=== PATIENT | male | born 1955 | race Caucasian/White ===

== ENCOUNTER → 2016-07-23 | Outpatient (CLI) | payer BC ==
[~2016-07-23] MED LIST: AMLO10TA2 PO; ASPEC81 PO; CPR500 PO; CTPTP2 TD; GLIM4TAB2 PO; HYDR12.56 PO; LISI-725 PO; LISI40TA PO; LPR100 PO; METF-384 PO; NUTR-930 NJ; OXYC-609 PO
--- NOTE | 2016-07-23 08:58 | DIAGNOSTIC IMAGING REPORT ---
ABDOMEN COMPLETE (US) CLINICAL HISTORY: Acute pancreatitis. COMPARISON STUDY: Right upper quadrant ultrasound October 04, [address] of the abdomen and pelvis June 16, 2016 FINDINGS: The liver is echogenic. No hepatic lesions are identified. There is no biliary ductal dilatation status post cholecystectomy. The pancreas is largely obscured by overlying bowel gas. This study is compromised by suboptimal penetration. The sizes spleen is normal. There are several right renal calculi and suspected left renal calculi. No hydronephrosis is present. The right kidney measures 12.9 cm in maximal dimension and the left measures 12.3 cm. The caliber of the abdominal aorta is normal. IMPRESSION: 1. No biliary ductal dilatation status post cholecystectomy. 2. Partially obscured pancreas. 3. Fatty liver. 4. Bilateral nephrolithiasis. No hydronephrosis. Electronically signed by: Jalen Deras M.D. 07/23/2016 8:56 AM
== END | disposition home or self-care (01) ==
LOC: C.ULTR 07:57
PROVIDERS: ATTEND Family Medicine
DX: K85.00 Idiopathic acute pancreatitis without necrosis or infection (principal); I10 Essential (primary) hypertension; K76.0 Fatty (change of) liver, not elsewhere classified

== ENCOUNTER 2016-10-23 12:13 | Inpatient (IN) | payer BC ==
[~2016-10-23] VITALS: Ht 180.3 cm; Wt 144.2 kg
[~2016-10-23 12:13] MED LIST changes: -CTPTP2 TD; -GLIM4TAB2 PO; -LISI40TA PO; -LPR100 PO; -NUTR-930 NJ
[2016-10-23] MEDS ORDERED: ONDANSETRON INJ 2 MG/ML 2 ML VIAL IV STA (12:37)
[2016-10-23] MEDS ORDERED: SODIUM CHLORIDE 0.9% 1000ML 500 ML IV STA (12:37)
[2016-10-23] MEDS ORDERED: GLIM4TAB2 PO (12:47)
[2016-10-23 13:14] LABS: BASO % 0.2 %; BASO ABS # 0.03 K/uL (0-0.2); COMPLETE YES; EOS % 1.7 %; HEMATOCRIT 41.3 % (42-52); IG% 0.3 %; LYMPH % 14.9 %; LYMPH ABS # 2.05 K/uL (1.2-3.4); MEAN CORPUSCULAR HEMOGLOBIN 26.6 pg (25-34); MEAN CORPUSCULAR HGB CONC 33.2 g/dl (32-36); MEAN PLATELET VOLUME 9.7 fL (7.4-10.4); MONO % 8.8 %; NEUT % 74.1 %; PLATELET COUNT 264 K/uL (130-400); RED BLOOD COUNT 5.16 M/uL (4.7-6.1); WHITE BLOOD COUNT 13.75 K/uL (4.8-10.8)
[2016-10-23] MEDS: FENTANYL CITRATE INJ 50 MCG/1 ML 2 ML VIAL IV PRN ×2 (13:22→15:05)
[2016-10-23 13:25] LABS: PROTHROMBIN TIME (PATIENT) 10.4 SECONDS (9.0-12.0)
--- NOTE | 2016-10-23 13:26 | EMERGENCY ROOM VISIT NOTE ---
History Report prepared by Irma: Jenny Jamison Under the Supervision of: Dr. Thiago Barnes M.D. First contact with patient: 12:31 Chief Complaint: ABDOMINAL PAIN Stated Complaint: BELLY PAIN History of Present Illness The patient is a 60 year old male who presents to the Emergency Room with complaints of waxing and waning left sided abdominal pain starting 2 days ago. He denies any pain radiation to the back. He can feel some "gurgling" in his abdomen. He currently rates a pain intensity of 8/10. He has worsening pain with eating and lying down flat. He also complains of high blood pressure. His blood pressure was 210/116 this morning. He has a history of hypertension and denies missing any prescribed medications. He has a history of similar symptoms occurring in May 2016 and he was diagnosed with pancreatitis and colitis. He was placed on antibiotics then. The patient denies fevers, chest pain, urinary symptoms, diarrhea, or any other complaints. He takes a baby aspirin every day. Source of History: patient Onset: 2 days ago Position: abdomen (left sided) Symptom Intensity: 8/10 Timing: waxes/wanes Modifying Factors (Worsening): eating, other (lying down flat) Associated Symptoms: No chest pain, No diarrhea, No fevers, No urinary symptoms Review of Systems See HPI for pertinent positives & negatives. A total of 10 systems reviewed and were otherwise negative. Past Medical & Surgical Medical Problems: (1) Colitis (2) Diabetes (3) Hypertension Surgical Problems: (1) S/P cholecystectomy Family History Cancer Diabetes mellitus Heart disease Kidney disease Kidney stones Social History Smoking Status: Never Smoker Alcohol Use: none Marital Status: Housing Status: lives with significant other Occupation Status: employed Current/Historical Medications Scheduled Aspirin Enteric Coated (Ecotrin Or Generic *), 81 MG PO DAILY Glimepiride (Glimepiride), 1 TAB PO DAILY Lisinopril (Zestril), 20 MG PO QAM Metformin Hcl (Glucophage), 1,000 MG PO BID Allergies Coded Allergies: Penicillins (Verified Allergy, Mild, RASH, 06/16/16) NEVER HAS HAD DIFFICULTY BREATHING WITH PCN BEFORE- PER PT 10/30/09, [facility] IN [place] CHECKED WITH PT. HE IS WILLING TO TAKE ANCEF PRE-OP TODAY Amoxicillin (Verified Adverse Reaction, Severe, rash, 06/16/16) Morphine (Unverified Adverse Reaction, Severe, Rowdy, fired up, 10/23/16) Clindamycin (Verified Adverse Reaction, Unknown, ? nicol's syndrome, ) redness,diaphoresis, transient elevated temp. occurs aprox. 1 hour after taking med and resolves spontaneously in 20-30 minutes. Physical Exam Vital Signs Date Time Temp Pulse Resp B/P Pulse Ox O2 Delivery O2 Flow Rate FiO2 10/23/16 15:01 95 18 130/99 97 Room Air 10/23/16 14:01 94 16 136/89 95 Nasal Cannula 2.0 10/23/16 13:41 95 Nasal Cannula 2.0 10/23/16 13:31 99 10/23/16 13:27 100 18 154/95 94 Room Air 10/23/16 13:20 95 Room Air 10/23/16 12:19 36.7 117 18 195/109 95 Room Air Physical Exam GENERAL: Patient is in no acute distress. HEENT: No acute trauma, normocephalic atraumatic, mucous membranes moist, no nasal congestion, no scleral icterus. NECK: No stridor, no adenopathy, no meningismus, trachea is midline. LUNGS: Clear to auscultation bilaterally, no wheeze, no rhonchi, breath sounds equal. HEART: Tachycardic with a regular rhythm, no murmurs. ABDOMEN: Soft, tenderness in the epigastrium and along the entire left side, bowel sounds positive, no hernias, no peritonitis. EXTREMITIES: Mild bilateral pedal edema, full range of motion of all the joints without pain or difficulty, no signs for acute trauma. NEUROLOGIC: Oriented x 3, no acute motor or sensory deficits, no focal weakness. SKIN: No rash, no jaundice, no diaphoresis. Medical Decision & Procedures ER Provider Diagnostic Interpretation: CT results as stated below per my review and radiologist interpretation: CT ABD/PELVIS IV AND ORAL CONT CLINICAL HISTORY: Abdominal pain COMPARISON STUDY: 06/16/2016 TECHNIQUE: Following the IV administration of 94 mL of Optiray-320, CT scan of the abdomen and pelvis was performed from the lung bases to the proximal femurs. Images are reviewed in the axial, sagittal, and coronal planes. IV contrast was administered without complication. CT DOSE: 2159.21 mGy.cm FINDINGS: Lower chest: There are mild dependent atelectatic changes. Liver: There is hepatic steatosis. Gallbladder: Surgically absent Spleen: Normal in size and attenuation. Pancreas: There is infiltration of the peripancreatic fat suspicious for acute pancreatitis. Please correlate with appropriate biochemical markers. Adrenal glands: Unremarkable. Kidneys: There are bilateral nonobstructing renal calculi. Bowel: There are no transition zones indicate bowel obstruction. The appendix appears normal. There is colonic diverticulosis. There are no acute peridiverticular inflammatory changes. Peritoneum: There is no free air. There is trace free pelvic fluid.. There are fat-containing inguinal hernias versus lipomatous inguinal canals. Vasculature: The abdominal aorta is normal in course and caliber. Adenopathy: None. Pelvic viscera: The bladder, and pelvic viscera are unremarkable. Skeletal structures: No destructive osseous lesions are seen. IMPRESSION: 1. Infiltration of the peripancreatic fat. The findings are viewed as suspicious for acute pancreatitis. Please correlate with appropriate biochemical markers 2. Hepatic steatosis 3. Bilateral nephrolithiasis 4. No evidence of bowel obstruction. No evidence of free air 5. Diverticulosis. No evidence of acute diverticulitis 6. Normal appendix Electronically signed by: Juan Arriaza M.D. 10/23/2016 3:53 PM Dictated Date/Time: 10/23/2016 3:48 PM Laboratory Results 10/23/16 13:03 Red Blood Count 5.16, Mean Corpuscular Volume 80.0, Mean Corpuscular Hemoglobin 26.6, Mean Corpuscular Hemoglobin Concent 33.2, Mean Platelet Volume 9.7, Neutrophils (%) (Auto) 74.1, Lymphocytes (%) (Auto) 14.9, Monocytes (%) (Auto) 8.8, Eosinophils (%) (Auto) 1.7, Basophils (%) (Auto) 0.2, Neutrophils # (Auto) 10.19, Lymphocytes # (Auto) 2.05, Monocytes # (Auto) 1.21, Eosinophils # (Auto) 0.23, Basophils # (Auto) 0.03 10/23/16 13:03 Test 10/23/16 13:03 White Blood Count 13.75 K/uL (4.8-10.8) Red Blood Count 5.16 M/uL (4.7-6.1) Hemoglobin 13.7 g/dL (14.0-18.0) Hematocrit 41.3 % (42-52) Mean Corpuscular Volume 80.0 fL (80-100) Mean Corpuscular Hemoglobin 26.6 pg (25-34) Mean Corpuscular Hemoglobin Concent 33.2 g/dl (32-36) Platelet Count 264 K/uL (130-400) Mean Platelet Volume 9.7 fL (7.4-10.4) Neutrophils (%) (Auto) 74.1 % Lymphocytes (%) (Auto) 14.9 % Monocytes (%) (Auto) 8.8 % Eosinophils (%) (Auto) 1.7 % Basophils (%) (Auto) 0.2 % Neutrophils # (Auto) 10.19 K/uL (1.4-6.5) Lymphocytes # (Auto) 2.05 K/uL (1.2-3.4) Monocytes # (Auto) 1.21 K/uL (0.11-0.59) Eosinophils # (Auto) 0.23 K/uL (0-0.5) Basophils # (Auto) 0.03 K/uL (0-0.2) RDW Standard Deviation 42.3 fL (36.4-46.3) RDW Coefficient of Variation 14.5 % (11.5-14.5) Immature Granulocyte % (Auto) 0.3 % Immature Granulocyte # (Auto) 0.04 K/uL (0.00-0.02) Prothrombin Time 10.4 SECONDS (9.0-12.0) Prothromb Time International Ratio 1.0 (0.9-1.1) Activated Partial Thromboplast Time 27.2 SECONDS (21.0-31.0) Partial Thromboplastin Ratio 1.0 Anion Gap 7.0 mmol/L (3-11) Est Creatinine Clear Calc Drug Dose 120.6 ml/min Estimated GFR () 102.3 Estimated GFR (Non- 88.3 BUN/Creatinine Ratio 9.0 (10-20) Lactic Acid Level 1.4 mmol/L (0.4-2.0) Calcium Level 8.8 mg/dl (8.5-10.1) Total Bilirubin 0.6 mg/dl (0.2-1) Aspartate Amino Transf (AST/SGOT) 6 U/L (15-37) Alanine Aminotransferase (ALT/SGPT) 17 U/L (12-78) Alkaline Phosphatase 83 U/L (45-117) Total Protein 7.9 gm/dl (6.4-8.2) Albumin 3.4 gm/dl (3.4-5.0) Globulin 4.5 gm/dl (2.5-4.0) Albumin/Globulin Ratio 0.8 (0.9-2) Amylase Level 354 U/L (25-115) Lipase 4563 U/L (73-393) Laboratory results reviewed by me. Medications Administered Medications (Trade) Dose Ordered Sig/Akash Route Start Time Stop Time Status Last Admin Dose Admin Sodium Chloride (Nss 1000ml) 500 ml @ 999 mls/hr Q31M STAT IV 10/23/16 12:37 10/23/16 13:07 DC 10/23/16 13:23 999 MLS/HR Ondansetron HCl (Zofran Inj) 4 mg NOW STAT IV 10/23/16 12:37 10/23/16 12:41 DC 10/23/16 13:21 4 MG Fentanyl Citrate (Fentanyl Inj) 100 mcg Q15M PRN IV 10/23/16 12:45 11/06/16 12:44 10/23/16 15:05 100 MCG ED Course 1231: The patient was evaluated in room B06. A complete history and physical exam was performed. 1237: Zofran Inj 4 mg IV, Sodium Chloride 500 ml @ 999 mls/hr IV 1245: Fentanyl Inj 100 mcg IV 1432: Upon reexamination the patient is resting comfortably. I discussed results and treatment plan with the patient. He verbalizes agreement and understanding. The patient will be evaluated for further management. 1434: I discussed the patient's case with Dr. Fagan, from [facility] Hospitalist Service. Medical Decision Differential diagnosis includes but is not limited to pancreatitis, diverticulitis or colitis, bowel obstruction, bowel perforation, UTI, musculoskeletal pain, hernia, appendicitis. There is a mild leukocytosis which would be consistent with infection, no worrisome anemia. No significant electrolyte abnormality, kidney failure or hepatitis. There is no coagulopathy. Urinalysis does not show infection or significant hematuria. Pancreatitis was noted by our testing, lipase was over 4000. Abdominal and pelvis CT demonstrates acute pancreatitis, no bowel obstruction, no free air, no diverticulitis. The patient received IV Zofran, IV saline and IV fentanyl, he feels improved. Given the findings on laboratory testing and CT, admission/observation is warranted. I did speak with the patient and case management. The on-call hospitalist was consulted. Consults Time Called: 1432 Consulting Physician: Dr. Fagan, from [facility] Service Returned Call: 1434 I discussed the patient's case with Dr. Fagan, from [facility] Service. Impression Primary Impression: Acute pancreatitis Additional Impression: Left sided abdominal pain Scribe Attestation The scribe's documentation has been prepared under my direction and personally reviewed by me in its entirety. I confirm that the note above accurately reflects all work, treatment, procedures, and medical decision making performed by me. Departure Information Dispostion Being Evaluated By Hospitalist Referrals No Doctor, Assigned (PCP) Patient Instructions My [facility] Problem Qualifiers
[2016-10-23 13:33] LABS: CALCIUM 8.8 mg/dl (8.5-10.1); CREATININE 0.93 mg/dl (0.60-1.40); POTASSIUM 3.6 mmol/L (3.5-5.1)
[2016-10-23 13:35] LABS: ALB/GLOB RATIO 0.8 (0.9-2)
[2016-10-23] MEDS ORDERED: OPTIRAY 320 IV PRN (14:15)
[2016-10-23] MEDS ORDERED: HYDROmorphone INJ 0.5 MG/0.5 ML SYR IV PRN (15:15)
[2016-10-23] MEDS ORDERED: ONDANSETRON INJ 2 MG/ML 2 ML VIAL IV PRN (15:15)
[2016-10-23] MEDS: LACTATED RINGER'S 1000ML 1,000 ML IV SCH (15:15)
[2016-10-23] MEDS ORDERED: LORAZEPAM 2 MG/ML 1 ML VIAL IV PRN ×2 (15:15)
[2016-10-23] MEDS ORDERED: GLUCOSE 10 TABS/TUBE PO PRN (15:30)
[2016-10-23] MEDS ORDERED: GLUCAGON FOR INJ 1 MG VIAL SQ PRN (15:30)
[2016-10-23] MEDS ORDERED: DEXTROSE 50% 50 ML SYR IV PRN (15:30)
[2016-10-23] MEDS ORDERED: GLUCOSE 40% GEL 15 GM TUBE PO PRN (15:30)
--- NOTE | 2016-10-23 15:54 | DIAGNOSTIC IMAGING REPORT ---
CT ABD/PELVIS IV AND ORAL CONT CLINICAL HISTORY: Abdominal pain COMPARISON STUDY: 06/16/2016 TECHNIQUE: Following the IV administration of 94 mL of Optiray-320, CT scan of the abdomen and pelvis was performed from the lung bases to the proximal femurs. Images are reviewed in the axial, sagittal, and coronal planes. IV contrast was administered without complication. CT DOSE: 2159.21 mGy.cm FINDINGS: Lower chest: There are mild dependent atelectatic changes. Liver: There is hepatic steatosis. Gallbladder: Surgically absent Spleen: Normal in size and attenuation. Pancreas: There is infiltration of the peripancreatic fat suspicious for acute pancreatitis. Please correlate with appropriate biochemical markers. Adrenal glands: Unremarkable. Kidneys: There are bilateral nonobstructing renal calculi. Bowel: There are no transition zones indicate bowel obstruction. The appendix appears normal. There is colonic diverticulosis. There are no acute peridiverticular inflammatory changes. Peritoneum: There is no free air. There is trace free pelvic fluid.. There are fat-containing inguinal hernias versus lipomatous inguinal canals. Vasculature: The abdominal aorta is normal in course and caliber. Adenopathy: None. Pelvic viscera: The bladder, and pelvic viscera are unremarkable. Skeletal structures: No destructive osseous lesions are seen. IMPRESSION: 1. Infiltration of the peripancreatic fat. The findings are viewed as suspicious for acute pancreatitis. Please correlate with appropriate biochemical markers 2. Hepatic steatosis 3. Bilateral nephrolithiasis 4. No evidence of bowel obstruction. No evidence of free air 5. Diverticulosis. No evidence of acute diverticulitis 6. Normal appendix Electronically signed by: Juan Arriaza M.D. 10/23/2016 3:53 PM Dictated Date/Time: 10/23/2016 3:48 PM
[2016-10-23] MEDS: INSULIN ASPART 100 UNITS/ML 3 ML PEN SC SCH ×2 (16:30→20:22)
--- NOTE | 2016-10-23 16:37 | HISTORY & PHYSICAL EXAMINATION ---
DATE OF ADMISSION: 10/23/2016 CHIEF COMPLAINT: Abdominal pain. ADMITTING DIAGNOSIS: Acute pancreatitis. HISTORY OF PRESENT ILLNESS: Mr. Adair is a 60-year-old male who had a bout of pancreatitis in the fall of 2016. He is post-cholecystectomy patient. At that time, it was unclear etiology of his pancreatitis, although he had a concomitant descending colitis. The patient was treated and did well. He had some outpatient testing by his primary care physician, Dr. Barrios, which was unrevealing. The patient presents today with about 1 week's history of nagging abdominal pain which he worsened. He saw Dr. Barrios earlier in the week in which time his glucose was in poor control and he was prescribed glipizide in addition to his metformin. He says that his abdominal discomfort precedes that. He did begin the medication, but presented to the Emergency Department with intense mid to left upper quadrant abdominal pain, very reminiscent to his pre-cholecystectomy pain. The patient in the Emergency Department was found to have lipase of 4563. He is currently pending CAT scan. His pain control has been achieved with fentanyl. ALLERGIES: HE HAS AN ALLERGY TO MORPHINE. PAST MEDICAL HISTORY: Diabetes, hypertension, cholecystectomy, and fatty liver. MEDICATIONS: On presentation are aspirin 81 a day, lisinopril 20 a day, metformin 1000 b.i.d. and the glipizide which was just started this week. SOCIAL HISTORY: The patient did have a smoking history. He quit. He is and accompanied by his . FAMILY HISTORY: Positive for cancer, diabetes, heart disease and renal disease. REVIEW OF SYSTEMS: Ten systems were reviewed and are negative unless listed above. This includes no changes in his bowel habits. PHYSICAL EXAMINATION: GENERAL: He is pleasant, robust gentleman. VITAL SIGNS: Temperature 36.7, pulse 94, respiration 16, BP 136/89. He is slightly sedate from his fentanyl dosing. His O2 sats 95 on 2 liters. HEENT: PERRL, EOMI. Oropharynx is clear. He is anicteric. NECK: Without lymphadenopathy. Trachea is midline. HEART: Regular without murmurs. LUNGS: Clear without wheezes or crackles. Good air movement. SPINE: Nontender. He has no CV angle tenderness. ABDOMEN: He is with hypoactive bowel sounds. He is slightly obese. He is soft. He is uncomfortable in the epigastrium and bilateral upper quadrants. There is no rebound or guarding. EXTREMITIES: Without cyanosis, clubbing or edema. NEUROLOGIC: He is awake, alert and oriented, although sedate from his fentanyl. His cranial nerves II-XII are intact. He has equal symmetrical strength and sensation. LABORATORY DATA: Includes white count of 13, H\T\H 13 and 41, platelet count 264. BUN and creatinine of 8 and 0.9. LFTs are actually unremarkable, but amylase and lipase are both elevated. His glucose is 148. As mentioned, he has got a pending CT of the abdomen. ASSESSMENT: Acute recurrent pancreatitis. PLAN: His pancreatitis may be from microlithiasis as he does have a previous cholecystectomy. To this end, we will treat him with n.p.o. status with Lactated Ringer's, antiemetics, and parenteral pain medications. We will consult Dr. Abdi and Dr. Barrios for outpatient primary care to determine if we need to proceed with an MRCP or ERCP or any other diagnostic workup regarding the etiology of this gentleman's pancreatitis once this calms down a bit. For his diabetes, his medications will be held. He will be placed on insulin sliding scale. For his hypertension, his lisinopril will be held. He will be on enalaprilat intravenously with p.r.n. hydralazine for backup. He will have his aspirin held. DVT prevention is heparin. The patient is a full code.
[2016-10-23 17:12] VITALS: BP 165/99; PULSE 88; TEMP 37.1; O2SAT 93; Ht 180.3 cm; Wt 144.2 kg
[2016-10-23] MEDS: HYDROmorphone INJ 1 MG/ML SYR IV PRN ×2 (17:32→21:38)
[2016-10-23 17:43] LABS: URINE APPEARANCE CLEAR (CLEAR); URINE BILIRUBIN NEG (NEG); URINE COLOR DK YELLOW; URINE NITRITE NEG (NEG); URINE PH 5.5 (4.5-7.5); URINE SPECIFIC GRAVITY > 1.045 (1.000-1.030); UROBILINOGEN NEG (NEG); ZZUR CULT IF INDIC CLEAN CATCH NO
[2016-10-23 17:48] LABS: MANUAL MICROSCOPIC REQUIRED? NO; REVIEW REQ? NO
[2016-10-23] MEDS ORDERED: INFLUENZA VIRUS QUAD VACCINE 0.5 ML SYR IM. ONE (18:45)
[2016-10-23] MEDS ORDERED: INFLUENZA ADMINISTRATION CHARGE ONE (18:45)
[2016-10-23] MEDS ORDERED: PNEUMOCOCCAL POLYSACCHARIDES 25 MCG/0.5 ML VIAL/SYR IM. ONE (18:45)
[2016-10-23] MEDS ORDERED: PNEUMOCOCCAL ADMINISTRATION CHARGE ONE (18:45)
[2016-10-23] MEDS: ENALAPRILAT IV 1.25 MG in DEXTROSE 5% 25ML 25 ML IV SCH (20:51)
[2016-10-23] MEDS: HEPARIN SOD 5000 UNIT/0.5 ML CARP SQ SCH (20:58)
[2016-10-23 23:29] VITALS: BP 152/87; PULSE 96; TEMP 37.1; O2SAT 91
[2016-10-24] MEDS: LACTATED RINGER'S 1000ML 1,000 ML IV SCH ×4 (00:32→23:26)
[2016-10-24] MEDS: ENALAPRILAT IV 1.25 MG in DEXTROSE 5% 25ML 25 ML IV SCH ×3 (05:40→21:48)
[2016-10-24 07:28] VITALS: BP 155/79; PULSE 103; TEMP 37.3; O2SAT 93
[2016-10-24 07:34] LABS: HEMATOCRIT 39.6 % (42-52); MEAN CELL VOLUME 81.1 fL (80-100); MEAN CORPUSCULAR HGB CONC 33.3 g/dl (32-36); MEAN PLATELET VOLUME 10.2 fL (7.4-10.4); PLATELET COUNT 249 K/uL (130-400); RED BLOOD COUNT 4.88 M/uL (4.7-6.1)
[2016-10-24 07:49] LABS: BUN/CREATININE RATIO 9.9 (10-20); CALCIUM 8.5 mg/dl (8.5-10.1); CREATININE 0.84 mg/dl (0.60-1.40); POTASSIUM 3.8 mmol/L (3.5-5.1)
[2016-10-24 07:52] LABS: ALB/GLOB RATIO 0.7 (0.9-2)
[2016-10-24] MEDS: HEPARIN SOD 5000 UNIT/0.5 ML CARP SQ SCH ×2 (07:59→21:51)
[2016-10-24] MEDS: INSULIN ASPART 100 UNITS/ML 3 ML PEN SC SCH ×3 (07:59→18:29)
[2016-10-24] MEDS ORDERED: LORAZEPAM INJ 0.5 MG in SYRINGE 0.75 ML IV PRN (08:00)
[2016-10-24] MEDS: LORAZEPAM INJ 1 MG in SYRINGE 0.5 ML IV PRN ×3 (08:14→21:53)
--- NOTE | 2016-10-24 12:51 | Hospitalist Progress Note ---
Hospitalist Progress Note Date of Service Oct 24, 2016. (Anabella Jimenez PA-C) Subjective Pt evaluation today including: conversation w/ patient, conversation w/ family , physical exam, chart review, lab review, review of studies, review of inpatient medication list Abdominal pain is improved today. Nausea has also improved. The patient is passing gas, however he admits to also burping. No bowel movements. No fever or chills. Had a bad reaction to the Dilaudid. Requesting fentanyl. Additional Comments: 6 system review negative. Please see pertinent positives in the history of present illness section. (Anabella Jimenez PA-C) Objective Vital Signs Date Time Temp Pulse Resp B/P Pulse Ox O2 Delivery O2 Flow Rate FiO2 10/24/16 08:00 Room Air 10/24/16 07:28 37.3 103 20 155/79 93 Room Air 10/23/16 23:50 Room Air 10/23/16 23:29 37.1 96 20 152/87 91 Room Air 10/23/16 17:12 37.1 88 18 165/99 93 Room Air 10/23/16 16:26 87 18 151/90 94 Room Air 10/23/16 15:01 95 18 130/99 97 Room Air 10/23/16 14:01 94 16 136/89 95 Nasal Cannula 2.0 10/23/16 13:41 95 Nasal Cannula 2.0 10/23/16 13:31 99 10/23/16 13:27 100 18 154/95 94 Room Air 10/23/16 13:20 95 Room Air (Anabella Jimenez PA-C) Physical Exam General Appearance: no apparent distress Eyes: EOMI ENT: + pertinent finding (oral mucosa fairly dry) Neck: no JVD Respiratory/Chest: lungs clear Cardiovascular: + tachycardia (mildly tachycardic. Regular rhythm.) Abdomen: normal bowel sounds, non tender, soft Extremities: non-tender, no pedal edema Neurologic/Psychiatric: no motor/sensory deficits, oriented x 3 Skin: warm/dry (Anabella Jimenez PA-C) Laboratory Results 10/24/16 07:09 10/24/16 07:09 Test 10/23/16 13:03 10/23/16 17:00 10/24/16 07:09 10/24/16 11:12 Immature Granulocyte % (Auto) 0.3 % White Blood Count 13.75 K/uL (4.8-10.8) Red Blood Count 5.16 M/uL (4.7-6.1) 4.88 M/uL (4.7-6.1) Hemoglobin 13.7 g/dL (14.0-18.0) Hematocrit 41.3 % (42-52) Mean Corpuscular Volume 80.0 fL (80-100) 81.1 fL (80-100) Mean Corpuscular Hemoglobin 26.6 pg (25-34) 27.0 pg (25-34) Mean Corpuscular Hemoglobin Concent 33.2 g/dl (32-36) 33.3 g/dl (32-36) Platelet Count 264 K/uL (130-400) Mean Platelet Volume 9.7 fL (7.4-10.4) 10.2 fL (7.4-10.4) Neutrophils (%) (Auto) 74.1 % Lymphocytes (%) (Auto) 14.9 % Monocytes (%) (Auto) 8.8 % Eosinophils (%) (Auto) 1.7 % Basophils (%) (Auto) 0.2 % Neutrophils # (Auto) 10.19 K/uL (1.4-6.5) Lymphocytes # (Auto) 2.05 K/uL (1.2-3.4) Monocytes # (Auto) 1.21 K/uL (0.11-0.59) Eosinophils # (Auto) 0.23 K/uL (0-0.5) Basophils # (Auto) 0.03 K/uL (0-0.2) Immature Granulocyte # (Auto) 0.04 K/uL (0.00-0.02) Prothrombin Time 10.4 SECONDS (9.0-12.0) Prothromb Time International Ratio 1.0 (0.9-1.1) Activated Partial Thromboplast Time 27.2 SECONDS (21.0-31.0) Partial Thromboplastin Ratio 1.0 Lactic Acid Level 1.4 mmol/L (0.4-2.0) Amylase Level 354 U/L (25-115) Urine Color DK YELLOW Urine Appearance CLEAR (CLEAR) Urine pH 5.5 (4.5-7.5) Urine Specific Pierz > 1.045 (1.000-1.030) Urine Protein TRACE (NEG) Urine Glucose (UA) TRACE (NEG) Urine Ketones TRACE (NEG) Urine Occult Blood NEG (NEG) Urine Nitrite NEG (NEG) Urine Bilirubin NEG (NEG) Urine Urobilinogen NEG (NEG) Urine Leukocyte Esterase NEG (NEG) Urine WBC (Auto) 1-5 /hpf (0-5) Urine RBC (Auto) 0-4 /hpf (0-4) Urine Hyaline Casts (Auto) 1-5 /lpf (0-5) Urine Epithelial Cells (Auto) 10-20 /lpf (0-5) Urine Bacteria (Auto) NEG (NEG) RDW Standard Deviation 43.9 fL (36.4-46.3) RDW Coefficient of Variation 14.8 % (11.5-14.5) Anion Gap 10.0 mmol/L (3-11) Est Creatinine Clear Calc Drug Dose 134.3 ml/min Estimated GFR () 109.5 Estimated GFR (Non- 94.5 BUN/Creatinine Ratio 9.9 (10-20) Calcium Level 8.5 mg/dl (8.5-10.1) Total Bilirubin 0.9 mg/dl (0.2-1) Aspartate Amino Transf (AST/SGOT) 9 U/L (15-37) Alanine Aminotransferase (ALT/SGPT) 16 U/L (12-78) Alkaline Phosphatase 80 U/L (45-117) Total Protein 7.4 gm/dl (6.4-8.2) Albumin 3.0 gm/dl (3.4-5.0) Globulin 4.4 gm/dl (2.5-4.0) Albumin/Globulin Ratio 0.7 (0.9-2) Lipase 468 U/L (73-393) Bedside Glucose 167 mg/dl (70-99) Last 24 Hours Test 10/23/16 13:03 10/23/16 16:46 10/23/16 17:00 10/23/16 19:44 White Blood Count 13.75 K/uL Red Blood Count 5.16 M/uL Hemoglobin 13.7 g/dL Hematocrit 41.3 % Mean Corpuscular Volume 80.0 fL Mean Corpuscular Hemoglobin 26.6 pg Mean Corpuscular Hemoglobin Concent 33.2 g/dl Platelet Count 264 K/uL Mean Platelet Volume 9.7 fL Neutrophils (%) (Auto) 74.1 % Lymphocytes (%) (Auto) 14.9 % Monocytes (%) (Auto) 8.8 % Eosinophils (%) (Auto) 1.7 % Basophils (%) (Auto) 0.2 % Neutrophils # (Auto) 10.19 K/uL Lymphocytes # (Auto) 2.05 K/uL Monocytes # (Auto) 1.21 K/uL Eosinophils # (Auto) 0.23 K/uL Basophils # (Auto) 0.03 K/uL RDW Standard Deviation 42.3 fL RDW Coefficient of Variation 14.5 % Immature Granulocyte % (Auto) 0.3 % Immature Granulocyte # (Auto) 0.04 K/uL Prothrombin Time 10.4 SECONDS Prothromb Time International Ratio 1.0 Activated Partial Thromboplast Time 27.2 SECONDS Partial Thromboplastin Ratio 1.0 Sodium Level 137 mmol/L Potassium Level 3.6 mmol/L Chloride Level 101 mmol/L Carbon Dioxide Level 29 mmol/L Anion Gap 7.0 mmol/L Blood Urea Nitrogen 8 mg/dl Creatinine 0.93 mg/dl Est Creatinine Clear Calc Drug Dose 120.6 ml/min Estimated GFR () 102.3 Estimated GFR (Non- 88.3 BUN/Creatinine Ratio 9.0 Random Glucose 148 mg/dl Lactic Acid Level 1.4 mmol/L Calcium Level 8.8 mg/dl Total Bilirubin 0.6 mg/dl Aspartate Amino Transf (AST/SGOT) 6 U/L Alanine Aminotransferase (ALT/SGPT) 17 U/L Alkaline Phosphatase 83 U/L Total Protein 7.9 gm/dl Albumin 3.4 gm/dl Globulin 4.5 gm/dl Albumin/Globulin Ratio 0.8 Amylase Level 354 U/L Lipase 4563 U/L Bedside Glucose 131 mg/dl 151 mg/dl Urine Color DK YELLOW Urine Appearance CLEAR Urine pH 5.5 Urine Specific Pierz > 1.045 Urine Protein TRACE Urine Glucose (UA) TRACE Urine Ketones TRACE Urine Occult Blood NEG Urine Nitrite NEG Urine Bilirubin NEG Urine Urobilinogen NEG Urine Leukocyte Esterase NEG Urine WBC (Auto) 1-5 /hpf Urine RBC (Auto) 0-4 /hpf Urine Hyaline Casts (Auto) 1-5 /lpf Urine Epithelial Cells (Auto) 10-20 /lpf Urine Bacteria (Auto) NEG Test 10/24/16 07:09 10/24/16 07:14 10/24/16 11:12 White Blood Count 13.90 K/uL Red Blood Count 4.88 M/uL Hemoglobin 13.2 g/dL Hematocrit 39.6 % Mean Corpuscular Volume 81.1 fL Mean Corpuscular Hemoglobin 27.0 pg Mean Corpuscular Hemoglobin Concent 33.3 g/dl RDW Standard Deviation 43.9 fL RDW Coefficient of Variation 14.8 % Platelet Count 249 K/uL Mean Platelet Volume 10.2 fL Sodium Level 137 mmol/L Potassium Level 3.8 mmol/L Chloride Level 101 mmol/L Carbon Dioxide Level 26 mmol/L Anion Gap 10.0 mmol/L Blood Urea Nitrogen 8 mg/dl Creatinine 0.84 mg/dl Est Creatinine Clear Calc Drug Dose 134.3 ml/min Estimated GFR () 109.5 Estimated GFR (Non- 94.5 BUN/Creatinine Ratio 9.9 Random Glucose 183 mg/dl Calcium Level 8.5 mg/dl Total Bilirubin 0.9 mg/dl Aspartate Amino Transf (AST/SGOT) 9 U/L Alanine Aminotransferase (ALT/SGPT) 16 U/L Alkaline Phosphatase 80 U/L Total Protein 7.4 gm/dl Albumin 3.0 gm/dl Globulin 4.4 gm/dl Albumin/Globulin Ratio 0.7 Lipase 468 U/L Bedside Glucose 173 mg/dl 167 mg/dl (Anabella Jimenez PA-C) Diagnostic Results CT abd/pelvis 1. Infiltration of the peripancreatic fat. The findings are viewed as suspicious for acute pancreatitis. Please correlate with appropriate biochemical markers 2. Hepatic steatosis 3. Bilateral nephrolithiasis 4. No evidence of bowel obstruction. No evidence of free air 5. Diverticulosis. No evidence of acute diverticulitis 6. Normal appendix (Anabella Jimenez PA-C) Assessment and Plan 60-year-old male presents emergency department with upper abdominal pain. Found to have an elevated lipase at over [address] Acute pancreatitis-? Retained stone. Clinically improving -Continue NPO -Awaiting GI recommendations for possible ERCP versus MRCP -Patient had adverse reaction to Dilaudid. He also cannot take morphine. Unable to give fentanyl. -Try lidocaine patch -May consider NSAIDs if no procedures done -Continue Zofran 4 mg IV every 6 hours as needed -Continue LR at 125 mL/h Diabetes type 2-blood sugars reasonable -Dose of metformin 1000 mg twice daily and glipizide are on hold -Continue insulin sliding scale and NovoLog coverage DVT prophylaxis -Heparin 5000 u subQ BID -TEDS, SCDs CODE STATUS -LEVEL I FULL CODE (Anabella Jimenez, PA-C) I agree with PA assessment and plan and have seen and examined pt myself Resting comfortably in bed Reports continued flank pain VSS Asking for diet S/P adria with acute pancreatitis Lipase improving, cont IV fluids (Seth Velazco D.O.)
[2016-10-24 14:12] VITALS: BP 173/102; PULSE 102
[2016-10-24 14:53] VITALS: BP 179/98; PULSE 100; TEMP 37.4; O2SAT 92
[2016-10-24] MEDS ORDERED: NURSING VERBAL MED ORDER ONE ×2 (16:00→18:30)
[2016-10-24] MEDS ORDERED: NURSING DECISION MEDICATION ORDER SCH (16:00)
[2016-10-24 16:04] VITALS: BP 168/110; PULSE 109
[2016-10-24] MEDS: HydrALAZINE HCL 20 MG/ML VIAL IV PRN (16:08)
[2016-10-24] MEDS: LIDODERM (LIDOCAINE) PATCH 5% TD SCH (16:09)
[2016-10-24 18:18] VITALS: BP_SYST 179; BP_SYST 188; BP_SYST 192; BP_DIAS 102; BP_DIAS 115; BP_DIAS 98; PULSE 102
[2016-10-24] MEDS ORDERED: CLONIDINE HCL 0.2 MG/24 HR TRANSDERM SYS TD SCH (19:00)
[2016-10-24 21:40] VITALS: BP 150/78; PULSE 110
[2016-10-24] MEDS: CHECK CLONIDINE PATCH PLACEMENT SCH (23:27)
[2016-10-25] VITALS (8 sets, daily range): BP systolic 161–187; BP diastolic 90–104; PULSE 90–110; TEMP 37–37.3; O2SAT 90–95
[2016-10-25] MEDS: ENALAPRILAT IV 1.25 MG in DEXTROSE 5% 25ML 25 ML IV SCH ×3 (06:31→21:37)
[2016-10-25] MEDS: INSULIN ASPART 100 UNITS/ML 3 ML PEN SC SCH ×5 (07:18→21:43)
[2016-10-25 07:41] LABS: ALB/GLOB RATIO 0.6 (0.9-2); BUN/CREATININE RATIO 8.9 (10-20); CALCIUM 8.4 mg/dl (8.5-10.1); CREATININE 0.75 mg/dl (0.60-1.40); POTASSIUM 3.4 mmol/L (3.5-5.1)
[2016-10-25] MEDS: HydrALAZINE HCL 20 MG/ML VIAL IV PRN ×2 (07:49→15:29)
[2016-10-25] MEDS: LACTATED RINGER'S 1000ML 1,000 ML IV SCH ×2 (07:49→15:32)
[2016-10-25] MEDS: CHECK CLONIDINE PATCH PLACEMENT SCH ×2 (07:50→16:00)
[2016-10-25] MEDS: HEPARIN SOD 5000 UNIT/0.5 ML CARP SQ SCH ×2 (07:58→21:00)
[2016-10-25] MEDS: LIDODERM (LIDOCAINE) PATCH 5% TD SCH (07:58)
[2016-10-25] MEDS ORDERED: POTASSIUM CHLORIDE 10 MEQ TABCR PO ONE (09:45)
--- NOTE | 2016-10-25 12:52 | GASTROINTESTINAL CONSULTATION ---
DATE OF CONSULTATION: 10/24/2016 CHIEF COMPLAINT: Recurrent acute pancreatitis. HISTORY OF PRESENT ILLNESS: Mr. Adair is a 60-year-old white male who presents with a second attack of pancreatitis, initially one in May which required a 2-3 day hospitalization. A source at that time was not identified. The patient was feeling well and had an acute onset of abdominal pain that was again consistent with the patient's attack of pancreatitis. Interestingly, his location of pain seems to be mostly in the mid to lower abdomen at or below the level of the umbilicus and actually towards the left lower quadrant region. The patient is a post-cholecystectomy patient. The patient had an approximate 1 week history of abdominal pain that was again similar to his prior attack of pancreatitis. Unfortunately, his blood sugar was poorly controlled and an adjustment to his diabetic medications, added glipizide to his metformin regimen, although this occurred after the development of this pain. In the Emergency Room, he had an elevated lipase level and CT imaging did show evidence of pancreatitis and will be described below. The patient denies any alcohol intake recently and unusually only has 1 alcoholic beverage perhaps monthly. There are no reports of significantly elevated cholesterol triglyceride levels at least according to the patient's history. PAST MEDICAL HISTORY: Includes diabetes, hypertension, cholecystectomy, fatty liver. ALLERGIES: INCLUDE MORPHINE. MEDICATIONS: Presently are aspirin, lisinopril, metformin 1000 mg twice daily and glipizide just recently started. SOCIAL HISTORY: The patient has not had tobacco use recently. There is no recent alcohol use. FAMILY HISTORY: Significant for diabetes, heart disease, renal disease, and cancer. REVIEW OF SYSTEMS: Otherwise noncontributory. The patient denies any nausea, vomiting, odynophagia, dysphagia, hematemesis, coffee-ground emesis, melena or bright red blood per rectum. There is no dysuria or hematuria. PHYSICAL EXAMINATION: GENERAL: Today shows a well developed white male in no acute distress. The patient is resting comfortably in bed. The patient is afebrile and has been so since admission. The patient is awake, alert and oriented x3. VITAL SIGNS: His current blood pressure is 179/98, heart rate 100, respirations 18 and pulse ox 92% on room air, temperature 37.4. HEENT: Sclerae are anicteric, conjunctiva moist. Oral mucosa moist. NECK: There is no cervical or supraclavicular adenopathy. I do not appreciate thyromegaly. HEART: Normal S1, S2. LUNGS: Clear to auscultation without rales, rhonchi or wheezes. ABDOMEN: The patient is resting comfortably in bed at the present time, the patient's pain in the abdomen is generally at the level of the umbilicus on the left side and perhaps towards the left lower quadrant. There is no rebound or guarding, although the patient does describe that sometimes the pain will go across the mid abdomen. I do not appreciate hepatosplenomegaly, although body habitus limits this exam. EXTREMITIES: Without clubbing, cyanosis. There is trace edema bilaterally. RECTAL: Deferred. LABORATORY STUDIES: Today reveal a white count of 13.9, hemoglobin 13.2, MCV 81, platelets 249,000. Serum chemistries on admission show normal LFTs with total bilirubin 0.6, AST 6, ALT 17, alkaline phosphatase 83, albumin is 3.4, amylase 354, lipase 4563. ____ and electrolytes were normal. BUN and creatinine 0.8 and 0.9. Potassium is normal at 3.6. INR 1.0. His urinalysis showed trace glucose with 10-20 epithelial cells, nitrite and leukocyte esterase, negative without urinary white blood cells or bacteria. CT imaging on admission on October 23 afternoon revealed evidence of an infiltration on the peripancreatic fat suspicious for acute pancreatitis. This was compared to May 2016 study, features were consistent with acute pancreatitis. There is also hepatic steatosis, nephrolithiasis bilaterally without evidence of bowel obstruction, free air or diverticulitis. Diverticulosis, however, is noted. The appendix appears normal. The bladder and pelvis are unremarkable. There is no suspicious adenopathy. IMPRESSION: The patient with recurrent pancreatitis in May and again this week of unclear etiology. There is no alcohol use or specific medicine that was started prior to the development of these symptoms. He denies the use of chronic NSAID use, does not smoke and does not use routine alcoholic beverages nor does he use excess alcohol when he does have an occasional drink. Differential diagnosis is idiopathic pancreatitis (there is no family history of recurrent pancreatitis), possibly stone disease in the biliary system; however, LFTs are negative on admission. This was also true in his prior hospitalization when in May at which point his bilirubin was 0.7, direct 0.1, AST 11, ALT 16, alkaline phosphatase 77. I made the following recommendations. I believe it is reasonable for the patient to undergo imaging of the biliary tree to exclude any subtle stone or sludge that may be causing these recurrent attacks. I would recommend this as a noninvasive approach with an MRCP. The patient, however, does have issues with claustrophobia and it may be helpful to provide an anxiolytic for this. If the pancreatic enzyme clinical situation improves, then it is reasonable to advance the diet ultimately to a low-fat diet. Cholesterol and triglycerides along with ionized calcium if not recently performed, would be helpful. Once the pancreatitis resolves, it may be reasonable to repeat imaging either by a CT scan once the inflammation is resolved or endoscopic ultrasound in the same timeframe (4-8 weeks). There has been no concerning weight loss; however, development of these attacks of pancreatitis without a specific reason warrants exclusion of any pancreatic lesions. Would strive for good glycemic control. All questions answered. Thank you for allowing me to participate in this patient's care.
[2016-10-25] MEDS: LORAZEPAM INJ 1 MG in SYRINGE 0.5 ML IV PRN (12:56)
--- NOTE | 2016-10-25 13:43 | Hospitalist Progress Note ---
Hospitalist Progress Note Date of Service Oct 25, 2016. (Anabella Jimenez PA-C) Subjective Pt evaluation today including: conversation w/ patient, conversation w/ family , physical exam, chart review, lab review, review of inpatient medication list Patient reports that the abdominal pain is improved. He notes a mild cramping sensation in the lower abdomen that he attributes to muscle tension. He denies any nausea. He has not had anything to eat or drink in 2 days. He was able to have 2 normal bowel movements this morning. Additional Comments: 6 system review negative. Please see pertinent positives in the history of present illness section. (Anabella Jimenez PA-C) Objective Vital Signs Date Time Temp Pulse Resp B/P Pulse Ox O2 Delivery O2 Flow Rate FiO2 10/25/16 09:14 169/101 10/25/16 08:14 Room Air 10/25/16 08:03 Room Air 10/25/16 07:21 37.1 99 20 92 Room Air 10/25/16 07:15 182/104 10/25/16 00:29 37.0 90 18 161/91 90 Room Air 10/25/16 00:00 Room Air 10/24/16 21:40 110 150/78 10/24/16 20:00 Room Air 10/24/16 18:18 102 179/115 192/102 188/98 10/24/16 16:04 109 168/110 10/24/16 16:00 Room Air 10/24/16 14:53 37.4 100 18 179/98 92 Room Air 10/24/16 14:12 102 173/102 (Anabella Jimenez PA-C) Physical Exam General Appearance: no apparent distress Eyes: EOMI Neck: no JVD Respiratory/Chest: lungs clear Cardiovascular: regular rate, rhythm Abdomen: normal bowel sounds, non tender, soft Extremities: non-tender, no pedal edema Neurologic/Psychiatric: no motor/sensory deficits, oriented x 3 (Anabella Jimenez PA-C) Laboratory Results 10/25/16 06:40 Test 10/25/16 06:40 10/25/16 12:01 Anion Gap 10.0 mmol/L (3-11) Est Creatinine Clear Calc Drug Dose 150.4 ml/min Estimated GFR () 114.8 Estimated GFR (Non- 99.0 BUN/Creatinine Ratio 8.9 (10-20) Calcium Level 8.4 mg/dl (8.5-10.1) Total Bilirubin 0.7 mg/dl (0.2-1) Aspartate Amino Transf (AST/SGOT) 11 U/L (15-37) Alanine Aminotransferase (ALT/SGPT) 16 U/L (12-78) Alkaline Phosphatase 77 U/L (45-117) Total Protein 6.8 gm/dl (6.4-8.2) Albumin 2.6 gm/dl (3.4-5.0) Globulin 4.2 gm/dl (2.5-4.0) Albumin/Globulin Ratio 0.6 (0.9-2) Lipase 189 U/L (73-393) Bedside Glucose 159 mg/dl (70-99) Last 24 Hours Test 10/24/16 18:07 10/25/16 00:14 10/25/16 06:35 10/25/16 06:40 Bedside Glucose 154 mg/dl 172 mg/dl 172 mg/dl Sodium Level 138 mmol/L Potassium Level 3.4 mmol/L Chloride Level 102 mmol/L Carbon Dioxide Level 26 mmol/L Anion Gap 10.0 mmol/L Blood Urea Nitrogen 7 mg/dl Creatinine 0.75 mg/dl Est Creatinine Clear Calc Drug Dose 150.4 ml/min Estimated GFR () 114.8 Estimated GFR (Non- 99.0 BUN/Creatinine Ratio 8.9 Random Glucose 158 mg/dl Calcium Level 8.4 mg/dl Total Bilirubin 0.7 mg/dl Aspartate Amino Transf (AST/SGOT) 11 U/L Alanine Aminotransferase (ALT/SGPT) 16 U/L Alkaline Phosphatase 77 U/L Total Protein 6.8 gm/dl Albumin 2.6 gm/dl Globulin 4.2 gm/dl Albumin/Globulin Ratio 0.6 Lipase 189 U/L Test 10/25/16 12:01 Bedside Glucose 159 mg/dl (Anabella Jimenez, PA-C) Assessment and Plan 60-year-old male presents emergency department with upper abdominal pain. Found to have an elevated lipase at over [address] Acute pancreatitis-etiology unclear. Does not seem to be alcohol related.? Retained stone -Continue NPO -GI to follow up this afternoon for possible ERCP versus MRCP -Continue LR at 125 mL/h -Advancing his diet to see how he tolerates, and then discharge with close GI follow-up would also be reasonable. Diabetes type 2- -Metformin 1000 mg twice daily and glipizide are on hold -Continue insulin sliding scale and NovoLog coverage HTN-BP up -Hydralazine 10 mg IV q 6 hr PRN -clonidine patch .0.2 transdermal -Vasotec IV -Consider addition of B juventino if it remains high DVT prophylaxis -Heparin 5000 u subQ BID -TEDS, SCDs CODE STATUS -LEVEL I FULL CODE (Anabella Jimenez, PA-C) I agree with PA assessment and plan and have seen and examined the pt myself Pt reports mod abd discomfort Acute pancreatitis on unknown etiology Kept NPO per GI team Tentative MRCP to be completed Reviewed labs (Seth Velazco D.O.)
[2016-10-25] MEDS ORDERED: LORAZEPAM INJ 2 MG in SYRINGE 1 ML IV PRN (14:45)
--- NOTE | 2016-10-25 15:27 | PROGRESS NOTE ---
DATE: 10/25/2016 HISTORY OF PRESENT ILLNESS: The patient is having less abdominal pain compared to admission. His lipase has gone down from 4563-189 in 48 hours. His liver tests were and continue to remain normal. CT scan shows some peripancreatic stranding consistent with acute pancreatitis. The patient had a previous cholecystectomy and there is no obvious biliary ductal dilation. His calcium is normal as well. PHYSICAL EXAMINATION: GENERAL: The patient appears in no acute distress. VITAL SIGNS: Blood pressure 165/92, pulse 96. ABDOMEN: Soft and nontender. IMPRESSION AND PLAN: The patient has acute idiopathic pancreatitis. I have ordered an MRCP to be done with IV Ativan sedation due to the patient's claustrophobia to see if there are any signs of pancreas divisum or other potential cause for his pancreatitis. Hopefully, once things have settled down and if his MRCP is negative, he may need to have an outpatient endoscopic ultrasound with Dr. Qiu to check for other potential causes of pancreatitis.
[2016-10-25] MEDS ORDERED: LORAZEPAM 2 MG/ML 1 ML VIAL **EMERGENCY USE ONE (16:29)
[2016-10-25] MEDS ORDERED: NURSING VERBAL MED ORDER ONE (17:45)
[2016-10-25] MEDS ORDERED: ACETAMINOPHEN 325 MG TAB PO PRN (18:00)
[2016-10-26] VITALS (7 sets, daily range): BP systolic 155–169; BP diastolic 84–105; PULSE 90–93; TEMP 36.5–37.2; O2SAT 91–96
[2016-10-26] MEDS: LACTATED RINGER'S 1000ML 1,000 ML IV SCH ×2 (01:11→08:01)
[2016-10-26] MEDS: ENALAPRILAT IV 1.25 MG in DEXTROSE 5% 25ML 25 ML IV SCH ×2 (05:14→14:04)
[2016-10-26] MEDS: HydrALAZINE HCL 20 MG/ML VIAL IV PRN (05:22)
[2016-10-26 06:36] LABS: HEMATOCRIT 38.6 % (42-52); MEAN CELL VOLUME 80.6 fL (80-100); MEAN CORPUSCULAR HEMOGLOBIN 26.9 pg (25-34); MEAN CORPUSCULAR HGB CONC 33.4 g/dl (32-36); MEAN PLATELET VOLUME 10.1 fL (7.4-10.4); PLATELET COUNT 267 K/uL (130-400); RED BLOOD COUNT 4.79 M/uL (4.7-6.1); WHITE BLOOD COUNT 7.92 K/uL (4.8-10.8)
[2016-10-26 07:15] LABS: BUN/CREATININE RATIO 9.5 (10-20); CALCIUM 8.7 mg/dl (8.5-10.1); CREATININE 0.84 mg/dl (0.60-1.40); POTASSIUM 3.7 mmol/L (3.5-5.1)
[2016-10-26 07:17] LABS: ALB/GLOB RATIO 0.6 (0.9-2)
[2016-10-26] MEDS: CHECK CLONIDINE PATCH PLACEMENT SCH ×2 (07:57)
[2016-10-26] MEDS: HEPARIN SOD 5000 UNIT/0.5 ML CARP SQ SCH (08:06)
[2016-10-26] MEDS: LIDODERM (LIDOCAINE) PATCH 5% TD SCH (08:07)
[2016-10-26] MEDS: INSULIN ASPART 100 UNITS/ML 3 ML PEN SC SCH ×2 (08:13→12:30)
[2016-10-26] MEDS ORDERED: CTPTP2 TD (14:05)
--- NOTE | 2016-10-26 14:07 | Discharge Instructions ---
Discharge Instructions Date of Service Oct 26, 2016. Admission Reason for Admission: Acute Pancreatitis Discharge Discharge Diagnosis / Problem: Acute pancreatitis Discharge Goals Goal(s): Decrease discomfort, Improve function, Increase independence, Improve disease control, Diagnostic testing, Therapeutic intervention Activity Recommendations Activity Limitations: resume your previous activity Exercise/Sports Limitations: none . Instructions / Follow-Up Instructions / Follow-Up Patient to be discharged home Clonidine patch script sent to pharmacy for high blood pressure Will need to follow up with Dr Qiu for further evaluation If worsening pain, fevers or chills please come back to ER Current Hospital Diet Patient's current hospital diet: Diabetes Type 2 Diet, Low Sodium Diet (2gm Na) Discharge Diet Recommended Diet: Low Sodium Diet (2gm Na), Diabetes Type 2 Diet Pending Studies Studies pending at discharge: no Medical Emergencies . Who to Call and When: Medical Emergencies: If at any time you feel your situation is an emergency, please call 911 immediately. . Non-Emergent Contact Non-Emergency issues call your: Primary Care Provider Call Non-Emergent contact if: you have a fever, your pain is worsening . . "Provider Documentation" section prepared by Seth Velazco. VTE Core Measure Inpt VTE Proph given/why not?: Unfractionated heparin SQ
--- NOTE | 2016-10-26 15:29 | Discharge Summary ---
Discharge Summary Date of Service Oct 26, 2016. Discharge Summary Admission Date: Oct 23, 2016 at 15:13 Discharge Date: Oct 26, 2016 Discharge Disposition: Home Principal Diagnosis: Acute pancreatitis Immunizations: Have You Had Influenza Vaccine: No History of Tetanus Vaccine?: Yes History of Pneumococcal: No History of Hepatitis B Vaccine: Yes Consultations: GI Medication Reconciliation New Medications: Clonidine HCl (Clonidine HCl) 1 Patch Tdsy 1 PATCH TD Th@2100, #30 PATCH Continued Medications: Aspirin Enteric Coated (Ecotrin Or Generic *) 81 Mg Ectab 81 MG PO DAILY, 0 Refills Glimepiride (Glimepiride) 4 Mg Tab 1 TAB PO DAILY Lisinopril (Zestril) 20 Mg Tab 20 MG PO QAM, TAB Metformin Hcl (Glucophage) 1,000 Mg Tab 1000 MG PO BID, TAB Discharge Exam Review of Systems: Constitutional: No chills, No fever Respiratory: No cough, No shortness of breath, No sputum, No wheezing Cardiovascular: No chest pain, No orthopnea Abdomen: No nausea, No pain, No vomiting Musculoskeletal: No joint pain, No muscle pain Genitourinary - Male: No dysuria, No hematuria, No urinary frequency, No urinary urgency Physical Exam: General Appearance: WD/WN, no apparent distress, + obese Neck: supple, no adenopathy Respiratory/Chest: chest non-tender, normal breath sounds Cardiovascular: no edema, no gallop Abdomen / GI: non tender, soft Neurologic/Psychiatric: alert, oriented x 3 Hospital Course 60-year-old male presents emergency department with upper abdominal pain. Found to have an elevated lipase at over [address] Acute pancreatitis-etiology unclear. Does not seem to be alcohol related.? Retained stone GI consulted, pt kept NPO but could not tolerate MRCP due to claustrophobia Lipase trended to normal within 2 days. No fevers or transaminitis Pt discharged home after tolerating regular diet, f/u with GI for EUS Diabetes type 2- -Metformin 1000 mg twice daily and glipizide are on hold -Continue insulin sliding scale and NovoLog coverage HTN-BP up -Hydralazine 10 mg IV q 6 hr PRN -clonidine patch .0.2 transdermal -Vasotec IV -Consider addition of B juventino if it remains high DVT prophylaxis -Heparin 5000 u subQ BID -TEDS, SCDs CODE STATUS -LEVEL I FULL CODE Total Time Spent: Greater than 30 minutes This includes examination of the patient, discharge planning, medication reconciliation, and communication with other providers. Discharge Instructions Please refer to the electronic Patient Visit Report (Discharge Instructions) for additional information. Additional Copies To Clemente Barrios M.D.
[2016-12-23] MEDS ORDERED: LISI40TA PO (09:45)
== END 2016-10-26 15:11 | disposition home or self-care (01) | DRG 439 ==
LOC: ENRESERVTM → ENRESERVDT → C.EDB 12:15 → C.MS2W 15:13
PROVIDERS: ADMIT Internal Medicine; ATTEND Hospitalist
DX: K85.90 Acute pancreatitis without necrosis or infection, unspecified (principal); K91.86 Retained cholelithiasis following cholecystectomy; Z68.41 Body mass index [BMI] 40.0-44.9, adult; E11.9 Type 2 diabetes mellitus without complications; I10 Essential (primary) hypertension; E66.9 Obesity, unspecified; Y83.8 Other surgical procedures as the cause of abnormal reaction of the patient, or of later complication, without mention of misadventure at the time of the procedure; Y92.239 Unspecified place in hospital as the place of occurrence of the external cause; F40.240 Claustrophobia; Z79.84 Long term (current) use of oral hypoglycemic drugs; Z23 Encounter for immunization; Z79.82 Long term (current) use of aspirin; Z79.899 Other long term (current) drug therapy; Z87.891 Personal history of nicotine dependence

== ENCOUNTER → 2017-01-01 | Day surgery (SDC) | payer BC ==
[2016-12-23 09:45] VITALS: BMI 44.0
[~2017-01-01] VITALS: Ht 180.3 cm; Wt 144.1 kg
[~2017-01-01] MED LIST changes: -AMLO10TA2 PO; -CPR500 PO; +FENTANYL CITRATE INJ 50 MCG/1 ML 2 ML VIAL ONE; +GLIM4TAB2 PO; -HYDR12.56 PO; +LIDOCAINE HCL 2% 2 ML VIAL (20MG/ML) ONE; -LISI-725 PO; +LISI40TA PO; +LPR100 PO; +NUTR-930 NJ; -OXYC-609 PO; +PROPOFOL IV EMULSION 10 MG/ML 20 ML VIAL IV ONE; +SODIUM CHLORIDE 0.9% 500ML 500 ML IV ONE
[2017-01-01 13:22] VITALS: Ht 180.3 cm; Wt 144.1 kg
--- NOTE | 2017-01-01 14:09 | Endo History and Physical ---
History & Physical Date of Service: Jan 01, 2017. Chief Complaint: screening for colon cancer Referring Physician: Dr. Evan Barrios History of Present Illness initial screen; + FH CRC- mother Past Surgical History Hx Cardiac Surgery: No Hx Internal Defibrillator: No Hx Pacemaker: No Hx Abdominal Surgery: Yes ([facility]) Hx of Implantable Prosthesis: No Hx Post-Op Nausea and Vomiting: No Hx Cancer Surgery: No Hx Thoracic Surgery: No Hx Orthopedic: Yes (LEFT LEG (MULTIPLE SURGERIES>RECONTRUCTION)) Hx Urinary Tract Surgery: No Family History Colon CA, IBD Social History Smoking Status: Former Smoker Hx Substance Use: No Hx Alcohol Use: Yes (RARELY "ONCE IN A [place]") Allergies Coded Allergies: Penicillins (Verified Allergy, Mild, RASH, 12/23/16) NEVER HAS HAD DIFFICULTY BREATHING WITH PCN BEFORE- PER PT 10/30/09, [place] CHECKED WITH PT. HE IS WILLING TO TAKE ANCEF PRE-OP TODAY Amoxicillin (Verified Adverse Reaction, Severe, rash, 12/23/16) Morphine (Verified Adverse Reaction, Severe, Rowdy, fired up, 01/01/17) Clindamycin (Verified Adverse Reaction, Unknown, ? nicol's syndrome, ) redness,diaphoresis, transient elevated temp. occurs aprox. 1 hour after taking med and resolves spontaneously in 20-30 minutes. Current Medications Reported Home Medications Medications Dose Route/Sig Max Daily Dose Days Date Category Zestril (Lisinopril) 40 Mg Tab 40 Mg PO QAM 12/23/16 Reported Glimepiride 4 Mg Tab 1 Tab PO QAM 10/23/16 Reported Glucophage (Metformin Hcl) 1,000 Mg Tab 1,000 Mg PO BID 06/16/16 Reported Ecotrin Or Generic * (Aspirin) 81 Mg Ectab 81 Mg PO QAM 05/04/09 Reported Vital Signs Weight (Kilograms): 144.09 Height (Feet): 5 Height (Inches): 11 Date Time Temp Pulse Resp B/P (MAP) Pulse Ox O2 Delivery O2 Flow Rate FiO2 01/01/17 13:37 36.8 85 20 180/92 (121) 97 Room Air Physical Exam AAOx3 Nls1s2 Lungs CTA Abd soft obese NT/ND = BS - CCE Assessment and Plan colonoscopy - initial screen + FH CRC
--- NOTE | 2017-01-01 14:56 | Discharge Instructions ---
Endoscopy Patient Instructions Date / Procedure(s) Performed Jan 01, 2017. Colonoscopy Allergy Information Coded Allergies: Penicillins (Verified Allergy, Mild, RASH, 01/01/17) NEVER HAS HAD DIFFICULTY BREATHING WITH PCN BEFORE- PER PT 10/30/09, [place] CHECKED WITH PT. HE IS WILLING TO TAKE ANCEF PRE-OP TODAY Amoxicillin (Verified Adverse Reaction, Severe, rash, 01/01/17) Morphine (Verified Adverse Reaction, Severe, Rowdy, fired up, 01/01/17) Clindamycin (Verified Adverse Reaction, Unknown, ? nicol's syndrome, 01/01) redness,diaphoresis, transient elevated temp. occurs aprox. 1 hour after taking med and resolves spontaneously in 20-30 minutes. Discharge Date / Findings Jan 01, 2017. polyps-removed diverticulosis Medication Instructions Stopped Medication(s): Metformin & Gliberide stopped on 12-29-16 Restart Stopped Medication(s): Reported Home Medications Medications Dose Route/Sig Max Daily Dose Days Date Category Zestril (Lisinopril) 40 Mg Tab 40 Mg PO QAM 12/23/16 Reported Glimepiride 4 Mg Tab 1 Tab PO QAM 10/23/16 Reported Glucophage (Metformin Hcl) 1,000 Mg Tab 1,000 Mg PO BID 06/16/16 Reported Ecotrin Or Generic * (Aspirin) 81 Mg Ectab 81 Mg PO QAM 05/04/09 Reported Reported Home Medications Medications Dose Route/Sig Max Daily Dose Days Date Category Zestril (Lisinopril) 40 Mg Tab 40 Mg PO QAM 12/23/16 Reported Glimepiride 4 Mg Tab 1 Tab PO QAM 10/23/16 Reported Glucophage (Metformin Hcl) 1,000 Mg Tab 1,000 Mg PO BID 06/16/16 Reported Ecotrin Or Generic * (Aspirin) 81 Mg Ectab 81 Mg PO QAM 05/04/09 Reported Provider Instructions Activity Restrictions - No exercising or heavy lifting for 24 hours. - Do not drink alcohol the day of the procedure. - Do not drive a car or operate machinery until the day after the procedure. - Do not make any important decisions or sign important papers in 24 hours after the procedure. Following Day: - Return to full activity which may include returning to work/school. Diet Start your diet with liquids and light foods (jello, soup, juice, toast). Then eat your usual diet if not nauseated. Treatment For Common After Affects For mild abdominal pain, bloating, or excessive gas: - Rest - Eat lightly - Lie on right side Follow-Up Information Follow-up with Dr. Evan Barrios as scheduled Anesthesia Information What You Should Know You have had a procedure that required some medicine to reduce anxiety and discomfort. This treatment is called moderate sedation. After receiving the treatment, you may be sleepy, but you will be able to breathe on your own. The effects of the treatment may last for several hours. Follow these instructions along with Activity/Diet recommendations noted above: * Do NOT do anything where dizziness or clumsiness would be dangerous. * Rest quietly at home today, then you can be up and about tomorrow. * Have a responsible person stay with you the rest of today. * You may have had an I.V. today. If so, you may take the dressing off later today. Recommendations Call your doctor if: * Trouble breathing * Continuous vomiting for more than 24 hours * Temperature above 101 degrees * Severe abdominal pain or bloating * Pain not relieved by pain medicine ordered * There is increased drainage or redness from any incision * A large amount of rectal bleeding greater than 2-3 tablespoons. (If you had a polyp/s removed or have hemorrhoids, a small amount of blood - from the rectum is to be expected.) * You have any unanswered questions or concerns. IN THE EVENT OF A SERIOUS EMERGENCY, GO TO THE NEAREST EMERGENCY ROOM Your discharge instructions were prepared by provider Jt Qiu. Patient Instructions Signature Page Dez Adair Patient (or Guardian) Signature/Date: I have read and understand the instructions given to me by my caregivers. Caregiver/RN/Doctor Signature/Date: The above-named patient and/or guardian has received patient instructions on this date. + Original Patient Signature Page (only) stays with chart. Please make copy for patient.
--- NOTE | 2017-01-01 14:58 | Anesthesiology Progress Note ---
Anesthesia Post Op Note Date & Time Jan 01, 2017 at 14:58 Vital Signs Pain Intensity: 0 Vital Signs Past 12 Hours Date Time Temp Pulse Resp B/P (MAP) Pulse Ox O2 Delivery O2 Flow Rate FiO2 01/01/17 14:44 81 20 131/75 (93) 93 Room Air 01/01/17 13:37 36.8 85 20 180/92 (121) 97 Room Air Notes Mental Status: alert / awake / arousable, participated in evaluation Pt Amnestic to Procedure: Yes Nausea / Vomiting: adequately controlled Pain: adequately controlled Airway Patency, RR, SpO2: stable & adequate BP & HR: stable & adequate Hydration State: stable & adequate Anesthetic Complications: no major complications apparent
--- NOTE | 2017-01-01 15:00 | GI REPORT ---
Procedure Date: 01/01/2017 2:06 PM Procedure: Colonoscopy Indications: This is the patient's first colonoscopy, Family history of colon cancer in a first-degree relative Medicines: Propofol per Anesthesia Complications: No immediate complications. Estimated blood loss: Minimal. Estimated Blood Loss: Estimated blood loss was minimal. Procedure: Pre-Anesthesia Assessment: - Prior to the procedure, a History and Physical was performed, and patient medications and allergies were reviewed. The patient's tolerance of previous anesthesia was also reviewed. The risks and benefits of the procedure and the sedation options and risks were discussed with the patient. All questions were answered, and informed consent was obtained. Prior Anticoagulants: The patient has taken no previous anticoagulant or antiplatelet agents. ASA Grade Assessment: III - A patient with severe systemic disease. After reviewing the risks and benefits, the patient was deemed in satisfactory condition to undergo the procedure. After I obtained informed consent, the scope was passed under direct vision. Throughout the procedure, the patient's blood pressure, pulse, and oxygen saturations were monitored continuously. The Scope was introduced through the anus and advanced to the terminal ileum, with identification of the appendiceal orifice and IC valve. The colonoscopy was performed without difficulty. The patient tolerated the procedure well. The quality of the bowel preparation was good. Findings: The perianal and digital rectal examinations were normal. Pertinent negatives include normal sphincter tone, no palpable rectal lesions and no anal lesion or abnormality was detected. The terminal ileum appeared normal. Two sessile polyps were found at 80 cm proximal to the anus. The polyps were 4 mm in size. These polyps were removed with a cold biopsy forceps. Resection and retrieval were complete. Estimated blood loss was minimal. Verification of patient identification for the specimen was done by the physician and color technician using the patient's name and medical record number. A few small-mouthed diverticula were found in the sigmoid colon. The exam was otherwise without abnormality. The retroflexed view of the distal rectum and anal verge was normal and showed no anal or rectal abnormalities. Impression: - The examined portion of the ileum was normal. - Two 4 mm polyps at 80 cm proximal to the anus, removed with a cold biopsy forceps. Resected and retrieved. - Diverticulosis in the sigmoid colon. - The examination was otherwise normal. - The distal rectum and anal verge are normal on retroflexion view. Recommendation: - Discharge patient to home (ambulatory). - Patient has a contact number available for emergencies. The signs and symptoms of potential delayed complications were discussed with the patient. Return to normal activities tomorrow. Written discharge instructions were provided to the patient. - Advance diet as tolerated. - Continue present medications. - Await pathology results. - Repeat colonoscopy for surveillance based on pathology results. - Return to referring physician as previously scheduled. MD Jt Emery MD 01/01/2017 2:59:53 PM This report has been signed electronically. Note Initiated On: 01/01/2017 2:06 PM I attest to the content of the Intraoperative Record and orders documented therein, exceptions below
[2017-01-01 15:04] VITALS: BP 168/95; PULSE 72; O2SAT 94
== END | disposition home or self-care (01) ==
LOC: C.GI 13:08
PROVIDERS: ATTEND Internal Medicine Gastroenterology
DX: Z12.11 Encounter for screening for malignant neoplasm of colon (principal); Z80.0 Family history of malignant neoplasm of digestive organs; K63.5 Polyp of colon; K57.30 Diverticulosis of large intestine without perforation or abscess without bleeding; M19.90 Unspecified osteoarthritis, unspecified site; Z88.1 Allergy status to other antibiotic agents; I10 Essential (primary) hypertension; E11.9 Type 2 diabetes mellitus without complications; Z68.41 Body mass index [BMI] 40.0-44.9, adult; Z90.49 Acquired absence of other specified parts of digestive tract; Z87.891 Personal history of nicotine dependence

== ENCOUNTER 2017-04-10 15:15 | Inpatient (IN) | payer BC ==
[~2017-04-10] VITALS: Ht 185.4 cm; Wt 145.0 kg
[~2017-04-10 15:15] MED LIST changes: -FENTANYL CITRATE INJ 50 MCG/1 ML 2 ML VIAL ONE; -LIDOCAINE HCL 2% 2 ML VIAL (20MG/ML) ONE; -LPR100 PO; -NUTR-930 NJ; -PROPOFOL IV EMULSION 10 MG/ML 20 ML VIAL IV ONE; -SODIUM CHLORIDE 0.9% 500ML 500 ML IV ONE
[2017-04-10] MEDS ORDERED: SODIUM CHLORIDE 0.9% 1000ML 1,000 ML IV STA ×2 (15:48)
[2017-04-10] MEDS ORDERED: HYDROmorphone INJ 1 MG/ML SYR IV STA ×2 (15:50→17:20)
[2017-04-10] MEDS ORDERED: ONDANSETRON INJ 2 MG/ML 2 ML VIAL IV STA (15:50)
[2017-04-10] MEDS ORDERED: OPTIRAY 320 IV PRN (16:00)
--- NOTE | 2017-04-10 16:03 | EMERGENCY ROOM VISIT NOTE ---
History Report prepared by Irma: Christofer Holly Under the Supervision of: Dr. Kaila Uriostegui M.D. First contact with patient: 15:36 Chief Complaint: ABDOMINAL PAIN Stated Complaint: ABD PAIN Nursing Triage Summary: history of pancreatitis. started with abodminal pain last night got worse today. denies nausea or vomiting History of Present Illness The patient is a 61 year old male who presents to the Emergency Room with complaints of LUQ abdominal pain that began last night. He rates his pain an 8/ 10 in severity. The patient has a past medical history of pancreatitis. He states that he believes that he is having a flair up currently. His pain is exacerbated with deep inhalation. He is experiencing some nausea. He denies any vomiting. Source of History: patient Onset: last night Position: abdomen (LUQ) Symptom Intensity: 8/10 Quality: sharp Timing: constant Modifying Factors (Worsening): breathing Associated Symptoms: + nausea, No vomiting Review of Systems See HPI for pertinent positives & negatives. A total of 10 systems reviewed and were otherwise negative. Past Medical & Surgical Medical Problems: (1) Colitis (2) Diabetes (3) Hypertension Surgical Problems: (1) S/P cholecystectomy Family History Cancer Diabetes mellitus Heart disease Kidney disease Kidney stones Social History Smoking Status: Former Smoker Alcohol Use: none Marital Status: Housing Status: lives with significant other Occupation Status: employed Current/Historical Medications Scheduled Aspirin Enteric Coated (Ecotrin Or Generic *), 81 MG PO QAM Glimepiride (Glimepiride), 1 TAB PO QAM Lisinopril (Zestril), 40 MG PO QAM Metformin Hcl (Glucophage), 1,000 MG PO BID Allergies Coded Allergies: Penicillins (Verified Allergy, Mild, RASH, 04/10/17) NEVER HAS HAD DIFFICULTY BREATHING WITH PCN BEFORE- PER PT 10/30/09, [place] CHECKED WITH PT. HE IS WILLING TO TAKE ANCEF PRE-OP TODAY Amoxicillin (Verified Adverse Reaction, Severe, rash, 04/10/17) Morphine (Verified Adverse Reaction, Severe, Rowdy, fired up, 04/10/17) Clindamycin (Verified Adverse Reaction, Unknown, ? nicol's syndrome, 04/10) redness,diaphoresis, transient elevated temp. occurs aprox. 1 hour after taking med and resolves spontaneously in 20-30 minutes. Physical Exam Vital Signs Date Time Temp Pulse Resp B/P (MAP) Pulse Ox O2 Delivery O2 Flow Rate FiO2 04/10/17 20:05 199/109 04/10/17 19:28 165/100 04/10/17 19:26 92 22 206/119 93 Room Air 04/10/17 17:27 79 22 154/89 92 Room Air 04/10/17 16:09 79 20 149/89 94 Room Air 04/10/17 16:08 94 Room Air 04/10/17 15:20 83 20 127/85 94 Room Air Physical Exam Vital signs reviewed. General: Well-appearing male, in moderate distress. HEENT: No scleral icterus, PERRLA, neck supple. Atraumatic. Cardiovascular: Regular rate and rhythm, no extra sounds. Pulmonary: Clear to auscultation bilaterally, normal work of breathing. Abdomen: Soft, diffuse tenderness that is most prominent in the epigastrium, nondistended, positive bowel sounds. Musculoskeletal: Atraumatic, no peripheral edema. Neurologic: Patient awake alert and oriented x 3 Skin: Warm, dry, no rash Medical Decision & Procedures ER Provider Diagnostic Interpretation: Radiology results as stated below per my review and radiologist interpretation: ABD/PELVIS IV CONTRAST ONLY CLINICAL HISTORY: 61 years-old Male presenting with pancreatitis. TECHNIQUE: Multidetector CT of the abdomen and pelvis was performed after the administration of intravenous contrast. IV contrast: 118 mL of Optiray 320. A dose lowering technique was used consistent with the principles of ALARA (as low as reasonably achievable). COMPARISON: 10/23/2016. CT DOSE (mGy.cm): The estimated cumulative dose is 2012.77 mGy.cm. 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 Lung bases: Minimal dependent changes likely atelectasis. Heart top normal in size aortic valve calcification. No pericardial or pleural effusion. Liver: Congenital hypoplasia of the medial segments of the left hepatic lobe. Hepatic steatosis. No focal lesion. Patent hepatic vasculature. Biliary: No intrahepatic or extrahepatic biliary ductal dilatation. Gallbladder surgically absent. Pancreas: Mild parenchymal atrophy. Significant peripancreatic fat infiltration both ventral and dorsal to the pancreas with trace fluid in the left anterior perirenal space and lesser sac. No well-defined peripancreatic fluid collection. Pancreatic parenchyma enhances normally without evidence of necrosis. Spleen: Normal. Splenic artery and vein patent and normal in caliber. Adrenal glands: Normal. Kidneys and ureters: Nonobstructing renal calculi at the upper pole the right kidney measuring up to 3 to 4 mm. Scattered nonobstructing renal calculi at the lower pole the left kidney measuring up to 5 mm. No hydronephrosis. Ureters normal. Bladder: Normal. Pelvic organs: Prostate and seminal vesicles normal. Bowel: Mild pancolonic diverticulosis. The colon contains fluid suggesting a diarrheal state. Normal appendix. No bowel obstruction. Mild wall thickening of the descending duodenum likely reactive. Peritoneal cavity: Trace fluid in the lesser sac versus retroperitoneal fluid. No free intraperitoneal gas. Vasculature: Atherosclerosis of the normal caliber abdominal aorta. IVC patent. Lymph nodes: Few prominent peripancreatic lymph nodes, measuring up to 8 mm in the short axis, likely reactive. Abdominal wall: Bilateral fat-containing inguinal hernias. Diastases of the abdominis rectus with small fat-containing umbilical hernia. Musculoskeletal: Degenerative changes of the spine. IMPRESSION: 1. Findings consistent with interstitial edematous pancreatitis. No acute peripancreatic fluid collection. 2. Bilateral nonobstructing renal calculi. 3. Hepatic steatosis. Electronically signed by: Jj Benavides M.D. 04/10/2017 6:39 PM Dictated Date/Time: 04/10/2017 6:30 PM Laboratory Results Test 04/10/17 16:15 Total Bilirubin 0.6 mg/dl (0.2-1) Aspartate Amino Transf (AST/SGOT) 16 U/L (15-37) Alanine Aminotransferase (ALT/SGPT) 27 U/L (12-78) Alkaline Phosphatase 78 U/L (45-117) Total Protein 7.5 gm/dl (6.4-8.2) Albumin 3.5 gm/dl (3.4-5.0) Globulin 4.0 gm/dl (2.5-4.0) Albumin/Globulin Ratio 0.9 (0.9-2) Laboratory results per my review. Medications Administered Medications (Trade) Dose Ordered Sig/Akash Route Start Time Stop Time Status Last Admin Dose Admin Sodium Chloride 1,000 ml @ 999 mls/hr Q1H1M STAT IV 04/10/17 15:48 04/10/17 16:48 DC 04/10/17 16:06 999 MLS/HR Sodium Chloride 1,000 ml @ 200 mls/hr Q5H STAT IV 04/10/17 15:48 04/11/17 10:25 DC 04/10/17 17:26 200 MLS/HR Hydromorphone HCl (Dilaudid Inj) 1 mg NOW STAT IV 04/10/17 15:50 04/10/17 15:51 DC 04/10/17 16:07 1 MG Ondansetron HCl (Zofran Inj) 4 mg NOW STAT IV 04/10/17 15:50 04/10/17 15:51 DC 04/10/17 16:06 4 MG Hydromorphone HCl (Dilaudid Inj) 1 mg NOW STAT IV 04/10/17 17:20 04/10/17 17:21 DC 04/10/17 17:26 1 MG Lorazepam (Ativan Inj) 2 mg NOW STAT IV 04/10/17 17:51 04/10/17 17:53 DC 04/10/17 18:07 2 MG Acetaminophen (Tylenol Tab) 650 mg Q4H PRN PO 04/10/17 20:15 05/10/17 20:14 04/11/17 15:29 650 MG ED Course 1536: Past medical records reviewed. The patient was evaluated in room C9. A complete history and physical examination was performed. 1548: Ordered Sodium Chloride 1000 ml @ 200 mls/hr IV, Sodium Chloride 1000 ml @ 999 mls/hr IV 1550: Ordered Zofran Inj 4 mg IV, Dilaudid Inj 1 mg IV 1720: Dilaudid Inj 1 mg IV 1751: Ordered Ativan Inj 2 mg IV 1859: Upon reevaluation, the patient is resting comfortably. I discussed laboratory and radiographic results with him. He verbalized agreement of the treatment plan. I spoke with Dr. Wan of the [facility] [facility]. The patient will be evaluated for further management and care. Medical Decision Differential diagnosis: Etiologies such as appendicitis, diverticulitis, PUD, biliary pathology, UTI, pancreatitis, obstruction, mesenteric ischemia, aortic pathology, infections, inflammatory bowel disease, renal colic, as well as others were entertained. This pt was evaluated and appeared to be in no distress. IV access was obtained and lab work was drawn. Pt was hydrated with NSS, given IV dilaudid and zofran. Lab work reveals an elevated lipase. Pt was sent to CT for for imaging. He became anxious and pushed himself out of the scanner. Pt was given ativan 2 mg IV for anxiety. Scan was completed. There is no fluid collection or abscess. Pt was d/w the hospitalist service for further management. He is aware of the plan and agrees. Medication Reconcilliation Current Medication List: was personally reviewed by me Blood Pressure Screening Patient's blood pressure: Elevated blood pressure Blood pressure disposition: Elevated BP felt to be situational Consults Time Called: 1854 Consulting Physician: Dr. Wan - [facility] Returned Call: [phone] I reviewed the patient's case with him. He will evaluate the patient for further management. Impression Primary Impression: Acute pancreatitis Scribe Attestation The scribe's documentation has been prepared under my direction and personally reviewed by me in its entirety. I confirm that the note above accurately reflects all work, treatment, procedures, and medical decision making performed by me. Departure Information Dispostion Being Evaluated By Hospitalist Referrals Clemente Barrios M.D. (PCP) Patient Instructions My [facility] Problem Qualifiers Primary Impression: Acute pancreatitis
[2017-04-10 16:27] LABS: BASO % 0.2 %; BASO ABS # 0.04 K/uL (0-0.2); COMPLETE YES; EOS % 0.6 %; HEMATOCRIT 41.5 % (42-52); IG% 0.5 %; LYMPH % 8.7 %; LYMPH ABS # 1.56 K/uL (1.2-3.4); MEAN CELL VOLUME 85.2 fL (80-100); MEAN CORPUSCULAR HEMOGLOBIN 28.1 pg (25-34); MEAN PLATELET VOLUME 9.7 fL (7.4-10.4); PLATELET COUNT 251 K/uL (130-400); RED BLOOD COUNT 4.87 M/uL (4.7-6.1); WHITE BLOOD COUNT 17.84 K/uL (4.8-10.8)
[2017-04-10 17:00] LABS: BUN/CREATININE RATIO 12.3 (10-20); CALCIUM 8.5 mg/dl (8.5-10.1); CREATININE 1.1 mg/dl (0.60-1.40); POTASSIUM 4.1 mmol/L (3.5-5.1)
[2017-04-10 17:07] LABS: ALB/GLOB RATIO 0.9 (0.9-2)
[2017-04-10] MEDS ORDERED: LORAZEPAM 2 MG/ML 1 ML VIAL IV STA (17:51)
[2017-04-10 18:11] LABS: URINE APPEARANCE CLEAR (CLEAR); URINE BILIRUBIN NEG (NEG); URINE COLOR YELLOW; URINE NITRITE NEG (NEG); URINE SPECIFIC GRAVITY 1.018 (1.000-1.030); UROBILINOGEN NEG (NEG); ZZUR CULT IF INDIC CLEAN CATCH NO
[2017-04-10 18:12] LABS: REVIEW REQ? NO
[2017-04-10 18:13] LABS: MANUAL MICROSCOPIC REQUIRED? NO
--- NOTE | 2017-04-10 18:40 | DIAGNOSTIC IMAGING REPORT ---
ABD/PELVIS IV CONTRAST ONLY CLINICAL HISTORY: 61 years-old Male presenting with pancreatitis. TECHNIQUE: Multidetector CT of the abdomen and pelvis was performed after the administration of intravenous contrast. IV contrast: 118 mL of Optiray 320. A dose lowering technique was used consistent with the principles of ALARA (as low as reasonably achievable). COMPARISON: 10/23/2016. CT DOSE (mGy.cm): The estimated cumulative dose is 2012.77 mGy.cm. 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 Lung bases: Minimal dependent changes likely atelectasis. Heart top normal in size aortic valve calcification. No pericardial or pleural effusion. Liver: Congenital hypoplasia of the medial segments of the left hepatic lobe. Hepatic steatosis. No focal lesion. Patent hepatic vasculature. Biliary: No intrahepatic or extrahepatic biliary ductal dilatation. Gallbladder surgically absent. Pancreas: Mild parenchymal atrophy. Significant peripancreatic fat infiltration both ventral and dorsal to the pancreas with trace fluid in the left anterior perirenal space and lesser sac. No well-defined peripancreatic fluid collection. Pancreatic parenchyma enhances normally without evidence of necrosis. Spleen: Normal. Splenic artery and vein patent and normal in caliber. Adrenal glands: Normal. Kidneys and ureters: Nonobstructing renal calculi at the upper pole the right kidney measuring up to 3 to 4 mm. Scattered nonobstructing renal calculi at the lower pole the left kidney measuring up to 5 mm. No hydronephrosis. Ureters normal. Bladder: Normal. Pelvic organs: Prostate and seminal vesicles normal. Bowel: Mild pancolonic diverticulosis. The colon contains fluid suggesting a diarrheal state. Normal appendix. No bowel obstruction. Mild wall thickening of the descending duodenum likely reactive. Peritoneal cavity: Trace fluid in the lesser sac versus retroperitoneal fluid. No free intraperitoneal gas. Vasculature: Atherosclerosis of the normal caliber abdominal aorta. IVC patent. Lymph nodes: Few prominent peripancreatic lymph nodes, measuring up to 8 mm in the short axis, likely reactive. Abdominal wall: Bilateral fat-containing inguinal hernias. Diastases of the abdominis rectus with small fat-containing umbilical hernia. Musculoskeletal: Degenerative changes of the spine. IMPRESSION: 1. Findings consistent with interstitial edematous pancreatitis. No acute peripancreatic fluid collection. 2. Bilateral nonobstructing renal calculi. 3. Hepatic steatosis. Electronically signed by: Jj Benavides M.D. 04/10/2017 6:39 PM Dictated Date/Time: 04/10/2017 6:30 PM
[2017-04-10] MEDS ORDERED: POLYETHYLENE (MIRALAX) 17 GM PACK PO PRN (20:15)
[2017-04-10] MEDS ORDERED: ALUMINUM/MAGNESIUM/SIMETH (MAALOX MAX) 30 ML UDC PO PRN (20:15)
[2017-04-10] MEDS ORDERED: MAGNESIUM HYDROXIDE SUSP 30 ML UDC PO PRN (20:15)
[2017-04-10] MEDS ORDERED: ZOLPIDEM TARTRATE 5 MG TAB PO PRN ×2 (20:15)
[2017-04-10] MEDS ORDERED: ACETAMINOPHEN 325 MG TAB PO PRN (20:15)
--- NOTE | 2017-04-10 20:15 | History and Physical ---
History & Physical Date & Time of Service: Apr 10, 2017 at 20:15 Chief Complaint: Abd Pain Primary Care Physician: Clemente Barrios M.D. History of Present Illness Source: patient Mr Adair is a 61 yo M with hx of pancreatitis, etiology unclear, who presents with persistent abdominal pain since last night. He has severe pain currently and would not provide much history. Per records, he was recently admitted in October with a recurrent episode of pancreatitis, though his lipase at that time was 4000's (today it is in the 8000's). He was unable to get an MRCP due to claustrophobia. He was in the CT scanner today after 2mg of dilaudid IV and he became claustrophobic and tried to push the CT scanner away from him. CT did demonstrate recurrent pancreatitis. His pain has somewhat improved now but he is very groggy. Past Medical/Surgical History Medical Problems: (1) Diabetes Status: Chronic (2) Hypertension Status: Chronic Surgical Problems: (1) S/P cholecystectomy Status: Resolved Family History Cancer Diabetes mellitus Heart disease Kidney disease Kidney stones Social History Smoking Status: Former Smoker Smokeless Tobacco Use: No Alcohol Use: none Drug Use: none Marital Status: Housing status: lives with family Occupational Status: employed Immunizations History of Influenza Vaccine: No History of Tetanus Vaccine?: Yes History of Pneumococcal: No History of Hepatitis B Vaccine: Yes Multi-Drug Resistant Organisms History of MDRO: Yes Type of MDRO: MRSA Allergies Coded Allergies: Penicillins (Verified Allergy, Mild, RASH, 04/10/17) NEVER HAS HAD DIFFICULTY BREATHING WITH PCN BEFORE- PER PT 10/30/09, [facility] IN [place] CHECKED WITH PT. HE IS WILLING TO TAKE ANCEF PRE-OP TODAY Amoxicillin (Verified Adverse Reaction, Severe, rash, 04/10/17) Morphine (Verified Adverse Reaction, Severe, Rowdy, fired up, 04/10/17) Clindamycin (Verified Adverse Reaction, Unknown, ? nicol's syndrome, 04/10) redness,diaphoresis, transient elevated temp. occurs aprox. 1 hour after taking med and resolves spontaneously in 20-30 minutes. Home Medications Scheduled Aspirin Enteric Coated (Ecotrin Or Generic *), 81 MG PO QAM Glimepiride (Glimepiride), 1 TAB PO QAM Lisinopril (Zestril), 40 MG PO QAM Metformin Hcl (Glucophage), 1,000 MG PO BID Review of Systems Unable to obtain ROS due to patients mental status, as he became incredibly groggy from his pain medications. Physical Exam Vital Signs Date Time Temp Pulse Resp B/P (MAP) Pulse Ox O2 Delivery O2 Flow Rate FiO2 04/10/17 19:28 165/100 04/10/17 19:26 92 22 206/119 93 Room Air 04/10/17 17:27 79 22 154/89 92 Room Air 04/10/17 16:09 79 20 149/89 94 Room Air 04/10/17 16:08 94 Room Air 04/10/17 15:20 83 20 127/85 94 Room Air General Appearance: + mild distress, + obese Head: normocephalic, atraumatic Eyes: normal inspection ENT: hearing grossly normal Neck: supple, no JVD Respiratory/Chest: lungs clear, normal breath sounds, no respiratory distress Cardiovascular: regular rate, rhythm, no murmur, normal peripheral pulses Abdomen/GI: soft, + tenderness (epigastric / LUQ) Back: no CVA tenderness, no muscle spasm Extremities/Musculoskelatal: no calf tenderness, no pedal edema Neurologic/Psych: alert, normal mood/affect, normal reflexes Skin: no rash Diagnostics Laboratory Results Results Past 24 Hours Test 04/10/17 16:15 04/10/17 18:05 Range/Units White Blood Count 17.84 4.8-10.8 K/uL Red Blood Count 4.87 4.7-6.1 M/uL Hemoglobin 13.7 14.0-18.0 g/dL Hematocrit 41.5 42-52 % Mean Corpuscular Volume 85.2 80-100 fL Mean Corpuscular Hemoglobin 28.1 25-34 pg Mean Corpuscular Hemoglobin Concent 33.0 32-36 g/dl Platelet Count 251 130-400 K/uL Mean Platelet Volume 9.7 7.4-10.4 fL Neutrophils (%) (Auto) 83.0 % Lymphocytes (%) (Auto) 8.7 % Monocytes (%) (Auto) 7.0 % Eosinophils (%) (Auto) 0.6 % Basophils (%) (Auto) 0.2 % Neutrophils # (Auto) 14.80 1.4-6.5 K/uL Lymphocytes # (Auto) 1.56 1.2-3.4 K/uL Monocytes # (Auto) 1.25 0.11-0.59 K/uL Eosinophils # (Auto) 0.10 0-0.5 K/uL Basophils # (Auto) 0.04 0-0.2 K/uL RDW Standard Deviation 45.7 36.4-46.3 fL RDW Coefficient of Variation 14.8 11.5-14.5 % Immature Granulocyte % (Auto) 0.5 % Immature Granulocyte # (Auto) 0.09 0.00-0.02 K/uL Sodium Level 139 136-145 mmol/L Potassium Level 4.1 3.5-5.1 mmol/L Chloride Level 105 98-107 mmol/L Carbon Dioxide Level 27 21-32 mmol/L Anion Gap 7.0 3-11 mmol/L Blood Urea Nitrogen 14 7-18 mg/dl Creatinine 1.10 0.60-1.40 mg/dl Est Creatinine Clear Calc Drug Dose 103.4 ml/min Estimated GFR () 82.9 Estimated GFR (Non- 71.6 BUN/Creatinine Ratio 12.3 10-20 Random Glucose 121 70-99 mg/dl Calcium Level 8.5 8.5-10.1 mg/dl Total Bilirubin 0.6 0.2-1 mg/dl Aspartate Amino Transf (AST/SGOT) 16 15-37 U/L Alanine Aminotransferase (ALT/SGPT) 27 12-78 U/L Alkaline Phosphatase 78 45-117 U/L Total Protein 7.5 6.4-8.2 gm/dl Albumin 3.5 3.4-5.0 gm/dl Globulin 4.0 2.5-4.0 gm/dl Albumin/Globulin Ratio 0.9 0.9-2 Lipase 8231 73-393 U/L Urine Color YELLOW Urine Appearance CLEAR CLEAR Urine pH 5.0 4.5-7.5 Urine Specific [place] 1.018 1.000-1.030 Urine Protein NEG NEG Urine Glucose (UA) NEG NEG Urine Ketones 1+ NEG Urine Occult Blood NEG NEG Urine Nitrite NEG NEG Urine Bilirubin NEG NEG Urine Urobilinogen NEG NEG Urine Leukocyte Esterase NEG NEG Diagnostic Radiology ABD/PELVIS IV CONTRAST ONLY CLINICAL HISTORY: 61 years-old Male presenting with pancreatitis. TECHNIQUE: Multidetector CT of the abdomen and pelvis was performed after the administration of intravenous contrast. IV contrast: 118 mL of Optiray 320. A dose lowering technique was used consistent with the principles of ALARA (as low as reasonably achievable). COMPARISON: 10/23/2016. CT DOSE (mGy.cm): The estimated cumulative dose is 2012.77 mGy.cm. FINDINGS: Traffic Analyst topogram: Cholecystectomy clips. Lung bases: Minimal dependent changes likely atelectasis. Heart top normal in size aortic valve calcification. No pericardial or pleural effusion. Liver: Congenital hypoplasia of the medial segments of the left hepatic lobe. Hepatic steatosis. No focal lesion. Patent hepatic vasculature. Biliary: No intrahepatic or extrahepatic biliary ductal dilatation. Gallbladder surgically absent. Pancreas: Mild parenchymal atrophy. Significant peripancreatic fat infiltration both ventral and dorsal to the pancreas with trace fluid in the left anterior perirenal space and lesser sac. No well-defined peripancreatic fluid collection. Pancreatic parenchyma enhances normally without evidence of necrosis. Spleen: Normal. Splenic artery and vein patent and normal in caliber. Adrenal glands: Normal. Kidneys and ureters: Nonobstructing renal calculi at the upper pole the right kidney measuring up to 3 to 4 mm. Scattered nonobstructing renal calculi at the lower pole the left kidney measuring up to 5 mm. No hydronephrosis. Ureters normal. Bladder: Normal. Pelvic organs: Prostate and seminal vesicles normal. Bowel: Mild pancolonic diverticulosis. The colon contains fluid suggesting a diarrheal state. Normal appendix. No bowel obstruction. Mild wall thickening of the descending duodenum likely reactive. Peritoneal cavity: Trace fluid in the lesser sac versus retroperitoneal fluid. No free intraperitoneal gas. Vasculature: Atherosclerosis of the normal caliber abdominal aorta. IVC patent. Lymph nodes: Few prominent peripancreatic lymph nodes, measuring up to 8 mm in the short axis, likely reactive. Abdominal wall: Bilateral fat-containing inguinal hernias. Diastases of the abdominis rectus with small fat-containing umbilical hernia. Musculoskeletal: Degenerative changes of the spine. IMPRESSION: 1. Findings consistent with interstitial edematous pancreatitis. No acute peripancreatic fluid collection. 2. Bilateral nonobstructing renal calculi. 3. Hepatic steatosis. Impression Assessment and Plan 61 yo M with recurrent episode of pancreatitis - severe claustrophobia preventing him from MRCP Acute on Chronic Pancreatitis - GI consult - NPO with IV fluids - Trend lipase - Dilaudid for pain Hypertension - Hydralazine PRN - Lisinopril 40mg daily Type 2 DM - Hold glipizide - Continue Metformin VTE: Lovenox Dispo: Tele Code status: Full Attending Addendum: I have physically seen and examined this patient, have directed the resident's medical activities, and agree with the H&P as noted above with the following exceptions as noted. The patient is somnolent post Dilaudid and Ativan IV, well-developed and well- nourished, normocephalic and atraumatic, lying in bed and in no acute distress. HEENT--PERRL, EOMI, mucous membranes and oropharynx normal. Neck--supple, no JVD or bruits, thyroid normal, trachea midline, no adenopathy. Heart--normal S1 and S2, no extra beats, no murmurs, rubs or gallops. Lungs--clear bilaterally but diminished throughout, no respiratory distress, no accessory muscle use. Abdomen--normal bowel sounds and soft, nontender and nondistended, no hernias or masses, obese. Extremities--no cyanosis, clubbing or edema. There are good distal pulses b/l. Dermatologic--normal skin turgor, normal color, warm and dry, no abnormal lymph nodes, no rash. Neurologic--cranial nerves II through XII grossly intact, motor and sensory examination normal. Rheumatologic--normal range of motion, nontender, muscles and joints. Psychiatric--normal affect. Assessment and Plan: Acute on chronic pancreatitis-- Nothing by mouth except medications. Normal saline and KCl 20 mEq 100 ML's per hour. Dilaudid IV for pain. Serial laboratories. Consult gastroenterology. Family reports he had an open MRI at [facility] since last visit here that reportedly was normal. Stool studies. Neutrophilic leukocytosis. Hold antibiotics until stool studies completed. Diabetes mellitus-- Hold glipizide and metformin. Place on Accu-Cheks before meals and at bedtime with NovoLog coverage per scale. Hypertension--continue lisinopril 40 mg by mouth daily. Hydralazine IV when necessary. Level of Care Med/Surg Advanced Directives Existing Advance Directive: No Existing Living Will: No Existing Power of Principal Developer: No Resuscitation Status FULL RESUSCITATION VTE Prophylaxis VTE Risk Assessment Done? Y/N: Yes Risk Level: Moderate Given or contraindicated: SCD's Social Service Consult None Apply Resident Tracking Resident Involvement: Resident Care Provided Care Provided: Adult Hospital Medicine
[2017-04-10] MEDS ORDERED: METFORMIN HCL 500 MG TAB PO SCH (21:00)
[2017-04-10 22:15] VITALS: BP_SYST 203; BP_SYST 207; BP_DIAS 118; BP_DIAS 137; PULSE 102; TEMP 36.8; O2SAT 93; BMI 43.5
[2017-04-10] MEDS ORDERED: GLUCAGON FOR INJ 1 MG VIAL SQ PRN (22:30)
[2017-04-10] MEDS ORDERED: GLUCOSE 40% GEL 15 GM TUBE PO PRN (22:30)
[2017-04-10] MEDS: HYDROmorphone INJ 1 MG/ML SYR IV PRN (22:30)
[2017-04-10] MEDS ORDERED: GLUCOSE 10 TABS/TUBE PO PRN (22:30)
[2017-04-10] MEDS ORDERED: DEXTROSE 50% 50 ML SYR IV PRN (22:30)
[2017-04-10] MEDS: NSS + 20MEQ KCL 1000ML 1,000 ML IV SCH (23:10)
[2017-04-10 23:13] VITALS: BP 203/118
[2017-04-10] MEDS ORDERED: HydrALAZINE HCL 20 MG/ML VIAL IV. PRN (23:45)
[2017-04-11] VITALS (13 sets, daily range): BP systolic 115–204; BP diastolic 65–124; PULSE 100–132; TEMP 37–37.9; O2SAT 91–93
[2017-04-11] MEDS: HYDROmorphone INJ 1 MG/ML SYR IV PRN ×8 (00:45→21:35)
[2017-04-11] MEDS ORDERED: NURSING VERBAL MED ORDER ONE ×3 (04:00→07:00)
[2017-04-11] MEDS ORDERED: METOPROLOL TARTRATE 1 MG/ML VIAL IV STA (04:01)
[2017-04-11] MEDS: NSS + 20MEQ KCL 1000ML 1,000 ML IV SCH (05:08)
[2017-04-11] MEDS ORDERED: INSULIN ASPART 100 UNITS/ML 3 ML PEN SC SCH (06:30)
[2017-04-11 06:50] LABS: HEMATOCRIT 43.4 % (42-52); MEAN CELL VOLUME 85.9 fL (80-100); MEAN CORPUSCULAR HEMOGLOBIN 28.7 pg (25-34); MEAN CORPUSCULAR HGB CONC 33.4 g/dl (32-36); MEAN PLATELET VOLUME 10.1 fL (7.4-10.4); PLATELET COUNT 271 K/uL (130-400); RED BLOOD COUNT 5.05 M/uL (4.7-6.1); WHITE BLOOD COUNT 25.85 K/uL (4.8-10.8)
[2017-04-11 07:25] LABS: BUN/CREATININE RATIO 7.1 (10-20); CALCIUM 8.4 mg/dl (8.5-10.1); CREATININE 1.4 mg/dl (0.60-1.40); POTASSIUM 5.2 mmol/L (3.5-5.1)
[2017-04-11 07:48] LABS: BASO % 0.1 %; BASO ABS # 0.02 K/uL (0-0.2); COMPLETE YES; IG% 0.4 %; LYMPH % 3.4 %; LYMPH ABS # 0.88 K/uL (1.2-3.4); MONO % 6.5 %; NEUT % 89.6 %
--- NOTE | 2017-04-11 08:38 | Family Medicine Progress Note ---
Progress Note Date of Service Apr 11, 2017. Subjective Pt evaluation today including: conversation w/ patient, physical exam, chart review, lab review, review of studies Found pt lying in the gurney, moaning a bit. Says that his abdomen remains painful in a band-like pattern despite the dilaudid. Denies any acute N/V, CP, SOB, back pain, or other acute concerns. Constitutional: No fever, No chills Respiratory: No cough, No shortness of breath Cardiovascular: No chest pain, No edema Abdomen: + pain, No nausea, No vomiting, No diarrhea Medications Current Inpatient Medications Medications (Trade) Dose Ordered Sig/Akash Route Start Time Stop Time Status Last Admin Dose Admin Ioversol (Optiray 320) 111 ml UD PRN IV 04/10/17 16:00 04/14/17 15:59 Potassium Chloride/Sodium Chloride 1,000 ml @ 150 mls/hr Q6H40M IV 04/10/17 22:30 05/10/17 22:29 04/11/17 05:08 150 MLS/HR Acetaminophen (Tylenol Tab) 650 mg Q4H PRN PO 04/10/17 20:15 05/10/17 20:14 Al Hydrox/Mg Hydrox/Simethicone (Maalox Max Susp) 15 ml Q4H PRN PO 04/10/17 20:15 05/10/17 20:14 Magnesium Hydroxide (Milk Of Magnesia Susp) 30 ml Q12H PRN PO 04/10/17 20:15 05/10/17 20:14 Zolpidem Tartrate (Ambien Tab) 5 mg HSZ PRN PO 04/10/17 20:15 05/10/17 20:14 Ondansetron HCl (Zofran Inj) 4 mg Q6H PRN IV 04/10/17 20:15 05/10/17 20:14 Polyethylene (Miralax Powder Packet) 17 gm DAILY PRN PO 04/10/17 20:15 05/10/17 20:14 Aspirin (Ecotrin Tab) 81 mg QAM PO 04/11/17 09:00 05/11/17 08:59 Lisinopril (Zestril Tab) 40 mg QAM PO 04/11/17 09:00 05/11/17 08:59 Hydromorphone HCl (Dilaudid Inj) 1 mg Q2H PRN IV 04/10/17 21:15 04/24/17 21:14 04/11/17 05:32 1 MG Glucose (Glucose 40% Gel) UD PRN PO 04/10/17 22:30 05/10/17 22:29 Glucose (Glucose Chew Tab) 1 tabs UD PRN PO 04/10/17 22:30 05/10/17 22:29 Dextrose (Dextrose 50% 50ML Syringe) 50 ml UD PRN IV 04/10/17 22:30 05/10/17 22:29 Glucagon (Glucagon Inj) 1 mg UD PRN SQ 04/10/17 22:30 05/10/17 22:29 Hydralazine HCl (HydrALAZINE INJ) 10 mg Q6H PRN IV. 04/10/17 23:45 05/10/17 23:44 04/11/17 00:15 10 MG Insulin Aspart (novoLOG ASPART) SLIDING SCALE If C... Q6 SC 04/11/17 12:00 05/11/17 11:59 Objective Vital Signs Last Resulted 04/11/17 06:39 Red Blood Count 5.05, Mean Corpuscular Volume 85.9, Mean Corpuscular Hemoglobin 28.7, Mean Corpuscular Hemoglobin Concent 33.4, Mean Platelet Volume 10.1, Neutrophils (%) (Auto) 89.6, Lymphocytes (%) (Auto) 3.4, Monocytes (%) (Auto) 6.5, Eosinophils (%) (Auto) 0.0, Basophils (%) (Auto) 0.1, Neutrophils # (Auto) 23.15, Lymphocytes # (Auto) 0.88, Monocytes # (Auto) 1.69, Eosinophils # (Auto) 0.00, Basophils # (Auto) 0.02 Last Resulted 04/11/17 06:39 Physical Exam General Appearance: + mild distress Respiratory/Chest: lungs clear, normal breath sounds Cardiovascular: no murmur, + tachycardia (regular) Abdomen: normal bowel sounds, soft, + tenderness (primarily epigastric, less- so throughout. non-distended. ) Extremities: no pedal edema Laboratory Results 04/11/17 06:39 Red Blood Count 5.05, Mean Corpuscular Volume 85.9, Mean Corpuscular Hemoglobin 28.7, Mean Corpuscular Hemoglobin Concent 33.4, Mean Platelet Volume 10.1, Neutrophils (%) (Auto) 89.6, Lymphocytes (%) (Auto) 3.4, Monocytes (%) (Auto) 6.5, Eosinophils (%) (Auto) 0.0, Basophils (%) (Auto) 0.1, Neutrophils # (Auto) 23.15, Lymphocytes # (Auto) 0.88, Monocytes # (Auto) 1.69, Eosinophils # (Auto) 0.00, Basophils # (Auto) 0.02 04/11/17 06:39 Test 04/10/17 16:15 04/10/17 18:05 04/11/17 06:39 04/11/17 07:30 Total Bilirubin 0.6 mg/dl (0.2-1) Aspartate Amino Transf (AST/SGOT) 16 U/L (15-37) Alanine Aminotransferase (ALT/SGPT) 27 U/L (12-78) Alkaline Phosphatase 78 U/L (45-117) Total Protein 7.5 gm/dl (6.4-8.2) Albumin 3.5 gm/dl (3.4-5.0) Globulin 4.0 gm/dl (2.5-4.0) Albumin/Globulin Ratio 0.9 (0.9-2) Urine Color YELLOW Urine Appearance CLEAR (CLEAR) Urine pH 5.0 (4.5-7.5) Urine Specific [place] 1.018 (1.000-1.030) Urine Protein NEG (NEG) Urine Glucose (UA) NEG (NEG) Urine Ketones 1+ (NEG) Urine Occult Blood NEG (NEG) Urine Nitrite NEG (NEG) Urine Bilirubin NEG (NEG) Urine Urobilinogen NEG (NEG) Urine Leukocyte Esterase NEG (NEG) White Blood Count 25.85 K/uL (4.8-10.8) Red Blood Count 5.05 M/uL (4.7-6.1) Hemoglobin 14.5 g/dL (14.0-18.0) Hematocrit 43.4 % (42-52) Mean Corpuscular Volume 85.9 fL (80-100) Mean Corpuscular Hemoglobin 28.7 pg (25-34) Mean Corpuscular Hemoglobin Concent 33.4 g/dl (32-36) Platelet Count 271 K/uL (130-400) Mean Platelet Volume 10.1 fL (7.4-10.4) Neutrophils (%) (Auto) 89.6 % Lymphocytes (%) (Auto) 3.4 % Monocytes (%) (Auto) 6.5 % Eosinophils (%) (Auto) 0.0 % Basophils (%) (Auto) 0.1 % Neutrophils # (Auto) 23.15 K/uL (1.4-6.5) Lymphocytes # (Auto) 0.88 K/uL (1.2-3.4) Monocytes # (Auto) 1.69 K/uL (0.11-0.59) Eosinophils # (Auto) 0.00 K/uL (0-0.5) Basophils # (Auto) 0.02 K/uL (0-0.2) RDW Standard Deviation 48.0 fL (36.4-46.3) RDW Coefficient of Variation 15.2 % (11.5-14.5) Immature Granulocyte % (Auto) 0.4 % Immature Granulocyte # (Auto) 0.11 K/uL (0.00-0.02) Red Blood Cell Morphology Unremarkable Anion Gap 7.0 mmol/L (3-11) Est Creatinine Clear Calc Drug Dose 83.4 ml/min Estimated GFR () 62.0 Estimated GFR (Non- 53.5 BUN/Creatinine Ratio 7.1 (10-20) Calcium Level 8.4 mg/dl (8.5-10.1) Lipase 4143 U/L (73-393) Bedside Glucose 185 mg/dl (70-99) Assessment and Plan 61 yo male c/o acute abdominal pain and hx of pancreatitis. Acute on Chronic Pancreatitis. Admitted to [facility] for same in Oct 2016. Pt has a reported hx of severe claustrophobia making imaging difficult. Reported prior open MRI at [facility] since last visit here that apparently was normal. CT on admit (21Sep) was c/w interstitial edematous pancreatitis (with no acute peripancreatic fluid collection) as well as hepatic steatosis. - GI consulted - NPO except meds. - Dilaudid 1 mg q2h prn for pain. - On NS + 20 mEq KCl at 150 ml/hr. - Lipase trending down 8K -> 4K. - Noted WBC 17 -> 25, neutrophil predominance. Hypertension: Hx of same. Elevated overnight. - On home lisinopril 40 mg daily. - Hydralazine IV prn, dose given overnight 21-22Sep. Metoprolol 5 mg IV x 1 overnight 21-22Sep. - Continue to monitor. - Consider outpatient sleep study considering h/o snoring and body habitus Tachycardia: 130's on morning of 22Sep. May be due to combo pain + stress response. - EKG overnight 21-22Sep was sinus tachy with LAFB. - Will monitor. Consider metoprolol IV prn. VLAD: On admit Cr 1.4. Baseline 0.8. - For now, will tx as pre-renal with IVF. Type 2 DM - Home metformin and glipizide on hold. - Novolog sliding scale coverage as inpt. 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 Resident Involvement: Resident Care Provided Care Provided: Adult Hospital Medicine (inpt rounds) Reviewed: Pt Seen/Exam by Me History pain still present but medication helping Constitutional: denies: fever Respiratory: negative: short of breath Cardiovascular: denies chest pain General Appearance: no apparent distress Respiratory: lungs clear, no respiratory distress Cardiovascular: regular rate, rhythm Gastrointestinal: soft, tenderness (upper abdomen), other (diminished bowel sounds) Neurologic/Psychiatric: alert, oriented x 3 Skin Characteristics: warm/dry Assessment/Plan Resident Physician Supervision Note: I was present with Dr. Dye in bedside. I verified the bermudez history and physical, reviewed labs and image studies, discussed the case with the resident and agree with the findings and care plan.
[2017-04-11] MEDS: LISINOPRIL 40 MG TAB PO SCH (09:04)
[2017-04-11] MEDS: ASPIRIN 81 MG ECTAB PO SCH (09:04)
[2017-04-11] MEDS: INSULIN ASPART 100 UNITS/ML 3 ML PEN SC SCH ×3 (09:04→18:49)
[2017-04-11] MEDS ORDERED: SODIUM CHLORIDE 0.9% 1000ML 1,000 ML IV SCH (09:30)
[2017-04-11] MEDS: LACTATED RINGER'S 1000ML 1,000 ML IV SCH ×4 (12:01→21:46)
[2017-04-11 12:10] LABS: INR 1.1 (0.9-1.1); PROTHROMBIN TIME (PATIENT) 11.3 SECONDS (9.0-12.0)
[2017-04-11] MEDS: HEPARIN SOD 5000 UNIT/0.5 ML CARP SQ SCH ×2 (13:59→21:46)
[2017-04-11 17:10] LABS: BUN/CREATININE RATIO 9.1 (10-20); CALCIUM 8.2 mg/dl (8.5-10.1); CREATININE 1.5 mg/dl (0.60-1.40); MAGNESIUM 1.6 mg/dl (1.8-2.4); POTASSIUM 4.5 mmol/L (3.5-5.1)
[2017-04-11 17:13] LABS: CHOLESTEROL/HDL RATIO 2.7
[2017-04-11 17:54] LABS: URINE APPEARANCE CLEAR (CLEAR); URINE BILIRUBIN NEG (NEG); URINE COLOR YELLOW; URINE NITRITE NEG (NEG); URINE SPECIFIC GRAVITY 1.025 (1.000-1.030); UROBILINOGEN NEG (NEG)
[2017-04-11 17:59] LABS: MANUAL MICROSCOPIC REQUIRED? NO; REVIEW REQ? NO
[2017-04-11] MEDS ORDERED: MAGNESIUM SULFATE 1GM / D5W 1 GM in PREMIXED IN D5W 100 ML IV ONE (18:00)
[2017-04-12] VITALS (8 sets, daily range): BP systolic 113–138; BP diastolic 59–76; PULSE 68–136; TEMP 36.8–37.9; O2SAT 88–96
[2017-04-12] MEDS: HYDROmorphone INJ 1 MG/ML SYR IV PRN ×7 (00:25→22:08)
[2017-04-12] MEDS: INSULIN ASPART 100 UNITS/ML 3 ML PEN SC SCH ×4 (00:30→18:08)
--- NOTE | 2017-04-12 02:13 | Progress Note ---
Progress Note Date of Service Apr 12, 2017. Progress Note Spoke with Dr. Qiu (Gastroenterology) over the phone and discussed the patient. Dr. Qiu expressed concern for the patients calcium levels, I have added on an ionized calcium lab to the AM labs . Additionally the patient may be a good candidate for Antibiotic coverage if his condition doesn't improve or worsens. There have also been documented instances of Lisinopril induced pancreatitis - also it's a low probability however the care team may wish to hold the Lisinopril. Additionally if the pt's status does not improve he may be a good candidate for TPN. I mentioned to Dr. Qiu that I will also discuss the case with the day resident Dr. Dye.
[2017-04-12] MEDS: LACTATED RINGER'S 1000ML 1,000 ML IV SCH ×3 (02:30→10:05)
--- NOTE | 2017-04-12 05:41 | Family Medicine Progress Note ---
Progress Note Date of Service Apr 12, 2017. Subjective Pt evaluation today including: conversation w/ patient, physical exam, chart review, lab review, review of studies Found pt lying upright in the bed. Says his abd pain is ongoing, constant, presently 7/10, roughly unchanged from yesterday. Denies any CP, SOB, cough or difficulty breathing, feeling of leg swelling, or other acute concerns. When asked, says his abdomen feels more tight than yesterday. Constitutional: + fever (borderline overnight) Respiratory: No cough, No shortness of breath Cardiovascular: No chest pain, No edema Abdomen: + pain, No vomiting, No diarrhea Skin: No rash Medications Current Inpatient Medications Medications (Trade) Dose Ordered Sig/Akash Route Start Time Stop Time Status Last Admin Dose Admin Ioversol (Optiray 320) 111 ml UD PRN IV 04/10/17 16:00 04/14/17 15:59 Acetaminophen (Tylenol Tab) 650 mg Q4H PRN PO 04/10/17 20:15 05/10/17 20:14 04/11/17 15:29 650 MG Al Hydrox/Mg Hydrox/Simethicone (Maalox Max Susp) 15 ml Q4H PRN PO 04/10/17 20:15 05/10/17 20:14 Magnesium Hydroxide (Milk Of Magnesia Susp) 30 ml Q12H PRN PO 04/10/17 20:15 05/10/17 20:14 Zolpidem Tartrate (Ambien Tab) 5 mg HSZ PRN PO 04/10/17 20:15 05/10/17 20:14 Ondansetron HCl (Zofran Inj) 4 mg Q6H PRN IV 04/10/17 20:15 05/10/17 20:14 Polyethylene (Miralax Powder Packet) 17 gm DAILY PRN PO 04/10/17 20:15 05/10/17 20:14 Aspirin (Ecotrin Tab) 81 mg QAM PO 04/11/17 09:00 05/11/17 08:59 04/12/17 07:44 81 MG Lisinopril (Zestril Tab) 40 mg QAM PO 04/11/17 09:00 05/11/17 08:59 04/12/17 07:45 40 MG Hydromorphone HCl (Dilaudid Inj) 1 mg Q2H PRN IV 04/10/17 21:15 04/24/17 21:14 04/12/17 07:46 1 MG Glucose (Glucose 40% Gel) UD PRN PO 04/10/17 22:30 05/10/17 22:29 Glucose (Glucose Chew Tab) 1 tabs UD PRN PO 04/10/17 22:30 05/10/17 22:29 Dextrose (Dextrose 50% 50ML Syringe) 50 ml UD PRN IV 04/10/17 22:30 05/10/17 22:29 Glucagon (Glucagon Inj) 1 mg UD PRN SQ 04/10/17 22:30 05/10/17 22:29 Insulin Aspart (novoLOG ASPART) SLIDING SCALE If C... Q6 SC 04/11/17 12:00 05/11/17 11:59 04/12/17 05:57 2 UNITS Lactated Ringer's 1,000 ml @ 250 mls/hr Q4H IV 04/11/17 10:30 05/11/17 10:29 04/12/17 05:48 250 MLS/HR Heparin Sodium (Porcine) (Heparin Sq 5000 Unit/0.5ml) 5,000 unit Q8 SQ 04/11/17 14:00 05/11/17 13:59 04/12/17 05:58 5,000 UNIT Objective Vital Signs Date Time Temp Pulse Resp B/P (MAP) Pulse Ox O2 Delivery O2 Flow Rate FiO2 04/12/17 07:44 127 126/63 (84) 04/12/17 07:07 36.9 127 20 138/74 (95) 92 Room Air 04/12/17 05:01 36.8 132 20 113/73 (86) 92 Room Air 04/12/17 04:00 Room Air 04/12/17 00:15 37.9 131 19 128/65 (86) 92 04/12/17 00:00 Room Air 04/11/17 21:49 37.0 115/69 (84) 04/11/17 20:00 Room Air 04/11/17 19:59 37.2 04/11/17 19:35 37.8 130 20 116/66 (83) 91 Room Air 04/11/17 16:00 Room Air 04/11/17 14:56 37.9 127 18 127/78 (94) 92 Room Air 04/11/17 12:00 Room Air 04/11/17 11:53 37.2 131 20 124/85 (98) 93 Room Air 04/11/17 10:23 131 124/71 (88) 04/11/17 08:57 132 147/86 (106) Physical Exam General Appearance: + mild distress Respiratory/Chest: lungs clear, normal breath sounds, no respiratory distress Cardiovascular: no edema, no murmur Abdomen: normal bowel sounds, + distended, + guarding, + tenderness ( throughout abdomen) Extremities: no pedal edema, no calf tenderness Laboratory Results 04/12/17 06:41 Red Blood Count 4.92, Mean Corpuscular Volume 87.2, Mean Corpuscular Hemoglobin 28.5, Mean Corpuscular Hemoglobin Concent 32.6, Mean Platelet Volume 10.2, Neutrophils (%) (Auto) 84.3, Lymphocytes (%) (Auto) 4.3, Monocytes (%) (Auto) 8.4, Eosinophils (%) (Auto) 0.0, Basophils (%) (Auto) 0.1, Neutrophils # (Auto) 25.93, Lymphocytes # (Auto) 1.32, Monocytes # (Auto) 2.58, Eosinophils # (Auto) 0.01, Basophils # (Auto) 0.02 04/12/17 06:41 Test 04/11/17 11:42 04/11/17 16:16 04/11/17 16:36 04/12/17 05:47 Prothrombin Time 11.3 SECONDS (9.0-12.0) Prothromb Time International Ratio 1.1 (0.9-1.1) Urine Color YELLOW Urine Appearance CLEAR (CLEAR) Urine pH 5.0 (4.5-7.5) Urine Specific [place] 1.025 (1.000-1.030) Urine Protein NEG (NEG) Urine Glucose (UA) NEG (NEG) Urine Ketones TRACE (NEG) Urine Occult Blood 2+ (NEG) Urine Nitrite NEG (NEG) Urine Bilirubin NEG (NEG) Urine Urobilinogen NEG (NEG) Urine Leukocyte Esterase NEG (NEG) Urine WBC (Auto) 1-5 /hpf (0-5) Urine RBC (Auto) >30 /hpf (0-4) Urine Hyaline Casts (Auto) 1-5 /lpf (0-5) Urine Epithelial Cells (Auto) 5-10 /lpf (0-5) Urine Bacteria (Auto) NEG (NEG) Lactate Dehydrogenase 191 U/L (87-241) Triglycerides Level 100 mg/dl (0-150) Cholesterol Level 100 mg/dl (0-200) HDL Cholesterol 37 mg/dl LDL Cholesterol, Calculated 43 mg/dl VLDL Cholesterol, Calculated 20 mg/dl Cholesterol/HDL Ratio 2.7 Bedside Glucose 199 mg/dl (70-99) Test 04/12/17 06:41 White Blood Count 30.75 K/uL (4.8-10.8) Red Blood Count 4.92 M/uL (4.7-6.1) Hemoglobin 14.0 g/dL (14.0-18.0) Hematocrit 42.9 % (42-52) Mean Corpuscular Volume 87.2 fL (80-100) Mean Corpuscular Hemoglobin 28.5 pg (25-34) Mean Corpuscular Hemoglobin Concent 32.6 g/dl (32-36) Platelet Count 252 K/uL (130-400) Mean Platelet Volume 10.2 fL (7.4-10.4) Neutrophils (%) (Auto) 84.3 % Lymphocytes (%) (Auto) 4.3 % Monocytes (%) (Auto) 8.4 % Eosinophils (%) (Auto) 0.0 % Basophils (%) (Auto) 0.1 % Neutrophils # (Auto) 25.93 K/uL (1.4-6.5) Lymphocytes # (Auto) 1.32 K/uL (1.2-3.4) Monocytes # (Auto) 2.58 K/uL (0.11-0.59) Eosinophils # (Auto) 0.01 K/uL (0-0.5) Basophils # (Auto) 0.02 K/uL (0-0.2) RDW Standard Deviation 50.8 fL (36.4-46.3) RDW Coefficient of Variation 15.9 % (11.5-14.5) Immature Granulocyte % (Auto) 2.9 % Immature Granulocyte # (Auto) 0.89 K/uL (0.00-0.02) Anion Gap 12.0 mmol/L (3-11) Est Creatinine Clear Calc Drug Dose 50.9 ml/min Estimated GFR () 34.0 Estimated GFR (Non- 29.3 BUN/Creatinine Ratio 10.3 (10-20) Calcium Level 8.2 mg/dl (8.5-10.1) Ionized Calcium 1.03 mmol/l (1.12-1.32) Magnesium Level 1.8 mg/dl (1.8-2.4) Lipase 1305 U/L (73-393) Assessment and Plan 61 yo male c/o acute abdominal pain and hx of pancreatitis. Acute Pancreatitis (hx of same). Admitted to [facility] for same in Oct 2016. Open MRI (due to claustrophobia) at [facility] around Oct [address] on admit (Sep) was c/w interstitial edematous pancreatitis (with no acute peripancreatic fluid collection) as well as hepatic steatosis. - NPO except meds. Dilaudid 1 mg q2h prn for pain. - Started on NS + 20 mEq KCl at 150 ml/hr, switched to LR at 250 mL/hr. - Lipase trending down 8K -> 4K -> 1.3K. - Lungs clear. Concern ongoing IVF for pancreatitis is going into abdomen. Monitoring. - 22Sep GI consulted (note pending). Per reported phone conversation overnight 22-23Sep, rec'd following: --- Replace calcium: 23Sep ordered calcium gluconate 1 gram IV. --- Start antibiotics: 23Sep started imipenem/cilastatin 300 mg IV q6h (pt has multiple abx allergies). ----- ID consulted, appreciate recs. --- Stop lisinopril: Received 23Sep AM dose, held going forward. --- Consider TPN: Ordered dietary consult for same. SIRS, likely secondary to pancreatitis, r/o infection - Borderline febrile 37.9 on 23Sep. Persistently tachycardic 120's-130's. Worsening WBC to 30. - EKG 22Sep sinus tachy, LAFB, possible old inferior infarct - unchanged from May 2016. Monitor 23Sep AM was sinus tachy. - Started imipenem/cilastatin 23Sep. - 23Sep CXR one view: Question left latera costophrenic sulcus atelectasis vs small pleural effusion; No evid of pulm edema. [ ] 23Sep BCx x 2 pending. [ ] 23Sep UCx pending. VLAD: On admit Cr 1.4. Baseline 0.8. Worsened to 2.3 with dropping UOP. - 22Sep noted dark-appearing urine and relative decreased output. Placed flores. That evening 6 hr UOP was 0.06 mL/kg/hr. [ ] Consulted nephrology, appreciate recs. Hypertension: Hx of same. Some elevation 21-22Sep, given hydralazine and metoprolol overnight 21-22Sep. Improved control overnight 22-23Sep. - 23Sep held home lisinopril due to worsening pancreatitis. - Continue to monitor. Consider metoprolol 5 mg IV prn if worsens. - Consider outpatient sleep study considering due to hx of snoring and body habitus Hypomagnesemia: Noted at 1.6. Replacement on 22Sep, 1.8 on recheck. Type 2 DM - Held home metformin and glipizide. - Novolog sliding scale coverage as inpt. DVT prophy: Heparin Code status: Full JDH, PGY1 Map Editor Tracking Resident Involvement: Resident Care Provided Care Provided: Adult Hospital Medicine (inpt rounds) Reviewed: Pt Seen/Exam by Me History abdominal pain is better and overall feeling better decreased urine output overnight. Constitutional: denies: fever Respiratory: negative: short of breath Cardiovascular: denies chest pain General Appearance: no apparent distress Respiratory: lungs clear, no respiratory distress Cardiovascular: regular rate, rhythm Gastrointestinal: normal bowel sounds, soft, tenderness (upper abdomen) Neurologic/Psychiatric: alert, oriented x 3 Skin Characteristics: warm/dry Assessment/Plan Resident Physician Supervision Note: I was present with Dr. Dye in bedside. I verified the bermudez history and physical, reviewed labs and image studies, discussed the case with the resident and agree with the findings and care plan.
[2017-04-12] MEDS: HEPARIN SOD 5000 UNIT/0.5 ML CARP SQ SCH ×3 (05:58→22:07)
[2017-04-12 07:08] LABS: HEMATOCRIT 42.9 % (42-52); MEAN CELL VOLUME 87.2 fL (80-100); MEAN CORPUSCULAR HEMOGLOBIN 28.5 pg (25-34); MEAN CORPUSCULAR HGB CONC 32.6 g/dl (32-36); MEAN PLATELET VOLUME 10.2 fL (7.4-10.4); PLATELET COUNT 252 K/uL (130-400); RED BLOOD COUNT 4.92 M/uL (4.7-6.1); WHITE BLOOD COUNT 30.75 K/uL (4.8-10.8)
[2017-04-12 07:17] LABS: BASO % 0.1 %; BASO ABS # 0.02 K/uL (0-0.2); COMPLETE YES; IG% 2.9 %; LYMPH % 4.3 %; LYMPH ABS # 1.32 K/uL (1.2-3.4); MONO % 8.4 %; NEUT % 84.3 %
[2017-04-12 07:28] LABS: BUN/CREATININE RATIO 10.3 (10-20); CALCIUM 8.2 mg/dl (8.5-10.1); CREATININE 2.3 mg/dl (0.60-1.40); MAGNESIUM 1.8 mg/dl (1.8-2.4); POTASSIUM 4.9 mmol/L (3.5-5.1)
--- NOTE | 2017-04-12 07:36 | DIAGNOSTIC IMAGING REPORT ---
CHEST ONE VIEW PORTABLE HISTORY: Possible retention of fluid COMPARISON: Chest 10/25/2009. FINDINGS: Low lung volumes. No evidence for pulmonary edema. The heart is normal in size. The right lung is clear. There is blunting the left lateral costophrenic sulcus. No pneumothorax. IMPRESSION: 1. Low lung volumes. 2. Blunting of the left lateral costophrenic sulcus. This could be due to atelectasis or a small left pleural effusion. 3. No evidence for pulmonary edema. Electronically signed by: Richard Ovalles M.D. 04/12/2017 7:34 AM Dictated Date/Time: 04/12/2017 7:33 AM
[2017-04-12] MEDS: ASPIRIN 81 MG ECTAB PO SCH (07:44)
[2017-04-12] MEDS: LISINOPRIL 40 MG TAB PO SCH (07:45)
[2017-04-12] MEDS ORDERED: CALCIUM GLUCONATE 10% 1,000 MG in SODIUM CHLORIDE 0.9% 50ML 50 ML IV ONE (09:30)
--- NOTE | 2017-04-12 09:34 | DIAGNOSTIC IMAGING REPORT ---
CHEST 2 VIEWS ROUTINE HISTORY: Short of breath. COMPARISON: Chest 04/12/2017. FINDINGS: Low lung volumes. The heart is normal in size. The right lung is clear. Stable blunting of the left lateral costophrenic sulcus. This may be due to trace pleural fluid or focal consolidation. IMPRESSION: No change in left basilar trace pleural effusion/consolidation. Electronically signed by: Richard Ovalles M.D. 04/12/2017 9:33 AM Dictated Date/Time: 04/12/2017 9:31 AM
[2017-04-12] MEDS ORDERED: IMIPENEM/CILASTATIN CONSULT ACTIVE PRN (09:45)
[2017-04-12 10:23] LABS: PHOSPHORUS 2.8 mg/dl (2.5-4.9)
--- NOTE | 2017-04-12 10:41 | Nephrology Consultation ---
Nephrology Consultation Date & Providers Date of Consultation: Apr 12, 2017. Primary Care Provider: Clemente Barrios M.D. Referring Provider: Reason for Consultation Acute renal insufficiency History of Present Illness Mr. Dez Adair is a 61-year-old male who was admitted to [facility] on April 10 with acute pancreatitis. Mr. Adair presented to the ED with sudden onset abdominal pain consistent with prior episodes of pancreatitis. His first episode was in June 2016. He was subsequently admitted to [facility] in October with pancreatitis. Etiology remains unclear. Medical history is also notable for hypertension, DM II, obesity and history of cholecystectomy. Patient denies alcohol use. He does not have hypertriglyceridemia. CT scan from admission was reviewed today. This is notable for edematous pancreas with hepatitic steatosis and multiple bilateral nonobstructing renal calculi. Baseline creatinine is less than 1 mg/dL. Creatinine was 1.4 mg/dL on presentation to [facility]. It has increased to 2.3 mg/dL. Metabolic profile is otherwise notable for mild hypocalcemia. Fluid balance is +2.7 L. Bryan draining concentrated urine. Patient remains NPO. He was febrile on hospital day #2. Cultures are pending. Mr. Adair had accelerated hypertension on admission. He is treated with lisinopril. Blood pressure has improved. DM II treated with glipizide and metformin. Urine analysis is notable for microscopic hematuria and ketonuria. Microscopy shows numerous RBC without WBC. Abdominal pain persists. The patient was seen and evaluated with his at the bedside. She provided the majority of the medical history. The patient is slightly confused. He is overwhelmed. Symptoms are notably worse than prior. Past Medical/Surgical History Medical: Obesity, hypertension, diabetes mellitus II, pancreatitis Surgical: Cholecystectomy Allergies Coded Allergies: Penicillins (Verified Allergy, Mild, RASH, 04/10/17) NEVER HAS HAD DIFFICULTY BREATHING WITH PCN BEFORE- PER PT 10/30/09, [facility] [place] CHECKED WITH PT. HE IS WILLING TO TAKE ANCEF PRE-OP TODAY Amoxicillin (Verified Adverse Reaction, Severe, rash, 04/10/17) Morphine (Verified Adverse Reaction, Severe, Rowdy, fired up, 04/10/17) Clindamycin (Verified Adverse Reaction, Unknown, ? nicol's syndrome, 04/10) redness,diaphoresis, transient elevated temp. occurs aprox. 1 hour after taking med and resolves spontaneously in 20-30 minutes. Inpatient Medications Current Inpatient Medications Medications (Trade) Dose Ordered Sig/Akash Route Start Time Stop Time Status Last Admin Dose Admin Ioversol (Optiray 320) 111 ml UD PRN IV 04/10/17 16:00 04/14/17 15:59 Acetaminophen (Tylenol Tab) 650 mg Q4H PRN PO 04/10/17 20:15 05/10/17 20:14 04/11/17 15:29 650 MG Al Hydrox/Mg Hydrox/Simethicone (Maalox Max Susp) 15 ml Q4H PRN PO 04/10/17 20:15 05/10/17 20:14 Magnesium Hydroxide (Milk Of Magnesia Susp) 30 ml Q12H PRN PO 04/10/17 20:15 05/10/17 20:14 Zolpidem Tartrate (Ambien Tab) 5 mg HSZ PRN PO 04/10/17 20:15 05/10/17 20:14 Ondansetron HCl (Zofran Inj) 4 mg Q6H PRN IV 04/10/17 20:15 05/10/17 20:14 Polyethylene (Miralax Powder Packet) 17 gm DAILY PRN PO 04/10/17 20:15 05/10/17 20:14 Aspirin (Ecotrin Tab) 81 mg QAM PO 04/11/17 09:00 05/11/17 08:59 04/12/17 07:44 81 MG Hydromorphone HCl (Dilaudid Inj) 1 mg Q2H PRN IV 04/10/17 21:15 04/24/17 21:14 04/12/17 07:46 1 MG Glucose (Glucose 40% Gel) UD PRN PO 04/10/17 22:30 05/10/17 22:29 Glucose (Glucose Chew Tab) 1 tabs UD PRN PO 04/10/17 22:30 05/10/17 22:29 Dextrose (Dextrose 50% 50ML Syringe) 50 ml UD PRN IV 04/10/17 22:30 05/10/17 22:29 Glucagon (Glucagon Inj) 1 mg UD PRN SQ 04/10/17 22:30 05/10/17 22:29 Insulin Aspart (novoLOG ASPART) SLIDING SCALE If C... Q6 SC 04/11/17 12:00 05/11/17 11:59 04/12/17 05:57 2 UNITS Lactated Ringer's 1,000 ml @ 250 mls/hr Q4H IV 04/11/17 10:30 05/11/17 10:29 04/12/17 10:05 250 MLS/HR Heparin Sodium (Porcine) (Heparin Sq 5000 Unit/0.5ml) 5,000 unit Q8 SQ 04/11/17 14:00 05/11/17 13:59 04/12/17 05:58 5,000 UNIT Imipenem/ Cilastatin Sodium 300 mg/Dextrose 106 ml @ 100 mls/hr Q6H IV 04/12/17 10:00 04/22/17 09:59 Imipenem/ Cilastatin Sodium (Consult) 1 ea UD PRN N/A 04/12/17 09:45 05/12/17 09:44 Family History Cancer Diabetes mellitus Heart disease Kidney disease Kidney stones Social History Smoking Status: Former Smoker Smokeless Tobacco Use: No Alcohol Use: none Drug Use: none Marital Status: Housing Status: lives with family Occupation: employed Review of Systems A complete review of systems was performed. Pertinent positives are noted above. All other systems are negative. Physical Exam Date Time Temp Pulse Resp B/P (MAP) Pulse Ox O2 Delivery O2 Flow Rate FiO2 04/12/17 08:00 Room Air 04/12/17 07:44 127 126/63 (84) 04/12/17 07:07 36.9 127 20 138/74 (95) 92 Room Air 04/12/17 05:01 36.8 132 20 113/73 (86) 92 Room Air 04/12/17 04:00 Room Air 04/12/17 00:15 37.9 131 19 128/65 (86) 92 04/12/17 00:00 Room Air 04/11/17 21:49 37.0 115/69 (84) 04/11/17 20:00 Room Air 04/11/17 19:59 37.2 04/11/17 19:35 37.8 130 20 116/66 (83) 91 Room Air 04/11/17 16:00 Room Air 04/11/17 14:56 37.9 127 18 127/78 (94) 92 Room Air 04/11/17 12:00 Room Air 04/11/17 11:53 37.2 131 20 124/85 (98) 93 Room Air 04/11/17 10:23 131 124/71 (88) General Appearance: + mild distress, + obese Head: normocephalic, atraumatic Eyes: normal inspection, sclerae normal ENT: normal ENT inspection, pharynx normal, + pertinent finding (oral mucosa moist) Neck: supple, no JVD Respiratory/Chest: lungs clear, no respiratory distress, no accessory muscle use, + decreased breath sounds Cardiovascular: no gallop, no murmur, + tachycardia Abdomen/GI: soft, + tenderness, + distended Genitourinary - Male: + pertinent finding (Bryan draining concentrated urine) Extremities/Musculoskelatal: + pedal edema, + swelling Neurologic/Psych: alert, normal mood/affect Laboratory Results Last 24 Hours Test 04/11/17 11:42 04/11/17 12:03 04/11/17 16:16 04/11/17 16:36 Prothrombin Time 11.3 SECONDS Prothromb Time International Ratio 1.1 Bedside Glucose 184 mg/dl Urine Color YELLOW Urine Appearance CLEAR Urine pH 5.0 Urine Specific [place] 1.025 Urine Protein NEG Urine Glucose (UA) NEG Urine Ketones TRACE Urine Occult Blood 2+ Urine Nitrite NEG Urine Bilirubin NEG Urine Urobilinogen NEG Urine Leukocyte Esterase NEG Urine WBC (Auto) 1-5 /hpf Urine RBC (Auto) >30 /hpf Urine Hyaline Casts (Auto) 1-5 /lpf Urine Epithelial Cells (Auto) 5-10 /lpf Urine Bacteria (Auto) NEG Sodium Level 136 mmol/L Potassium Level 4.5 mmol/L Chloride Level 103 mmol/L Carbon Dioxide Level 24 mmol/L Anion Gap 9.0 mmol/L Blood Urea Nitrogen 14 mg/dl Creatinine 1.50 mg/dl Est Creatinine Clear Calc Drug Dose 77.9 ml/min Estimated GFR () 57.0 Estimated GFR (Non- 49.2 BUN/Creatinine Ratio 9.1 Random Glucose 190 mg/dl Calcium Level 8.2 mg/dl Ionized Calcium 0.98 mmol/l Magnesium Level 1.6 mg/dl Lactate Dehydrogenase 191 U/L Triglycerides Level 100 mg/dl Cholesterol Level 100 mg/dl HDL Cholesterol 37 mg/dl LDL Cholesterol, Calculated 43 mg/dl VLDL Cholesterol, Calculated 20 mg/dl Cholesterol/HDL Ratio 2.7 Test 04/11/17 18:34 04/11/17 20:11 04/12/17 00:10 04/12/17 05:47 Bedside Glucose 215 mg/dl 167 mg/dl 183 mg/dl 199 mg/dl Test 04/12/17 06:41 04/12/17 09:43 White Blood Count 30.75 K/uL Red Blood Count 4.92 M/uL Hemoglobin 14.0 g/dL Hematocrit 42.9 % Mean Corpuscular Volume 87.2 fL Mean Corpuscular Hemoglobin 28.5 pg Mean Corpuscular Hemoglobin Concent 32.6 g/dl Platelet Count 252 K/uL Mean Platelet Volume 10.2 fL Neutrophils (%) (Auto) 84.3 % Lymphocytes (%) (Auto) 4.3 % Monocytes (%) (Auto) 8.4 % Eosinophils (%) (Auto) 0.0 % Basophils (%) (Auto) 0.1 % Neutrophils # (Auto) 25.93 K/uL Lymphocytes # (Auto) 1.32 K/uL Monocytes # (Auto) 2.58 K/uL Eosinophils # (Auto) 0.01 K/uL Basophils # (Auto) 0.02 K/uL RDW Standard Deviation 50.8 fL RDW Coefficient of Variation 15.9 % Immature Granulocyte % (Auto) 2.9 % Immature Granulocyte # (Auto) 0.89 K/uL Sodium Level 137 mmol/L Potassium Level 4.9 mmol/L Chloride Level 101 mmol/L Carbon Dioxide Level 24 mmol/L Anion Gap 12.0 mmol/L Blood Urea Nitrogen 24 mg/dl Creatinine 2.30 mg/dl Est Creatinine Clear Calc Drug Dose 50.9 ml/min Estimated GFR () 34.0 Estimated GFR (Non- 29.3 BUN/Creatinine Ratio 10.3 Random Glucose 198 mg/dl Calcium Level 8.2 mg/dl Ionized Calcium 1.03 mmol/l Magnesium Level 1.8 mg/dl Lipase 1305 U/L Impression (1) Acute renal insufficiency (2) Acute pancreatitis (3) Hypertension (4) Diabetes Mr. Adair is an obese 61-year-old male with diabetes mellitus II, hypertension, and a history of recurrent pancreatitis. He was admitted on April [address] scan of the abdomen reviewed on admission. Etiology unclear. Patient denies alcohol use and triglycerides are normal. Clinical course unfortunately complicated by acute renal insufficiency. Mr. Adair had been maintained on lisinopril for hypertension which will be held. His urine output is reduced. TBW increased. Baseline creatinine is less than 1. Creatinine has risen ~ 1 mg/dL/24 hours. Overall volume status appears appropriate but patient remains NPO. Abdomen is soft and not consistent with an abdominal compartment syndrome. I think it would be unlikely for bladder pressure monitoring would be beneficial at this time. Urine studies are notable for microscopic hematuria without pyuria. This would not be consistent with GN. Etiology such as IgG4 would be unlikely in this scenario. Checking serum IgG4 would be a reasonable consideration. I cannot exclude an interstitial nephritis however which would be a rare clinical presentation. Clinically, VLAD is consistent with multifactorial ATN and prerenal azotemia. Also cannot completely exclude pigment nephropathy. Recommendations -- Calcium gluconate x 1 gram -- IV fluid switched to NS @ 150 ml/hr; intermittent bolus 500 ml may be used as needed for any hypotension or to attempt to stimulate urine output -- I would suggest repeat imaging within the next 24 hours -- Considerations for parental nutrition discussed with primary service this morning -- Medications are appropriate for renal function: hold INOCENTE/ARB, glipizide and metformin -- Repeat renal profile this afternoon and monitor daily -- Monitor ionized calcium daily -- Check CPK with next blood work and serum IgG4 -- Document I/O's
[2017-04-12] MEDS: SODIUM CHLORIDE 0.9% 1000ML 1,000 ML IV SCH ×3 (10:52→22:09)
[2017-04-12] MEDS: IMIPENEM/CILASTATIN IV 300 MG in DEXTROSE 5% 100ML 100 ML IV SCH ×3 (10:52→22:04)
--- NOTE | 2017-04-12 14:18 | GASTROENTEROLOGY PROGRESS NOTE ---
DATE: 04/12/2017 DATE: 04/12/2017 HISTORY OF PRESENT ILLNESS: The patient actually looks more comfortable today while sitting in bed compared with last evening when I first saw him as an initial consult at approximately 5:30 p.m. He feels that his pain is less bothersome when sitting as compared to lying down. He has not had any vomiting, although had a slight dry heaving. There has been no bowel movement according to the patient. He reports no fever or shaking chills. I did speak with house staff overnight or approximately 2:00 a.m. regarding some evening laboratory studies that included a magnesium and calcium levels that were low. The patient was re-receiving magnesium supplements and the ionized calcium needed to be readdressed. This morning the patient, although clinically appears to be better, has had some decrease in his urine output relevant to his IV fluid intake. As a result I did request that nephrology see the patient has BUN and creatinine, particularly the latter, are increased over baseline. Regarding the pancreatitis, the patient's lipase is continuing to resolve. Again, this represents multiple recurrent attacks of acute pancreatitis that seems to have followed his gallbladder surgery earlier this year. There has been no evidence for liver function tests changes that would suggest biliary origin and the patient does not drink alcohol, perhaps an occasional beer once in a while but often less perhaps monthly. The lisinopril that he is taking he has been on for several years. REVIEW OF SYSTEMS: Otherwise noncontributory. VITAL SIGNS: Today blood pressure 126/63, 127 heart rate which has been persistent since yesterday, although he is afebrile at 36.9. He did have an overnight temperature 37.9 at midnight. He is 92% on room air. Respirations 20. LABORATORY STUDIES: This morning as the patient's white count is increasing and is up to 30.7 this morning, hemoglobin 14, platelets 252,000. Serum chemistry shows increase in BUN and creatinine with a BUN 24, creatinine 2.3 today with values on admission of 14 and 1.1. This is occurring in spite of aggressive IV fluid management lactated ringers. Ionized calcium yesterday afternoon was 0.98 with magnesium 1.6. This was repeated this morning with an ionized calcium now 1.03, which although low trending in the correct direction. Total and direct bilirubin this morning show 1.2 and 0.4 (predominantly indirect) with normal ALT 14, AST 17 and alkaline phosphatase 69. His lipase is down to 1305. Imaging studies from this morning and last night show evidence of a left basilar trace pleural effusion versus consolidation and was compared to an earlier portal study. MEDICATIONS: He was started on Primaxin and continues on insulin, aspirin, hydromorphone, Ambien with lisinopril discontinued this morning. PHYSICAL EXAMINATION: GENERAL: The patient is awake, alert and oriented x3 and accompanied by his spouse. He is resting comfortably in the chair and is not overtly short of breath or reporting any significant abdominal pain. HEART: Normal S1, S2. LUNGS: Clear to auscultation without wheezes. ABDOMEN: Soft, obese. Mildly tender across the mid and upper abdomen. EXTREMITIES: Show +1 pitting edema. HEAD, EYES, EARS, NOSE, AND THROAT: Sclerae are anicteric, conjunctivae moist. Oral mucosa moist. IMPRESSION AND PLAN: The patient with evidence of acute interstitial pancreatitis that is recurrent in nature of unclear etiology. Traditional causes such as hyperlipidemia, triglyceridemia, gallstones or alcohol do not appear to be culprits. The patient has been on enalapril for several years without dose changes and I would not expected this to be a source of the patient's pancreatitis; this however has also been discontinued. Unloader Operator has seen the patient and has recommended calcium replacement with fluid change to saline with rate of 150 an hour withholding the Reggie and glipizide and metformin currently in order to control sugars with insulin alone. Ionized calcium being monitored. PLAN: Regarding the pancreatitis, clinically the patient is doing better from abdominal pain standpoint with pain management and continued n.p.o. status. I believe it would be reasonable to consider parenteral nutrition while this acute pancreatitis is ongoing and would continue an n.p.o. status except for ice chips. Renal recommendations noted. At the present time, antibiotics have been started. It is unclear if there is a focal source, although it is possible that the left lobe effusion versus consolidation is a source of the leukocytosis. Alternatively the inflammatory response of the acute pancreatitis may be driving some of the low grade fever overnight and the increased leukocytosis. Macdonald culturing is in process. We will continue to follow with you. I will attempt to obtain the report of the MRI that was performed at [facility] over the past few months. All questions answered. The patient should ambulate as tolerated.
[2017-04-12 17:03] LABS: BUN/CREATININE RATIO 13.4 (10-20); CALCIUM 8.4 mg/dl (8.5-10.1); CREATININE 2.3 mg/dl (0.60-1.40); POTASSIUM 4.7 mmol/L (3.5-5.1)
[2017-04-12 17:06] LABS: PHOSPHORUS 2.7 mg/dl (2.5-4.9)
--- NOTE | 2017-04-12 17:52 | GASTROINTESTINAL CONSULTATION ---
DATE OF CONSULTATION: 04/11/2017 CHIEF COMPLAINT: Recurrent acute pancreatitis. HISTORY OF PRESENT ILLNESS: Mr. Adair is a 61-year-old white male known to me from prior hospitalizations and office visits. In the past, the patient has experienced recurrent acute pancreatitis on at least 2-3 occasions following gallbladder surgery that was earlier this year. This did not appear to be related to gallstone pancreatitis as his LFTs have consistently been normal during these events. Moreover, the patient does not use alcoholic beverages. All medications that the patient is taking have been present for several years without dose modifications. He did have an outpatient MR and followup over the last inpatient hospitalization and I will attempt to retrieve the report from [facility] for this study. The patient had been doing well overall. He does not drink alcoholic beverages. PAST MEDICAL HISTORY: Includes diabetes type 2, for which he is on glimepiride and metformin. MEDICATIONS: His other medications at home include lisinopril 40 mg daily and coated aspirin. ALLERGIES: HE HAS ALLERGIES TO PENICILLIN, AMOXICILLIN, MORPHINE AND CLINDAMYCIN. Other medical problems include hypertension and status post cholecystectomy. FAMILY HISTORY: Noncontributory, although there is a history of diabetes, heart disease and kidney stones with kidney disease. SOCIAL HISTORY: The patient is a former smoker, does not use alcoholic beverages. He is and lives with his family. REVIEW OF SYSTEMS: Otherwise noncontributory based on 13-point exam except for mentioned above. PHYSICAL EXAMINATION: VITAL SIGNS: On admission showed vital signs of 94% on room air, blood pressure 127/85, respirations 20, and pulse 83. GENERAL: The patient is awake, alert and oriented x3, although uncomfortable lying in bed. He is on pain medications for pain control. HEENT: His oral mucosa is slightly parched. Sclerae are anicteric. Conjunctiva moist. HEART: Normal S1 and S2. LUNGS: Overall, clear to auscultation without rales, rhonchi or wheezes. ABDOMEN: Soft, tender diffusely, mostly above the level of the umbilicus bilaterally. There is no rebound or guarding. Bowel sounds are quiet, but present. There is no evidence of ascites or shifting dullness, although this is a limited exam due to body habitus. The patient, however, does not believe that his abdomen is any more protuberant than usual. EXTREMITIES: Show +1 pitting edema. Extremities show overall normal range of motion. RECTAL: Deferred. NEUROLOGIC: There is no neurologic focal defect. NECK: There is no cervical or supraclavicular adenopathy. I do not appreciate thyromegaly. LABORATORY STUDIES: On admission revealed a white count that was 17.8, but had risen earlier today to 25.8. Hemoglobin is 14.5, MCV 85, and platelets 271. Serum chemistry on admission showed a BUN and creatinine of 14 and 1.0, potassium 4.1. Total bilirubin 0.6. ALT 27, AST 16, and alkaline phosphatase 78. Total protein 7.5 and albumin 3.5. Lipase was 8231 on admission. Random glucose 121. Subsequent labs from today, April 11 reveal a lipase of 4143, which is decreased, although blood sugar is slightly higher. Calcium is low and ionized calcium is also low at 0.98. Magnesium level is 1.6. BUN and creatinine, however, slightly increased at 14 and 1.5 compared with baseline despite IV fluids. Lipids include triglycerides 100, cholesterol 100, LDL 43 and HDL cholesterol 37. Urinalysis does not reveal evidence of obvious urinary tract infection; however, there are trace ketones and blood in the urine, which presumably may be due to catheter placement. INR is normal at 1.1. IMAGING STUDIES: CT scan on admission, April 10 revealed comparison to October 2016 with cholecystectomy clips. There may be minimal dependent changes likely atelectasis, but no pleural effusion. There is hepatic steatosis. No focal lesions noted. There is no evidence of intra or extrahepatic bile duct dilation with gallbladder surgically absent. Pancreas shows parenchymal atrophy. There is peripancreatic fat infiltration around pancreas with trace fluid in the left anterior perirenal space and lesser sac. No well-defined peripancreatic fluid collection is appreciated. The pancreatic parenchyma enhances normally without evidence of necrosis. Spleen is normal. Adrenals normal. There is mild pancolonic diverticulosis without bowel obstruction. There are few prominent peripancreatic lymph nodes up to 8 mm. The patient does have bilateral fat containing inguinal hernias with overall findings consistent with interstitial edematous pancreatitis without an acute peripancreatic fluid collection. IMPRESSION AND PLAN: From a clinical standpoint, the patient has another attack of acute pancreatitis and is slightly uncomfortable in bed. The patient is receiving analgesics. There is an elevated white count, although since admission except for this afternoon at approximately 03:00 p.m., there was a temperature of 37.9. The remainders have been afebrile. It is difficult to know if this increase is related to an infectious etiology or if this is a sympathetic response from the patient's acute inflammation and pain. The white count may also reflect this as an origin, although an infection cannot be totally excluded. Presently, the use of antibiotics would be not necessary unless there is some change or if fever persists, culturing would be prudent. During this setting, we would be aggressive in correcting all electrolyte abnormalities with aggressive hydration with lactated Ringer's. We will attempt to obtain the MRI report, but in the meantime, the patient should maintain an n.p.o. status except for ice chips to moisten mouth and IV fluid support along with other supportive care. Would follow lipase, BUN and creatinine and white count. All questions answered for the patient. BEATRIZD
[2017-04-13] VITALS (7 sets, daily range): BP systolic 103–183; BP diastolic 69–87; PULSE 109–126; TEMP 36.8–37.3; O2SAT 94–97
[2017-04-13] MEDS: INSULIN ASPART 100 UNITS/ML 3 ML PEN SC SCH ×5 (00:05→23:59)
[2017-04-13] MEDS: IMIPENEM/CILASTATIN IV 300 MG in DEXTROSE 5% 100ML 100 ML IV SCH ×4 (03:57→22:12)
[2017-04-13] MEDS: HYDROmorphone INJ 1 MG/ML SYR IV PRN ×7 (03:58→23:19)
--- NOTE | 2017-04-13 05:50 | Family Medicine Progress Note ---
Progress Note Date of Service Apr 13, 2017. Subjective Pt evaluation today including: conversation w/ patient, physical exam, chart review, lab review Found pt sitting up in the gurney, speaking comfortably. Says abd pain continues to improve, now 5/10 pain scale. Abd feels a little less distended than yest AM. Denies any CP, SOB, N/V, or other acute concerns. Constitutional: No fever, No chills Respiratory: No cough, No shortness of breath Cardiovascular: No chest pain, No edema Abdomen: + pain, No nausea, No vomiting, No diarrhea Musculoskeletal: No calf pain Medications Current Inpatient Medications Medications (Trade) Dose Ordered Sig/Akash Route Start Time Stop Time Status Last Admin Dose Admin Ioversol (Optiray 320) 111 ml UD PRN IV 04/10/17 16:00 04/14/17 15:59 Acetaminophen (Tylenol Tab) 650 mg Q4H PRN PO 04/10/17 20:15 05/10/17 20:14 04/11/17 15:29 650 MG Al Hydrox/Mg Hydrox/Simethicone (Maalox Max Susp) 15 ml Q4H PRN PO 04/10/17 20:15 05/10/17 20:14 Magnesium Hydroxide (Milk Of Magnesia Susp) 30 ml Q12H PRN PO 04/10/17 20:15 05/10/17 20:14 Zolpidem Tartrate (Ambien Tab) 5 mg HSZ PRN PO 04/10/17 20:15 05/10/17 20:14 Ondansetron HCl (Zofran Inj) 4 mg Q6H PRN IV 04/10/17 20:15 05/10/17 20:14 Polyethylene (Miralax Powder Packet) 17 gm DAILY PRN PO 04/10/17 20:15 05/10/17 20:14 Aspirin (Ecotrin Tab) 81 mg QAM PO 04/11/17 09:00 05/11/17 08:59 04/13/17 07:47 81 MG Hydromorphone HCl (Dilaudid Inj) 1 mg Q2H PRN IV 04/10/17 21:15 04/24/17 21:14 04/13/17 07:47 1 MG Glucose (Glucose 40% Gel) UD PRN PO 04/10/17 22:30 05/10/17 22:29 Glucose (Glucose Chew Tab) 1 tabs UD PRN PO 04/10/17 22:30 05/10/17 22:29 Dextrose (Dextrose 50% 50ML Syringe) 50 ml UD PRN IV 04/10/17 22:30 05/10/17 22:29 Glucagon (Glucagon Inj) 1 mg UD PRN SQ 04/10/17 22:30 05/10/17 22:29 Insulin Aspart (novoLOG ASPART) SLIDING SCALE If C... Q6 SC 04/11/17 12:00 05/11/17 11:59 04/13/17 06:20 2 UNITS Heparin Sodium (Porcine) (Heparin Sq 5000 Unit/0.5ml) 5,000 unit Q8 SQ 04/11/17 14:00 05/11/17 13:59 04/13/17 06:19 5,000 UNIT Imipenem/ Cilastatin Sodium 300 mg/Dextrose 106 ml @ 100 mls/hr Q6H IV 04/12/17 10:00 04/22/17 09:59 04/13/17 07:47 100 MLS/HR Imipenem/ Cilastatin Sodium (Consult) 1 ea UD PRN N/A 04/12/17 09:45 05/12/17 09:44 Sodium Chloride 1,000 ml @ 150 mls/hr Q6H40M IV 04/12/17 10:30 05/12/17 10:29 04/13/17 06:33 150 MLS/HR Objective Vital Signs Date Time Temp Pulse Resp B/P (MAP) Pulse Ox O2 Delivery O2 Flow Rate FiO2 04/13/17 08:00 36.8 117 18 120/87 (98) 97 Nasal Cannula 4.0 04/13/17 04:14 37.3 120 20 103/69 (80) 94 Nasal Cannula 4.0 04/13/17 04:00 Nasal Cannula 4.0 04/13/17 00:06 126 20 121/77 (92) 96 Nasal Cannula 4.0 04/13/17 00:00 Nasal Cannula 4.0 04/12/17 20:00 Room Air 04/12/17 19:57 36.9 68 19 116/59 (78) 96 Nasal Cannula 2.0 04/12/17 16:00 Room Air 04/12/17 15:38 37.4 129 20 128/70 (89) 94 2.0 04/12/17 12:12 36.8 136 20 132/76 (94) 92 2.0 04/12/17 12:00 Room Air 04/12/17 10:30 88 Room Air Physical Exam General Appearance: + mild distress (but improving) Respiratory/Chest: lungs clear, normal breath sounds, no respiratory distress Cardiovascular: regular rate, rhythm, no edema, no murmur Abdomen: + tenderness (epigastric > generalized, improved. mild distension. ) Extremities: no pedal edema Skin: warm/dry Laboratory Results 04/13/17 05:50 Red Blood Count 4.34, Mean Corpuscular Volume 87.1, Mean Corpuscular Hemoglobin 28.6, Mean Corpuscular Hemoglobin Concent 32.8, Mean Platelet Volume 10.3, Neutrophils (%) (Auto) 85.7, Lymphocytes (%) (Auto) 5.6, Monocytes (%) (Auto) 7.7, Eosinophils (%) (Auto) 0.3, Basophils (%) (Auto) 0.1, Neutrophils # (Auto) 18.67, Lymphocytes # (Auto) 1.22, Monocytes # (Auto) 1.68, Eosinophils # (Auto) 0.06, Basophils # (Auto) 0.02 04/13/17 05:50 Test 04/12/17 10:57 04/12/17 16:12 04/13/17 05:50 04/13/17 06:05 25-Hydroxy Vitamin D Total 22.6 ng/ml (30-100) Phosphorus Level 2.7 mg/dl (2.5-4.9) Total Creatine Kinase 39 U/L (39-308) White Blood Count 21.78 K/uL (4.8-10.8) Red Blood Count 4.34 M/uL (4.7-6.1) Hemoglobin 12.4 g/dL (14.0-18.0) Hematocrit 37.8 % (42-52) Mean Corpuscular Volume 87.1 fL (80-100) Mean Corpuscular Hemoglobin 28.6 pg (25-34) Mean Corpuscular Hemoglobin Concent 32.8 g/dl (32-36) Platelet Count 208 K/uL (130-400) Mean Platelet Volume 10.3 fL (7.4-10.4) Neutrophils (%) (Auto) 85.7 % Lymphocytes (%) (Auto) 5.6 % Monocytes (%) (Auto) 7.7 % Eosinophils (%) (Auto) 0.3 % Basophils (%) (Auto) 0.1 % Neutrophils # (Auto) 18.67 K/uL (1.4-6.5) Lymphocytes # (Auto) 1.22 K/uL (1.2-3.4) Monocytes # (Auto) 1.68 K/uL (0.11-0.59) Eosinophils # (Auto) 0.06 K/uL (0-0.5) Basophils # (Auto) 0.02 K/uL (0-0.2) RDW Standard Deviation 51.4 fL (36.4-46.3) RDW Coefficient of Variation 15.8 % (11.5-14.5) Immature Granulocyte % (Auto) 0.6 % Immature Granulocyte # (Auto) 0.13 K/uL (0.00-0.02) Dohle Bodies 2+ Anion Gap 8.0 mmol/L (3-11) Est Creatinine Clear Calc Drug Dose 58.6 ml/min Estimated GFR () 40.3 Estimated GFR (Non- 34.7 BUN/Creatinine Ratio 19.4 (10-20) Calcium Level 8.0 mg/dl (8.5-10.1) Ionized Calcium 1.04 mmol/l (1.12-1.32) Total Bilirubin 0.7 mg/dl (0.2-1) Aspartate Amino Transf (AST/SGOT) 13 U/L (15-37) Alanine Aminotransferase (ALT/SGPT) 14 U/L (12-78) Alkaline Phosphatase 75 U/L (45-117) Total Protein 6.4 gm/dl (6.4-8.2) Albumin 2.2 gm/dl (3.4-5.0) Globulin 4.2 gm/dl (2.5-4.0) Albumin/Globulin Ratio 0.5 (0.9-2) Lipase 408 U/L (73-393) Bedside Glucose 184 mg/dl (70-99) Assessment and Plan 61 yo male c/o acute abdominal pain and hx of pancreatitis. Acute Pancreatitis (hx of same): Admitted to [facility] for same in Oct 2016. Open MRI (due to claustrophobia) at [facility] around Oct 2016 reported as normal per pt. CT on admit (Sep) was c/w interstitial edematous pancreatitis (with no acute peripancreatic fluid collection) as well as hepatic steatosis. - NPO except meds. Dilaudid 1 mg q2h prn for pain. - Started on NS + 20 mEq KCl at 150 ml/hr, switched to LR at 250 mL/hr, back to NS at 150 ml/hr on 23Sep. - Lipase trending down 8K -> 4K -> 1.3K. - Lungs clear. Concern ongoing IVF for pancreatitis is going into abdomen. Monitoring. - 22Sep GI consulted. Noted sx improvement. Since improving - Holding TPN for now though recommended initially. Recommended against CT a/p at 48 hr jeffry unless condition changes. - Replaced calcium and tracking daily ionized Ca levels. - 23Sep started imipenem/cilastatin 300 mg IV q6h (pt has multiple abx allergies ). --- ID consulted, appreciate recs. - Stop lisinopril: Received 23Sep AM dose, held going forward. SIRS, likely secondary to pancreatitis, r/o infection - Borderline febrile 37.9 on 23Sep. Persistently tachycardic 120's-130's. Worsening WBC to 30. - EKG 22Sep sinus tachy, LAFB, possible old inferior infarct - unchanged from May 2016. Monitor 23Sep AM was sinus tachy. - 23Sep CXR one view: Question left lateral costophrenic sulcus atelectasis vs small pleural effusion; No evidence of pulm edema. [Repeat two-view CXR later on 23Sep was unchanged.] - Started imipenem/cilastatin 23Sep. [ ] 23Sep BCx x 2 pending. [ ] 23Sep UCx pending. VLAD: On admit Cr 1.4. Baseline 0.8. Worsened to 2.3 with dropping UOP. - 22Sep noted dark-appearing urine and relative decreased output. Placed flores. That evening 6 hr UOP was 0.06 mL/kg/hr. - 23Sep Nephro consulted. Recd calcium repletion and tracking, switch to NS at 150 mL/hr, TPN, renal labs & I/Os monitoring, CPK. Hypertension: Hx of same. Some elevation 21-22Sep, given hydralazine and metoprolol overnight 21-22Sep. Improved control overnight 22-23Sep. - 23Sep held home lisinopril due to worsening pancreatitis. - Continue to monitor. Consider metoprolol 5 mg IV prn if worsens. - Consider outpatient sleep study considering due to hx of snoring and body habitus Hypomagnesemia: Noted at Mg 1.6. Replacement on 22Sep, 1.8 on recheck. Low Vitamin D: Noted on labs. Will address once taking PO again. Type 2 DM - Held home metformin and glipizide. - Novolog sliding scale coverage as inpt. 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 Resident Involvement: Resident Care Provided Care Provided: Adult Hospital Medicine (inpt rounds) Reviewed: Pt Seen/Exam by Me History abdominal pain still present 11/27 but improved in intensity Constitutional: denies: fever Respiratory: negative: short of breath Cardiovascular: denies chest pain Gastrointestinal/Abdominal: positive: abdominal pain General Appearance: mild distress Respiratory: lungs clear, no respiratory distress Cardiovascular: regular rate, rhythm Gastrointestinal: normal bowel sounds, soft, tenderness (epigastric) Neurologic/Psychiatric: alert, oriented x 3 Skin Characteristics: warm/dry Assessment/Plan Resident Physician Supervision Note: I independently interviewed and examined the patient and verified the bermudez history and physical, reviewed labs and image studies, discussed the case with the resident Dr. Dye and agree with the findings and care plan.
[2017-04-13 06:13] LABS: HEMATOCRIT 37.8 % (42-52); MEAN CELL VOLUME 87.1 fL (80-100); MEAN CORPUSCULAR HEMOGLOBIN 28.6 pg (25-34); MEAN CORPUSCULAR HGB CONC 32.8 g/dl (32-36); MEAN PLATELET VOLUME 10.3 fL (7.4-10.4); PLATELET COUNT 208 K/uL (130-400); RED BLOOD COUNT 4.34 M/uL (4.7-6.1); WHITE BLOOD COUNT 21.78 K/uL (4.8-10.8)
[2017-04-13] MEDS: HEPARIN SOD 5000 UNIT/0.5 ML CARP SQ SCH ×3 (06:19→21:35)
[2017-04-13] MEDS: SODIUM CHLORIDE 0.9% 1000ML 1,000 ML IV SCH ×3 (06:33→20:37)
[2017-04-13 06:34] LABS: BASO % 0.1 %; BASO ABS # 0.02 K/uL (0-0.2); COMPLETE YES; EOS % 0.3 %; IG% 0.6 %; LYMPH % 5.6 %; LYMPH ABS # 1.22 K/uL (1.2-3.4); MONO % 7.7 %; NEUT % 85.7 %
[2017-04-13 06:40] LABS: BUN/CREATININE RATIO 19.4 (10-20); DOHLE BODIES 2+; POTASSIUM 4.6 mmol/L (3.5-5.1)
[2017-04-13 06:43] LABS: ALB/GLOB RATIO 0.5 (0.9-2)
[2017-04-13] MEDS: ASPIRIN 81 MG ECTAB PO SCH (07:47)
[2017-04-13] MEDS ORDERED: CALCIUM GLUCONATE 10% 1,000 MG in SODIUM CHLORIDE 0.9% 50ML 50 ML IV ONE (09:45)
--- NOTE | 2017-04-13 09:59 | Nephrology Progress Note ---
Nephrology Progress Note Date of Service Apr 13, 2017. Chief Complaint Acute renal insufficiency Subjective No acute events overnight. Patient's remains at the bedside. Intermittent confusion noted. Abdominal pain persists. No bowel movement. Minimal flatus. No nausea or vomiting. No fevers or chills. Breathing comfortably. Lower extremity edema increasing. Review of Systems A complete review of systems was performed. Pertinent positives are noted above. All other systems are negative. Vital Signs Last 8 Hrs Date Time Temp Pulse Resp B/P (MAP) Pulse Ox O2 Delivery O2 Flow Rate FiO2 04/13/17 08:00 36.8 117 18 120/87 (98) 97 Nasal Cannula 4.0 04/13/17 04:14 37.3 120 20 103/69 (80) 94 Nasal Cannula 4.0 04/13/17 04:00 Nasal Cannula 4.0 Last Recorded Weight Weight (Kilograms): 152.500 Physical Exam General Appearance: no apparent distress, + obese Head: normocephalic, atraumatic Eyes: normal inspection, sclerae normal ENT: normal ENT inspection, pharynx normal Neck: supple, no JVD Respiratory/Chest: lungs clear, no respiratory distress, no accessory muscle use, + decreased breath sounds Cardiovascular: no gallop, no murmur, + tachycardia Abdomen/GI: + tenderness, + distended, + pertinent finding (notably hypoactive bowel sounds, distended but soft) Genitourinary - Male: + pertinent finding (Bryan with urine slightly less concentrated appearing than yesterday) Extremities/Musculoskelatal: normal inspection, + pedal edema Neurologic/Psych: alert, normal mood/affect Family History Cancer Diabetes mellitus Heart disease Kidney disease Kidney stones Social History Smoking Status: Never smoker Smokeless Tobacco Use: No Alcohol Use: none Drug Use: none Marital Status: Housing Status: lives with family Occupation: employed Laboratory Results Past 24 Hours 04/13/17 05:50 Red Blood Count 4.34, Mean Corpuscular Volume 87.1, Mean Corpuscular Hemoglobin 28.6, Mean Corpuscular Hemoglobin Concent 32.8, Mean Platelet Volume 10.3, Neutrophils (%) (Auto) 85.7, Lymphocytes (%) (Auto) 5.6, Monocytes (%) (Auto) 7.7, Eosinophils (%) (Auto) 0.3, Basophils (%) (Auto) 0.1, Neutrophils # (Auto) 18.67, Lymphocytes # (Auto) 1.22, Monocytes # (Auto) 1.68, Eosinophils # (Auto) 0.06, Basophils # (Auto) 0.02 04/12/17 16:12 04/13/17 05:50 Test 04/12/17 10:57 04/12/17 12:04 04/12/17 16:12 04/12/17 17:58 25-Hydroxy Vitamin D Total 22.6 ng/ml (30-100) Bedside Glucose 197 mg/dl (70-99) 188 mg/dl (70-99) Anion Gap 10.0 mmol/L (3-11) Est Creatinine Clear Calc Drug Dose 50.9 ml/min Estimated GFR () 34.0 Estimated GFR (Non- 29.3 BUN/Creatinine Ratio 13.4 (10-20) Calcium Level 8.4 mg/dl (8.5-10.1) Phosphorus Level 2.7 mg/dl (2.5-4.9) Total Creatine Kinase 39 U/L (39-308) Albumin 2.4 gm/dl (3.4-5.0) Test 04/13/17 00:02 04/13/17 05:50 04/13/17 06:05 Bedside Glucose 183 mg/dl (70-99) 184 mg/dl (70-99) White Blood Count 21.78 K/uL (4.8-10.8) Red Blood Count 4.34 M/uL (4.7-6.1) Hemoglobin 12.4 g/dL (14.0-18.0) Hematocrit 37.8 % (42-52) Mean Corpuscular Volume 87.1 fL (80-100) Mean Corpuscular Hemoglobin 28.6 pg (25-34) Mean Corpuscular Hemoglobin Concent 32.8 g/dl (32-36) Platelet Count 208 K/uL (130-400) Mean Platelet Volume 10.3 fL (7.4-10.4) Neutrophils (%) (Auto) 85.7 % Lymphocytes (%) (Auto) 5.6 % Monocytes (%) (Auto) 7.7 % Eosinophils (%) (Auto) 0.3 % Basophils (%) (Auto) 0.1 % Neutrophils # (Auto) 18.67 K/uL (1.4-6.5) Lymphocytes # (Auto) 1.22 K/uL (1.2-3.4) Monocytes # (Auto) 1.68 K/uL (0.11-0.59) Eosinophils # (Auto) 0.06 K/uL (0-0.5) Basophils # (Auto) 0.02 K/uL (0-0.2) RDW Standard Deviation 51.4 fL (36.4-46.3) RDW Coefficient of Variation 15.8 % (11.5-14.5) Immature Granulocyte % (Auto) 0.6 % Immature Granulocyte # (Auto) 0.13 K/uL (0.00-0.02) Dohle Bodies 2+ Anion Gap 8.0 mmol/L (3-11) Est Creatinine Clear Calc Drug Dose 58.6 ml/min Estimated GFR () 40.3 Estimated GFR (Non- 34.7 BUN/Creatinine Ratio 19.4 (10-20) Calcium Level 8.0 mg/dl (8.5-10.1) Ionized Calcium 1.04 mmol/l (1.12-1.32) Total Bilirubin 0.7 mg/dl (0.2-1) Aspartate Amino Transf (AST/SGOT) 13 U/L (15-37) Alanine Aminotransferase (ALT/SGPT) 14 U/L (12-78) Alkaline Phosphatase 75 U/L (45-117) Total Protein 6.4 gm/dl (6.4-8.2) Albumin 2.2 gm/dl (3.4-5.0) Globulin 4.2 gm/dl (2.5-4.0) Albumin/Globulin Ratio 0.5 (0.9-2) Lipase 408 U/L (73-393) Allergies Coded Allergies: Penicillins (Verified Allergy, Mild, RASH, 04/10/17) NEVER HAS HAD DIFFICULTY BREATHING WITH PCN BEFORE- PER PT 10/30/09, [facility] IN [place] CHECKED WITH PT. HE IS WILLING TO TAKE ANCEF PRE-OP TODAY Amoxicillin (Verified Adverse Reaction, Severe, rash, 04/10/17) Morphine (Verified Adverse Reaction, Severe, Rowdy, fired up, 04/10/17) Clindamycin (Verified Adverse Reaction, Unknown, ? nicol's syndrome, 04/10) redness,diaphoresis, transient elevated temp. occurs aprox. 1 hour after taking med and resolves spontaneously in 20-30 minutes. Medications Current Inpatient Medications Medications (Trade) Dose Ordered Sig/Akash Route Start Time Stop Time Status Last Admin Dose Admin Ioversol (Optiray 320) 111 ml UD PRN IV 04/10/17 16:00 04/14/17 15:59 Acetaminophen (Tylenol Tab) 650 mg Q4H PRN PO 04/10/17 20:15 05/10/17 20:14 04/11/17 15:29 650 MG Al Hydrox/Mg Hydrox/Simethicone (Maalox Max Susp) 15 ml Q4H PRN PO 04/10/17 20:15 05/10/17 20:14 Magnesium Hydroxide (Milk Of Magnesia Susp) 30 ml Q12H PRN PO 04/10/17 20:15 05/10/17 20:14 Zolpidem Tartrate (Ambien Tab) 5 mg HSZ PRN PO 04/10/17 20:15 05/10/17 20:14 Ondansetron HCl (Zofran Inj) 4 mg Q6H PRN IV 04/10/17 20:15 05/10/17 20:14 Polyethylene (Miralax Powder Packet) 17 gm DAILY PRN PO 04/10/17 20:15 05/10/17 20:14 Aspirin (Ecotrin Tab) 81 mg QAM PO 04/11/17 09:00 05/11/17 08:59 04/13/17 07:47 81 MG Hydromorphone HCl (Dilaudid Inj) 1 mg Q2H PRN IV 04/10/17 21:15 04/24/17 21:14 04/13/17 07:47 1 MG Glucose (Glucose 40% Gel) UD PRN PO 04/10/17 22:30 05/10/17 22:29 Glucose (Glucose Chew Tab) 1 tabs UD PRN PO 04/10/17 22:30 05/10/17 22:29 Dextrose (Dextrose 50% 50ML Syringe) 50 ml UD PRN IV 04/10/17 22:30 05/10/17 22:29 Glucagon (Glucagon Inj) 1 mg UD PRN SQ 04/10/17 22:30 05/10/17 22:29 Insulin Aspart (novoLOG ASPART) SLIDING SCALE If C... Q6 SC 04/11/17 12:00 05/11/17 11:59 04/13/17 06:20 2 UNITS Heparin Sodium (Porcine) (Heparin Sq 5000 Unit/0.5ml) 5,000 unit Q8 SQ 04/11/17 14:00 05/11/17 13:59 04/13/17 06:19 5,000 UNIT Imipenem/ Cilastatin Sodium 300 mg/Dextrose 106 ml @ 100 mls/hr Q6H IV 04/12/17 10:00 04/22/17 09:59 04/13/17 07:47 100 MLS/HR Imipenem/ Cilastatin Sodium (Consult) 1 ea UD PRN N/A 04/12/17 09:45 05/12/17 09:44 Sodium Chloride 1,000 ml @ 150 mls/hr Q6H40M IV 04/12/17 10:30 05/12/17 10:29 04/13/17 06:33 150 MLS/HR Calcium Gluconate 1000 mg/Sodium Chloride 60 ml @ 240 mls/hr 0945 ONCE IV 04/13/17 09:45 04/13/17 09:59 Impression (1) Acute renal insufficiency (2) Acute pancreatitis (3) Hypertension (4) Diabetes Mr. Adair is an obese 61-year-old male with diabetes mellitus II, hypertension, and a history of recurrent pancreatitis. He was admitted on April [address] scan of the abdomen reviewed on admission. Etiology unclear. Mr. Adair is suffering from VLAD consistent with prerenal azotemia and ATN. Baseline renal function is normal. Urine output is improving. Creatinine slightly improved this morning. Increasing edema noted with IV saline. Patient remains NPO and continues to have abdominal pain. I discussed the plan of care with Dr. Allen briefly this morning. Plan to start parental nutrition this morning. Abdomen is distended with hypoactive bowel sounds consistent with an ileus. It is not tense to suggest abdominal compartment syndrome. Clinical markers of pancreatitis are improving. Hypocalcemia persists. The patient will receive 1 gram of calcium gluconate this morning. Urine studies were notable for microscopic hematuria without pyuria. Presentation is not consistent with GN. Interstitial nephritis is also unlikely. Low suspicion for IgG4 related etiology. CPK was normal. Recommendations -- Calcium gluconate x 1 gram -- Continue IV 0.9% saline pending starting parental nutrition -- Goal is to maintain a slightly positive fluid balance (net intake 2 L appropriate) -- Defer repeat imaging to GI -- Medications are appropriate for renal function: continue to hold INOCENTE/ARB, glipizide and metformin -- Repeat renal profile this afternoon and monitor daily -- Monitor ionized calcium daily -- Document I/O's
--- NOTE | 2017-04-13 11:11 | Progress Note ---
Progress Note Date of Service Apr 13, 2017. Progress Note ID Consult Dictated #[id number] A/P: 1. Pancreatitis 2. Leukocytosis -coninue imipenem follow cultures -will follow, thank you
--- NOTE | 2017-04-13 11:46 | INFECT. DISEASE CONSULTATION ---
DATE OF CONSULTATION: 04/13/2017 REQUESTING PHYSICIAN: Dr. Wan. HISTORY OF PRESENT ILLNESS: This is a 61-year-old gentleman who was admitted to the hospital with abdominal pain. He did have a CAT scan of the abdomen and pelvis which showed no collection of the pancreatic fat stranding and edema. He also had a lipase of greater than 8,000 on admission. He was admitted to the hospital with pancreatitis, he has been put on bowel rest and also started on imipenem. Infectious disease was consulted for imipenem use. On my examination, he is awake and sitting out of bed in his chair. He states his pain is a 5/10. He does admit to some subjective fevers and chills. His T-max overnight was 37.9. He is tolerating antibiotics well. He had blood cultures and urine cultures in the ER as part of his initial workup and results of those are pending. He initially had a white blood cell count of 17,000. This peaked at 30,000 and now today is 21.7. He denies any nausea, vomiting or diarrhea. He states he is not hungry. He is taking sips of water with medications but otherwise is n.p.o. He is likely to start TPN later today. He currently denies any fevers or chills. He has no chest pain, cough or shortness of breath. His remaining review of systems is reviewed and are unremarkable. PAST MEDICAL HISTORY: Significant for hypertension, type 2 diabetes. PAST SURGICAL HISTORY: Significant for cholecystectomy. FAMILY HISTORY: Noncontributory. SOCIAL HISTORY: Significant for history of tobacco use. He denies any alcohol or drug use. He is and lives with his family. His is at the bedside on my examination. ALLERGIES: INCLUDE PENICILLIN, MORPHINE AND CLINDAMYCIN. CURRENT MEDICATIONS: Include imipenem, subQ heparin, insulin, aspirin, Dilaudid, Tylenol, Maalox, milk of magnesia, Ambien, Zofran and MiraLax. PHYSICAL EXAMINATION: VITAL SIGNS: He is currently afebrile, pulse 117, respiratory rate is 18, blood pressure is 120/87. Oxygen saturation is 97% on 4 liters nasal cannula. GENERAL: He is awake, alert and oriented x3. He is in no acute distress. HEENT: Mucous membranes are moist. Extraocular muscles are intact. HEART: Regular. LUNGS: Clear bilaterally. ABDOMEN: Nondistended but tender to palpation. There is no edema. Bryan catheter in place with blood-tinged urine. LABORATORY STUDIES: CBC today reveals a white blood cell count 21.7, hemoglobin 12.4 and platelets of 208. Chemistry panel reveals a sodium of 136, potassium 4.6, chloride 102, bicarbonate 26, BUN 39, creatinine 2.0. Glucose 184, lipase today is 408 down from 8200 on admission. Urinalysis was unremarkable. Urine culture is negative. Blood cultures are pending. IMAGING DATA: CT of the abdomen was also reviewed previously. ASSESSMENT AND PLAN: 1. Pancreatitis. 2. Leukocytosis. At this time, he will be continued empirically on imipenem. There is no evidence of abscess or pseudocyst. We will follow the results of blood cultures and follow along with you. Thank you for this consultation.
[2017-04-13 15:53] LABS: BUN/CREATININE RATIO 24.5 (10-20); CALCIUM 8.3 mg/dl (8.5-10.1); CREATININE 1.5 mg/dl (0.60-1.40); POTASSIUM 4.4 mmol/L (3.5-5.1)
--- NOTE | 2017-04-13 16:06 | GASTROENTEROLOGY PROGRESS NOTE ---
DATE: 04/13/2017 SUBJECTIVE: The patient clinically is doing a little better than yesterday with less abdominal pain and improvement in respiratory status. He is beginning to feel a little hungry. Vital signs overnight and at noon today show blood pressure 161/78, respirations 18, and heart rate is 112, although this is slowly reducing itself by anywhere between 10 and 20 beats per minute earlier in the admission. There is no fever. He is on 4 liters of nasal cannula at 95%. MEDICATIONS: Include saline 150 mL an hour. He is on Primaxin and heparin subQ q. 8 hours for DVT prophylaxis. Insulin, hydromorphone, Ambien, and ondansetron. LABORATORY STUDIES: Today shows white count although elevated is resolving and is down to 28.7, hemoglobin is 12.4, MCV 87, and platelets 208,000. Serum chemistries show a BUN and creatinine are 39 and 2.0, which is down from yesterday afternoon at 31 and 2.3. Potassium 4.6, ionized calcium 1.04, and random sugars are approximately 180-200. Liver tests remain normal. ALT today 14, AST 13, and alkaline phosphatase 75. Albumin is low at 2.2. Lipase is down to 408 and was 1305 yesterday. The patient has not had any recent imaging studies. His vital signs today were mentioned above. REVIEW OF SYSTEMS: Otherwise noncontributory based on 13-point exam. OBJECTIVE: GENERAL: The patient is awake, alert and oriented x3 and accompanied by his . HEENT: Sclerae are anicteric. Conjunctivae are moist. Oral mucosa moist. HEART: Normal S1 and S2. Slightly tachycardic. ABDOMEN: Soft and obese. Mildly tympanitic with positive bowel sounds. There is no rebound or guarding, although there is mild to moderate tenderness with moderate palpation. This is mostly in the area at or above the umbilicus essentially. EXTREMITIES: Trace to +1 edema bilaterally. Nephrology input was noted from today. There is some improvement in his urine output and creatinine is slightly reduced compared with yesterday. Agree with TPN. IMPRESSION: The patient has resolving recurrent acute pancreatitis biochemically and clinically. Renal function is improving. Some edema may be related to saline administration and hopefully TPN will help improve albumin to improve proper intravascular volume. At the present time, INOCENTE inhibitor is on hold. Would replace calcium as necessary and monitor magnesium. TPN at least for the next couple days, although the patient is beginning to feel hungry and I will reassess tomorrow afternoon to see if diet can be slowly increased. We will continue to follow with you. BEATRIZD
[2017-04-14] VITALS (13 sets, daily range): BP systolic 118–183; BP diastolic 79–98; PULSE 95–110; TEMP 36.8–37.6; O2SAT 90–98
[2017-04-14] MEDS: SODIUM CHLORIDE 0.9% 1000ML 1,000 ML IV SCH ×3 (02:25→17:14)
[2017-04-14] MEDS: HYDROmorphone INJ 1 MG/ML SYR IV PRN ×4 (02:41→09:32)
[2017-04-14] MEDS: IMIPENEM/CILASTATIN IV 300 MG in DEXTROSE 5% 100ML 100 ML IV SCH ×2 (04:07→09:30)
[2017-04-14] MEDS: INSULIN ASPART 100 UNITS/ML 3 ML PEN SC SCH ×4 (05:40→21:14)
[2017-04-14] MEDS: HEPARIN SOD 5000 UNIT/0.5 ML CARP SQ SCH ×3 (05:41→21:14)
[2017-04-14 06:39] LABS: BASO % 0.1 %; BASO ABS # 0.02 K/uL (0-0.2); COMPLETE YES; EOS % 0.7 %; HEMATOCRIT 38.7 % (42-52); IG% 0.4 %; LYMPH % 5.4 %; LYMPH ABS # 1.05 K/uL (1.2-3.4); MEAN CELL VOLUME 89.2 fL (80-100); MEAN CORPUSCULAR HEMOGLOBIN 27.4 pg (25-34); MEAN CORPUSCULAR HGB CONC 30.7 g/dl (32-36); MEAN PLATELET VOLUME 10.4 fL (7.4-10.4); NEUT % 84.4 %; PLATELET COUNT 251 K/uL (130-400); RED BLOOD COUNT 4.34 M/uL (4.7-6.1); WHITE BLOOD COUNT 19.38 K/uL (4.8-10.8)
[2017-04-14 07:07] LABS: BUN/CREATININE RATIO 29.4 (10-20); CALCIUM 8.4 mg/dl (8.5-10.1); CREATININE 1.3 mg/dl (0.60-1.40); MAGNESIUM 2.2 mg/dl (1.8-2.4); POTASSIUM 4.2 mmol/L (3.5-5.1)
[2017-04-14 07:10] LABS: ALB/GLOB RATIO 0.5 (0.9-2)
[2017-04-14] MEDS: ASPIRIN 81 MG ECTAB PO SCH (07:33)
--- NOTE | 2017-04-14 09:00 | Family Medicine Progress Note ---
Progress Note Date of Service Apr 14, 2017. Subjective Pt evaluation today including: conversation w/ patient, physical exam, chart review, lab review, review of inpatient medication list Pain: Rates abdominal pain at level 5-6/10 PO Intake: NPO Voiding: flores catheter in place Patient sitting in chair at bedside, falling in and out of sleep as he recently had dilaudid for pain. Reports pain level at 5-6 out of 10. He reports he is hungry and would like to go home. Constitutional: No fever, No chills ENT: No sore throat, No trouble swallowing Respiratory: + dyspnea on exertion, No cough, No sputum, No hemoptysis Cardiovascular: + edema, No chest pain, No orthopnea, No PND, No claudication, No palpitations Abdomen: + pain, No nausea, No vomiting, No diarrhea, No constipation, No GI bleeding Psychiatric: No depression symptoms, No anxiety, No insomnia Heme: No abnormal bleeding/bruising Medications Current Inpatient Medications Medications (Trade) Dose Ordered Sig/Akash Route Start Time Stop Time Status Last Admin Dose Admin Acetaminophen (Tylenol Tab) 650 mg Q4H PRN PO 04/10/17 20:15 05/10/17 20:14 04/11/17 15:29 650 MG Al Hydrox/Mg Hydrox/Simethicone (Maalox Max Susp) 15 ml Q4H PRN PO 04/10/17 20:15 05/10/17 20:14 Magnesium Hydroxide (Milk Of Magnesia Susp) 30 ml Q12H PRN PO 04/10/17 20:15 05/10/17 20:14 Zolpidem Tartrate (Ambien Tab) 5 mg HSZ PRN PO 04/10/17 20:15 05/10/17 20:14 Ondansetron HCl (Zofran Inj) 4 mg Q6H PRN IV 04/10/17 20:15 05/10/17 20:14 Polyethylene (Miralax Powder Packet) 17 gm DAILY PRN PO 04/10/17 20:15 05/10/17 20:14 Aspirin (Ecotrin Tab) 81 mg QAM PO 04/11/17 09:00 05/11/17 08:59 04/14/17 07:33 81 MG Glucose (Glucose 40% Gel) UD PRN PO 04/10/17 22:30 05/10/17 22:29 Glucose (Glucose Chew Tab) 1 tabs UD PRN PO 04/10/17 22:30 05/10/17 22:29 Dextrose (Dextrose 50% 50ML Syringe) 50 ml UD PRN IV 04/10/17 22:30 05/10/17 22:29 Glucagon (Glucagon Inj) 1 mg UD PRN SQ 04/10/17 22:30 05/10/17 22:29 Heparin Sodium (Porcine) (Heparin Sq 5000 Unit/0.5ml) 5,000 unit Q8 SQ 04/11/17 14:00 05/11/17 13:59 04/14/17 14:20 5,000 UNIT Imipenem/ Cilastatin Sodium (Consult) 1 ea UD PRN N/A 04/12/17 09:45 05/12/17 09:44 Sodium Chloride 1,000 ml @ 100 mls/hr Q10H IV 04/12/17 10:30 05/12/17 10:29 04/14/17 09:04 150 MLS/HR Imipenem/ Cilastatin Sodium 500 mg/Dextrose 110 ml @ 110 mls/hr Q6H IV 04/14/17 14:00 04/22/17 13:59 04/14/17 14:19 110 MLS/HR Albuterol/ Ipratropium (Duoneb) 3 ml QIDR INH 04/14/17 12:00 05/14/17 11:59 04/14/17 14:34 3 ML Hydromorphone HCl (Dilaudid Inj) 0.5 mg Q2H PRN IV 04/14/17 11:45 04/24/17 21:14 04/14/17 13:18 0.5 MG Insulin Aspart (novoLOG ASPART) SLIDING SCALE If C... ACHS SC 04/14/17 16:30 05/11/17 11:59 Objective Vital Signs Date Time Temp Pulse Resp B/P (MAP) Pulse Ox O2 Delivery O2 Flow Rate FiO2 04/14/17 15:46 98 Nasal Cannula 4.0 04/14/17 15:35 36.8 99 17 173/95 (121) 95 Room Air 04/14/17 14:34 99 18 95 Nasal Cannula 4.0 04/14/17 12:00 98 Nasal Cannula 4.0 04/14/17 11:36 37.6 99 20 183/98 (126) 96 Nasal Cannula 4.0 04/14/17 08:00 98 Nasal Cannula 4.0 04/14/17 07:50 36.8 95 20 146/86 (106) 98 Nasal Cannula 4.0 04/14/17 04:00 Nasal Cannula 4.0 04/14/17 03:38 36.9 105 18 139/80 (99) 95 Nasal Cannula 4.0 04/14/17 00:12 37.1 110 18 118/79 (92) 92 Nasal Cannula 4.0 04/14/17 00:00 Nasal Cannula 4.0 04/13/17 21:43 115 117/70 (86) 04/13/17 20:13 37.1 109 20 183/82 (115) 95 Nasal Cannula 4.0 04/13/17 20:00 Nasal Cannula 4.0 04/13/17 17:15 37.0 111 20 129/81 (97) 96 Nasal Cannula 4.0 Physical Exam General Appearance: WD/WN, no apparent distress Eyes: normal inspection, PERRL, EOMI ENT: hearing grossly normal, pharynx normal Neck: supple, no adenopathy, no JVD, trachea midline Respiratory/Chest: chest non-tender, no respiratory distress, no accessory muscle use, + wheezing Cardiovascular: regular rate, rhythm, no gallop, no JVD, no murmur Abdomen: normal bowel sounds, soft, + tenderness Extremities: non-tender, normal inspection, + pedal edema Neurologic/Psychiatric: dairy tester II-XII nml as tested, normal mood/affect, oriented x 3 Skin: normal color, warm/dry Laboratory Results Last Resulted 04/14/17 06:09 Red Blood Count 4.34, Mean Corpuscular Volume 89.2, Mean Corpuscular Hemoglobin 27.4, Mean Corpuscular Hemoglobin Concent 30.7, Mean Platelet Volume 10.4, Neutrophils (%) (Auto) 84.4, Lymphocytes (%) (Auto) 5.4, Monocytes (%) (Auto) 9.0, Eosinophils (%) (Auto) 0.7, Basophils (%) (Auto) 0.1, Neutrophils # (Auto) 16.36, Lymphocytes # (Auto) 1.05, Monocytes # (Auto) 1.74, Eosinophils # (Auto) 0.13, Basophils # (Auto) 0.02 Last Resulted 04/14/17 06:09 Assessment and Plan 61 yo male c/o acute abdominal pain and hx of pancreatitis. Acute Pancreatitis (hx of same): Admitted to [facility] for same in Oct 2016. Open MRI (due to claustrophobia) at [facility] around Oct 2016 reported as normal per pt. CT on admit (21Sep) was c/w interstitial edematous pancreatitis (with no acute peripancreatic fluid collection) as well as hepatic steatosis. - NPO increased to liquid diet today. - Dilaudid 0.5 mg q2h prn for pain. (decreased from 1 mg q2h prn) - Started on NS + 20 mEq KCl at 150 ml/hr, switched to LR at 250 mL/hr, back to NS at 150 ml/hr on 23Sep. - Lipase trending down and now normal 8K -> 4K -> 1.3K->403->195 - Lungs sound congested Concern ongoing IVF for pancreatitis is going into abdomen/lungs/extremities. Monitoring. - Cut IVF to 100ml/hr - 22Sep GI consulted. Noted sx improvement. Since improving - Holding TPN for now though recommended initially. Recommended against CT a/p at 48 hr jeffry unless condition changes. - Increased diet to liquids but may consider TPN again if nausea/vomiting occurs with liquid diet. - Replaced calcium and tracking daily ionized Ca levels. Today: 1.09 - 23Sep started imipenem/cilastatin 300 mg IV q6h (pt has multiple abx allergies ). - Will continue imipenam for one more day, then consider stopping as no grown to date on blood cultures or urine culture - Stop lisinopril: Received 23Sep AM dose, held going forward. SIRS, likely secondary to pancreatitis, r/o infection - Borderline febrile 37.9 on 23Sep. Persistently tachycardic 120's-130's but now afebrile and pulse <100. Worsening WBC to 30 improved to 19 today - EKG 22Sep sinus tachy, LAFB, possible old inferior infarct - unchanged from May 2016. Monitor 23Sep AM was sinus tachy. - 23Sep CXR one view: Question left lateral costophrenic sulcus atelectasis vs small pleural effusion; No evidence of pulm edema. [Repeat two-view CXR later on 23Sep was unchanged.] - Repeat CXR 14 April no change - Started imipenem/cilastatin 23Sep. - 23Sep BCx x 2 pending, no growth to date - 23Sep UCx final; no growth - Duoneb prn and incentive spirometry ordered VLAD: On admit Cr 1.4. Baseline 0.8. Worsened to 2.3 with dropping UOP over the weekend but today: 1.30 - 22Sep noted dark-appearing urine and relative decreased output. Placed flores. That evening 6 hr UOP was 0.06 mL/kg/hr. - 23Sep Nephro consulted. Recd calcium repletion and tracking, switch to NS at 150 mL/hr, TPN, renal labs & I/Os monitoring, CPK. We are continuing to monitor. Hypertension: Hx of same. Some elevation 21-22Sep, given hydralazine and metoprolol overnight 21-22Sep. Improved control overnight 22-23Sep. - 23Sep held home lisinopril due to worsening pancreatitis. - Continue to monitor. Consider metoprolol 5 mg IV prn if worsens. - Consider outpatient sleep study considering due to hx of snoring and body habitus Hypomagnesemia: Noted at Mg 1.6. Replacement on 22Sep, 1.8 on recheck. Will recheck tomorrow Low Vitamin D: Noted on labs. Will address once taking PO again. Will recheck tomorrow Type 2 DM - Held home metformin and glipizide. - Novolog sliding scale coverage as inpt. Code: full code TPN: Heparin Dispo: med surg/contact precaution Resident Tracking Resident Involvement: Resident Care Provided Care Provided: Adult Hospital Medicine
--- NOTE | 2017-04-14 09:41 | Nephrology Progress Note ---
Nephrology Progress Note Date of Service Apr 14, 2017. Chief Complaint Acute renal insufficiency Subjective No acute events overnight. Abdominal pain continues improving. No nausea. No fevers or chills. No bowel movement but passing flatus. Out of bed to chair. Cultures no growth to date. Review of Systems A complete review of systems was performed. Pertinent positives are noted above. All other systems are negative. Vital Signs Last 8 Hrs Date Time Temp Pulse Resp B/P (MAP) Pulse Ox O2 Delivery O2 Flow Rate FiO2 04/14/17 07:50 36.8 95 20 146/86 (106) 98 Nasal Cannula 4.0 04/14/17 04:00 Nasal Cannula 4.0 04/14/17 03:38 36.9 105 18 139/80 (99) 95 Nasal Cannula 4.0 Last Recorded Weight Weight (Kilograms): 153.800 Physical Exam General Appearance: no apparent distress, + obese Head: normocephalic, atraumatic Eyes: normal inspection, sclerae normal ENT: normal ENT inspection, pharynx normal Neck: supple, no JVD Respiratory/Chest: lungs clear, no respiratory distress, no accessory muscle use Cardiovascular: regular rate, rhythm, no gallop Abdomen/GI: soft, + tenderness, + distended Genitourinary - Male: + pertinent finding (Bryan draining yellow urine) Extremities/Musculoskelatal: normal inspection, + pedal edema Neurologic/Psych: alert, normal mood/affect Family History Cancer Diabetes mellitus Heart disease Kidney disease Kidney stones Social History Smoking Status: Never smoker Smokeless Tobacco Use: No Alcohol Use: none Drug Use: none Marital Status: Housing Status: lives with family Occupation: employed Laboratory Results Past 24 Hours 04/14/17 06:09 Red Blood Count 4.34, Mean Corpuscular Volume 89.2, Mean Corpuscular Hemoglobin 27.4, Mean Corpuscular Hemoglobin Concent 30.7, Mean Platelet Volume 10.4, Neutrophils (%) (Auto) 84.4, Lymphocytes (%) (Auto) 5.4, Monocytes (%) (Auto) 9.0, Eosinophils (%) (Auto) 0.7, Basophils (%) (Auto) 0.1, Neutrophils # (Auto) 16.36, Lymphocytes # (Auto) 1.05, Monocytes # (Auto) 1.74, Eosinophils # (Auto) 0.13, Basophils # (Auto) 0.02 04/13/17 15:07 04/14/17 06:09 Test 04/13/17 11:21 04/13/17 15:07 04/13/17 18:39 04/13/17 20:06 Bedside Glucose 187 mg/dl (70-99) 195 mg/dl (70-99) 187 mg/dl (70-99) Anion Gap 8.0 mmol/L (3-11) Est Creatinine Clear Calc Drug Dose 78.7 ml/min Estimated GFR () 57.0 Estimated GFR (Non- 49.2 BUN/Creatinine Ratio 24.5 (10-20) Calcium Level 8.3 mg/dl (8.5-10.1) Test 04/13/17 23:18 04/14/17 05:37 04/14/17 06:09 Bedside Glucose 185 mg/dl (70-99) 161 mg/dl (70-99) White Blood Count 19.38 K/uL (4.8-10.8) Red Blood Count 4.34 M/uL (4.7-6.1) Hemoglobin 11.9 g/dL (14.0-18.0) Hematocrit 38.7 % (42-52) Mean Corpuscular Volume 89.2 fL (80-100) Mean Corpuscular Hemoglobin 27.4 pg (25-34) Mean Corpuscular Hemoglobin Concent 30.7 g/dl (32-36) Platelet Count 251 K/uL (130-400) Mean Platelet Volume 10.4 fL (7.4-10.4) Neutrophils (%) (Auto) 84.4 % Lymphocytes (%) (Auto) 5.4 % Monocytes (%) (Auto) 9.0 % Eosinophils (%) (Auto) 0.7 % Basophils (%) (Auto) 0.1 % Neutrophils # (Auto) 16.36 K/uL (1.4-6.5) Lymphocytes # (Auto) 1.05 K/uL (1.2-3.4) Monocytes # (Auto) 1.74 K/uL (0.11-0.59) Eosinophils # (Auto) 0.13 K/uL (0-0.5) Basophils # (Auto) 0.02 K/uL (0-0.2) RDW Standard Deviation 52.4 fL (36.4-46.3) RDW Coefficient of Variation 16.0 % (11.5-14.5) Immature Granulocyte % (Auto) 0.4 % Immature Granulocyte # (Auto) 0.08 K/uL (0.00-0.02) Anion Gap 8.0 mmol/L (3-11) Est Creatinine Clear Calc Drug Dose 91.2 ml/min Estimated GFR () 67.8 Estimated GFR (Non- 58.5 BUN/Creatinine Ratio 29.4 (10-20) Calcium Level 8.4 mg/dl (8.5-10.1) Ionized Calcium 1.09 mmol/l (1.12-1.32) Magnesium Level 2.2 mg/dl (1.8-2.4) Total Bilirubin 0.5 mg/dl (0.2-1) Aspartate Amino Transf (AST/SGOT) 13 U/L (15-37) Alanine Aminotransferase (ALT/SGPT) 13 U/L (12-78) Alkaline Phosphatase 87 U/L (45-117) Total Protein 6.8 gm/dl (6.4-8.2) Albumin 2.2 gm/dl (3.4-5.0) Globulin 4.6 gm/dl (2.5-4.0) Albumin/Globulin Ratio 0.5 (0.9-2) Lipase 195 U/L (73-393) Allergies Coded Allergies: Penicillins (Verified Allergy, Mild, RASH, 04/10/17) NEVER HAS HAD DIFFICULTY BREATHING WITH PCN BEFORE- PER PT 10/30/09, [facility] IN [place] CHECKED WITH PT. HE IS WILLING TO TAKE ANCEF PRE-OP TODAY Amoxicillin (Verified Adverse Reaction, Severe, rash, 04/10/17) Morphine (Verified Adverse Reaction, Severe, Rowdy, fired up, 04/10/17) Clindamycin (Verified Adverse Reaction, Unknown, ? nicol's syndrome, 04/10) redness,diaphoresis, transient elevated temp. occurs aprox. 1 hour after taking med and resolves spontaneously in 20-30 minutes. Medications Current Inpatient Medications Medications (Trade) Dose Ordered Sig/Akash Route Start Time Stop Time Status Last Admin Dose Admin Ioversol (Optiray 320) 111 ml UD PRN IV 04/10/17 16:00 04/14/17 15:59 Acetaminophen (Tylenol Tab) 650 mg Q4H PRN PO 04/10/17 20:15 05/10/17 20:14 04/11/17 15:29 650 MG Al Hydrox/Mg Hydrox/Simethicone (Maalox Max Susp) 15 ml Q4H PRN PO 04/10/17 20:15 05/10/17 20:14 Magnesium Hydroxide (Milk Of Magnesia Susp) 30 ml Q12H PRN PO 04/10/17 20:15 05/10/17 20:14 Zolpidem Tartrate (Ambien Tab) 5 mg HSZ PRN PO 04/10/17 20:15 05/10/17 20:14 Ondansetron HCl (Zofran Inj) 4 mg Q6H PRN IV 04/10/17 20:15 05/10/17 20:14 Polyethylene (Miralax Powder Packet) 17 gm DAILY PRN PO 04/10/17 20:15 05/10/17 20:14 Aspirin (Ecotrin Tab) 81 mg QAM PO 04/11/17 09:00 05/11/17 08:59 04/14/17 07:33 81 MG Hydromorphone HCl (Dilaudid Inj) 1 mg Q2H PRN IV 04/10/17 21:15 04/24/17 21:14 04/14/17 07:32 1 MG Glucose (Glucose 40% Gel) UD PRN PO 04/10/17 22:30 05/10/17 22:29 Glucose (Glucose Chew Tab) 1 tabs UD PRN PO 04/10/17 22:30 05/10/17 22:29 Dextrose (Dextrose 50% 50ML Syringe) 50 ml UD PRN IV 04/10/17 22:30 05/10/17 22:29 Glucagon (Glucagon Inj) 1 mg UD PRN SQ 04/10/17 22:30 05/10/17 22:29 Insulin Aspart (novoLOG ASPART) SLIDING SCALE If C... Q6 SC 04/11/17 12:00 05/11/17 11:59 04/14/17 05:40 1 UNITS Heparin Sodium (Porcine) (Heparin Sq 5000 Unit/0.5ml) 5,000 unit Q8 SQ 04/11/17 14:00 05/11/17 13:59 04/14/17 05:41 5,000 UNIT Imipenem/ Cilastatin Sodium 300 mg/Dextrose 106 ml @ 100 mls/hr Q6H IV 04/12/17 10:00 04/22/17 09:59 04/14/17 04:07 100 MLS/HR Imipenem/ Cilastatin Sodium (Consult) 1 ea UD PRN N/A 04/12/17 09:45 05/12/17 09:44 Sodium Chloride 1,000 ml @ 150 mls/hr Q6H40M IV 04/12/17 10:30 05/12/17 10:29 04/14/17 09:04 150 MLS/HR Impression (1) Acute renal insufficiency (2) Acute pancreatitis (3) Hypertension (4) Diabetes Mr. Adair is an obese 61-year-old male with diabetes mellitus II, hypertension, and a history of recurrent pancreatitis. He was admitted on April [address] scan of the abdomen reviewed on admission. Etiology unclear. Mr. Adair is suffering from VLAD consistent with prerenal azotemia and possible ATN. Baseline renal function is normal. Urine output appropriate. Creatinine continues improving. Volume status appropriate. Patient remains NPO. Cultures negative to date. Remains on imipenem. Plan to start parental nutrition delayed to today. AbClinical markers of pancreatitis are improving. Hypocalcemia persists. The patient will receive 1 gram of calcium gluconate this morning. Urine studies were notable for microscopic hematuria without pyuria. Presentation is not consistent with GN. Interstitial nephritis is also unlikely. Low suspicion for IgG4 related etiology. CPK was normal. Recommendations -- Calcium gluconate x 1 gram -- Continue IV 0.9% saline pending starting parental nutrition -- Goal is to maintain a slightly positive fluid balance (net daily intake 2 L appropriate) -- Medications are appropriate for renal function: continue to hold INOCENTE/ARB, glipizide and metformin -- Monitor metabolic profile daily -- Monitor ionized calcium daily -- Document I/O's
[2017-04-14] MEDS ORDERED: CALCIUM GLUCONATE 10% 1,000 MG in SODIUM CHLORIDE 0.9% 50ML 50 ML IV ONE (10:00)
--- NOTE | 2017-04-14 11:03 | Progress Note ---
Subjective Date of Service: Apr 14, 2017. Subjective Pt evaluation today including: conversation w/ patient, physical exam, chart review, lab review pt seen in followup, feeling better today. hungry, asking to eat. remain npo. no tpn yet. remains afebrile. tolerating abx. wbc improved today. no repeat imaging to review. blood cultures negative. all remaining ros reviewed and are negative. Problem List Medical Problems: (1) Acute pancreatitis Status: Acute (2) Acute pancreatitis Status: Acute (3) Diverticulitis Status: Acute (4) Left sided abdominal pain Status: Acute (5) Left sided abdominal pain Status: Acute (6) Pancreatitis Status: Acute Objective Vital Signs Date Time Temp Pulse Resp B/P (MAP) Pulse Ox O2 Delivery O2 Flow Rate FiO2 04/14/17 08:00 98 Nasal Cannula 4.0 04/14/17 07:50 36.8 95 20 146/86 (106) 98 Nasal Cannula 4.0 04/14/17 04:00 Nasal Cannula 4.0 04/14/17 03:38 36.9 105 18 139/80 (99) 95 Nasal Cannula 4.0 04/14/17 00:12 37.1 110 18 118/79 (92) 92 Nasal Cannula 4.0 04/14/17 00:00 Nasal Cannula 4.0 04/13/17 21:43 115 117/70 (86) 04/13/17 20:13 37.1 109 20 183/82 (115) 95 Nasal Cannula 4.0 04/13/17 20:00 Nasal Cannula 4.0 04/13/17 17:15 37.0 111 20 129/81 (97) 96 Nasal Cannula 4.0 04/13/17 16:00 Nasal Cannula 4.0 04/13/17 12:00 37.2 112 18 161/78 (105) 95 Nasal Cannula 4.0 04/13/17 12:00 Nasal Cannula 4.0 Physical Exam General Appearance: WD/WN, no apparent distress Eyes: normal inspection, EOMI Neck: supple Respiratory/Chest: lungs clear, normal breath sounds, no respiratory distress Cardiovascular: regular rate, rhythm, no edema Abdomen: non tender, soft Extremities: non-tender, normal inspection, no pedal edema Neurologic/Psychiatric: alert, oriented x 3 Skin: normal color Laboratory Results Item Value Date Time Blood Culture - Preliminary Resulted 04/12/17 0931 Blood NO GROWTH TO DATE. Blood Culture - Preliminary Resulted 04/12/17 0905 Blood NO GROWTH TO DATE. Urine Culture - Final Complete 04/12/17 0940 Urine,Catheterized NO GROWTH - LESS THAN 1,000 COLONIES/ML Last 24 Hours Test 04/13/17 11:21 04/13/17 15:07 04/13/17 18:39 04/13/17 20:06 Bedside Glucose 187 mg/dl 195 mg/dl 187 mg/dl Sodium Level 137 mmol/L Potassium Level 4.4 mmol/L Chloride Level 103 mmol/L Carbon Dioxide Level 26 mmol/L Anion Gap 8.0 mmol/L Blood Urea Nitrogen 37 mg/dl Creatinine 1.50 mg/dl Est Creatinine Clear Calc Drug Dose 78.7 ml/min Estimated GFR () 57.0 Estimated GFR (Non- 49.2 BUN/Creatinine Ratio 24.5 Random Glucose 181 mg/dl Calcium Level 8.3 mg/dl Test 04/13/17 23:18 04/14/17 05:37 04/14/17 06:09 Bedside Glucose 185 mg/dl 161 mg/dl White Blood Count 19.38 K/uL Red Blood Count 4.34 M/uL Hemoglobin 11.9 g/dL Hematocrit 38.7 % Mean Corpuscular Volume 89.2 fL Mean Corpuscular Hemoglobin 27.4 pg Mean Corpuscular Hemoglobin Concent 30.7 g/dl Platelet Count 251 K/uL Mean Platelet Volume 10.4 fL Neutrophils (%) (Auto) 84.4 % Lymphocytes (%) (Auto) 5.4 % Monocytes (%) (Auto) 9.0 % Eosinophils (%) (Auto) 0.7 % Basophils (%) (Auto) 0.1 % Neutrophils # (Auto) 16.36 K/uL Lymphocytes # (Auto) 1.05 K/uL Monocytes # (Auto) 1.74 K/uL Eosinophils # (Auto) 0.13 K/uL Basophils # (Auto) 0.02 K/uL RDW Standard Deviation 52.4 fL RDW Coefficient of Variation 16.0 % Immature Granulocyte % (Auto) 0.4 % Immature Granulocyte # (Auto) 0.08 K/uL Sodium Level 137 mmol/L Potassium Level 4.2 mmol/L Chloride Level 104 mmol/L Carbon Dioxide Level 25 mmol/L Anion Gap 8.0 mmol/L Blood Urea Nitrogen 38 mg/dl Creatinine 1.30 mg/dl Est Creatinine Clear Calc Drug Dose 91.2 ml/min Estimated GFR () 67.8 Estimated GFR (Non- 58.5 BUN/Creatinine Ratio 29.4 Random Glucose 187 mg/dl Calcium Level 8.4 mg/dl Ionized Calcium 1.09 mmol/l Magnesium Level 2.2 mg/dl Total Bilirubin 0.5 mg/dl Aspartate Amino Transf (AST/SGOT) 13 U/L Alanine Aminotransferase (ALT/SGPT) 13 U/L Alkaline Phosphatase 87 U/L Total Protein 6.8 gm/dl Albumin 2.2 gm/dl Globulin 4.6 gm/dl Albumin/Globulin Ratio 0.5 Lipase 195 U/L Assessment and Plan (1) Acute pancreatitis Assessment & Plan: can continue with imipenem for now. follow cultures.
[2017-04-14] MEDS: ALBUT/IPRATROP 3MG/0.5MG NEB 3 ML VIAL INH SCH ×3 (12:00→19:14)
[2017-04-14] MEDS: HYDROmorphone INJ 0.5 MG/0.5 ML SYR IV PRN ×4 (13:18→21:15)
--- NOTE | 2017-04-14 13:59 | DIAGNOSTIC IMAGING REPORT ---
CHEST 2 VIEWS ROUTINE CLINICAL HISTORY: 61 years-old Male presenting with shortness of breath ??pneumonia. TECHNIQUE: PA and lateral views of the chest were obtained. COMPARISON: 04/12/2017. FINDINGS: Cardiomediastinal silhouette normal. Persistent small left pleural effusion or pleural thickening with minimal bandlike opacities at the left lung base. Right lung and pleural space clear. Degenerative changes of the right acromioclavicular joint. Upper abdomen normal. IMPRESSION: 1. No new focal infiltrate. Stable left basilar atelectasis or scarring with small left pleural effusion or pleural thickening. Electronically signed by: Jj Benavides M.D. 04/14/2017 1:57 PM Dictated Date/Time: 04/14/2017 1:56 PM
[2017-04-14] MEDS: IMIPENEM/CILASTATIN IV 500 MG in D5W 100ML IV SCH ×2 (14:19→19:23)
[2017-04-14] MEDS ORDERED: NURSING DECISION MEDICATION ORDER SCH (15:30)
--- NOTE | 2017-04-14 19:19 | PROGRESS NOTE ---
DATE: 04/14/2017 SUBJECTIVE: The patient continues to have some band-like abdominal pain which is slowly improving. VITAL SIGNS: Show blood pressure is 173/95, pulse 99, temperature is 36.8. LABORATORY DATA: Shows lipase is down to 195. Liver tests are normal. Calcium is normal. Triglycerides are normal. He does not drink alcohol and he does not have evidence of gallstones. He is afebrile and his CAT scan does not show any evidence of pancreatic abscess and blood cultures are negative. IMPRESSION: The patient has acute pancreatitis of unclear etiology. He is tolerating clear liquids today and I would recommend that we start again with those tomorrow and if he tolerates those, advance to a low fat diet as tolerated. In the absence of pancreatic abscess or any other sign of infection, I think we can stop the imipenem. There is evidence that treating acute pancreatitis with antibiotics can actually be detrimental when there is no evidence of an infection, especially predisposing the patient to potentially Clostridium difficile. Dr. Qiu will be here tomorrow to round on the patient.
[2017-04-15] VITALS (15 sets, daily range): BP systolic 160–200; BP diastolic 85–110; PULSE 90–106; TEMP 36.9–37.3; O2SAT 91–94
[2017-04-15] MEDS: HYDROmorphone INJ 0.5 MG/0.5 ML SYR IV PRN ×6 (01:02→21:19)
[2017-04-15] MEDS: IMIPENEM/CILASTATIN IV 500 MG in D5W 100ML IV SCH (01:42)
[2017-04-15] MEDS: SODIUM CHLORIDE 0.9% 1000ML 1,000 ML IV SCH (03:28)
[2017-04-15] MEDS: HEPARIN SOD 5000 UNIT/0.5 ML CARP SQ SCH ×3 (06:09→21:18)
[2017-04-15 07:03] LABS: BASO % 0.2 %; BASO ABS # 0.03 K/uL (0-0.2); COMPLETE YES; EOS % 1.6 %; HEMATOCRIT 34.5 % (42-52); IG% 0.7 %; LYMPH % 5.7 %; LYMPH ABS # 0.92 K/uL (1.2-3.4); MEAN CORPUSCULAR HEMOGLOBIN 29.1 pg (25-34); MEAN PLATELET VOLUME 10.2 fL (7.4-10.4); MONO % 11.3 %; NEUT % 80.5 %; PLATELET COUNT 259 K/uL (130-400); RED BLOOD COUNT 3.92 M/uL (4.7-6.1); WHITE BLOOD COUNT 16.03 K/uL (4.8-10.8)
[2017-04-15] MEDS: ALBUT/IPRATROP 3MG/0.5MG NEB 3 ML VIAL INH SCH ×4 (07:04→19:39)
[2017-04-15 07:46] LABS: ALB/GLOB RATIO 0.5 (0.9-2); BUN/CREATININE RATIO 19.5 (10-20); CALCIUM 8.6 mg/dl (8.5-10.1); CREATININE 0.91 mg/dl (0.60-1.40); MAGNESIUM 2.3 mg/dl (1.8-2.4); POTASSIUM 4.2 mmol/L (3.5-5.1)
[2017-04-15] MEDS: ASPIRIN 81 MG ECTAB PO SCH (08:44)
[2017-04-15] MEDS: INSULIN ASPART 100 UNITS/ML 3 ML PEN SC SCH ×4 (08:47→21:17)
--- NOTE | 2017-04-15 10:21 | Progress Note ---
Subjective Date of Service: Apr 15, 2017. Subjective pt off of abx. wbc continues to improve, transitioned to clears, tolerated. afebrile this am. isolated 37.6 yesterday. blood cultures remain negative. Problem List Medical Problems: (1) Acute pancreatitis Status: Acute (2) Acute pancreatitis Status: Acute (3) Diverticulitis Status: Acute (4) Left sided abdominal pain Status: Acute (5) Left sided abdominal pain Status: Acute (6) Pancreatitis Status: Acute Objective Vital Signs Date Time Temp Pulse Resp B/P (MAP) Pulse Ox O2 Delivery O2 Flow Rate FiO2 04/15/17 08:00 Room Air 04/15/17 07:56 36.9 101 20 160/92 (114) 04/15/17 07:04 101 18 93 Room Air 04/15/17 04:00 93 Room Air 04/15/17 03:25 36.9 100 20 164/90 (114) 94 Room Air 04/15/17 00:00 93 Room Air 04/14/17 23:15 37.0 107 20 151/88 (109) 94 Room Air 04/14/17 21:34 37.0 106 18 166/79 (108) 92 Room Air 04/14/17 20:00 93 Room Air 04/14/17 19:16 106 18 90 04/14/17 15:46 98 Nasal Cannula 4.0 04/14/17 15:35 36.8 99 17 173/95 (121) 95 Room Air 04/14/17 14:34 99 18 95 Nasal Cannula 4.0 04/14/17 12:00 98 Nasal Cannula 4.0 04/14/17 11:36 37.6 99 20 183/98 (126) 96 Nasal Cannula 4.0 Laboratory Results Item Value Date Time Blood Culture - Preliminary Resulted 04/12/17 0905 Blood NO GROWTH TO DATE. Blood Culture - Preliminary Resulted 04/12/17 0931 Blood NO GROWTH TO DATE. Last 24 Hours Test 04/14/17 11:54 04/14/17 17:01 04/14/17 21:08 04/15/17 06:38 Bedside Glucose 192 mg/dl 236 mg/dl 256 mg/dl White Blood Count 16.03 K/uL Red Blood Count 3.92 M/uL Hemoglobin 11.4 g/dL Hematocrit 34.5 % Mean Corpuscular Volume 88.0 fL Mean Corpuscular Hemoglobin 29.1 pg Mean Corpuscular Hemoglobin Concent 33.0 g/dl Platelet Count 259 K/uL Mean Platelet Volume 10.2 fL Neutrophils (%) (Auto) 80.5 % Lymphocytes (%) (Auto) 5.7 % Monocytes (%) (Auto) 11.3 % Eosinophils (%) (Auto) 1.6 % Basophils (%) (Auto) 0.2 % Neutrophils # (Auto) 12.90 K/uL Lymphocytes # (Auto) 0.92 K/uL Monocytes # (Auto) 1.81 K/uL Eosinophils # (Auto) 0.25 K/uL Basophils # (Auto) 0.03 K/uL RDW Standard Deviation 49.9 fL RDW Coefficient of Variation 15.6 % Immature Granulocyte % (Auto) 0.7 % Immature Granulocyte # (Auto) 0.12 K/uL Sodium Level 139 mmol/L Potassium Level 4.2 mmol/L Chloride Level 103 mmol/L Carbon Dioxide Level 28 mmol/L Anion Gap 8.0 mmol/L Blood Urea Nitrogen 18 mg/dl Creatinine 0.91 mg/dl Est Creatinine Clear Calc Drug Dose 130.7 ml/min Estimated GFR () 104.3 Estimated GFR (Non- 90.0 BUN/Creatinine Ratio 19.5 Random Glucose 223 mg/dl Calcium Level 8.6 mg/dl Ionized Calcium 1.12 mmol/l Magnesium Level 2.3 mg/dl Total Bilirubin 0.5 mg/dl Aspartate Amino Transf (AST/SGOT) 17 U/L Alanine Aminotransferase (ALT/SGPT) 18 U/L Alkaline Phosphatase 99 U/L Total Protein 6.6 gm/dl Albumin 2.1 gm/dl Globulin 4.5 gm/dl Albumin/Globulin Ratio 0.5 Lipase 174 U/L Test 04/15/17 07:33 Bedside Glucose 205 mg/dl Assessment and Plan (1) Acute pancreatitis Assessment & Plan: ok to follow off of abx. blood cultures negative, wbc improving, no collections/pseudocyst noted on ct. clinically improving. ID will sign off. thank you
--- NOTE | 2017-04-15 10:48 | Nephrology Progress Note ---
Nephrology Progress Note Date of Service Apr 15, 2017. Chief Complaint Acute renal insufficiency Subjective No acute events overnight. Abdominal pain improving. No fevers or chills. Activity tolerance fair. Denies shortness of breath. Diet advanced to clear liquid Review of Systems A complete review of systems was performed. Pertinent positives are noted above. All other systems are negative. Vital Signs Last 8 Hrs Date Time Temp Pulse Resp B/P (MAP) Pulse Ox O2 Delivery O2 Flow Rate FiO2 04/15/17 08:00 Room Air 04/15/17 07:56 36.9 101 20 160/92 (114) 04/15/17 07:04 101 18 93 Room Air 04/15/17 04:00 93 Room Air 04/15/17 03:25 36.9 100 20 164/90 (114) 94 Room Air Last Recorded Weight Weight (Kilograms): 154.700 Physical Exam General Appearance: WD/WN, no apparent distress Head: normocephalic, atraumatic Eyes: normal inspection, sclerae normal ENT: normal ENT inspection, pharynx normal Neck: supple, no JVD Respiratory/Chest: lungs clear, no respiratory distress, no accessory muscle use Cardiovascular: regular rate, rhythm, no gallop, no murmur Abdomen/GI: soft, + distended Extremities/Musculoskelatal: normal inspection, no pedal edema Neurologic/Psych: alert, oriented x 3 Family History Cancer Diabetes mellitus Heart disease Kidney disease Kidney stones Social History Smoking Status: Never smoker Smokeless Tobacco Use: No Alcohol Use: none Drug Use: none Marital Status: Housing Status: lives with family Occupation: employed Laboratory Results Past 24 Hours 04/15/17 06:38 Red Blood Count 3.92, Mean Corpuscular Volume 88.0, Mean Corpuscular Hemoglobin 29.1, Mean Corpuscular Hemoglobin Concent 33.0, Mean Platelet Volume 10.2, Neutrophils (%) (Auto) 80.5, Lymphocytes (%) (Auto) 5.7, Monocytes (%) (Auto) 11.3, Eosinophils (%) (Auto) 1.6, Basophils (%) (Auto) 0.2, Neutrophils # (Auto ) 12.90, Lymphocytes # (Auto) 0.92, Monocytes # (Auto) 1.81, Eosinophils # (Auto ) 0.25, Basophils # (Auto) 0.03 04/15/17 06:38 Test 04/14/17 11:54 04/14/17 17:01 04/14/17 21:08 04/15/17 06:38 Bedside Glucose 192 mg/dl (70-99) 236 mg/dl (70-99) 256 mg/dl (70-99) White Blood Count 16.03 K/uL (4.8-10.8) Red Blood Count 3.92 M/uL (4.7-6.1) Hemoglobin 11.4 g/dL (14.0-18.0) Hematocrit 34.5 % (42-52) Mean Corpuscular Volume 88.0 fL (80-100) Mean Corpuscular Hemoglobin 29.1 pg (25-34) Mean Corpuscular Hemoglobin Concent 33.0 g/dl (32-36) Platelet Count 259 K/uL (130-400) Mean Platelet Volume 10.2 fL (7.4-10.4) Neutrophils (%) (Auto) 80.5 % Lymphocytes (%) (Auto) 5.7 % Monocytes (%) (Auto) 11.3 % Eosinophils (%) (Auto) 1.6 % Basophils (%) (Auto) 0.2 % Neutrophils # (Auto) 12.90 K/uL (1.4-6.5) Lymphocytes # (Auto) 0.92 K/uL (1.2-3.4) Monocytes # (Auto) 1.81 K/uL (0.11-0.59) Eosinophils # (Auto) 0.25 K/uL (0-0.5) Basophils # (Auto) 0.03 K/uL (0-0.2) RDW Standard Deviation 49.9 fL (36.4-46.3) RDW Coefficient of Variation 15.6 % (11.5-14.5) Immature Granulocyte % (Auto) 0.7 % Immature Granulocyte # (Auto) 0.12 K/uL (0.00-0.02) Anion Gap 8.0 mmol/L (3-11) Est Creatinine Clear Calc Drug Dose 130.7 ml/min Estimated GFR () 104.3 Estimated GFR (Non- 90.0 BUN/Creatinine Ratio 19.5 (10-20) Calcium Level 8.6 mg/dl (8.5-10.1) Ionized Calcium 1.12 mmol/l (1.12-1.32) Magnesium Level 2.3 mg/dl (1.8-2.4) Total Bilirubin 0.5 mg/dl (0.2-1) Aspartate Amino Transf (AST/SGOT) 17 U/L (15-37) Alanine Aminotransferase (ALT/SGPT) 18 U/L (12-78) Alkaline Phosphatase 99 U/L (45-117) Total Protein 6.6 gm/dl (6.4-8.2) Albumin 2.1 gm/dl (3.4-5.0) Globulin 4.5 gm/dl (2.5-4.0) Albumin/Globulin Ratio 0.5 (0.9-2) Lipase 174 U/L (73-393) Test 04/15/17 07:33 Bedside Glucose 205 mg/dl (70-99) Allergies Coded Allergies: Penicillins (Verified Allergy, Mild, RASH, 04/10/17) NEVER HAS HAD DIFFICULTY BREATHING WITH PCN BEFORE- PER PT 10/30/09, [facility] CHECKED WITH PT. HE IS WILLING TO TAKE ANCEF PRE-OP TODAY Amoxicillin (Verified Adverse Reaction, Intermediate, rash, 04/15/17) Morphine (Verified Adverse Reaction, Intermediate, Rowdy, fired up, ) Clindamycin (Verified Adverse Reaction, Unknown, ? nicol's syndrome, 04/10) redness,diaphoresis, transient elevated temp. occurs aprox. 1 hour after taking med and resolves spontaneously in 20-30 minutes. Medications Current Inpatient Medications Medications (Trade) Dose Ordered Sig/Akash Route Start Time Stop Time Status Last Admin Dose Admin Acetaminophen (Tylenol Tab) 650 mg Q4H PRN PO 04/10/17 20:15 05/10/17 20:14 04/11/17 15:29 650 MG Al Hydrox/Mg Hydrox/Simethicone (Maalox Max Susp) 15 ml Q4H PRN PO 04/10/17 20:15 05/10/17 20:14 Magnesium Hydroxide (Milk Of Magnesia Susp) 30 ml Q12H PRN PO 04/10/17 20:15 05/10/17 20:14 Zolpidem Tartrate (Ambien Tab) 5 mg HSZ PRN PO 04/10/17 20:15 05/10/17 20:14 Ondansetron HCl (Zofran Inj) 4 mg Q6H PRN IV 04/10/17 20:15 05/10/17 20:14 Polyethylene (Miralax Powder Packet) 17 gm DAILY PRN PO 04/10/17 20:15 05/10/17 20:14 Aspirin (Ecotrin Tab) 81 mg QAM PO 04/11/17 09:00 05/11/17 08:59 04/15/17 08:44 81 MG Glucose (Glucose 40% Gel) UD PRN PO 04/10/17 22:30 05/10/17 22:29 Glucose (Glucose Chew Tab) 1 tabs UD PRN PO 04/10/17 22:30 05/10/17 22:29 Dextrose (Dextrose 50% 50ML Syringe) 50 ml UD PRN IV 04/10/17 22:30 05/10/17 22:29 Glucagon (Glucagon Inj) 1 mg UD PRN SQ 04/10/17 22:30 05/10/17 22:29 Heparin Sodium (Porcine) (Heparin Sq 5000 Unit/0.5ml) 5,000 unit Q8 SQ 04/11/17 14:00 05/11/17 13:59 04/15/17 06:09 5,000 UNIT Albuterol/ Ipratropium (Duoneb) 3 ml QIDR INH 04/14/17 12:00 05/14/17 11:59 04/15/17 07:04 3 ML Hydromorphone HCl (Dilaudid Inj) 0.5 mg Q2H PRN IV 04/14/17 11:45 04/24/17 21:14 04/15/17 06:09 0.5 MG Insulin Aspart (novoLOG ASPART) SLIDING SCALE If C... ACHS SC 04/14/17 16:30 05/11/17 11:59 04/15/17 08:47 5 UNITS Impression (1) Acute renal insufficiency (2) Acute pancreatitis (3) Hypertension (4) Diabetes Mr. Adair is an obese 61-year-old male with diabetes mellitus II, hypertension, and a history of recurrent pancreatitis. He was admitted on April [address] scan of the abdomen reviewed on admission. Etiology unclear. Mr. Adair is suffering from VLAD consistent with prerenal azotemia and possible ATN. Baseline renal function is normal. Urine output appropriate. Creatinine continues improving. Volume status appropriate. Patient has started a clear liquid diet. Clinical markers of pancreatitis are improving. Urine studies were notable for microscopic hematuria without pyuria. Presentation is not consistent with GN. Interstitial nephritis is also unlikely. Low suspicion for IgG4 related etiology. CPK was normal. Recommendations -- Calcium appropriate and metabolic profile otherwise normal -- Nutrition being advanced, volume status appropriate -- Medications are appropriate for renal function: continue to hold INOCENTE/ARB -- Monitor metabolic profile daily -- Nephrology will sign off at this time: please call with questions or concerns -- Outpatient follow up can be arranged within one week of discharge to schedule)
[2017-04-15] MEDS ORDERED: HydrALAZINE HCL 20 MG/ML VIAL IV. PRN (11:30)
[2017-04-15] MEDS ORDERED: LISINOPRIL 20 MG TAB PO ONE (12:15)
[2017-04-15] MEDS ORDERED: INSULIN GLARGINE SOLOSTAR 100 UNITS/ML 3 ML PEN SC ONE (15:00)
--- NOTE | 2017-04-15 18:30 | Family Medicine Progress Note ---
Progress Note Date of Service Apr 15, 2017. Subjective Pt evaluation today including: conversation w/ patient, physical exam, chart review, lab review, review of inpatient medication list Pain: Reported 8/10 this AM, decreased to 5/10 by end of day PO Intake: Full liquids, still hungry Voiding: flores catheter in place Patient loopy from pain meds this am, describes his pain as worse, 8/10. *update , by 2 pm patient had not had any pain meds for about 6 hours, and was at level 5/10 Constitutional: No fever, No chills, No sweats ENT: No sore throat, No trouble swallowing Respiratory: + cough, + wheezing, No sputum, No dyspnea at rest, No hemoptysis Cardiovascular: + edema, No chest pain Abdomen: + pain, No nausea, No vomiting, No diarrhea, No constipation Neurologic: + numbness/tingling (reports legs quite swollen to point of numbness) All Other Systems: Reviewed and Negative Medications Current Inpatient Medications Medications (Trade) Dose Ordered Sig/Akash Route Start Time Stop Time Status Last Admin Dose Admin Acetaminophen (Tylenol Tab) 650 mg Q4H PRN PO 04/10/17 20:15 05/10/17 20:14 04/11/17 15:29 650 MG Al Hydrox/Mg Hydrox/Simethicone (Maalox Max Susp) 15 ml Q4H PRN PO 04/10/17 20:15 05/10/17 20:14 Magnesium Hydroxide (Milk Of Magnesia Susp) 30 ml Q12H PRN PO 04/10/17 20:15 05/10/17 20:14 Zolpidem Tartrate (Ambien Tab) 5 mg HSZ PRN PO 04/10/17 20:15 05/10/17 20:14 Ondansetron HCl (Zofran Inj) 4 mg Q6H PRN IV 04/10/17 20:15 05/10/17 20:14 Polyethylene (Miralax Powder Packet) 17 gm DAILY PRN PO 04/10/17 20:15 05/10/17 20:14 Aspirin (Ecotrin Tab) 81 mg QAM PO 04/11/17 09:00 05/11/17 08:59 04/15/17 08:44 81 MG Glucose (Glucose 40% Gel) UD PRN PO 04/10/17 22:30 05/10/17 22:29 Glucose (Glucose Chew Tab) 1 tabs UD PRN PO 04/10/17 22:30 05/10/17 22:29 Dextrose (Dextrose 50% 50ML Syringe) 50 ml UD PRN IV 04/10/17 22:30 05/10/17 22:29 Glucagon (Glucagon Inj) 1 mg UD PRN SQ 04/10/17 22:30 05/10/17 22:29 Heparin Sodium (Porcine) (Heparin Sq 5000 Unit/0.5ml) 5,000 unit Q8 SQ 04/11/17 14:00 05/11/17 13:59 04/15/17 21:18 5,000 UNIT Albuterol/ Ipratropium (Duoneb) 3 ml QIDR INH 04/14/17 12:00 05/14/17 11:59 04/15/17 19:39 3 ML Hydromorphone HCl (Dilaudid Inj) 0.5 mg Q2H PRN IV 04/14/17 11:45 04/24/17 21:14 04/15/17 21:19 0.5 MG Insulin Aspart (novoLOG ASPART) SLIDING SCALE If C... ACHS SC 04/14/17 16:30 05/11/17 11:59 04/15/17 21:17 4 UNITS Lisinopril (Zestril Tab) 20 mg QAM PO 04/16/17 09:00 05/16/17 08:59 Cholecalciferol (Vitamin D Tab) 1,000 inter.unit QAM PO 04/16/17 09:00 05/16/17 08:59 Hydralazine HCl (HydrALAZINE INJ) 20 mg Q4 PRN IV. 04/15/17 19:00 05/15/17 18:59 Objective Vital Signs Date Time Temp Pulse Resp B/P (MAP) Pulse Ox O2 Delivery O2 Flow Rate FiO2 04/15/17 21:11 106 176/100 (125) 04/15/17 20:06 102 193/105 (134) 04/15/17 19:45 37.1 102 20 192/96 (128) 93 Room Air 04/15/17 19:40 101 18 94 Room Air 04/15/17 18:41 104 192/110 (137) 04/15/17 18:40 200/101 (134) 197/94 (128) 04/15/17 16:27 105 179/106 (130) 04/15/17 16:00 Room Air 04/15/17 14:56 37.3 104 20 186/85 (118) 92 Room Air 04/15/17 11:28 Room Air 04/15/17 11:21 37.3 100 20 183/102 (129) 92 Room Air 04/15/17 11:21 104 18 91 Room Air 04/15/17 08:00 Room Air 04/15/17 07:56 36.9 101 20 160/92 (114) 04/15/17 07:04 101 18 93 Room Air 04/15/17 04:00 93 Room Air 04/15/17 03:25 36.9 100 20 164/90 (114) 94 Room Air 04/15/17 00:00 93 Room Air 04/14/17 23:15 37.0 107 20 151/88 (109) 94 Room Air Physical Exam General Appearance: WD/WN, no apparent distress Eyes: normal inspection, EOMI ENT: hearing grossly normal, pharynx normal Neck: supple, no JVD, trachea midline Respiratory/Chest: chest non-tender, no respiratory distress, no accessory muscle use, + wheezing Cardiovascular: regular rate, rhythm, no murmur Abdomen: normal bowel sounds, + distended Extremities: + pedal edema Neurologic/Psychiatric: no motor/sensory deficits, alert, normal mood/affect, oriented x 3 Skin: warm/dry, no rash Laboratory Results 04/15/17 06:38 Red Blood Count 3.92, Mean Corpuscular Volume 88.0, Mean Corpuscular Hemoglobin 29.1, Mean Corpuscular Hemoglobin Concent 33.0, Mean Platelet Volume 10.2, Neutrophils (%) (Auto) 80.5, Lymphocytes (%) (Auto) 5.7, Monocytes (%) (Auto) 11.3, Eosinophils (%) (Auto) 1.6, Basophils (%) (Auto) 0.2, Neutrophils # (Auto ) 12.90, Lymphocytes # (Auto) 0.92, Monocytes # (Auto) 1.81, Eosinophils # (Auto ) 0.25, Basophils # (Auto) 0.03 04/15/17 06:38 Test 04/15/17 06:38 04/15/17 20:16 White Blood Count 16.03 K/uL (4.8-10.8) Red Blood Count 3.92 M/uL (4.7-6.1) Hemoglobin 11.4 g/dL (14.0-18.0) Hematocrit 34.5 % (42-52) Mean Corpuscular Volume 88.0 fL (80-100) Mean Corpuscular Hemoglobin 29.1 pg (25-34) Mean Corpuscular Hemoglobin Concent 33.0 g/dl (32-36) Platelet Count 259 K/uL (130-400) Mean Platelet Volume 10.2 fL (7.4-10.4) Neutrophils (%) (Auto) 80.5 % Lymphocytes (%) (Auto) 5.7 % Monocytes (%) (Auto) 11.3 % Eosinophils (%) (Auto) 1.6 % Basophils (%) (Auto) 0.2 % Neutrophils # (Auto) 12.90 K/uL (1.4-6.5) Lymphocytes # (Auto) 0.92 K/uL (1.2-3.4) Monocytes # (Auto) 1.81 K/uL (0.11-0.59) Eosinophils # (Auto) 0.25 K/uL (0-0.5) Basophils # (Auto) 0.03 K/uL (0-0.2) RDW Standard Deviation 49.9 fL (36.4-46.3) RDW Coefficient of Variation 15.6 % (11.5-14.5) Immature Granulocyte % (Auto) 0.7 % Immature Granulocyte # (Auto) 0.12 K/uL (0.00-0.02) Anion Gap 8.0 mmol/L (3-11) Est Creatinine Clear Calc Drug Dose 130.7 ml/min Estimated GFR () 104.3 Estimated GFR (Non- 90.0 BUN/Creatinine Ratio 19.5 (10-20) Calcium Level 8.6 mg/dl (8.5-10.1) Ionized Calcium 1.12 mmol/l (1.12-1.32) Magnesium Level 2.3 mg/dl (1.8-2.4) Total Bilirubin 0.5 mg/dl (0.2-1) Aspartate Amino Transf (AST/SGOT) 17 U/L (15-37) Alanine Aminotransferase (ALT/SGPT) 18 U/L (12-78) Alkaline Phosphatase 99 U/L (45-117) Total Protein 6.6 gm/dl (6.4-8.2) Albumin 2.1 gm/dl (3.4-5.0) Globulin 4.5 gm/dl (2.5-4.0) Albumin/Globulin Ratio 0.5 (0.9-2) Lipase 174 U/L (73-393) Bedside Glucose 229 mg/dl (70-99) Assessment and Plan 61 yo male c/o acute abdominal pain and hx of pancreatitis. Acute Pancreatitis (hx of same x 2 in past year): . Open MRI (due to claustrophobia) at [facility] Oct [address] on admit c/w interstitial edematous pancreatitis (w/o acute peripancreatic fluid collection) as well as hepatic steatosis. - Clear liquid increased to full liquid diet today. - Dilaudid 0.5 mg q2h prn for pain. Has needed less today, will reassess tomorrow to determine if switch in meds is necessitated. - DCd fluids per patient request - Lipase now normal 174 - Lungs sound improved but still mildly congested. Monitoring. - Ordered leg elevation for peripheral edema - GI consulted. No CT a/p at 48 hr jeffry unless condition changes. - Increased diet to full liquids - Replaced calcium and tracking daily ionized Ca levels. Today: 1.12 - DCd imipenam for suspected pneumonia; no growth on blood/urine cultures SIRS, likely secondary to pancreatitis, r/o infection - Afebrile and pulse <100. Worsening WBC to 30 improved to 16 today. - DCd imipenam for suspected pneumonia - 23Sep CXR one view: Question left lateral costophrenic sulcus atelectasis vs small pleural effusion; No evidence of pulm edema. [Repeat two-view CXR later on 23Sep was unchanged.] - Repeat CXR 14 April no change - BCx x 2 pending, no growth to date, UCx final; no growth - Duoneb prn and incentive spirometry VLAD: On admit Cr 1.4. Baseline 0.8. today: 0.91 - Nephro consulted, signed off today. Recd holding INOCENTE/ARB, calcium repletion and tracking I/Os monitoring, CPK. Hypertension: Some elevation 21-22Sep, given hydralazine and metoprolol overnight 21-22Sep. Improved control - 23Sep held home lisinopril due to worsening pancreatitis. - Restarted lisinopril for this reason today and ordered hydralazine 10 mg prn - Consider outpatient sleep study considering due to hx of snoring and body habitus Hypomagnesemia: Noted on admit Mg 1.6. Replacement on 22Sep, 2.3 today Low Vitamin D: Noted on labs. Will supplemented 1000IU/day now that diet is increasing. Will recheck tomorrow Type 2 DM - Held home metformin and glipizide. - Novolog sliding scale coverage as inpt. - Lantus added today (10 units) with elevating glucose levels, will readjust tomorrow AM - May need drip if BSG>300 Code: full code TPN: Heparin Dispo: med surg, off tele Resident Tracking Resident Involvement: Resident Care Provided Care Provided: Adult Hospital Medicine
--- NOTE | 2017-04-15 18:45 | GASTROENTEROLOGY PROGRESS NOTE ---
DATE: 04/15/2017 GASTROENTEROLOGY INPATIENT PROGRESS NOTE SUBJECTIVE: The patient is having more discomfort today than yesterday. He is not tolerating liquid diet well in part because he does not like its taste. He also feels that his breathing is somewhat limited because of the pain. He describes that when he gets his pain medication, he will experience discomfort for about 10 minutes in the epigastrium; however, following this period, he will get pain relief. He has not had any vomiting. His catheter has been removed and he has had spontaneous urination since its removal. Bowel movements are liquid and brown. LABORATORY STUDIES: Today show a white count of 16.0, which is down from yesterday at 19.3; hemoglobin 11.4, platelets 259,000. Serum chemistry shows BUN and creatinine are 18 and 0.9 with a potassium of 4.2, sodium 139, blood sugars are ranging in the mid 200s. His albumin is low at 2.1. The creatinine has responded and is from a high of 2.3. IV fluids except for those involved with drug administration had been discontinued. CURRENT MEDICATIONS: Include resumption of Lisinopril 20 mg daily, vitamin D, hydralazine, insulin, DuoNebs, subQ heparin. LABORATORY DATA: Blood cultures are no growth to date. PHYSICAL EXAMINATION: VITAL SIGNS: His blood pressure is running high. Blood pressure 179/106, heart rate 105. He is afebrile this afternoon at 37.3; he is 92% on room air. The patient did also describe that he became edematous today. GENERAL: The patient is sitting in the chair, overall comfortable, although any movements seems bother him. He is not in acute respiratory distress, although does seem to limit the depth of his inspiration. HEENT: Sclerae anicteric, conjunctivae moist. Oral mucosa moist. HEART: Normal S1, S2. LUNGS: Show decreased breath sounds at the bases and slight crackles. ABDOMEN: Soft, tender in the epigastrium without rebound or guarding. Bowel sounds are present. EXTREMITIES: Show +1 pitting edema, both upper extremities in the left hand. IMPRESSION AND PLAN: The patient with recurrent acute pancreatitis of unclear etiology. Workup to date has not revealed the source and it was not expected that this represented gallstone pancreatitis. However, all of the pancreatitis attacks by the patient's recollection occurred after cholecystectomy. Today's lipase is 174. It is reasonable for the patient to advance his diet to a low fat and soft diet such as scrambled eggs. This can be considered for this evening. Would continue antiemetic therapy and narcotics for analgesia. Monitoring intake and output carefully to ensure that the patient does not become overly positive. If breathing remains labored, continued breathing treatments and a chest x-ray PA and latter may be beneficial. His white count is becoming down and would consider discontinuation Primaxin, if not already performed. I did encourage the patient to ambulate slightly in the hallways with assistance. All questions answered. MTDD
[2017-04-16] VITALS (11 sets, daily range): BP systolic 164–201; BP diastolic 81–102; PULSE 101–112; TEMP 37.3–37.8; O2SAT 93–96
[2017-04-16] MEDS: HYDROmorphone INJ 0.5 MG/0.5 ML SYR IV PRN ×3 (00:17→08:37)
[2017-04-16] MEDS: HEPARIN SOD 5000 UNIT/0.5 ML CARP SQ SCH ×3 (06:24→20:57)
[2017-04-16 06:50] LABS: BASO % 0.3 %; BASO ABS # 0.04 K/uL (0-0.2); COMPLETE YES; EOS % 1.3 %; HEMATOCRIT 37.1 % (42-52); LYMPH % 8.2 %; LYMPH ABS # 1.23 K/uL (1.2-3.4); MEAN CELL VOLUME 86.1 fL (80-100); MEAN CORPUSCULAR HEMOGLOBIN 27.1 pg (25-34); MEAN CORPUSCULAR HGB CONC 31.5 g/dl (32-36); MEAN PLATELET VOLUME 9.8 fL (7.4-10.4); MONO % 11.1 %; NEUT % 76.1 %; PLATELET COUNT 291 K/uL (130-400); RED BLOOD COUNT 4.31 M/uL (4.7-6.1); WHITE BLOOD COUNT 14.93 K/uL (4.8-10.8)
[2017-04-16 07:17] LABS: BUN/CREATININE RATIO 12.2 (10-20); CALCIUM 8.7 mg/dl (8.5-10.1); CREATININE 0.78 mg/dl (0.60-1.40); POTASSIUM 3.8 mmol/L (3.5-5.1)
[2017-04-16 07:19] LABS: ALB/GLOB RATIO 0.4 (0.9-2)
[2017-04-16] MEDS: ALBUT/IPRATROP 3MG/0.5MG NEB 3 ML VIAL INH SCH ×4 (07:24→19:47)
[2017-04-16] MEDS: LISINOPRIL 20 MG TAB PO SCH (08:29)
[2017-04-16] MEDS: CHOLECALCIFEROL 1000 INTER.UNIT TAB PO SCH (08:29)
[2017-04-16] MEDS: ASPIRIN 81 MG ECTAB PO SCH (08:29)
[2017-04-16] MEDS: INSULIN ASPART 100 UNITS/ML 3 ML PEN SC SCH ×4 (08:31→20:56)
[2017-04-16] MEDS ORDERED: INSULIN GLARGINE SOLOSTAR 100 UNITS/ML 3 ML PEN SC SCH (09:30)
[2017-04-16] MEDS ORDERED: FUROSEMIDE 20 MG TAB PO ONE (11:30)
[2017-04-16] MEDS: HydrALAZINE HCL 20 MG/ML VIAL IV. PRN (16:01)
--- NOTE | 2017-04-16 18:41 | Family Medicine Progress Note ---
Progress Note Date of Service Apr 16, 2017. Subjective Pt evaluation today including: conversation w/ patient, physical exam, chart review, lab review, review of inpatient medication list Pain: 5-6 PO Intake: soft low fat diet Voiding: no voiding problems Patient still reports level 5-6 pain/10 abdominal pain, but is resting comfortably on the bed. Still remains hungry. Would like to switch pain meds to oral. Constitutional: No fever, No chills, No sweats, No weight loss Eyes: No worsening of vision, No diplopia ENT: No sore throat, No dental problems, No trouble swallowing Respiratory: No cough, No sputum, No shortness of breath, No dyspnea on exertion, No dyspnea at rest Cardiovascular: + edema, No chest pain, No orthopnea Abdomen: + pain, No vomiting, No diarrhea, No constipation Musculoskeletal: No joint pain Male : No dysuria Neurologic: No memory loss, No weakness, No numbness/tingling Heme: No abnormal bleeding/bruising Skin: No rash Medications Current Inpatient Medications Medications (Trade) Dose Ordered Sig/Akash Route Start Time Stop Time Status Last Admin Dose Admin Acetaminophen (Tylenol Tab) 650 mg Q4H PRN PO 04/10/17 20:15 05/10/17 20:14 04/11/17 15:29 650 MG Al Hydrox/Mg Hydrox/Simethicone (Maalox Max Susp) 15 ml Q4H PRN PO 04/10/17 20:15 05/10/17 20:14 Magnesium Hydroxide (Milk Of Magnesia Susp) 30 ml Q12H PRN PO 04/10/17 20:15 05/10/17 20:14 Zolpidem Tartrate (Ambien Tab) 5 mg HSZ PRN PO 04/10/17 20:15 05/10/17 20:14 Ondansetron HCl (Zofran Inj) 4 mg Q6H PRN IV 04/10/17 20:15 05/10/17 20:14 Polyethylene (Miralax Powder Packet) 17 gm DAILY PRN PO 04/10/17 20:15 05/10/17 20:14 Aspirin (Ecotrin Tab) 81 mg QAM PO 04/11/17 09:00 05/11/17 08:59 04/16/17 08:29 81 MG Glucose (Glucose 40% Gel) UD PRN PO 04/10/17 22:30 05/10/17 22:29 Glucose (Glucose Chew Tab) 1 tabs UD PRN PO 04/10/17 22:30 05/10/17 22:29 Dextrose (Dextrose 50% 50ML Syringe) 50 ml UD PRN IV 04/10/17 22:30 05/10/17 22:29 Glucagon (Glucagon Inj) 1 mg UD PRN SQ 04/10/17 22:30 05/10/17 22:29 Heparin Sodium (Porcine) (Heparin Sq 5000 Unit/0.5ml) 5,000 unit Q8 SQ 04/11/17 14:00 05/11/17 13:59 04/16/17 14:11 5,000 UNIT Albuterol/ Ipratropium (Duoneb) 3 ml QIDR INH 04/14/17 12:00 05/14/17 11:59 04/16/17 15:15 3 ML Insulin Aspart (novoLOG ASPART) SLIDING SCALE If C... ACHS SC 04/14/17 16:30 05/11/17 11:59 04/16/17 17:27 15 UNITS Lisinopril (Zestril Tab) 20 mg QAM PO 04/16/17 09:00 05/16/17 08:59 04/16/17 08:29 20 MG Cholecalciferol (Vitamin D Tab) 1,000 inter.unit QAM PO 04/16/17 09:00 05/16/17 08:59 04/16/17 08:29 1,000 INTER.UNIT Hydralazine HCl (HydrALAZINE INJ) 20 mg Q4 PRN IV. 04/15/17 19:00 05/15/17 18:59 04/16/17 16:01 20 MG Hydromorphone HCl (Dilaudid Tab) 2 mg Q4H PRN PO 04/16/17 11:30 04/30/17 11:29 Insulin Glargine (Lantus Solostar Pen) 20 units BID SC 04/16/17 21:00 05/16/17 09:29 Objective Physical Exam General Appearance: WD/WN, no apparent distress Eyes: normal inspection, EOMI ENT: hearing grossly normal Neck: supple, no JVD, trachea midline Respiratory/Chest: chest non-tender, lungs clear, normal breath sounds, no respiratory distress, no accessory muscle use Cardiovascular: regular rate, rhythm, no murmur Abdomen: normal bowel sounds, + distended, + tenderness Extremities: + pedal edema Neurologic/Psychiatric: no motor/sensory deficits, alert, normal mood/affect, oriented x 3 Skin: normal color, warm/dry Laboratory Results 04/16/17 06:27 Red Blood Count 4.31, Mean Corpuscular Volume 86.1, Mean Corpuscular Hemoglobin 27.1, Mean Corpuscular Hemoglobin Concent 31.5, Mean Platelet Volume 9.8, Neutrophils (%) (Auto) 76.1, Lymphocytes (%) (Auto) 8.2, Monocytes (%) (Auto) 11.1, Eosinophils (%) (Auto) 1.3, Basophils (%) (Auto) 0.3, Neutrophils # (Auto ) 11.35, Lymphocytes # (Auto) 1.23, Monocytes # (Auto) 1.66, Eosinophils # (Auto ) 0.20, Basophils # (Auto) 0.04 04/16/17 06:27 Test 04/16/17 06:27 04/16/17 20:11 White Blood Count 14.93 K/uL (4.8-10.8) Red Blood Count 4.31 M/uL (4.7-6.1) Hemoglobin 11.7 g/dL (14.0-18.0) Hematocrit 37.1 % (42-52) Mean Corpuscular Volume 86.1 fL (80-100) Mean Corpuscular Hemoglobin 27.1 pg (25-34) Mean Corpuscular Hemoglobin Concent 31.5 g/dl (32-36) Platelet Count 291 K/uL (130-400) Mean Platelet Volume 9.8 fL (7.4-10.4) Neutrophils (%) (Auto) 76.1 % Lymphocytes (%) (Auto) 8.2 % Monocytes (%) (Auto) 11.1 % Eosinophils (%) (Auto) 1.3 % Basophils (%) (Auto) 0.3 % Neutrophils # (Auto) 11.35 K/uL (1.4-6.5) Lymphocytes # (Auto) 1.23 K/uL (1.2-3.4) Monocytes # (Auto) 1.66 K/uL (0.11-0.59) Eosinophils # (Auto) 0.20 K/uL (0-0.5) Basophils # (Auto) 0.04 K/uL (0-0.2) RDW Standard Deviation 47.9 fL (36.4-46.3) RDW Coefficient of Variation 15.1 % (11.5-14.5) Immature Granulocyte % (Auto) 3.0 % Immature Granulocyte # (Auto) 0.45 K/uL (0.00-0.02) Anion Gap 7.0 mmol/L (3-11) Est Creatinine Clear Calc Drug Dose 152.5 ml/min Estimated GFR () 112.1 Estimated GFR (Non- 96.7 BUN/Creatinine Ratio 12.2 (10-20) Calcium Level 8.7 mg/dl (8.5-10.1) Ionized Calcium 1.11 mmol/l (1.12-1.32) Total Bilirubin 0.6 mg/dl (0.2-1) Aspartate Amino Transf (AST/SGOT) 21 U/L (15-37) Alanine Aminotransferase (ALT/SGPT) 18 U/L (12-78) Alkaline Phosphatase 102 U/L (45-117) Total Protein 6.6 gm/dl (6.4-8.2) Albumin 2.0 gm/dl (3.4-5.0) Globulin 4.6 gm/dl (2.5-4.0) Albumin/Globulin Ratio 0.4 (0.9-2) Bedside Glucose 242 mg/dl (70-99) Assessment and Plan 61 yo male c/o acute abdominal pain and hx of pancreatitis. Acute Pancreatitis (hx of same x 2 in past year): CT on admit c/w interstitial edematous pancreatitis (w/o acute peripancreatic fluid collection) as well as hepatic steatosis. - Increasing diet as tolerated, soft and low fat - Dilaudid 2 mg q4h PO prn for pain - Ordered leg elevation for peripheral edema - GI on board SIRS, likely secondary to pancreatitis, r/o infection - Afebrile and pulse <100. Worsening WBC to 30 improved to 13 today. - DCd imipenam for suspected pneumonia - Duoneb prn and incentive spirometry Type 2 DM - Held home metformin and glipizide. - Novolog sliding scale adjusted to CR of 1:7, Correction Factor of 15, goal BSG 110-140 - Increased lantus to 20U BID - May need drip if BSG>300 Hypertension: - 23Sep held home lisinopril due to worsening pancreatitis per nephrology. - Restarted lisinopril 20 mgyesterday, ordered hydralazine 20 mg prn for persistent hypertension - Added metoprolol 25 mg BID PO - Given 20 mg lasix - Recommend outpatient sleep study considering hx of snoring and body habitus VLAD: On admit Cr 1.4. Baseline 0.8. today: 0.78 - Nephro consulted, signed off. Recd holding INOCENTE/ARB, calcium repletion and tracking I/Os monitoring. Hypomagnesemia: Noted on admit Mg 1.6. Replacement on 22Sep, 2.3 today Low Vitamin D: Noted on labs. Will supplemented 1000IU/day now that diet is increasing. Follow up as outpatient. Code: full code TPN: Heparin Dispo: med surg, off tele Resident Tracking Resident Involvement: Resident Care Provided Care Provided: Adult Hospital Medicine
[2017-04-16] MEDS: HYDROmorphone HCL 2 MG TAB PO PRN ×2 (19:28→23:20)
[2017-04-16] MEDS: INSULIN GLARGINE SOLOSTAR 100 UNITS/ML 3 ML PEN SC SCH (20:57)
[2017-04-16] MEDS: METOPROLOL TARTRATE 25 MG TAB PO SCH (21:40)
[2017-04-17] VITALS (10 sets, daily range): BP systolic 158–186; BP diastolic 85–108; PULSE 100–118; TEMP 37.2–37.7; O2SAT 92–95; Ht 185.4 cm; Wt 145.0 kg
[2017-04-17] MEDS: HydrALAZINE HCL 20 MG/ML VIAL IV. PRN ×2 (00:30→22:35)
[2017-04-17] MEDS: HYDROmorphone HCL 2 MG TAB PO PRN ×3 (03:15→21:06)
[2017-04-17] MEDS: HEPARIN SOD 5000 UNIT/0.5 ML CARP SQ SCH ×3 (06:10→22:27)
[2017-04-17] MEDS: ALBUT/IPRATROP 3MG/0.5MG NEB 3 ML VIAL INH SCH ×4 (07:21→19:49)
--- NOTE | 2017-04-17 07:47 | GASTROENTEROLOGY PROGRESS NOTE ---
DATE: 04/16/2017 HISTORY OF PRESENT ILLNESS: I saw Mr. Adair this evening. He continued to experience abdominal pain which he described as sharp and grabbing at times, this is on the left side of the abdomen. He continues to have a slight food aversion mostly because of the type of food that is being observed which is puree. He is perhaps interested in something more solid and "recognizable." The patient had a low grade temperature of 37.8 at 3:30 p.m., but the temperature curve is otherwise afebrile for the past 24 hours. Blood pressure 177/84, respirations 20, pulse 102, 94% on room air. MEDICATIONS: He is currently off of his Primaxin. His other medications essentially remain unchanged. He began lisinopril 20 mg daily, and his renal function is actually doing well. Laboratory studies from today; his white count is down to 14.9, hemoglobin 11.7. Serum chemistries, BUN and creatinine are 10 and 0.78. There are no growth to any cultures in the chart today. PHYSICAL EXAMINATION: GENERAL: Today, patient is awake, alert and oriented x3, accompanied by his . The patient is in no acute distress, currently just finished attempting his evening meal. HEENT: Sclerae are anicteric. Conjunctivae moist. Oral mucosa moist. HEART: Normal S1, S2. LUNGS: Clear to auscultation without rales, rhonchi or wheezes. ABDOMEN: Soft, obese, mild tenderness in the left mid abdomen without rebound or guarding. There are positive bowel sounds. EXTREMITIES: With trace to +1 edema. RECTAL: Deferred. IMPRESSION AND PLAN: The patient with acute pancreatitis of unclear etiology. This is his third recurrent attacks since his gallbladder surgery. The liver function tests remain normal. We would attempt tomorrow morning to slowly advance his diet, follow his fever curve and abdominal exam closely. Although, I would like to defer on CT imaging with IV contrast, if his pain worsen or if fever develops then a CT imaging at least with oral contrast may be necessary. The patient cannot tolerate an MR due to claustrophobia. He may continue to ambulate in the hallway. Monitoring renal functions per nephrology.
[2017-04-17] MEDS: CHOLECALCIFEROL 1000 INTER.UNIT TAB PO SCH (07:54)
[2017-04-17] MEDS: METOPROLOL TARTRATE 25 MG TAB PO SCH ×2 (07:54→22:29)
[2017-04-17] MEDS: ASPIRIN 81 MG ECTAB PO SCH (07:54)
[2017-04-17] MEDS: LISINOPRIL 20 MG TAB PO SCH (07:54)
[2017-04-17] MEDS: INSULIN GLARGINE SOLOSTAR 100 UNITS/ML 3 ML PEN SC SCH ×2 (07:57→22:27)
[2017-04-17] MEDS: INSULIN ASPART 100 UNITS/ML 3 ML PEN SC SCH ×4 (07:57→22:26)
[2017-04-17 09:44] LABS: ESTIMATED AVERAGE GLUCOSE 169 mg/dl; HA1C FLAG Normal (Normal)
[2017-04-17] MEDS ORDERED: RANITIDINE HCL 150 MG TAB PO ONE (10:57)
[2017-04-17] MEDS ORDERED: ALUMINUM/MAGNESIUM SUSP 30 ML UDC PO STA (11:01)
--- NOTE | 2017-04-17 18:49 | GASTROENTEROLOGY PROGRESS NOTE ---
DATE: 04/17/2017 The patient's chart was reviewed and patient examined. He actually appears to be doing better than yesterday in the past several days. He reports tolerating his solid breakfast and lunch, although at the present time, the volume of food for his evening meal is causing discomfort in the left side. He has not had any vomiting. He did have a low-grade temperature overnight and again this morning. He also felt some chills overnight. He is having no difficulty with urine output and did not have a bowel movement today, although he did have one yesterday. He continues with pain control with Dilaudid q. 4 hours. His other medications include ranitidine, insulin, metoprolol, lisinopril, hydralazine, DVT heparin, aspirin and Ambien. ALLERGIES TO MEDICATIONS: INCLUDE AMOXICILLIN, CLINDAMYCIN, MORPHINE, AND PENICILLINS. REVIEW OF SYSTEMS: Otherwise noncontributory. The patient denies any nausea, vomiting, hematemesis or coffee-ground emesis. There is no melena, bright red blood per rectum. The patient did report that he did briefly ambulate in the halls. PHYSICAL EXAMINATION: VITAL SIGNS: Today, the patient is currently 37.2, blood pressure 169/95, 92% on room air, 109 heart rate, 22 respiratory rate. Overnight he did have a temperature 37.6 at midnight and 37.7 at 7:00 this morning although he is now afebrile. He is not taking any antibiotics currently. LUNGS: Clear to auscultation. HEENT: Sclerae are anicteric, conjunctivae moist. Oral mucosa moist. HEART: Normal S1, S2. ABDOMEN: Shows positive bowel sounds, obese with some tenderness in the left side of the abdomen, particularly near the mid abdominal region which is less intense than yesterday's physical exam. EXTREMITIES: Without clubbing, cyanosis. There is trace to +1 edema. RECTAL: Deferred. The patient overall clinically doing slightly better, tolerating food, although he did have an overnight low grade temperature. Presently, he is afebrile. Blood pressure remains a problem and this is being adjusted with nephrology's assistance. I told the patient to pace himself with his oral intake and not to feel that he must complete the whole tray. Smaller frequent meals may be better handled. We will obtain blood work tomorrow including a CBC, LFTs and a lipase. Depending on his overnight progress and tomorrow, if pain seems to be returning or if there is any evidence of fevers or leukocytosis, it may be reasonable to perform a CT scan with oral contrast only. The patient was encouraged to ambulate in the hallways. All questions answered.
[2017-04-17] MEDS: RANITIDINE HCL 150 MG TAB PO SCH (21:07)
--- NOTE | 2017-04-17 22:32 | Family Medicine Progress Note ---
Progress Note Date of Service Apr 17, 2017. Subjective Pt evaluation today including: conversation w/ patient, physical exam, chart review, review of inpatient medication list Pain: Pain at level 5-6 today, improving PO Intake: tolerating diet well Voiding: no voiding problems Patient reports his pain is improving. He is tolerating his advancing diet, and reports his peripheral edema is improving. He is eager to get moving and be discharged home. Constitutional: No fever, No chills, No sweats Respiratory: No cough, No sputum, No shortness of breath Cardiovascular: + edema Abdomen: + pain, No nausea, No vomiting, No diarrhea, No constipation Male : No dysuria Heme: No abnormal bleeding/bruising All Other Systems: Reviewed and Negative Medications Current Inpatient Medications Medications (Trade) Dose Ordered Sig/Akash Route Start Time Stop Time Status Last Admin Dose Admin Acetaminophen (Tylenol Tab) 650 mg Q4H PRN PO 04/10/17 20:15 05/10/17 20:14 04/11/17 15:29 650 MG Al Hydrox/Mg Hydrox/Simethicone (Maalox Max Susp) 15 ml Q4H PRN PO 04/10/17 20:15 05/10/17 20:14 Magnesium Hydroxide (Milk Of Magnesia Susp) 30 ml Q12H PRN PO 04/10/17 20:15 05/10/17 20:14 Zolpidem Tartrate (Ambien Tab) 5 mg HSZ PRN PO 04/10/17 20:15 05/10/17 20:14 Ondansetron HCl (Zofran Inj) 4 mg Q6H PRN IV 04/10/17 20:15 05/10/17 20:14 Polyethylene (Miralax Powder Packet) 17 gm DAILY PRN PO 04/10/17 20:15 05/10/17 20:14 Aspirin (Ecotrin Tab) 81 mg QAM PO 04/11/17 09:00 05/11/17 08:59 04/17/17 07:54 81 MG Glucose (Glucose 40% Gel) UD PRN PO 04/10/17 22:30 05/10/17 22:29 Glucose (Glucose Chew Tab) 1 tabs UD PRN PO 04/10/17 22:30 05/10/17 22:29 Dextrose (Dextrose 50% 50ML Syringe) 50 ml UD PRN IV 04/10/17 22:30 05/10/17 22:29 Glucagon (Glucagon Inj) 1 mg UD PRN SQ 04/10/17 22:30 05/10/17 22:29 Heparin Sodium (Porcine) (Heparin Sq 5000 Unit/0.5ml) 5,000 unit Q8 SQ 04/11/17 14:00 05/11/17 13:59 04/17/17 13:36 5,000 UNIT Albuterol/ Ipratropium (Duoneb) 3 ml QIDR INH 04/14/17 12:00 05/14/17 11:59 04/17/17 19:49 3 ML Insulin Aspart (novoLOG ASPART) SLIDING SCALE If C... ACHS SC 04/14/17 16:30 05/11/17 11:59 04/17/17 17:56 19 UNITS Lisinopril (Zestril Tab) 20 mg QAM PO 04/16/17 09:00 05/16/17 08:59 04/17/17 07:54 20 MG Cholecalciferol (Vitamin D Tab) 1,000 inter.unit QAM PO 04/16/17 09:00 05/16/17 08:59 04/17/17 07:54 1,000 INTER.UNIT Hydralazine HCl (HydrALAZINE INJ) 20 mg Q4 PRN IV. 04/15/17 19:00 05/15/17 18:59 04/17/17 00:30 20 MG Hydromorphone HCl (Dilaudid Tab) 2 mg Q4H PRN PO 04/16/17 11:30 04/30/17 11:29 04/17/17 21:06 2 MG Insulin Glargine (Lantus Solostar Pen) 20 units BID SC 04/16/17 21:00 05/16/17 09:29 04/17/17 07:57 20 UNITS Metoprolol Tartrate (Lopressor Tab) 25 mg BID PO 04/16/17 21:00 05/16/17 20:59 04/17/17 07:54 25 MG Ranitidine HCl (zANTac TAB) 150 mg BID PO 04/17/17 21:00 05/17/17 20:59 04/17/17 21:07 150 MG Objective Vital Signs Date Time Temp Pulse Resp B/P (MAP) Pulse Ox O2 Delivery O2 Flow Rate FiO2 04/17/17 19:49 100 16 94 Room Air 04/17/17 16:00 Room Air 04/17/17 15:27 110 18 95 Room Air 04/17/17 14:58 37.2 109 22 169/95 (119) 92 Room Air 04/17/17 11:10 103 18 93 Room Air 04/17/17 08:30 Room Air 04/17/17 07:34 37.7 100 18 176/85 (115) 93 Room Air 04/17/17 07:21 107 18 95 Room Air 04/17/17 01:46 100 158/89 (112) 04/17/17 00:32 37.6 108 18 178/108 (131) 92 Room Air 168/96 (120) 04/17/17 00:00 Room Air Physical Exam General Appearance: WD/WN, no apparent distress Eyes: PERRL ENT: hearing grossly normal, pharynx normal Neck: supple, trachea midline Respiratory/Chest: chest non-tender, lungs clear, normal breath sounds, no respiratory distress, no accessory muscle use Cardiovascular: regular rate, rhythm, no murmur Abdomen: normal bowel sounds, non tender, no pulsatile mass, + distended Extremities: no calf tenderness, + pedal edema Neurologic/Psychiatric: no motor/sensory deficits, alert, normal mood/affect, oriented x 3 Skin: normal color, warm/dry Laboratory Results Last Resulted 04/16/17 06:27 Red Blood Count 4.31, Mean Corpuscular Volume 86.1, Mean Corpuscular Hemoglobin 27.1, Mean Corpuscular Hemoglobin Concent 31.5, Mean Platelet Volume 9.8, Neutrophils (%) (Auto) 76.1, Lymphocytes (%) (Auto) 8.2, Monocytes (%) (Auto) 11.1, Eosinophils (%) (Auto) 1.3, Basophils (%) (Auto) 0.3, Neutrophils # (Auto ) 11.35, Lymphocytes # (Auto) 1.23, Monocytes # (Auto) 1.66, Eosinophils # (Auto ) 0.20, Basophils # (Auto) 0.04 Last Resulted 04/16/17 06:27 Assessment and Plan 61 yo male c/o acute abdominal pain and hx of pancreatitis. Acute Pancreatitis (hx of same x 2 in past year): CT on admit c/w interstitial edematous pancreatitis (w/o acute peripancreatic fluid collection) as well as hepatic steatosis. - Increasing diet as tolerated, soft and low fat - Dilaudid 2 mg q4h PO prn for pain - Ordered leg elevation for peripheral edema - GI on board, good for discharge Friday - Started ranitidine for upper GI pain after consuming food/drink. - Will d/w GI team to determine when pancreatic enzymes should be started; possibly in 2 weeks. SIRS, likely secondary to pancreatitis, r/o infection - Afebrile and pulse <100. Worsening WBC to 30 improved to 13 - DCd imipenam for suspected pneumonia - Duoneb prn and incentive spirometry Type 2 DM - Held home metformin and glipizide. - Hb A1C 7.5 - Novolog sliding scale adjusted to CR of 1:7, Correction Factor of 15, goal BSG 110-140 - Increased lantus to 20U BID - May need drip if BSG>300 - ordered Diabetes education Hypertension: - 23Sep held home lisinopril due to worsening pancreatitis per nephrology. - Restarted lisinopril, ordered hydralazine 20 mg prn for persistent hypertension - Added metoprolol 25 mg BID PO - Given 20 mg lasix - Recommend outpatient sleep study considering hx of snoring and body habitus VLAD: On admit Cr 1.4. Baseline 0.8. yesterday: 0.78 - Nephro consulted, signed off. Recd holding INOCENTE/ARB, calcium repletion and tracking I/Os monitoring. Hypomagnesemia: Noted on admit Mg 1.6. Replacement on 22Sep, most recent: 2.3 Low Vitamin D: Noted on labs. Will supplemented 1000IU/day now that diet is increasing. Follow up as outpatient. Code: full code DVT proph: Heparin Dispo: med surg, off tele, hopefully home tomorrow. Resident Tracking Resident Involvement: Resident Care Provided Care Provided: Adult Hospital Medicine
[2017-04-18] VITALS (8 sets, daily range): BP systolic 167–180; BP diastolic 80–107; PULSE 98–111; TEMP 37–37.5; O2SAT 93–95
[2017-04-18] MEDS: HYDROmorphone HCL 2 MG TAB PO PRN ×3 (03:13→22:47)
[2017-04-18] MEDS: HEPARIN SOD 5000 UNIT/0.5 ML CARP SQ SCH ×3 (05:36→20:33)
[2017-04-18] MEDS: ALBUT/IPRATROP 3MG/0.5MG NEB 3 ML VIAL INH SCH ×2 (07:16→11:18)
[2017-04-18] MEDS: ASPIRIN 81 MG ECTAB PO SCH (08:25)
[2017-04-18] MEDS: RANITIDINE HCL 150 MG TAB PO SCH ×2 (08:26→20:34)
[2017-04-18] MEDS: CHOLECALCIFEROL 1000 INTER.UNIT TAB PO SCH (08:26)
[2017-04-18] MEDS: METOPROLOL TARTRATE 25 MG TAB PO SCH ×2 (08:26→20:37)
[2017-04-18] MEDS: LISINOPRIL 20 MG TAB PO SCH (08:26)
[2017-04-18] MEDS: INSULIN GLARGINE SOLOSTAR 100 UNITS/ML 3 ML PEN SC SCH ×2 (08:31→20:33)
[2017-04-18] MEDS: INSULIN ASPART 100 UNITS/ML 3 ML PEN SC SCH ×4 (08:31→20:32)
[2017-04-18 08:33] LABS: HEMATOCRIT 35.8 % (42-52); MEAN CELL VOLUME 83.8 fL (80-100); MEAN CORPUSCULAR HEMOGLOBIN 28.3 pg (25-34); MEAN CORPUSCULAR HGB CONC 33.8 g/dl (32-36); PLATELET COUNT 338 K/uL (130-400); RED BLOOD COUNT 4.27 M/uL (4.7-6.1); WHITE BLOOD COUNT 15.39 K/uL (4.8-10.8)
[2017-04-18 08:59] LABS: BUN/CREATININE RATIO 10.3 (10-20); CALCIUM 8.7 mg/dl (8.5-10.1); CREATININE 0.93 mg/dl (0.60-1.40); POTASSIUM 3.4 mmol/L (3.5-5.1)
[2017-04-18 09:01] LABS: ALB/GLOB RATIO 0.4 (0.9-2)
[2017-04-18] MEDS ORDERED: METOPROLOL TARTRATE 25 MG TAB PO ONE (14:00)
[2017-04-18] MEDS ORDERED: LORAZEPAM INJ 0.5 MG in SYRINGE 0.75 ML IV SCH (14:00)
--- NOTE | 2017-04-18 15:40 | DIAGNOSTIC IMAGING REPORT ---
CT ABD WITH ORAL CONT ONLY (CT) CT DOSE: 1443.41 mGy.cm CLINICAL HISTORY: Acute pancreatitis TECHNIQUE: Imaging was performed without intravenous contrast. A dose lowering technique was utilized adhering to the principles of ALARA. COMPARISON STUDY: 04/10/2017 FINDINGS: There is a partially visualized 6 mm right middle lobe pulmonary nodule. There is a [id number] left pleural effusion with associated left lower lobe compressive atelectasis. There is a trace right pleural effusion. There is hepatic steatosis. No focal hepatic masses are visualized. The gallbladder surgically absent. No splenic lesions are visualized in this noncontrast study There is progressive pancreatic and peripancreatic edema. There is a small amount of fluid tracking into the left paracolic gutter. There is a small amount of fluid within the right paracolic gutter. The findings are consistent with moderately severe pancreatitis. Given the lack of intravenous contrast, one cannot assess for pancreatic necrosis. No adrenal masses are visualized. There are multiple bilateral nonobstructing renal calculi. There is no evidence of abdominal aortic dilatation There is no evidence of free intraperitoneal air. There is colonic diverticulosis. IMPRESSION: 1. Worsening pancreatitis with increasing pancreatic and peripancreatic edema 2. Interval development of a small amount of fluid within both paracolic gutters 3. Colonic diverticulosis 4. Bilateral nephrolithiasis 5. Hepatic steatosis 6. Small moderate left pleural effusion with left lower lobe compressive atelectatic change 7. Trace right pleural effusion Electronically signed by: Juan Arriaza M.D. 04/18/2017 3:39 PM Dictated Date/Time: 04/18/2017 3:35 PM
[2017-04-18] MEDS: HydrALAZINE HCL 20 MG/ML VIAL IV. PRN (16:07)
[2017-04-18] MEDS ORDERED: METOPROLOL TARTRATE 25 MG TAB PO STA (17:16)
--- NOTE | 2017-04-18 17:54 | PROGRESS NOTE ---
DATE: 04/18/2017 The patient still reports some left flank pain. Vital signs show blood pressure 180/99, pulse 100, temperature is 37. CT scan repeated today actually shows a little bit of worsening with some fluid in both right and left gutters. There is also some increasing peripancreatic edema. Despite this the patient has been ambulating and is tolerating a low fat diet. His lipase was normal. IMPRESSION: The patient has pancreatitis which is moderately severe with increasing edema. He is ambulating and tolerating a low fat diet and is eager to go home. If he does get discharged, he will need to follow up in the office with Dr. Qiu because this may take several weeks to resolve.
--- NOTE | 2017-04-18 19:04 | Family Medicine Progress Note ---
Progress Note Date of Service Apr 18, 2017. Subjective Pt evaluation today including: conversation w/ patient, physical exam, chart review, lab review, review of studies, review of inpatient medication list Voiding: no voiding problems Patient is reporting continued abdominal pain today. He has been ambulating and still has appetite/has been ambulating well. Constitutional: No fever ENT: No trouble swallowing Respiratory: + dyspnea on exertion, No cough, No sputum, No wheezing, No shortness of breath, No dyspnea at rest Cardiovascular: + edema, No chest pain Abdomen: + pain, No nausea, No diarrhea, No constipation Musculoskeletal: No joint pain Male : No dysuria Skin: No rash All Other Systems: Reviewed and Negative Medications Current Inpatient Medications Medications (Trade) Dose Ordered Sig/Akash Route Start Time Stop Time Status Last Admin Dose Admin Acetaminophen (Tylenol Tab) 650 mg Q4H PRN PO 04/10/17 20:15 05/10/17 20:14 04/11/17 15:29 650 MG Al Hydrox/Mg Hydrox/Simethicone (Maalox Max Susp) 15 ml Q4H PRN PO 04/10/17 20:15 05/10/17 20:14 Magnesium Hydroxide (Milk Of Magnesia Susp) 30 ml Q12H PRN PO 04/10/17 20:15 05/10/17 20:14 Zolpidem Tartrate (Ambien Tab) 5 mg HSZ PRN PO 04/10/17 20:15 05/10/17 20:14 Ondansetron HCl (Zofran Inj) 4 mg Q6H PRN IV 04/10/17 20:15 05/10/17 20:14 Polyethylene (Miralax Powder Packet) 17 gm DAILY PRN PO 04/10/17 20:15 05/10/17 20:14 Aspirin (Ecotrin Tab) 81 mg QAM PO 04/11/17 09:00 05/11/17 08:59 04/18/17 08:25 81 MG Glucose (Glucose 40% Gel) UD PRN PO 04/10/17 22:30 05/10/17 22:29 Glucose (Glucose Chew Tab) 1 tabs UD PRN PO 04/10/17 22:30 05/10/17 22:29 Dextrose (Dextrose 50% 50ML Syringe) 50 ml UD PRN IV 04/10/17 22:30 05/10/17 22:29 Glucagon (Glucagon Inj) 1 mg UD PRN SQ 04/10/17 22:30 05/10/17 22:29 Heparin Sodium (Porcine) (Heparin Sq 5000 Unit/0.5ml) 5,000 unit Q8 SQ 04/11/17 14:00 05/11/17 13:59 04/18/17 13:26 5,000 UNIT Insulin Aspart (novoLOG ASPART) SLIDING SCALE If C... ACHS SC 04/14/17 16:30 05/11/17 11:59 04/18/17 11:57 10 UNITS Lisinopril (Zestril Tab) 20 mg QAM PO 04/16/17 09:00 05/16/17 08:59 04/18/17 08:26 20 MG Cholecalciferol (Vitamin D Tab) 1,000 inter.unit QAM PO 04/16/17 09:00 05/16/17 08:59 04/18/17 08:26 1,000 INTER.UNIT Hydralazine HCl (HydrALAZINE INJ) 20 mg Q4 PRN IV. 04/15/17 19:00 05/15/17 18:59 04/18/17 16:07 20 MG Hydromorphone HCl (Dilaudid Tab) 2 mg Q4H PRN PO 04/16/17 11:30 04/30/17 11:29 04/18/17 17:40 2 MG Insulin Glargine (Lantus Solostar Pen) 20 units BID SC 04/16/17 21:00 05/16/17 09:29 04/18/17 08:31 20 UNITS Ranitidine HCl (zANTac TAB) 150 mg BID PO 04/17/17 21:00 05/17/17 20:59 04/18/17 08:26 150 MG Metoprolol Tartrate (Lopressor Tab) 37.5 mg BID PO 04/18/17 21:00 05/16/17 20:59 Objective Vital Signs Date Time Temp Pulse Resp B/P (MAP) Pulse Ox O2 Delivery O2 Flow Rate FiO2 04/18/17 18:14 109 176/95 (122) 04/18/17 16:03 180/99 (126) 04/18/17 16:00 Room Air 04/18/17 15:16 37.0 106 18 177/105 (129) 95 Room Air 04/18/17 10:31 93 Room Air 04/18/17 08:57 37.5 102 16 167/91 (116) 93 Room Air 04/18/17 08:00 Room Air 04/18/17 07:17 98 14 94 Room Air 04/18/17 00:00 Room Air 04/17/17 23:46 37.5 118 20 161/85 (110) 93 Room Air 04/17/17 22:45 109 186/97 (126) 04/17/17 19:49 100 16 94 Room Air Physical Exam General Appearance: WD/WN, no apparent distress Eyes: normal inspection, PERRL, EOMI ENT: hearing grossly normal, pharynx normal Neck: no adenopathy, no JVD Respiratory/Chest: chest non-tender, lungs clear, normal breath sounds, no respiratory distress, no accessory muscle use Cardiovascular: regular rate, rhythm, no JVD, no murmur Abdomen: normal bowel sounds, + distended, + tenderness Extremities: + pedal edema Neurologic/Psychiatric: no motor/sensory deficits, alert, normal mood/affect, oriented x 3 Skin: normal color, warm/dry, no rash Laboratory Results 04/18/17 08:19 04/18/17 08:19 Test 04/18/17 08:19 04/18/17 20:24 Red Blood Count 4.27 M/uL (4.7-6.1) Mean Corpuscular Volume 83.8 fL (80-100) Mean Corpuscular Hemoglobin 28.3 pg (25-34) Mean Corpuscular Hemoglobin Concent 33.8 g/dl (32-36) RDW Standard Deviation 48.0 fL (36.4-46.3) RDW Coefficient of Variation 15.6 % (11.5-14.5) Mean Platelet Volume 10.0 fL (7.4-10.4) Anion Gap 10.0 mmol/L (3-11) Est Creatinine Clear Calc Drug Dose 127.9 ml/min Estimated GFR () 101.6 Estimated GFR (Non- 87.7 BUN/Creatinine Ratio 10.3 (10-20) Calcium Level 8.7 mg/dl (8.5-10.1) Total Bilirubin 0.6 mg/dl (0.2-1) Aspartate Amino Transf (AST/SGOT) 19 U/L (15-37) Alanine Aminotransferase (ALT/SGPT) 16 U/L (12-78) Alkaline Phosphatase 99 U/L (45-117) Total Protein 7.0 gm/dl (6.4-8.2) Albumin 2.1 gm/dl (3.4-5.0) Globulin 4.9 gm/dl (2.5-4.0) Albumin/Globulin Ratio 0.4 (0.9-2) Lipase 201 U/L (73-393) Bedside Glucose 162 mg/dl (70-99) Assessment and Plan 61 yo male c/o acute abdominal pain and hx of pancreatitis. Acute Pancreatitis (hx of same x 2 in past year): CT on admit c/w interstitial edematous pancreatitis (w/o acute peripancreatic fluid collection) as well as hepatic steatosis. - Repeat CT showed "worsening pancreatitis" thus made NPO again today. - WCC up to 15 from 14. - Dilaudid 2 mg q4h PO prn for pain - Ordered leg elevation for peripheral edema - GI on board, would like to see as outpatient - Started ranitidine for upper GI pain after consuming food/drink. - Will d/w GI team to determine when pancreatic enzymes should be started; possibly in 2 weeks. SIRS, likely secondary to pancreatitis, r/o infection - Afebrile. Worsening WBC from 14 to 15 today - DCd imipenam for suspected pneumonia - Duoneb prn DCd per patient's request Type 2 DM - Held home metformin and glipizide. - Hb A1C 7.5 - Novolog sliding scale adjusted to CR of 1:7, Correction Factor of 15, goal BSG 110-140 - Increased lantus to 20U BID - May need drip if BSG>300 - Diabetes education - Glucose improving, likely related to NPO status Hypertension: - 23Sep held home lisinopril due to worsening pancreatitis per nephrology. - Restarted lisinopril, ordered hydralazine 20 mg prn for persistent hypertension - Added metoprolol 37.5 mg BID PO - Given 20 mg lasix - Continued elevated BPs have required 2x stat bolus of 12.5 mg metoprolol - Recommend outpatient sleep study considering hx of snoring and body habitus VLAD: On admit Cr 1.4. Baseline 0.8. today: 0.91 - Nephro consulted, signed off. Recd holding INOCENTE/ARB, calcium repletion and tracking I/Os monitoring. Hypomagnesemia: Noted on admit Mg 1.6. Replacement on 22Sep, most recent: 2.3 Low Vitamin D: Noted on labs. Will supplemented 1000IU/day now that diet is increasing. Follow up as outpatient. Code: full code DVT proph: Heparin Dispo: med surg, off tele, hopefully home 1-2 days. Resident Tracking Resident Involvement: Resident Care Provided Care Provided: Adult Hospital Medicine
[2017-04-18] MEDS: SODIUM CHLORIDE 0.9% 1000ML 1,000 ML IV SCH (19:07)
[2017-04-19] VITALS (8 sets, daily range): BP systolic 150–190; BP diastolic 78–103; PULSE 92–121; TEMP 36.9–37.5; O2SAT 92–94
[2017-04-19] MEDS ORDERED: MoRPHine SULFATE 4 MG/ML 1 ML CARP\\VIAL IV STA (00:07)
[2017-04-19] MEDS ORDERED: MoRPHine SULFATE 4 MG/ML 1 ML CARP\\VIAL ONE (00:20)
[2017-04-19] MEDS ORDERED: DiphenhydrAMINE INJ 25 MG in SYRINGE 0 ML IV STA (00:28)
[2017-04-19] MEDS ORDERED: DiphenhydrAMINE HCL 50 MG/ML VIAL ONE (00:31)
[2017-04-19] MEDS: HEPARIN SOD 5000 UNIT/0.5 ML CARP SQ SCH ×3 (06:02→21:48)
[2017-04-19] MEDS: INSULIN ASPART 100 UNITS/ML 3 ML PEN SC SCH ×3 (06:30→16:30)
[2017-04-19] MEDS: SODIUM CHLORIDE 0.9% 1000ML 1,000 ML IV SCH ×2 (06:43→20:28)
[2017-04-19 08:00] LABS: BASO % 0.2 %; BASO ABS # 0.03 K/uL (0-0.2); COMPLETE YES; EOS % 1.4 %; HEMATOCRIT 35.5 % (42-52); IG% 1.6 %; LYMPH % 8.3 %; LYMPH ABS # 1.38 K/uL (1.2-3.4); MEAN CELL VOLUME 84.1 fL (80-100); MEAN CORPUSCULAR HEMOGLOBIN 27.5 pg (25-34); MEAN CORPUSCULAR HGB CONC 32.7 g/dl (32-36); MEAN PLATELET VOLUME 10.2 fL (7.4-10.4); MONO % 7.9 %; NEUT % 80.6 %; PLATELET COUNT 314 K/uL (130-400); RED BLOOD COUNT 4.22 M/uL (4.7-6.1); WHITE BLOOD COUNT 16.65 K/uL (4.8-10.8)
[2017-04-19] MEDS: LISINOPRIL 20 MG TAB PO SCH (08:20)
[2017-04-19] MEDS: ASPIRIN 81 MG ECTAB PO SCH (08:20)
[2017-04-19] MEDS: METOPROLOL TARTRATE 25 MG TAB PO SCH (08:21)
[2017-04-19] MEDS: RANITIDINE HCL 150 MG TAB PO SCH ×2 (08:21→21:21)
[2017-04-19] MEDS: HYDROmorphone HCL 2 MG TAB PO PRN ×2 (08:21→21:19)
[2017-04-19] MEDS: CHOLECALCIFEROL 1000 INTER.UNIT TAB PO SCH (08:22)
[2017-04-19 08:29] LABS: BUN/CREATININE RATIO 11.6 (10-20); CALCIUM 8.5 mg/dl (8.5-10.1); CREATININE 0.79 mg/dl (0.60-1.40); POTASSIUM 3.5 mmol/L (3.5-5.1)
[2017-04-19] MEDS: INSULIN GLARGINE SOLOSTAR 100 UNITS/ML 3 ML PEN SC SCH ×2 (08:59→21:47)
[2017-04-19] MEDS ORDERED: METOPROLOL TARTRATE 25 MG TAB PO ONE (10:45)
--- NOTE | 2017-04-19 12:39 | Gastroenterology Progress Note ---
Progress Note Date of Service: Apr 19, 2017 Subjective Pt evaluation today including: conversation w/ patient, conversation w/ family , physical exam, chart review, lab review, review of studies mild discomfort, discouraged by course. Patient concerned about work and ability to work in the recent future Review of Systems Abdomen: + pain (No apetite, bloated. afraid to eat.) Medications Current Inpatient Medications Medications (Trade) Dose Ordered Sig/Akash Route Start Time Stop Time Status Last Admin Dose Admin Acetaminophen (Tylenol Tab) 650 mg Q4H PRN PO 04/10/17 20:15 05/10/17 20:14 04/11/17 15:29 650 MG Al Hydrox/Mg Hydrox/Simethicone (Maalox Max Susp) 15 ml Q4H PRN PO 04/10/17 20:15 05/10/17 20:14 Magnesium Hydroxide (Milk Of Magnesia Susp) 30 ml Q12H PRN PO 04/10/17 20:15 05/10/17 20:14 Zolpidem Tartrate (Ambien Tab) 5 mg HSZ PRN PO 04/10/17 20:15 05/10/17 20:14 Ondansetron HCl (Zofran Inj) 4 mg Q6H PRN IV 04/10/17 20:15 05/10/17 20:14 Polyethylene (Miralax Powder Packet) 17 gm DAILY PRN PO 04/10/17 20:15 05/10/17 20:14 Aspirin (Ecotrin Tab) 81 mg QAM PO 04/11/17 09:00 05/11/17 08:59 04/19/17 08:20 81 MG Glucose (Glucose 40% Gel) UD PRN PO 04/10/17 22:30 05/10/17 22:29 Glucose (Glucose Chew Tab) 1 tabs UD PRN PO 04/10/17 22:30 05/10/17 22:29 Dextrose (Dextrose 50% 50ML Syringe) 50 ml UD PRN IV 04/10/17 22:30 05/10/17 22:29 Glucagon (Glucagon Inj) 1 mg UD PRN SQ 04/10/17 22:30 05/10/17 22:29 Heparin Sodium (Porcine) (Heparin Sq 5000 Unit/0.5ml) 5,000 unit Q8 SQ 04/11/17 14:00 05/11/17 13:59 04/19/17 06:02 5,000 UNIT Insulin Aspart (novoLOG ASPART) SLIDING SCALE If C... ACHS SC 04/14/17 16:30 05/11/17 11:59 04/18/17 20:32 2 UNITS Lisinopril (Zestril Tab) 20 mg QAM PO 04/16/17 09:00 05/16/17 08:59 04/19/17 08:20 20 MG Cholecalciferol (Vitamin D Tab) 1,000 inter.unit QAM PO 04/16/17 09:00 05/16/17 08:59 04/19/17 08:22 1,000 INTER.UNIT Hydralazine HCl (HydrALAZINE INJ) 20 mg Q4 PRN IV. 04/15/17 19:00 05/15/17 18:59 04/18/17 16:07 20 MG Hydromorphone HCl (Dilaudid Tab) 2 mg Q4H PRN PO 04/16/17 11:30 04/30/17 11:29 04/19/17 08:21 2 MG Ranitidine HCl (zANTac TAB) 150 mg BID PO 04/17/17 21:00 05/17/17 20:59 04/19/17 08:21 150 MG Sodium Chloride 1,000 ml @ 80 mls/hr [id number] IV 04/18/17 18:45 05/18/17 18:44 04/19/17 06:43 80 MLS/HR Insulin Glargine (Lantus Solostar Pen) 15 units BID SC 04/19/17 09:00 05/16/17 09:29 04/19/17 08:59 15 UNITS Metoprolol Tartrate (Lopressor Tab) 50 mg BID PO 04/19/17 21:00 05/16/17 20:59 Objective Vital Signs Date Time Temp Pulse Resp B/P (MAP) Pulse Ox O2 Delivery O2 Flow Rate FiO2 04/19/17 11:10 105 156/90 (112) 04/19/17 10:22 105 168/97 (120) 04/19/17 08:30 36.9 106 18 175/103 (127) 94 Room Air 04/19/17 08:00 Room Air 9/30/17 00:50 Room Air 04/18/17 23:55 37.0 101 20 177/107 (130) 94 Room Air 04/18/17 20:20 37.5 111 20 180/80 (113) 94 04/18/17 18:14 109 176/95 (122) 04/18/17 16:03 180/99 (126) 04/18/17 16:00 Room Air 04/18/17 15:16 37.0 106 18 177/105 (129) 95 Room Air Physical Exam General Appearance: + mild distress (Abdomen is obese limiting exam) Laboratory Results Last 24 Hours Test 04/18/17 16:12 04/18/17 20:24 04/19/17 07:07 04/19/17 07:38 Bedside Glucose 132 mg/dl 162 mg/dl 162 mg/dl White Blood Count 16.65 K/uL Red Blood Count 4.22 M/uL Hemoglobin 11.6 g/dL Hematocrit 35.5 % Mean Corpuscular Volume 84.1 fL Mean Corpuscular Hemoglobin 27.5 pg Mean Corpuscular Hemoglobin Concent 32.7 g/dl Platelet Count 314 K/uL Mean Platelet Volume 10.2 fL Neutrophils (%) (Auto) 80.6 % Lymphocytes (%) (Auto) 8.3 % Monocytes (%) (Auto) 7.9 % Eosinophils (%) (Auto) 1.4 % Basophils (%) (Auto) 0.2 % Neutrophils # (Auto) 13.42 K/uL Lymphocytes # (Auto) 1.38 K/uL Monocytes # (Auto) 1.32 K/uL Eosinophils # (Auto) 0.24 K/uL Basophils # (Auto) 0.03 K/uL RDW Standard Deviation 48.1 fL RDW Coefficient of Variation 15.6 % Immature Granulocyte % (Auto) 1.6 % Immature Granulocyte # (Auto) 0.26 K/uL Sodium Level 137 mmol/L Potassium Level 3.5 mmol/L Chloride Level 100 mmol/L Carbon Dioxide Level 25 mmol/L Anion Gap 12.0 mmol/L Blood Urea Nitrogen 9 mg/dl Creatinine 0.79 mg/dl Est Creatinine Clear Calc Drug Dose 150.6 ml/min Estimated GFR () 111.5 Estimated GFR (Non- 96.2 BUN/Creatinine Ratio 11.6 Random Glucose 150 mg/dl Calcium Level 8.5 mg/dl Total Bilirubin 0.6 mg/dl Direct Bilirubin 0.2 mg/dl Aspartate Amino Transf (AST/SGOT) 23 U/L Alanine Aminotransferase (ALT/SGPT) 17 U/L Alkaline Phosphatase 89 U/L Total Protein 6.8 gm/dl Albumin 2.0 gm/dl Lipase 330 U/L Test 04/19/17 11:07 Bedside Glucose 141 mg/dl Assessment and Plan Overall not improving. Ct suggests some necrosis setting in. May be progressing to walled of pancreatic necrosis. Unclear etiology of pancreatitis. Suggest [place] tube feeds. Ok to allow sips of water if tolerated. This may be continued until his appetite is really back and he is hungry for food. Suspect he is going to need [place] feeding once he is discharged. He can go home if he tolerated tube feeds and have not much pain. Need follow up CT 2 weeks time or earlier if he has symptoms. Based on how he is progressing consideration may be given for a PEG-J placement, if longer term nutrition is needed. Eventually he may need additional endoscopic procedures like a cyst gastrostomy if there is significant WOPN ( WALLED OF PANCREATIC NECROSIS) that develops. Encourage our of bed.
--- NOTE | 2017-04-19 14:18 | DIAGNOSTIC IMAGING REPORT ---
ADDENDUM The nasogastric tube terminates in the distal stomach with sidehole contained within the gastric lumen. Therefore, as clinically queried, the nasogastric tube does not enter into the jejunum nor the duodenum. If this tube is for drainage, it is appropriately positioned as stated. If this tube is intended for feeding, a feeding catheter should be inserted and advanced beyond the pylorus. Electronically signed by: Jj Benavides M.D. 04/19/2017 2:46 PM Dictated Date/Time: 04/19/2017 2:45 PM ORIGINAL REPORT KUB CLINICAL HISTORY: 61 years-old Male presenting with NG placement. TECHNIQUE: Single supine view of the abdomen was obtained. COMPARISON: Correlation made to CT performed the previous day. FINDINGS: Nasogastric tube terminates in the distal stomach with sidehole contained within the gastric lumen. Cholecystectomy clips noted. A tube overlies the left hemithorax, possibly a pleural drain or external device. Small left pleural effusion with left basilar opacity, possibly atelectasis. Possibly of bowel gas in the upper abdomen, nonspecific. No gross pneumoperitoneum. Degenerative changes of the spine. IMPRESSION: 1. Appropriately positioned nasogastric tube. 2. Left pleural effusion and atelectasis. Electronically signed by: Jj Benavides M.D. 04/19/2017 2:16 PM Dictated Date/Time: 04/19/2017 2:15 PM
--- NOTE | 2017-04-19 16:24 | Family Medicine Progress Note ---
Progress Note Date of Service Apr 19, 2017. Subjective Pt evaluation today including: conversation w/ patient, conversation w/ family , physical exam, chart review, lab review, review of studies, conversation w/ golf tournament consultant, review of inpatient medication list Pain: Still reporting 8-10/10 pain PO Intake: NPO this AM Voiding: no voiding problems Patient reports continued pain overnight. Still groggy from benadryl given overnight. is sitting at bedside. Patient is eager for answers and wants to go home but NPO status and continued pain are troubling to him. Constitutional: No fever, No chills, No sweats ENT: No sore throat, No trouble swallowing Respiratory: No cough, No sputum, No shortness of breath, No dyspnea on exertion, No dyspnea at rest, No hemoptysis Cardiovascular: + edema, No orthopnea, No PND Abdomen: + pain, No nausea, No vomiting, No diarrhea, No constipation, No GI bleeding Male : No dysuria Neurologic: No numbness/tingling Endo: + fatigue Skin: No rash All Other Systems: Reviewed and Negative Medications Current Inpatient Medications Medications (Trade) Dose Ordered Sig/Akash Route Start Time Stop Time Status Last Admin Dose Admin Acetaminophen (Tylenol Tab) 650 mg Q4H PRN PO 04/10/17 20:15 05/10/17 20:14 04/11/17 15:29 650 MG Al Hydrox/Mg Hydrox/Simethicone (Maalox Max Susp) 15 ml Q4H PRN PO 04/10/17 20:15 05/10/17 20:14 Magnesium Hydroxide (Milk Of Magnesia Susp) 30 ml Q12H PRN PO 04/10/17 20:15 05/10/17 20:14 Zolpidem Tartrate (Ambien Tab) 5 mg HSZ PRN PO 04/10/17 20:15 05/10/17 20:14 Ondansetron HCl (Zofran Inj) 4 mg Q6H PRN IV 04/10/17 20:15 05/10/17 20:14 Polyethylene (Miralax Powder Packet) 17 gm DAILY PRN PO 04/10/17 20:15 05/10/17 20:14 Aspirin (Ecotrin Tab) 81 mg QAM PO 04/11/17 09:00 05/11/17 08:59 04/19/17 08:20 81 MG Glucose (Glucose 40% Gel) UD PRN PO 04/10/17 22:30 05/10/17 22:29 Glucose (Glucose Chew Tab) 1 tabs UD PRN PO 04/10/17 22:30 05/10/17 22:29 Dextrose (Dextrose 50% 50ML Syringe) 50 ml UD PRN IV 04/10/17 22:30 05/10/17 22:29 Glucagon (Glucagon Inj) 1 mg UD PRN SQ 04/10/17 22:30 05/10/17 22:29 Heparin Sodium (Porcine) (Heparin Sq 5000 Unit/0.5ml) 5,000 unit Q8 SQ 04/11/17 14:00 05/11/17 13:59 04/19/17 13:38 5,000 UNIT Insulin Aspart (novoLOG ASPART) SLIDING SCALE If C... ACHS SC 04/14/17 16:30 05/11/17 11:59 04/18/17 20:32 2 UNITS Lisinopril (Zestril Tab) 20 mg QAM PO 04/16/17 09:00 05/16/17 08:59 04/19/17 08:20 20 MG Cholecalciferol (Vitamin D Tab) 1,000 inter.unit QAM PO 04/16/17 09:00 05/16/17 08:59 04/19/17 08:22 1,000 INTER.UNIT Hydralazine HCl (HydrALAZINE INJ) 20 mg Q4 PRN IV. 04/15/17 19:00 05/15/17 18:59 04/18/17 16:07 20 MG Hydromorphone HCl (Dilaudid Tab) 2 mg Q4H PRN PO 04/16/17 11:30 04/30/17 11:29 04/19/17 08:21 2 MG Ranitidine HCl (zANTac TAB) 150 mg BID PO 04/17/17 21:00 05/17/17 20:59 04/19/17 08:21 150 MG Sodium Chloride 1,000 ml @ 80 mls/hr [id number] IV 04/18/17 18:45 05/18/17 18:44 04/19/17 06:43 80 MLS/HR Insulin Glargine (Lantus Solostar Pen) 15 units BID SC 04/19/17 09:00 05/16/17 09:29 04/19/17 08:59 15 UNITS Metoprolol Tartrate (Lopressor Tab) 50 mg BID PO 04/19/17 21:00 05/16/17 20:59 Enteral Nutritional Formula (Peptamen Intense VHP) 1,000 ml UD NJ 04/19/17 15:45 05/19/17 15:44 Objective Vital Signs Date Time Temp Pulse Resp B/P (MAP) Pulse Ox O2 Delivery O2 Flow Rate FiO2 04/19/17 16:04 37.1 92 18 186/93 (124) 93 Room Air 04/19/17 16:00 Room Air 04/19/17 11:10 105 156/90 (112) 04/19/17 10:22 105 168/97 (120) 04/19/17 08:30 36.9 106 18 175/103 (127) 94 Room Air 04/19/17 08:00 Room Air 04/19/17 00:50 Room Air 04/18/17 23:55 37.0 101 20 177/107 (130) 94 Room Air 04/18/17 20:20 37.5 111 20 180/80 (113) 94 04/18/17 18:14 109 176/95 (122) Physical Exam General Appearance: WD/WN, no apparent distress, + obese Eyes: normal inspection, PERRL, EOMI ENT: hearing grossly normal, pharynx normal Neck: supple, thyroid normal, no JVD, trachea midline Respiratory/Chest: chest non-tender, lungs clear, normal breath sounds, no respiratory distress, no accessory muscle use Cardiovascular: regular rate, rhythm, no JVD, no murmur Abdomen: normal bowel sounds, + distended, + tenderness Extremities: normal range of motion, non-tender, no calf tenderness, + pedal edema Neurologic/Psychiatric: no motor/sensory deficits, alert, normal mood/affect, oriented x 3 Skin: normal color, warm/dry, no rash Laboratory Results 04/19/17 07:38 Red Blood Count 4.22, Mean Corpuscular Volume 84.1, Mean Corpuscular Hemoglobin 27.5, Mean Corpuscular Hemoglobin Concent 32.7, Mean Platelet Volume 10.2, Neutrophils (%) (Auto) 80.6, Lymphocytes (%) (Auto) 8.3, Monocytes (%) (Auto) 7.9, Eosinophils (%) (Auto) 1.4, Basophils (%) (Auto) 0.2, Neutrophils # (Auto) 13.42, Lymphocytes # (Auto) 1.38, Monocytes # (Auto) 1.32, Eosinophils # (Auto) 0.24, Basophils # (Auto) 0.03 04/19/17 07:38 Test 04/19/17 07:38 04/19/17 16:24 White Blood Count 16.65 K/uL (4.8-10.8) Red Blood Count 4.22 M/uL (4.7-6.1) Hemoglobin 11.6 g/dL (14.0-18.0) Hematocrit 35.5 % (42-52) Mean Corpuscular Volume 84.1 fL (80-100) Mean Corpuscular Hemoglobin 27.5 pg (25-34) Mean Corpuscular Hemoglobin Concent 32.7 g/dl (32-36) Platelet Count 314 K/uL (130-400) Mean Platelet Volume 10.2 fL (7.4-10.4) Neutrophils (%) (Auto) 80.6 % Lymphocytes (%) (Auto) 8.3 % Monocytes (%) (Auto) 7.9 % Eosinophils (%) (Auto) 1.4 % Basophils (%) (Auto) 0.2 % Neutrophils # (Auto) 13.42 K/uL (1.4-6.5) Lymphocytes # (Auto) 1.38 K/uL (1.2-3.4) Monocytes # (Auto) 1.32 K/uL (0.11-0.59) Eosinophils # (Auto) 0.24 K/uL (0-0.5) Basophils # (Auto) 0.03 K/uL (0-0.2) RDW Standard Deviation 48.1 fL (36.4-46.3) RDW Coefficient of Variation 15.6 % (11.5-14.5) Immature Granulocyte % (Auto) 1.6 % Immature Granulocyte # (Auto) 0.26 K/uL (0.00-0.02) Anion Gap 12.0 mmol/L (3-11) Est Creatinine Clear Calc Drug Dose 150.6 ml/min Estimated GFR () 111.5 Estimated GFR (Non- 96.2 BUN/Creatinine Ratio 11.6 (10-20) Calcium Level 8.5 mg/dl (8.5-10.1) Total Bilirubin 0.6 mg/dl (0.2-1) Direct Bilirubin 0.2 mg/dl (0-0.2) Aspartate Amino Transf (AST/SGOT) 23 U/L (15-37) Alanine Aminotransferase (ALT/SGPT) 17 U/L (12-78) Alkaline Phosphatase 89 U/L (45-117) Total Protein 6.8 gm/dl (6.4-8.2) Albumin 2.0 gm/dl (3.4-5.0) Lipase 330 U/L (73-393) Bedside Glucose 130 mg/dl (70-99) Assessment and Plan 61 yo male admitted for abdominal pain in setting of pancreatitis. Acute Pancreatitis (hx of 2 other episodes in past year): - CT on admit c/w interstitial edematous pancreatitis (w/o acute peripancreatic fluid collection) as well as hepatic steatosis. - Repeat CT showed "worsening pancreatitis" thus made NPO again yesterday. - Discussed case with GI, appreciate visit Ct suggests some necrosis. 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 Unclear etiology of pancreatitis. Suggest NJ tube feeds. Ok to allow sips of water if tolerated. Continue until appetite is back/hungry for food. Suspect he is going to need Nj feeding once he is discharged. He can go home if he tolerated tube feeds and have not much pain. Need follow up CT 2 weeks time or earlier if he has symptoms. Based on how he is progressing consideration may be given for a PEG-J placement, if longer term nutrition is needed. Eventually he may need additional endoscopic procedures like a cyst gastrostomy if there is significant WOPN (WALLED OFF PANCREATIC NECROSIS) that develops. - NJ tube originally not placed far enough, will reposition and recheck with [facility] ; if still not far enough can still try tube feeds at 10-20 cc/hr. Appreciate recs from nutrition. Please see RD note for guidance. - WCC up to 16 from 15 - Dilaudid 2 mg q4h PO prn for pain - Ordered leg elevation for peripheral edema - GI on board, would like to see as outpatient; need to discuss when to replace pancreatic enzymes - Started ranitidine for upper GI pain after consuming food/drink. SIRS, likely secondary to pancreatitis, r/o infection - Afebrile. Worsening WBC from 15 to 16 today - DCd imipenam for suspected pneumonia - Duoneb prn DCd per patient's request Type 2 DM - Held home metformin and glipizide. - Hb A1C 7.5 - Novolog sliding scale adjusted to CR of 1:7, Correction Factor of 15, goal BSG 110-140 - Increased lantus to 20U BID; Now he is NPO, decreased to 15 mg BID - May need drip if BSG>300 - Diabetes education - Glucose improving, likely related to NPO status Hypertension: - 23Sep held home lisinopril due to worsening pancreatitis per nephrology. - Restarted lisinopril, ordered hydralazine 20 mg prn for persistent hypertension >180 SBP - Increased metoprolol to 50 mg BID PO; Continued elevated BPs have required 2x stat bolus of 12.5 mg metoprolol, 1 bolus of 25mg this AM - Given 20 mg lasix - Recommend outpatient sleep study considering hx of snoring and body habitus VLAD: On admit Cr 1.4. Baseline 0.8. today: 0.79 - Nephro consulted, signed off. Recd holding INOCENTE/ARB, calcium repletion and tracking I/Os monitoring. Hypomagnesemia: Noted on admit Mg 1.6. Replacement on 22Sep, most recent: 2.3 Low Vitamin D: Noted on labs. Will supplemented 1000IU/day now that diet is increasing. Follow up as outpatient. Code: full code DVT proph: Heparin Dispo: med surg, off tele, hopefully home 1-2 days. PATIENT HAS APPT WITH PCP April, 2:10 Resident Tracking Resident Involvement: Resident Care Provided Care Provided: Adult Hospital Medicine
[2017-04-19] MEDS: HydrALAZINE HCL 20 MG/ML VIAL IV. PRN (16:32)
--- NOTE | 2017-04-19 18:57 | DIAGNOSTIC IMAGING REPORT ---
[facility] CLINICAL HISTORY: 61 years-old Male presenting with NJ tube repositioned, check for placement. TECHNIQUE: Single supine view of the abdomen was obtained. COMPARISON: 04/19/2017 at 1:45 PM. FINDINGS: Limited image quality secondary to body habitus and portable technique. The nasogastric tube appears to have been advanced, terminating peripyloric. This is not well visualized. Paucity of bowel gas. Small left pleural effusion suspected. IMPRESSION: 1. Port visualization of the nasogastric tube secondary to portable technique. The tube appears to have been advanced but is not distinctly beyond the pylorus. Electronically signed by: Jj Benavides M.D. 04/19/2017 6:56 PM Dictated Date/Time: 04/19/2017 6:54 PM
[2017-04-19] MEDS: PEPTAMEN INTENSE VHP 1000ML BAG NJ SCH (20:48)
[2017-04-19] MEDS: METOPROLOL TARTRATE 50 MG TAB PO SCH (21:22)
[2017-04-20] VITALS (11 sets, daily range): BP systolic 138–219; BP diastolic 79–106; PULSE 94–110; TEMP 36.6–37; O2SAT 93–95
[2017-04-20] MEDS: INSULIN ASPART 100 UNITS/ML 3 ML PEN SC SCH ×4 (00:12→19:11)
[2017-04-20] MEDS: HYDROmorphone HCL 2 MG TAB PO PRN ×4 (01:49→19:04)
[2017-04-20] MEDS: HEPARIN SOD 5000 UNIT/0.5 ML CARP SQ SCH ×3 (05:39→21:22)
[2017-04-20] MEDS ORDERED: NURSING VERBAL MED ORDER ONE (05:45)
[2017-04-20] MEDS: ASPIRIN 81 MG ECTAB PO SCH (07:19)
[2017-04-20] MEDS: METOPROLOL TARTRATE 50 MG TAB PO SCH (07:20)
[2017-04-20] MEDS: CHOLECALCIFEROL 1000 INTER.UNIT TAB PO SCH (07:20)
[2017-04-20] MEDS: RANITIDINE HCL 150 MG TAB PO SCH ×2 (07:20→21:22)
[2017-04-20] MEDS: LISINOPRIL 20 MG TAB PO SCH (07:20)
[2017-04-20 07:37] LABS: BASO % 0.3 %; BASO ABS # 0.04 K/uL (0-0.2); COMPLETE YES; EOS % 1.4 %; HEMATOCRIT 34.9 % (42-52); IG% 1.5 %; LYMPH % 8.2 %; LYMPH ABS # 1.25 K/uL (1.2-3.4); MEAN CELL VOLUME 84.7 fL (80-100); MEAN CORPUSCULAR HEMOGLOBIN 27.9 pg (25-34); MEAN PLATELET VOLUME 10.4 fL (7.4-10.4); MONO % 8.6 %; PLATELET COUNT 347 K/uL (130-400); RED BLOOD COUNT 4.12 M/uL (4.7-6.1); WHITE BLOOD COUNT 15.28 K/uL (4.8-10.8)
[2017-04-20 08:10] LABS: ALKALINE PHOSPHATASE 89 U/L (45-117); ALT/SGPT 15 U/L (12-78); AST/SGOT 29 U/L (15-37); BLOOD UREA NITROGEN 9 mg/dl (7-18); BUN/CREATININE RATIO 10.5 (10-20); CALCIUM 8.5 mg/dl (8.5-10.1); CARBON DIOXIDE 26 mmol/L (21-32); CHLORIDE 101 mmol/L (98-107); CREATININE 0.86 mg/dl (0.60-1.40); GLUCOSE 140 mg/dl (70-99); MAGNESIUM 1.9 mg/dl (1.8-2.4); PHOSPHORUS 3.5 mg/dl (2.5-4.9); POTASSIUM 3.5 mmol/L (3.5-5.1); SODIUM 136 mmol/L (136-145)
[2017-04-20] MEDS: INSULIN GLARGINE SOLOSTAR 100 UNITS/ML 3 ML PEN SC SCH ×2 (08:10→21:21)
[2017-04-20] MEDS: HydrALAZINE HCL 20 MG/ML VIAL IV. PRN ×3 (08:15→19:05)
--- NOTE | 2017-04-20 09:16 | Gastroenterology Progress Note ---
Progress Note Date of Service: Apr 20, 2017 Subjective Pt evaluation today including: conversation w/ patient Review of Systems Abdomen: No pain Medications Current Inpatient Medications Medications (Trade) Dose Ordered Sig/Akash Route Start Time Stop Time Status Last Admin Dose Admin Acetaminophen (Tylenol Tab) 650 mg Q4H PRN PO 04/10/17 20:15 05/10/17 20:14 04/11/17 15:29 650 MG Al Hydrox/Mg Hydrox/Simethicone (Maalox Max Susp) 15 ml Q4H PRN PO 04/10/17 20:15 05/10/17 20:14 Magnesium Hydroxide (Milk Of Magnesia Susp) 30 ml Q12H PRN PO 04/10/17 20:15 05/10/17 20:14 Zolpidem Tartrate (Ambien Tab) 5 mg HSZ PRN PO 04/10/17 20:15 05/10/17 20:14 Ondansetron HCl (Zofran Inj) 4 mg Q6H PRN IV 04/10/17 20:15 05/10/17 20:14 Polyethylene (Miralax Powder Packet) 17 gm DAILY PRN PO 04/10/17 20:15 05/10/17 20:14 Aspirin (Ecotrin Tab) 81 mg QAM PO 04/11/17 09:00 05/11/17 08:59 04/20/17 07:19 81 MG Glucose (Glucose 40% Gel) UD PRN PO 04/10/17 22:30 05/10/17 22:29 Glucose (Glucose Chew Tab) 1 tabs UD PRN PO 04/10/17 22:30 05/10/17 22:29 Dextrose (Dextrose 50% 50ML Syringe) 50 ml UD PRN IV 04/10/17 22:30 05/10/17 22:29 Glucagon (Glucagon Inj) 1 mg UD PRN SQ 04/10/17 22:30 05/10/17 22:29 Heparin Sodium (Porcine) (Heparin Sq 5000 Unit/0.5ml) 5,000 unit Q8 SQ 04/11/17 14:00 05/11/17 13:59 04/20/17 05:39 5,000 UNIT Lisinopril (Zestril Tab) 20 mg QAM PO 04/16/17 09:00 05/16/17 08:59 04/20/17 07:20 20 MG Cholecalciferol (Vitamin D Tab) 1,000 inter.unit QAM PO 04/16/17 09:00 05/16/17 08:59 04/20/17 07:20 1,000 INTER.UNIT Hydralazine HCl (HydrALAZINE INJ) 20 mg Q4 PRN IV. 04/15/17 19:00 05/15/17 18:59 04/20/17 08:15 20 MG Hydromorphone HCl (Dilaudid Tab) 2 mg Q4H PRN PO 04/16/17 11:30 04/30/17 11:29 04/20/17 07:25 2 MG Ranitidine HCl (zANTac TAB) 150 mg BID PO 04/17/17 21:00 05/17/17 20:59 04/20/17 07:20 150 MG Insulin Glargine (Lantus Solostar Pen) 15 units BID SC 04/19/17 09:00 05/16/17 09:29 04/20/17 08:10 15 UNITS Enteral Nutritional Formula (Peptamen Intense VHP) 1,000 ml UD [place] 04/19/17 15:45 05/19/17 15:44 04/19/17 20:48 1,000 ML Insulin Aspart (novoLOG ASPART) SLIDING SCALE If C... Q6 SC 04/20/17 00:00 05/20/17 00:00 04/20/17 00:12 1 UNITS Metoprolol Tartrate (Lopressor Tab) 75 mg BID PO 04/20/17 21:00 05/20/17 20:59 Metoprolol Tartrate (Lopressor Tab) 25 mg 0930 ONCE PO 04/20/17 09:30 04/20/17 09:31 Objective Vital Signs Date Time Temp Pulse Resp B/P (MAP) Pulse Ox O2 Delivery O2 Flow Rate FiO2 04/20/17 08:27 94 168/84 (112) 04/20/17 08:15 96 183/106 (131) 04/20/17 08:00 Room Air 04/20/17 07:24 36.8 104 16 219/93 (135) 94 Room Air 176/98 (124) 04/20/17 05:20 36.8 108 20 173/92 (119) 95 Room Air 04/20/17 00:00 Room Air 04/19/17 23:26 37.5 109 20 150/83 (105) 92 Room Air 04/19/17 21:17 121 175/91 (119) 04/19/17 17:50 184/78 (113) 04/19/17 16:30 97 190/95 (126) 04/19/17 16:04 37.1 92 18 186/93 (124) 93 Room Air 04/19/17 16:00 Room Air 04/19/17 11:10 105 156/90 (112) 04/19/17 10:22 105 168/97 (120) Physical Exam Abdomen: non tender, + distended Extremities: + swelling Neurologic/Psych: alert Laboratory Results Last 24 Hours Test 04/19/17 11:07 04/19/17 16:24 04/19/17 20:16 04/19/17 20:55 Bedside Glucose 141 mg/dl 130 mg/dl 124 mg/dl Lipase 343 U/L Test 04/20/17 00:07 04/20/17 00:52 04/20/17 06:47 04/20/17 06:59 Bedside Glucose 142 mg/dl 129 mg/dl 137 mg/dl White Blood Count 15.28 K/uL Red Blood Count 4.12 M/uL Hemoglobin 11.5 g/dL Hematocrit 34.9 % Mean Corpuscular Volume 84.7 fL Mean Corpuscular Hemoglobin 27.9 pg Mean Corpuscular Hemoglobin Concent 33.0 g/dl Platelet Count 347 K/uL Mean Platelet Volume 10.4 fL Neutrophils (%) (Auto) 80.0 % Lymphocytes (%) (Auto) 8.2 % Monocytes (%) (Auto) 8.6 % Eosinophils (%) (Auto) 1.4 % Basophils (%) (Auto) 0.3 % Neutrophils # (Auto) 12.23 K/uL Lymphocytes # (Auto) 1.25 K/uL Monocytes # (Auto) 1.31 K/uL Eosinophils # (Auto) 0.22 K/uL Basophils # (Auto) 0.04 K/uL RDW Standard Deviation 47.8 fL RDW Coefficient of Variation 15.3 % Immature Granulocyte % (Auto) 1.5 % Immature Granulocyte # (Auto) 0.23 K/uL Sodium Level 136 mmol/L Potassium Level 3.5 mmol/L Chloride Level 101 mmol/L Carbon Dioxide Level 26 mmol/L Anion Gap 9.0 mmol/L Blood Urea Nitrogen 9 mg/dl Creatinine 0.86 mg/dl Est Creatinine Clear Calc Drug Dose 138.3 ml/min Estimated GFR () 107.7 Estimated GFR (Non- 92.9 BUN/Creatinine Ratio 10.5 Random Glucose 140 mg/dl Calcium Level 8.5 mg/dl Phosphorus Level 3.5 mg/dl Magnesium Level 1.9 mg/dl Total Bilirubin 0.6 mg/dl Direct Bilirubin mg/dl Aspartate Amino Transf (AST/SGOT) 29 U/L Alanine Aminotransferase (ALT/SGPT) 15 U/L Alkaline Phosphatase 89 U/L Total Protein 6.8 gm/dl Albumin 2.0 gm/dl Chemistry Specimen Hemolysis Test 04/20/17 08:17 Assessment and Plan Overall slightly better. Tolerated feed into stomach. I had asked for NASO JEJUNAL FEED WITH A CORPAK NJ TUBE. But a regular NG tube is what he has. This will have to be changed before he leaves so he can leave with a smaller tube deeper in. Will discuss with Dr. Abdi and make a plan on Friday. Ok to allow sips of water if tolerated. This may be continued until his appetite is really back and he is hungry for food. Need follow up CT 2 weeks time or earlier if he has symptoms. Based on how he is progressing consideration may be given for an endoscopic PEG-J placement, if longer term nutrition is needed. Eventually he may need additional endoscopic procedures like a cyst gastrostomy if there is significant WOPN ( WALLED OF PANCREATIC NECROSIS) that develops. Encourage out of bed.
[2017-04-20] MEDS ORDERED: METOPROLOL TARTRATE 25 MG TAB PO ONE (09:30)
--- NOTE | 2017-04-20 16:37 | Family Medicine Progress Note ---
Progress Note Date of Service Apr 20, 2017. Subjective Pt evaluation today including: conversation w/ patient, conversation w/ family , physical exam, chart review, lab review, review of inpatient medication list Voiding: no voiding problems Patient resting this AM, at bedside, NG tube in situ. Patient uncomfortable and upset about course of stay and lack of answers. Constitutional: No fever, No chills Respiratory: No cough, No wheezing, No shortness of breath Cardiovascular: + chest pain, + edema, No orthopnea, No PND Abdomen: + pain, + diarrhea (loose stool since starting NG feeds) Male : No dysuria Skin: No rash Objective Vital Signs Date Time Temp Pulse Resp B/P (MAP) Pulse Ox O2 Delivery O2 Flow Rate FiO2 04/20/17 14:58 36.6 103 20 138/89 (105) 94 Room Air 04/20/17 14:10 99 192/101 (131) 04/20/17 10:52 103 157/89 (111) 04/20/17 10:10 103 170/79 (109) 04/20/17 08:27 94 168/84 (112) 04/20/17 08:15 96 183/106 (131) 04/20/17 08:00 Room Air 04/20/17 07:24 36.8 104 16 219/93 (135) 94 Room Air 176/98 (124) 04/20/17 05:20 36.8 108 20 173/92 (119) 95 Room Air 04/20/17 00:00 Room Air 04/19/17 23:26 37.5 109 20 150/83 (105) 92 Room Air 04/19/17 21:17 121 175/91 (119) 04/19/17 17:50 184/78 (113) Physical Exam General Appearance: WD/WN, no apparent distress Eyes: normal inspection, PERRL, EOMI ENT: hearing grossly normal, pharynx normal Neck: supple, no JVD Respiratory/Chest: chest non-tender, lungs clear, normal breath sounds, no respiratory distress, no accessory muscle use Cardiovascular: regular rate, rhythm, no JVD, no murmur Abdomen: normal bowel sounds, + distended, + tenderness Extremities: non-tender, no calf tenderness, + pedal edema 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, no motor/sensory deficits, alert, normal mood/affect, oriented x 3 Skin: normal color, warm/dry, no rash Laboratory Results 04/20/17 06:47 Red Blood Count 4.12, Mean Corpuscular Volume 84.7, Mean Corpuscular Hemoglobin 27.9, Mean Corpuscular Hemoglobin Concent 33.0, Mean Platelet Volume 10.4, Neutrophils (%) (Auto) 80.0, Lymphocytes (%) (Auto) 8.2, Monocytes (%) (Auto) 8.6, Eosinophils (%) (Auto) 1.4, Basophils (%) (Auto) 0.3, Neutrophils # (Auto) 12.23, Lymphocytes # (Auto) 1.25, Monocytes # (Auto) 1.31, Eosinophils # (Auto) 0.22, Basophils # (Auto) 0.04 04/20/17 06:47 Test 04/19/17 20:55 04/20/17 06:47 04/20/17 08:17 04/20/17 11:29 Lipase 343 U/L (73-393) White Blood Count 15.28 K/uL (4.8-10.8) Red Blood Count 4.12 M/uL (4.7-6.1) Hemoglobin 11.5 g/dL (14.0-18.0) Hematocrit 34.9 % (42-52) Mean Corpuscular Volume 84.7 fL (80-100) Mean Corpuscular Hemoglobin 27.9 pg (25-34) Mean Corpuscular Hemoglobin Concent 33.0 g/dl (32-36) Platelet Count 347 K/uL (130-400) Mean Platelet Volume 10.4 fL (7.4-10.4) Neutrophils (%) (Auto) 80.0 % Lymphocytes (%) (Auto) 8.2 % Monocytes (%) (Auto) 8.6 % Eosinophils (%) (Auto) 1.4 % Basophils (%) (Auto) 0.3 % Neutrophils # (Auto) 12.23 K/uL (1.4-6.5) Lymphocytes # (Auto) 1.25 K/uL (1.2-3.4) Monocytes # (Auto) 1.31 K/uL (0.11-0.59) Eosinophils # (Auto) 0.22 K/uL (0-0.5) Basophils # (Auto) 0.04 K/uL (0-0.2) RDW Standard Deviation 47.8 fL (36.4-46.3) RDW Coefficient of Variation 15.3 % (11.5-14.5) Immature Granulocyte % (Auto) 1.5 % Immature Granulocyte # (Auto) 0.23 K/uL (0.00-0.02) Anion Gap 9.0 mmol/L (3-11) Est Creatinine Clear Calc Drug Dose 138.3 ml/min Estimated GFR () 107.7 Estimated GFR (Non- 92.9 BUN/Creatinine Ratio 10.5 (10-20) Calcium Level 8.5 mg/dl (8.5-10.1) Phosphorus Level 3.5 mg/dl (2.5-4.9) Magnesium Level 1.9 mg/dl (1.8-2.4) Total Bilirubin 0.6 mg/dl (0.2-1) Aspartate Amino Transf (AST/SGOT) 29 U/L (15-37) Alanine Aminotransferase (ALT/SGPT) 15 U/L (12-78) Alkaline Phosphatase 89 U/L (45-117) Total Protein 6.8 gm/dl (6.4-8.2) Albumin 2.0 gm/dl (3.4-5.0) Chemistry Specimen Hemolysis Direct Bilirubin 0.1 mg/dl (0-0.2) Bedside Glucose 154 mg/dl (70-99) Assessment and Plan 61 yo male admitted for abdominal pain in setting of pancreatitis. Acute Pancreatitis (hx of 2 other episodes in past year): - CT on admit c/w interstitial edematous pancreatitis (w/o acute peripancreatic fluid collection) as well as hepatic steatosis. - Repeat CT showed "worsening pancreatitis" thus made NPO, contacted GI again. - Discussed case with GI, appreciate visit Ct suggests some necrosis. 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 Unclear etiology of pancreatitis. Suggest NJ tube feeds. Ok to allow sips of water if tolerated. Continue until appetite is back/hungry for food. Suspect he is going to need Nj feeding once he is discharged. He can go home if he tolerated tube feeds and have not much pain. Need follow up CT 2 weeks time or earlier if he has symptoms. Based on how he is progressing consideration may be given for a PEG-J placement, if longer term nutrition is needed. Eventually he may need additional endoscopic procedures like a cyst gastrostomy if there is significant WOPN (WALLED OFF PANCREATIC NECROSIS) that develops. - NJ tube originally not placed far enough, will reposition and recheck with [facility] ; if still not far enough can still try tube feeds at 10-20 cc/hr. Appreciate recs from nutrition. Please see RD and GI note for guidance. - Replaced 2 loose stool since commencing tube feeds - Feed rate kept at 20cc/hr until further notice. - Discussed risks and benefits of continuing therapy and potential need for transfer to [facility] or [facility] [place]; patient not keen to transfer to another facility unless life or situation. - WCC down to 15 from 16 - Dilaudid 2 mg q4h PO prn for pain - Ordered leg elevation for peripheral edema - GI on board, would like to see as outpatient; need to discuss when to replace pancreatic enzymes - Started ranitidine for upper GI pain after consuming food/drink. SIRS, likely secondary to pancreatitis, r/o infection - Afebrile. Improving WBC from 16 to 15 today - DCd imipenam for suspected pneumonia - Duoneb prn DCd per patient's request Type 2 DM - Held home metformin and glipizide. - Hb A1C 7.5 - Novolog sliding scale adjusted to CR of 1:7, Correction Factor of 15, goal BSG 110-140 - Increased lantus to 20U BID; Now he is NPO, decreased to 15 mg BID - May need drip if BSG>300 - Diabetes education - Glucose improving Hypertension: - 23Sep held home lisinopril due to worsening pancreatitis per nephrology. - Restarted lisinopril, ordered hydralazine 20 mg prn for persistent hypertension >180 SBP - Increased metoprolol to 50 mg BID PO; Continued elevated BPs have required 2x stat bolus of 12.5 mg metoprolol, 1 bolus of 25mg this AM - Given 20 mg lasix - Recommend outpatient sleep study considering hx of snoring and body habitus VLAD: On admit Cr 1.4. Baseline 0.8. today: 0.86 - Nephro consulted, signed off. Recd holding INOCENTE/ARB, calcium repletion and tracking I/Os monitoring. Hypomagnesemia: Noted on admit Mg 1.6. Replacement on 22Sep, most recent: 2.3 Low Vitamin D: Noted on labs. Will supplemented 1000IU/day now that diet is increasing. Follow up as outpatient. Code: full code DVT proph: Heparin Dispo: med surg, off tele, hopefully home 1-2 days. PATIENT HAS APPT WITH PCP April, 2:10--will need to change this if not DCd Resident Tracking Resident Involvement: Resident Care Provided Care Provided: Adult Hospital Medicine
[2017-04-20] MEDS: METOPROLOL TARTRATE 25 MG TAB PO SCH (21:22)
[2017-04-21] VITALS (7 sets, daily range): BP systolic 164–190; BP diastolic 80–92; PULSE 59–107; TEMP 36.5–37.6; O2SAT 91–94
[2017-04-21] MEDS: HYDROmorphone HCL 2 MG TAB PO PRN ×2 (00:02→16:02)
[2017-04-21] MEDS: INSULIN ASPART 100 UNITS/ML 3 ML PEN SC SCH ×4 (06:02→18:00)
[2017-04-21] MEDS: HEPARIN SOD 5000 UNIT/0.5 ML CARP SQ SCH ×3 (06:03→22:00)
[2017-04-21] MEDS: INSULIN GLARGINE SOLOSTAR 100 UNITS/ML 3 ML PEN SC SCH ×2 (06:03→20:22)
[2017-04-21] MEDS: LISINOPRIL 20 MG TAB PO SCH (08:04)
[2017-04-21] MEDS: ASPIRIN 81 MG ECTAB PO SCH (08:04)
[2017-04-21] MEDS: METOPROLOL TARTRATE 25 MG TAB PO SCH ×2 (08:04→22:23)
[2017-04-21] MEDS: CHOLECALCIFEROL 1000 INTER.UNIT TAB PO SCH (08:04)
[2017-04-21] MEDS: RANITIDINE HCL 150 MG TAB PO SCH ×2 (08:04→22:24)
[2017-04-21 08:09] LABS: BUN/CREATININE RATIO 12.8 (10-20); CALCIUM 8.7 mg/dl (8.5-10.1); CREATININE 0.78 mg/dl (0.60-1.40); POTASSIUM 3.4 mmol/L (3.5-5.1)
[2017-04-21 08:52] LABS: BASO % 0.2 %; BASO ABS # 0.03 K/uL (0-0.2); COMPLETE YES; IG% 1.1 %; LYMPH % 8.7 %; MEAN CELL VOLUME 84.3 fL (80-100); MEAN CORPUSCULAR HEMOGLOBIN 28.2 pg (25-34); MEAN CORPUSCULAR HGB CONC 33.4 g/dl (32-36); MEAN PLATELET VOLUME 10.3 fL (7.4-10.4); MONO % 8.6 %; NEUT % 79.4 %; PLATELET COUNT 360 K/uL (130-400); RED BLOOD COUNT 4.15 M/uL (4.7-6.1); WHITE BLOOD COUNT 13.79 K/uL (4.8-10.8)
[2017-04-21] MEDS ORDERED: INFLUENZA ADMINISTRATION CHARGE ONE (14:15)
[2017-04-21] MEDS ORDERED: INFLUENZA VIRUS QUAD VACCINE 0.5 ML SYR IM. ONE (14:15)
[2017-04-21] MEDS: HydrALAZINE HCL 20 MG/ML VIAL IV. PRN (16:02)
[2017-04-21] MEDS: ONDANSETRON INJ 2 MG/ML 2 ML VIAL IV PRN (17:40)
--- NOTE | 2017-04-21 18:39 | Family Medicine Progress Note ---
Progress Note Date of Service Apr 21, 2017. Subjective Pt evaluation today including: conversation w/ patient, physical exam, chart review, lab review, review of inpatient medication list Pain: No pain reported PO Intake: NG tube in place Voiding: no voiding problems Mr. Adair reports that he is feeling better today. He denies any abdominal pain, nausea or vomiting, but states that he has still had a couple of loose stools, which is consistent with his NG tube feeds. He denies any blood in his stool. Constitutional: No fever, No chills, No sweats Respiratory: No cough, No sputum, No wheezing, No shortness of breath Cardiovascular: No chest pain Abdomen: No pain, No nausea, No vomiting, No diarrhea, No constipation All Other Systems: Reviewed and Negative Medications Current Inpatient Medications Medications (Trade) Dose Ordered Sig/Akash Route Start Time Stop Time Status Last Admin Dose Admin Acetaminophen (Tylenol Tab) 650 mg Q4H PRN PO 04/10/17 20:15 05/10/17 20:14 04/11/17 15:29 650 MG Al Hydrox/Mg Hydrox/Simethicone (Maalox Max Susp) 15 ml Q4H PRN PO 04/10/17 20:15 05/10/17 20:14 Magnesium Hydroxide (Milk Of Magnesia Susp) 30 ml Q12H PRN PO 04/10/17 20:15 05/10/17 20:14 Zolpidem Tartrate (Ambien Tab) 5 mg HSZ PRN PO 04/10/17 20:15 05/10/17 20:14 Ondansetron HCl (Zofran Inj) 4 mg Q6H PRN IV 04/10/17 20:15 05/10/17 20:14 04/21/17 17:40 4 MG Polyethylene (Miralax Powder Packet) 17 gm DAILY PRN PO 04/10/17 20:15 05/10/17 20:14 Aspirin (Ecotrin Tab) 81 mg QAM PO 04/11/17 09:00 05/11/17 08:59 04/21/17 08:04 81 MG Glucose (Glucose 40% Gel) UD PRN PO 04/10/17 22:30 05/10/17 22:29 Glucose (Glucose Chew Tab) 1 tabs UD PRN PO 04/10/17 22:30 05/10/17 22:29 Dextrose (Dextrose 50% 50ML Syringe) 50 ml UD PRN IV 04/10/17 22:30 05/10/17 22:29 Glucagon (Glucagon Inj) 1 mg UD PRN SQ 04/10/17 22:30 05/10/17 22:29 Heparin Sodium (Porcine) (Heparin Sq 5000 Unit/0.5ml) 5,000 unit Q8 SQ 04/11/17 14:00 05/11/17 13:59 04/21/17 14:14 5,000 UNIT Lisinopril (Zestril Tab) 20 mg QAM PO 04/16/17 09:00 05/16/17 08:59 04/21/17 08:04 20 MG Cholecalciferol (Vitamin D Tab) 1,000 inter.unit QAM PO 04/16/17 09:00 05/16/17 08:59 04/21/17 08:04 1,000 INTER.UNIT Hydralazine HCl (HydrALAZINE INJ) 20 mg Q4 PRN IV. 04/15/17 19:00 05/15/17 18:59 04/21/17 16:02 20 MG Hydromorphone HCl (Dilaudid Tab) 2 mg Q4H PRN PO 04/16/17 11:30 04/30/17 11:29 04/21/17 16:02 2 MG Ranitidine HCl (zANTac TAB) 150 mg BID PO 04/17/17 21:00 05/17/17 20:59 04/21/17 08:04 150 MG Enteral Nutritional Formula (Peptamen Intense VHP) 1,000 ml UD NJ 04/19/17 15:45 05/19/17 15:44 04/19/17 20:48 1,000 ML Insulin Aspart (novoLOG ASPART) SLIDING SCALE If C... Q6 SC 04/20/17 00:00 05/20/17 00:00 04/21/17 12:22 3 UNITS Metoprolol Tartrate (Lopressor Tab) 75 mg BID PO 04/20/17 21:00 05/20/17 20:59 04/21/17 08:04 75 MG Insulin Glargine (Lantus Solostar Pen) 15 units BID@0600,1800 SC 04/21/17 06:00 05/21/17 05:59 04/21/17 06:03 15 UNITS Objective Vital Signs Date Time Temp Pulse Resp B/P (MAP) Pulse Ox O2 Delivery O2 Flow Rate FiO2 04/21/17 15:38 36.9 99 20 190/90 (123) 94 Room Air 04/21/17 08:00 Room Air 04/21/17 07:59 64 04/21/17 07:01 36.5 59 20 188/88 (121) 94 Room Air 04/21/17 03:35 36.9 100 18 164/92 (116) 91 Room Air 04/21/17 00:00 Room Air 04/20/17 23:43 37.0 95 20 162/82 (108) 93 Room Air 04/20/17 18:55 110 194/95 (128) Physical Exam General Appearance: WD/WN, no apparent distress, + pertinent finding (NG tube in place with feeds running at 20cc/hr) Respiratory/Chest: chest non-tender, lungs clear, normal breath sounds, no respiratory distress, no accessory muscle use Cardiovascular: regular rate, rhythm, no gallop, no JVD, no murmur, + pertinent finding (peripheral edema bilaterally) Abdomen: normal bowel sounds, non tender, soft, no organomegaly, no pulsatile mass, + distended Laboratory Results Last 24 Hours Test 04/20/17 19:38 04/21/17 05:55 04/21/17 07:11 04/21/17 11:26 Bedside Glucose 155 mg/dl 140 mg/dl 161 mg/dl White Blood Count 13.79 K/uL Red Blood Count 4.15 M/uL Hemoglobin 11.7 g/dL Hematocrit 35.0 % Mean Corpuscular Volume 84.3 fL Mean Corpuscular Hemoglobin 28.2 pg Mean Corpuscular Hemoglobin Concent 33.4 g/dl Platelet Count 360 K/uL Mean Platelet Volume 10.3 fL Neutrophils (%) (Auto) 79.4 % Lymphocytes (%) (Auto) 8.7 % Monocytes (%) (Auto) 8.6 % Eosinophils (%) (Auto) 2.0 % Basophils (%) (Auto) 0.2 % Neutrophils # (Auto) 10.96 K/uL Lymphocytes # (Auto) 1.20 K/uL Monocytes # (Auto) 1.18 K/uL Eosinophils # (Auto) 0.27 K/uL Basophils # (Auto) 0.03 K/uL RDW Standard Deviation 47.8 fL RDW Coefficient of Variation 15.3 % Immature Granulocyte % (Auto) 1.1 % Immature Granulocyte # (Auto) 0.15 K/uL Sodium Level 138 mmol/L Potassium Level 3.4 mmol/L Chloride Level 101 mmol/L Carbon Dioxide Level 25 mmol/L Anion Gap 12.0 mmol/L Blood Urea Nitrogen 10 mg/dl Creatinine 0.78 mg/dl Est Creatinine Clear Calc Drug Dose 152.5 ml/min Estimated GFR () 112.1 Estimated GFR (Non- 96.7 BUN/Creatinine Ratio 12.8 Random Glucose 159 mg/dl Calcium Level 8.7 mg/dl Assessment and Plan 61 yo male admitted for abdominal pain in setting of pancreatitis. Acute Pancreatitis (hx of 2 other episodes in past year): - CT on admit c/w interstitial edematous pancreatitis (w/o acute peripancreatic fluid collection) as well as hepatic steatosis. - Repeat CT showed "worsening pancreatitis" thus made NPO, contacted GI again. - Thank you to GI for input - they will use a coresafe tube as an NJ tube to avoid the ampulla for feeds Eventually he may need additional endoscopic procedures like a cyst gastrostomy if there is significant WOPN (WALLED OFF PANCREATIC NECROSIS) that develops. - WCC down to 13 from 15 - clinically improving as well - Dilaudid 2 mg q4h PO prn for pain, but he has not needed this today - continue ranitidine - unsure of aetiology of pancreatitis - gallstones, alcohol and hypertriglyceridemia ruled out - will review medication list with patient tomorrow - ??autoimmune Type 2 DM - Held home metformin and glipizide. - Hb A1C 7.5 - Novolog sliding scale adjusted to CR of 1:7, Correction Factor of 15, goal BSG 110-140 - Lantus 15 mg BID - May need drip if BSG>300 - Diabetes education - Glucose improving Hypertension: - 23Sep held home lisinopril due to worsening pancreatitis per nephrology. - Restarted lisinopril, ordered hydralazine 20 mg prn for persistent hypertension >180 SBP - Continue metoprolol 75 mg BID PO - Recommend outpatient sleep study considering hx of snoring and body habitus VLAD: On admit Cr 1.4. Baseline 0.8. today: 0.86 - Nephro consulted, signed off. Recd holding INOCENTE/ARB, calcium repletion and tracking I/Os monitoring. Low Vitamin D: Noted on labs. Will supplemented 1000IU/day now that diet is increasing. Follow up as outpatient. Code: full code DVT proph: Heparin Dispo: med surg, hopefully home 1-2 days. PATIENT HAS APPT WITH PCP April , 2:10--will need to change this if not DCd Resident Physician Supervision Note: I interviewed and examined the patient. Discussed with Dr. Siddiqui and agree with findings and plan as documented in the note. Any exceptions or clarifications are listed here: None Documented By: Mina Daugherty feeling better pain better tolerating tube feeds at 20/hr (goal per nutrition would be 70/hr) since 04/19 vitals noted nad breathing unlabored. abdomen soft mildly distended nontender no guarding no rebound no rigidity acute recurrent pancreatitis - ?etiology - will eval for utility in w/u of autoimmune, will review meds for possible cause, ?GB sludge? -continued discussions w GI about optimal feeding -appears improving Resident Tracking Resident Involvement: Resident Care Provided Care Provided: Adult Hospital Medicine
--- NOTE | 2017-04-21 19:31 | DIAGNOSTIC IMAGING REPORT ---
ABDOMEN 2VIEW W/PA CHEST RTN HISTORY: 61 years-old Male To verify tube placement past the pylorous; in small bowel status post placement of an enteric tube. Follow-up study. COMPARISON: KUB 04/19/2017 TECHNIQUE: Portable upright AP view of the chest with erect and supine views of the abdomen FINDINGS: Cardiomediastinal and hilar silhouettes are within normal limits. There is no pneumothorax or new focal airspace consolidation. Small left pleural effusion is noted with hazy left basilar opacity suggesting compressive atelectasis. An enteric tube with opaque tip suggesting feeding tube is noted with distal tip to the right of midline in the midabdomen suggesting placement within the region of the duodenal bulb. Air-fluid level in a mildly dilated loop of small bowel noted within the left midabdomen, nonspecific. Bowel gas pattern overall is nonobstructive. No urolith or fracture. Degenerative changes are seen throughout the spine. IMPRESSION: 1. Enteric tube terminates in the right upper abdomen within the region of the duodenal bulb. 2. Mildly dilated loop of small bowel within the left midabdomen demonstrating an air-fluid level is nonspecific and may reflect ileus or enteritis. 3. Nonobstructive bowel gas pattern without pneumoperitoneum. 4. Persistent small left pleural effusion with left basilar atelectasis. The above report was generated using voice recognition software. It may contain grammatical, syntax or spelling errors. Electronically signed by: Tim Lock M.D. 04/21/2017 7:29 PM Dictated Date/Time: 04/21/2017 7:26 PM
--- NOTE | 2017-04-21 21:19 | DIAGNOSTIC IMAGING REPORT ---
JULY CLINICAL HISTORY: core flow placement COMPARISON STUDY: Abdominal series April 21, 2017 at 7:14 PM. FINDINGS: The tip of the feeding tube projects over the third portion of the duodenum. Cholecystectomy clips are noted. IMPRESSION: Tip of feeding tube projects over the third portion of the duodenum. Electronically signed by: Jalen Deras M.D. 04/21/2017 9:17 PM Dictated Date/Time: 04/21/2017 9:16 PM
--- NOTE | 2017-04-21 22:04 | GASTROENTEROLOGY PROGRESS NOTE ---
DATE: 04/21/2017 GASTROENTEROLOGY INPATIENT PROGRESS NOTE SUBJECTIVE: Events of weekend noted. CT scan on Friday suggested increased inflammatory changes which revealed worsening pancreatitis with increasing pancreatic and peripancreatic edema, small amount of fluid in both pericolic gutters, colonic diverticulosis, small left pleural solution in left lower lobe with trace right pleural effusion. The patient over the weekend covered by Dr. Eugene. With evaluation and these new CT scan changes from Friday, recommendations for post-pyloric feeding were made. Unfortunately, the institution does not stock dedicated nasojejunal tube and a nasogastric tube was placed. This is large size and uncomfortable to the patient, placed on April 19, but its tube was advanced and terminating in the peripyloric region but not across into the bulb or duodenum proper. The patient has been tolerating tube feeds, although current rate was 20 mL an hour. Pain is perhaps slightly better. LABORATORY STUDIES: Today show white count that is decreased at 13.7, hemoglobin 11.7, platelets 360,000. Serum chemistries were showed a blood glucose today of 161, potassium is low at 3.4, sodium 138, BUN and creatinine are 10 and 0.78. REVIEW OF SYSTEMS: Otherwise noncontributory based on 13-point exam. CURRENT MEDICATIONS: Include insulin, metoprolol, enteral-feeding solution, Peptamen Intense, ranitidine, hydromorphone, lisinopril has been restarted at 20 mg daily over the past several days, hydralazine 20 mg IV as needed for hypertension control. Aspirin, DVT heparin and Ambien. PHYSICAL EXAMINATION: VITAL SIGNS: Today 190/90, respirations 20, pulse rate 99, temperature 36.9, 94% on room air. GENERAL: The patient is awake, alert and oriented x3, looks more comfortable than he did on the latter part of last week by my exam. LUNGS: Overall, clear to auscultation. HEART: Normal S1, S2. ABDOMEN: Soft, flat, nontender, nondistended. There is mild tenderness in the left side of the abdomen without rebound or guarding. EXTREMITIES: With +1 edema. RECTAL: Deferred. IMPRESSION AND PLAN: Continued difficulty obtaining the nasojejunal feeding tube. Will attempt to order versus transfer the patient to [facility] for its placement. I did have the nursing staff contact central supply and they do have an 8-Thai Keofeed tube that is 43 inches in length and this may be adequate enough to reach the small bowel. I have just placed this without difficulty removing the prior-placed NG tube and tube feeding are on hold until x-ray imaging can confirm the tip location of the Keofeed tube. .Initial placement is at the ~ 90 cm from nostril If this is successful reaching the small bowel this may be an alternative and eliminate the need for transfer. I am also looking into obtaining dedicated nasojejunal feeding tubes that can either be advanced fluoroscopically or endoscopically if necessary. Continue current medical therapy. If hydralazine would be a suitable alternative to lisinopril, then this may be considered if pancreatitis is related to the patient's use of lisinopril, although the patient has been on the medicine for many years and pancreatitis seems to all of occurred following his gallbladder surgery. However, there are no LFT abnormalities on any of the patient's pancreatitis admissions and outside imaging did not reflect bile duct stones or sludge. All questions answered. Await x-ray report from this evening. JERRELL
[2017-04-21] MEDS: PEPTAMEN INTENSE VHP 1000ML BAG NJ SCH (23:28)
[2017-04-22] MEDS: ONDANSETRON INJ 2 MG/ML 2 ML VIAL IV PRN (00:12)
[2017-04-22] MEDS: INSULIN ASPART 100 UNITS/ML 3 ML PEN SC SCH ×4 (06:00→18:00)
[2017-04-22] MEDS: HEPARIN SOD 5000 UNIT/0.5 ML CARP SQ SCH ×3 (06:01→20:30)
[2017-04-22] MEDS: INSULIN GLARGINE SOLOSTAR 100 UNITS/ML 3 ML PEN SC SCH ×2 (06:05→20:30)
[2017-04-22 07:14] VITALS: BP 160/85; PULSE 90; TEMP 36.7; O2SAT 93
[2017-04-22] MEDS: ASPIRIN 81 MG ECTAB PO SCH (08:45)
[2017-04-22] MEDS: METOPROLOL TARTRATE 25 MG TAB PO SCH (08:45)
[2017-04-22] MEDS: CHOLECALCIFEROL 1000 INTER.UNIT TAB PO SCH (08:46)
[2017-04-22] MEDS: LISINOPRIL 20 MG TAB PO SCH (08:46)
[2017-04-22] MEDS: RANITIDINE HCL 150 MG TAB PO SCH ×2 (08:46→20:21)
[2017-04-22 08:57] LABS: BASO % 0.2 %; BASO ABS # 0.02 K/uL (0-0.2); COMPLETE YES; EOS % 2.9 %; IG% 0.7 %; LYMPH ABS # 1.47 K/uL (1.2-3.4); MEAN CELL VOLUME 85.6 fL (80-100); MEAN CORPUSCULAR HEMOGLOBIN 26.9 pg (25-34); MEAN CORPUSCULAR HGB CONC 31.4 g/dl (32-36); MEAN PLATELET VOLUME 9.9 fL (7.4-10.4); MONO % 6.5 %; NEUT % 75.7 %; PLATELET COUNT 385 K/uL (130-400); RED BLOOD COUNT 4.09 M/uL (4.7-6.1)
--- NOTE | 2017-04-22 09:05 | Family Medicine Progress Note ---
Progress Note Date of Service Apr 22, 2017. Subjective Pt evaluation today including: conversation w/ patient, physical exam, chart review, lab review, review of inpatient medication list Pain: No pain reported PO Intake: Tolerating tube feeds Voiding: no voiding problems Mr. Adair reports that he feels well today. He denies any new episodes of abdominal pain, nausea or vomiting. He states that his bowel movements are still loose, but have improved from yesterday. He denies any SOB, chest pain, syncope and is tolerating the tube well. Constitutional: No fever, No chills, No sweats Respiratory: No cough, No sputum, No wheezing, No shortness of breath Abdomen: No pain, No nausea, No vomiting, No diarrhea, No constipation All Other Systems: Reviewed and Negative Medications Current Inpatient Medications Medications (Trade) Dose Ordered Sig/Akash Route Start Time Stop Time Status Last Admin Dose Admin Acetaminophen (Tylenol Tab) 650 mg Q4H PRN PO 04/10/17 20:15 05/10/17 20:14 04/11/17 15:29 650 MG Al Hydrox/Mg Hydrox/Simethicone (Maalox Max Susp) 15 ml Q4H PRN PO 04/10/17 20:15 05/10/17 20:14 Magnesium Hydroxide (Milk Of Magnesia Susp) 30 ml Q12H PRN PO 04/10/17 20:15 05/10/17 20:14 Zolpidem Tartrate (Ambien Tab) 5 mg HSZ PRN PO 04/10/17 20:15 05/10/17 20:14 Ondansetron HCl (Zofran Inj) 4 mg Q6H PRN IV 04/10/17 20:15 05/10/17 20:14 04/22/17 00:12 4 MG Polyethylene (Miralax Powder Packet) 17 gm DAILY PRN PO 04/10/17 20:15 05/10/17 20:14 Aspirin (Ecotrin Tab) 81 mg QAM PO 04/11/17 09:00 05/11/17 08:59 04/21/17 08:04 81 MG Glucose (Glucose 40% Gel) UD PRN PO 04/10/17 22:30 05/10/17 22:29 Glucose (Glucose Chew Tab) 1 tabs UD PRN PO 04/10/17 22:30 05/10/17 22:29 Dextrose (Dextrose 50% 50ML Syringe) 50 ml UD PRN IV 04/10/17 22:30 05/10/17 22:29 Glucagon (Glucagon Inj) 1 mg UD PRN SQ 04/10/17 22:30 05/10/17 22:29 Heparin Sodium (Porcine) (Heparin Sq 5000 Unit/0.5ml) 5,000 unit Q8 SQ 04/11/17 14:00 05/11/17 13:59 04/22/17 06:01 5,000 UNIT Lisinopril (Zestril Tab) 20 mg QAM PO 04/16/17 09:00 05/16/17 08:59 04/21/17 08:04 20 MG Cholecalciferol (Vitamin D Tab) 1,000 inter.unit QAM PO 04/16/17 09:00 05/16/17 08:59 04/21/17 08:04 1,000 INTER.UNIT Hydralazine HCl (HydrALAZINE INJ) 20 mg Q4 PRN IV. 04/15/17 19:00 05/15/17 18:59 04/21/17 16:02 20 MG Hydromorphone HCl (Dilaudid Tab) 2 mg Q4H PRN PO 04/16/17 11:30 04/30/17 11:29 04/21/17 16:02 2 MG Ranitidine HCl (zANTac TAB) 150 mg BID PO 04/17/17 21:00 05/17/17 20:59 04/21/17 22:24 150 MG Enteral Nutritional Formula (Peptamen Intense VHP) 1,000 ml UD NJ 04/19/17 15:45 05/19/17 15:44 04/21/17 23:28 1,000 ML Insulin Aspart (novoLOG ASPART) SLIDING SCALE If C... Q6 SC 04/20/17 00:00 05/20/17 00:00 04/21/17 12:22 3 UNITS Metoprolol Tartrate (Lopressor Tab) 75 mg BID PO 04/20/17 21:00 05/20/17 20:59 04/21/17 22:23 75 MG Insulin Glargine (Lantus Solostar Pen) 15 units BID@0600,1800 SC 04/21/17 06:00 05/21/17 05:59 10/3/17 06:05 15 UNITS Objective Vital Signs Date Time Temp Pulse Resp B/P (MAP) Pulse Ox O2 Delivery O2 Flow Rate FiO2 04/22/17 07:14 36.7 90 20 160/85 (110) 93 Room Air 04/22/17 00:00 Room Air 04/21/17 23:49 37.0 107 20 164/92 (116) 93 Room Air 04/21/17 18:47 37.6 64 20 188/80 (116) 94 Room Air 04/21/17 16:00 94 Room Air 04/21/17 15:38 36.9 99 20 190/90 (123) 94 Room Air 04/21/17 08:00 Room Air 04/21/17 07:59 64 Physical Exam General Appearance: WD/WN, no apparent distress Respiratory/Chest: chest non-tender, lungs clear, normal breath sounds, no respiratory distress, no accessory muscle use Cardiovascular: regular rate, rhythm, no gallop, no JVD, no murmur Abdomen: normal bowel sounds, non tender, soft, no organomegaly, no pulsatile mass Extremities: + pedal edema (+1 edema of lower limbs bilaterally) Laboratory Results Last 24 Hours Test 04/21/17 11:26 04/21/17 18:24 04/22/17 00:09 04/22/17 06:03 Bedside Glucose 161 mg/dl 134 mg/dl 122 mg/dl 140 mg/dl Test 04/22/17 08:37 Assessment and Plan 61 yo male admitted for abdominal pain in setting of pancreatitis. Acute Pancreatitis (hx of 2 other episodes in past year): - CT on admit c/w interstitial edematous pancreatitis (w/o acute peripancreatic fluid collection) as well as hepatic steatosis. - Repeat CT showed "worsening pancreatitis" thus made NPO, contacted GI again. - Thank you to GI for input - Dr. Qiu placed a Keofeed tube and KUB confirmed location past the ampulla - tolerating feeds at 20cc/hr - will increase by 5 cc/hr every 4 hours until we have reached his optimum level of 70 cc/hr - will hold/decrease if he experiences nausea/vomiting or abdominal pain - he can hopefully be discharged tomorrow provided he tolerates the increase in rate of feeds & keep the same rate at home for 2 weeks Eventually he may need additional endoscopic procedures like a cyst gastrostomy if there is significant WOPN (WALLED OFF PANCREATIC NECROSIS) that develops. - WCC decreased from 13 to 10 - clinically improving as well - Dilaudid 2 mg q4h PO prn for pain, but he has not required this today or yesterday - continue ranitidine - unsure of aetiology of pancreatitis - gallstones, alcohol and hypertriglyceridemia ruled out - ?biliary sludge? - this is his third episode of acute pancreatitis since 2016. Did not have any attacks prior to 2016 - his emergency room notes list glimeperide as a home med which has been linked to pancreatitis - although rare. He states that he does not remember this medication, and only takes metformin at home - stopped lisinopril given link with pancreatitis - and increased metoprolol to 100mg BID - ??autoimmune -> type 1 autoimmune involves biliary tree usually w/jaundice and elevated liver enzymes, which he does not have -> type 2 involves salivary glands/lungs etc. -> he has not reported any other symptoms Type 2 DM - Held home metformin and glipizide. - Hb A1C 7.5 - Novolog sliding scale adjusted to CR of 1:7, Correction Factor of 15, goal BSG 110-140 - BSG have been between 120-160 - Lantus 15 mg BID - Diabetes education - Glucose improving Hypertension: - Stopped lisinopril - hydralazine 20 mg prn for hypertension >180 SBP - Continue metoprolol 100 mg BID PO - Recommend outpatient sleep study considering hx of snoring and body habitus VLAD: On admit Cr 1.4. Baseline 0.8. today: 0.86 - Nephro consulted, signed off. Recd holding INOCENTE/ARB, calcium repletion and tracking I/Os monitoring. Low Vitamin D: Noted on labs. Will supplemented 1000IU/day now that diet is increasing. Follow up as outpatient. Code: full code DVT proph: Heparin Dispo: remains on med/surg. Likely d/c tomorrow with tube feeds at home for 2 weeks Resident Physician Supervision Note: I interviewed and examined the patient. Discussed with Dr. Siddiqui and agree with findings and plan as documented in the note. Any exceptions or clarifications are listed here: None Documented By: Mina Daugherty feeling better no significant abdominal pain no nausea with smaller tube no new complaints vitals noted nad breathing unlabored NGT wtihout any breakdown, abd soft nd nt no guarding no rebound no masses pancreatitis w possible necrosis/pseudocyst formation -stable and improving. continue NJ feeds for next several weeks as per GI recommendations. increase rates to goal - then home on NJ feeds once tolerating goal Resident Tracking Resident Involvement: Resident Care Provided Care Provided: Adult [facility]
[2017-04-22 09:18] LABS: CALCIUM 8.4 mg/dl (8.5-10.1); CREATININE 0.81 mg/dl (0.60-1.40); POTASSIUM 3.6 mmol/L (3.5-5.1)
[2017-04-22 14:55] VITALS: BP 163/84; PULSE 91; TEMP 37; O2SAT 92
--- NOTE | 2017-04-22 16:05 | PROGRESS NOTE ---
DATE: 04/22/2017 DATE: 04/22/2017 SUBJECTIVE: The patient reports he is not having any abdominal pain today, which is the first day since he was in the hospital he has had no pain. Vital signs still show mild hypertension with a blood pressure 163/84, pulse 91, temperature is 37. The patient is receiving nasojejunal feedings, the tip of the feeding tube yesterday was in the third portion of the duodenum which is past the point of the pancreatic duct emptying. He is tolerating tube feedings well at this point. His CAT scan from Friday showed significant edema around the pancreas into the pericolic gutters, both left and right. White count today is normal at 10.5. IMPRESSION: The patient has a fairly significant pancreatitis, but is improving on nasojejunal feedings. Plan is to arrange for him to get these at home for over the next couple of weeks to try to get his pancreas to heal and then gradually convert him to oral feedings as he heals. Will continue to follow the patient.
[2017-04-22] MEDS: METOPROLOL TARTRATE 100 MG TAB PO SCH (20:23)
[2017-04-22 23:37] VITALS: BP 166/81; PULSE 81; TEMP 36.9; O2SAT 92
[2017-04-23] MEDS ORDERED: PEPTAMEN INTENSE VHP 1000ML BAG PEG SCH
[2017-04-23] MEDS: HEPARIN SOD 5000 UNIT/0.5 ML CARP SQ SCH ×2 (05:33→14:00)
[2017-04-23] MEDS: INSULIN ASPART 100 UNITS/ML 3 ML PEN SC SCH ×3 (05:33→11:58)
[2017-04-23] MEDS: INSULIN GLARGINE SOLOSTAR 100 UNITS/ML 3 ML PEN SC SCH (05:37)
[2017-04-23 07:03] VITALS: BP 190/91; PULSE 89; TEMP 37.1; O2SAT 94
[2017-04-23 07:30] VITALS: O2SAT 94
[2017-04-23 07:36] VITALS: BP 169/80; PULSE 89; TEMP 37.1; O2SAT 94
[2017-04-23] MEDS: ASPIRIN 81 MG ECTAB PO SCH (08:36)
[2017-04-23] MEDS: METOPROLOL TARTRATE 100 MG TAB PO SCH (09:21)
[2017-04-23] MEDS: RANITIDINE HCL 150 MG TAB PO SCH (09:21)
[2017-04-23] MEDS: CHOLECALCIFEROL 1000 INTER.UNIT TAB PO SCH (09:21)
[2017-04-23] MEDS ORDERED: LPR100 PO (11:08)
[2017-04-23] MEDS ORDERED: NUTR-930 NJ (11:08)
[2017-04-23] MEDS: PEPTAMEN INTENSE VHP 1000ML BAG NJ SCH (11:54)
[2017-04-23 11:59] VITALS: BP 174/90; PULSE 76; O2SAT 96
--- NOTE | 2017-04-23 12:25 | Discharge Instructions ---
Discharge Instructions Date of Service Apr 23, 2017. Admission Reason for Admission: Acute Pancreatitis Discharge Discharge Diagnosis / Problem: Acute Pancreatitis Discharge Goals Goal(s): Decrease discomfort Activity Recommendations Activity Limitations: resume your previous activity . Instructions / Follow-Up Instructions / Follow-Up You were admitted to [facility] due to abdominal pain, which was then diagnosed as acute pancreatitis. Below is a breakdown of the medical problems that were addressed during your time here: 1) Acute pancreatitis - you will be discharged home with your NJ tube and feeds at a rate of 70 cc/hour. Please continue this for two weeks, and then follow up with your GI doctor, who may do a repeat CT scan of your abdomen to ensure resolution. If you experience worsening of your abdominal pain, nausea or vomiting, please come back into the hospital. 2) History of recurrent pancreatitis - we have stopped your home lisinopril, as other medications in this class of drugs have been linked to pancreatitis. This will hopefully prevent the recurrent episodes. 2) High blood pressure - your dosage of metoprolol was increased to help control your blood pressure 4) Diabetes - please continue your home metformin 5) Low Vitamin D - your vitamin D levels were low and we supplemented this. Please follow up with your family physician regarding this, as you may need supplementation again in the future Current Hospital Diet Patient's current hospital diet: Low Fat Diet, Diabetes Type 2 Diet Discharge Diet Recommended Diet: Diabetes Type 2 Diet, Low Fat Diet Pending Studies Studies pending at discharge: no Laboratory Results Hemoglobin A1c Test 04/17/17 09:10 Range/Units Estimated Average Glucose 169 mg/dl Hemoglobin A1c 7.5 H 4.5-5.6 % Lipid Panel Test 04/11/17 16:36 Range/Units Triglycerides Level 100 0-150 mg/dl Cholesterol Level 100 0-200 mg/dl HDL Cholesterol 37 mg/dl Cholesterol/HDL Ratio 2.7 LDL Cholesterol, Calculated 43 mg/dl Medical Emergencies . Who to Call and When: Medical Emergencies: If at any time you feel your situation is an emergency, please call 911 immediately. . Non-Emergent Contact Non-Emergency issues call your: Primary Care Provider . . "Provider Documentation" section prepared by Sea Siddiqui. . VTE Core Measure Inpt VTE Proph given/why not?: SCD's
[2017-04-23 15:11] VITALS: BP 174/90; PULSE 76; TEMP 37.1; O2SAT 96
--- NOTE | 2017-04-23 18:53 | Discharge Summary ---
Discharge Summary Date of Service Apr 23, 2017. (Sea Siddiqui M.D.) Discharge Summary Admission Date: Apr 10, 2017 at 20:15 Discharge Date: Apr 23, 2017 Discharge Disposition: Home Principal Diagnosis: Acute Pancreatitis Immunizations: Have You Had Influenza Vaccine: No History of Tetanus Vaccine?: Yes History of Pneumococcal: No History of Hepatitis B Vaccine: Yes (Sea Siddiqui M.D.) Medication Reconciliation New Medications: Metoprolol Tartrate (Metoprolol Tartrate) 100 Mg Tab 100 MG PO BID for 30 Days, #60 TAB Nutritional Supplements (Peptamen Bariatric) 1 Liq Liq 1000 ML NJ UD for 14 Days 70 mls/hr via NJ tube for 14 days Continued Medications: Aspirin Enteric Coated (Ecotrin Or Generic *) 81 Mg Ectab 81 MG PO QAM, 0 Refills Metformin Hcl (Glucophage) 1,000 Mg Tab 1000 MG PO BID, TAB Discontinued Medications: Glimepiride (Glimepiride) 4 Mg Tab 1 TAB PO QAM Lisinopril (Zestril) 40 Mg Tab 40 MG PO QAM, TAB Discharge Exam Mr. Adair states that he feels well today. He is tolerating the 70 cc/hr feeds and has not experienced any abdominal pain, nausea or vomiting with the increase in feeds. Review of Systems: Constitutional: No fever, No chills, No sweats Respiratory: No cough Cardiovascular: No chest pain Abdomen: No pain, No nausea, No vomiting Genitourinary - Male: No hematuria, No dysuria, No urinary frequency ( Sea Siddiqui M.D.) Hospital Course Mr. 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 He was receiving feeds via an NJ tube at a rate of 70 cc/hr and tolerating this well. It is recommended that he continue these feeds for 2 weeks, at which point he can follow up with GI, repeat his CT scan and transition to an oral diet. This was his third episode of pancreatitis in 1 year, and we have therefore stopped his lisinopril, as this could have been a possible culprit. We instead increased his dosage of metoprolol to control his high blood pressure. In the hospital, his VItamin D levels were found to be low and supplemented - these will hopefully normalize when he returns to a normal diet, but should be rechecked in the outpatient setting. Total Time Spent: Less than 30 minutes This includes examination of the patient, discharge planning, medication reconciliation, and communication with other providers. (Sea Siddiqui M.D.) Resident Physician Supervision Note: I interviewed and examined the patient. Discussed with Dr. Siddiqui and agree with findings and plan as documented in the note. Any exceptions or clarifications are listed here: None Documented By: Mina Daugherty feeling OK no pain tolerating NJ tube and feeds vitals noted nad breathing unlabored abd soft acute pancreatitis - w concern on pseudocyst formation - home w NJ, outpt GI f/u (Mina Daugherty, D.O.) Discharge Instructions Please refer to the electronic Patient Visit Report (Discharge Instructions) for additional information. (Sea Siddiqui M.D.) Additional Copies To Clemente Barrios M.D.
== END 2017-04-23 16:42 | disposition home health service (06) | DRG 438 ==
LOC: EDBD 15:15 → C.EDC 15:16 → C.MED 20:15 → EDBEDREQ 20:35 → ENRESERV 20:36 → CANRESERV 20:36 → ENRESERV 21:00
PROVIDERS: ADMIT Hospitalist; ATTEND Family Medicine
DX: K85.90 Acute pancreatitis without necrosis or infection, unspecified (principal); N17.0 Acute kidney failure with tubular necrosis; R65.10 Systemic inflammatory response syndrome (SIRS) of non-infectious origin without acute organ dysfunction; I10 Essential (primary) hypertension; E11.9 Type 2 diabetes mellitus without complications; R00.0 Tachycardia, unspecified; E83.42 Hypomagnesemia; E66.9 Obesity, unspecified; Z79.82 Long term (current) use of aspirin; Z83.3 Family history of diabetes mellitus; Z82.49 Family history of ischemic heart disease and other diseases of the circulatory system

== ENCOUNTER → 2017-05-14 | Outpatient (CLI) | payer BC ==
[~2017-05-14] MED LIST changes: -GLIM4TAB2 PO; -LISI40TA PO; +LPR100 PO; +NUTR-930 NJ; +OPTIRAY 320 IV PRN
--- NOTE | 2017-05-14 11:07 | DIAGNOSTIC IMAGING REPORT ---
CT SCAN OF THE ABDOMEN AND PELVIS COMBO PANCREAS PROTOCOL CLINICAL HISTORY: Pancreatitis follow-up. COMPARISON STUDY: Abdominal CT dated 04/18/2017 and 2008. TECHNIQUE: Before and following the IV administration of 92 cc of Optiray 320, CT scan of the abdomen and pelvis is performed from the lung bases to the proximal femora. Images are reviewed in the axial, sagittal, and coronal planes. IV contrast was administered without complication. A dose lowering technique was utilized adhering to the principles of ALARA. CT DOSE: 3482.69 mGy.cm FINDINGS: Lung bases: The heart is normal in size and without pericardial effusion. There is a trace residual left pleural effusion and bibasilar atelectasis. This is most completely resolved from 04/18/2017. A 4 mm right middle lobe pulmonary nodule is seen on image #1. This is unchanged from 2008 and of doubtful significance. Liver: The contrast-enhanced liver is enlarged, measuring 19 cm in length. The liver demonstrates diffusely diminished attenuation consistent with hepatic steatosis. There is no intrahepatic biliary ductal dilatation. Hepatic and portal vasculature: Hepatic arterial anatomy is conventional. There are healed left pubic ring fractures. The hepatic veins, portal veins, and superior mesenteric vein are patent. The splenic vein appears patent. Gallbladder: Surgically absent noting clips in the gallbladder fossa. Spleen: Normal in size and attenuation. Pancreas: There is moderate glandular atrophy of the pancreas. There is heterogeneously diminished enhancement of the distal pancreatic body and tail indicating necrosis. A 1.5 cm low-attenuation region in the pancreatic head seen anterior to the superior mesenteric vein on image #140 there present focal process or possibly fluid. Peripancreatic fluid and stranding are again seen and consistent with pancreatitis. This appears modestly improved from 04/18/2017. There is fluid seen between the pancreatic tail and the spleen. There is no definite organized peripancreatic collection to indicate pseudocyst. Adrenal glands: Unremarkable. Kidneys: There are numerous small bilateral nonobstructing renal calculi measuring up to 4 mm seen on the unenhanced series. The contrast enhanced kidneys history cortical atrophy and are without hydronephrosis. The kidneys enhance symmetrically. Abdominal vasculature: The abdominal aorta is normal in course and caliber noting moderate atherosclerotic calcification. Stomach and bowel: An enteric tube terminates in the distal duodenum. There is a tiny hiatal hernia. The stomach and duodenum otherwise normal in configuration. No bowel obstruction is seen. There is mild colonic diverticulosis without CT evidence of acute diverticulitis. The appendix is well-visualized and normal. Peritoneum: There is no intraperitoneal free air or abdominal ascites. Lymphadenopathy: Mildly enlarged peripancreatic lymph nodes measure up to 12 mm. These are likely on a reactive basis. Pelvic viscera: The prostate gland is mildly enlarged and heterogeneous. The bladder is decompressed and grossly unremarkable. Skeletal structures: The skeletal structures are osteopenic. There is mild to moderate lumbosacral spondylosis. No lytic or blastic lesions are seen. IMPRESSION: 1. Findings are consistent with acute pancreatitis, which has improved from 04/18/2017. 2. There is heterogeneous/patchy enhancement of the distal pancreatic body and tail. There are foci without discernible enhancement consistent with pancreatic necrosis. 3. There may also be focal necrosis versus peripancreatic fluid seen around the pancreatic head. 4. No definite organized fluid collection is seen to indicate pseudocyst; however, fluid present between the pancreatic tail the spleen may represent developing pseudocyst. 5. The splenic vein appears patent. 6. Hepatomegaly and hepatic steatosis. 7. Bilateral nephrolithiasis. 8. A trace left pleural effusion persists. This is most completely resolved from 04/18/2017. Electronically signed by: Thiago Suresh M.D. 05/14/2017 11:05 AM Dictated Date/Time: 05/14/2017 10:42 AM
== END | disposition home or self-care (01) ==
LOC: C.CTS 09:26
PROVIDERS: ATTEND Internal Medicine Gastroenterology
DX: K85.90 Acute pancreatitis without necrosis or infection, unspecified (principal); N20.0 Calculus of kidney; R16.0 Hepatomegaly, not elsewhere classified; K76.0 Fatty (change of) liver, not elsewhere classified

== ENCOUNTER 2023-02-22 21:13 | Inpatient (IN) ==
[2023-02-22 22:34] LABS: Basophils # (auto) 0.05 K/uL (0-0.2); Basophils % (auto) 0.4 %; Eosinophils # (auto) 0.23 K/uL (0-0.50); Eosinophils % (auto) 1.9 %; Hematocrit (blood only) 32.1 % (42.0-52.0); Hemoglobin 10.7 g/dl (14.0-18.0); Immature Granulocytes # (auto) 0.07 K/uL (0.01-0.20); Immature Granulocytes % (auto) 0.6 %; Lymphocytes % (auto) 12.5 %; Mean Corpuscular Hemoglobin 28.9 pg (25.0-34.0); Mean Corpuscular Hgb Conc 33.3 g/dL (32.0-36.0); Mean Corpuscular Volume 86.8 fL (80.0-100.0); Mean Platelet Volume 10.5 fL (9.4-12.4); Monocytes # (auto) 0.98 K/uL (0.11-0.59); Monocytes % (auto) 8.2 %; Neutrophils # (auto) 9.16 K/uL (1.40-6.50); Neutrophils % (auto) 76.4 %; Platelet Count 249 K/uL (130-400); White Blood Count 11.99 K/ul (4.8-10.8)
[2023-02-22] MEDS ORDERED: VANCOMYCIN CONSULT ACTIVE PRN (22:43)
[2023-02-22] MEDS ORDERED: metroNIDAZOLE 500 MG/100 ML BAG IV STA (22:43)
[2023-02-22] MEDS ORDERED: VANCOMYCIN HCL 2,500 MG in SODIUM CHLORIDE 0.9% 500 ML IV ONE (22:43)
[2023-02-22 22:47] LABS: Albumin Level 3.8 gm/dl (3.4-5.0); BUN Creatinine Ratio 17.7 (10-20); Bilirubin,Total 0.4 mg/dl (0.2-1.0); Calcium 8.7 mg/dl (8.6-10.3); Creatinine Clr Calc Pharmacy 83.6 ml/min; Est GFR (Non-African American) 66.4 ml/min; Globulin 3.7 gm/dl (2.5-4.0); Potassium 4.3 mmol/L (3.5-5.1); Total Protein 7.5 gm/dl (6.0-8.3)
--- NOTE | 2023-02-22 23:24 | Emergency Department Note ---
History of Present Illness General Chief complaint: Calf Pain Stated complaint: INFECTION LEFT CALF Time Seen by Provider: 02/22/23 22:32 History of Present Illness Maximum Pain Intensity: 9 This is a 67-year-old male presenting to the emergency department for evaluation of infection to his left calf. Patient states that he was bit by his miniature horse 6 days ago, which broke the skin and cause bleeding. He did go to his family doctor on Friday, 4 days ago, and was started on Bactrim. He has been using peroxide and bacitracin topically, but has developed worsening pain and redness of the calf. Bruising is much worse than before as well. Patient is diabetic with sugars running in the 140s. He is able to ambulate, but it causes discomfort. His tetanus is up-to-date. No fever at home. He rates his discomfort a 03/30. Home Medications Medication Instructions Recorded Confirmed Type metformin 1,000 mg tablet 1,000 mg PO BID 06/07/18 02/23/23 History carvedilol 12.5 mg tablet 12.5 mg PO BID 04/22/22 02/23/23 History furosemide 40 mg tablet 40 mg PO QAM PRN .swelling, weight 04/22/22 02/23/23 History gain irbesartan 300 mg tablet 300 mg PO QAM 04/22/22 02/23/23 History spironolactone 25 mg tablet 25 mg PO BID 04/22/22 02/23/23 History tamsulosin 0.4 mg capsule 0.4 mg PO HS 04/22/22 02/23/23 History aspirin 81 mg tablet,delayed 81 mg PO DAILY 02/23/23 02/23/23 History release sulfamethoxazole 800 1 tab PO BID 02/23/23 02/23/23 History mg-trimethoprim 160 mg tablet Allergies Allergy/AdvReac Type Severity Reaction Status Date / Time Penicillins Allergy Mild RASH Verified 02/23/23 00:48 fluticasone [From Flonase] Allergy Unknown Verified 02/23/23 01:55 amoxicillin AdvReac Intermediate rash Verified 02/23/23 00:48 morphine AdvReac Intermediate Rowdy, Verified 02/23/23 01:25 fired up clindamycin AdvReac Unknown ? nicol's Verified 04/29/22 08:48 syndrome Past Med/Surg History Medical History BPH w urinary obs/LUTS COPD (chronic obstructive pulmonary disease) Diabetes Hx of pancreatitis Hyperlipidemia Hypertension Poor historian Surgical History History of surgery on lower extremity reconstruction- left Hx of colonoscopy S/P cholecystectomy Family History Unknown Diabetes Other No family history of adverse response to anesthesia Social History Smoking Status: Former smoker Cigarettes Per Day: Unknown.; Second Hand Exposure: No; Do You Dip or Chew Tobacco: No; Tobacco Cessation Education Requested by Patient: No Hx Alcohol Use: Yes Alcohol type: beer Hx Substance Use: No Preferred Language: Kosovan Communication Ability: Effective Drawer Liner Required: No Beliefs That Will Affect Care: None marital status: Current Living Situation: Spouse Other Information That Helps Us Care for You: No Feels Safe at Home: Yes Safety Concerns: Feels Safe At This Time Assistive Devices: Cane Assistive Devices Comment: Only using cane now due to leg injury. Review of Systems A total of 10 systems reviewed and were otherwise negative Physical Exam Vital Signs Vital Signs - 24 hr 02/22/23 21:21 02/22/23 23:14 02/23/23 01:00 Temperature 36.8 C Temperature Source Temporal Artery Scan Pulse Rate 76 Pulse Rate [Finger] 59 L 84 Respiratory Rate 18 18 16 Respiratory Effort / Characteristics Non-Labored Spontaneous Non-Labored Spontaneous Non-Labored Spontaneous Respiratory Depth Normal Normal Normal Respiratory Pattern Regular Regular Regular Blood Pressure 152/74 H Blood Pressure [Left Arm] 135/71 128/60 Blood Pressure Mean 100 Blood Pressure Mean [Left Arm] 92 82 Pulse Oximetry 97 98 99 Oxygen Delivery Method Room Air Sepsis Recent Fever Within 48 Hours No Sepsis New/Unexplained Change in Mental Status No Sepsis Action Taken by Nursing No Action Required VITALS: Vitals are noted on the nurse's note and reviewed by myself. Vital signs stable. GENERAL: Well-developed, well-nourished, white male, who is in no acute distress and resting comfortably. Patient is cooperative with the examination. HEAD: Normocephalic atraumatic. HEART: Regular rate and rhythm without murmurs gallops or rubs. LUNGS: Clear to auscultation bilaterally without wheezes, rales or rhonchi. No retractions or accessory muscle use. MUSCULOSKELETAL: Significant erythema around the left calf with injury cons istent with animal bite. There is a large amount of ecchymosis. No tenderness into the groin or distally to the foot. No palpable cord. No gross abscess appreciated. There is granulation tissue over the large breakdown of skin. NEURO: Patient was alert and oriented to person place and time. CN II through XII grossly intact. Course Administered Medications Acetaminophen (Acetaminophen 325 Mg Tab) 650 mg PO Q4H PRN PRN Reason: pain/fever Stop: 03/25/23 02:31 Last Admin: 02/23/23 03:11 Dose: 650 mg Documented By: LORRIE Vancomycin HCl 1,250 mg/ (Sodium Chloride) 275 mls @ 200 mls/hr IV Q12H [place]; Protocol Stop: 03/02/23 05:59 Last Admin: 02/23/23 05:49 Dose: 200 mls/hr Documented By: LORRIE Cefepime HCl 2,000 mg/ Syringe 20 mls @ 5 mls/min IV Q8H [place]; Protocol Stop: 03/02/23 05:59 Last Admin: 02/23/23 05:48 Dose: 5 mls/min Documented By: LORRIE Discontinued Medications Vancomycin HCl 2,500 mg/ (Sodium Chloride) 550 mls @ 200 mls/hr IV NOW ONE Stop: 02/23/23 01:27 Last Admin: 02/22/23 23:08 Dose: 200 mls/hr Documented By: MANJINDER Metronidazole (Flagyl) 500 mg in 100 mls @ 100 mls/hr IV NOW STA; Protocol Stop: 02/22/23 23:42 Last Infusion: 02/23/23 00:35 Dose: 0 mls/hr Documented By: Admin: 02/22/23 23:08 Dose: 100 mls/hr Documented By: MANJINDER Medical Decision Making Differential Diagnosis Differential diagnosis includes: Etiologies such as cellulitis, abscess, osteomyelitis, MRSA infection, DVT, necrotizing fasciitis, dermatitis, drug eruption, as well as others were entertained Laboratory Data 02/22/23 22:10 02/22/23 22:10 Lab Results 02/22/23 02/22/23 02/22/23 Range/Units 22:10 22:10 22:10 WBC 11.99 H (4.8-10.8) K/ul RBC 3.70 L (4.70-6.10) M/uL Hgb 10.7 L (14.0-18.0) g/dl Hct 32.1 L (42.0-52.0) % MCV 86.8 (80.0-100.0) fL MCH 28.9 (25.0-34.0) pg MCHC 33.3 (32.0-36.0) g/dL RDW Std Deviation 44.0 (36.4-46.3) fL RDW Coeff of Oc 14.0 (11.5-14.5) % Plt Count 249 (130-400) K/uL MPV 10.5 (9.4-12.4) fL Immature Gran % (Auto) 0.6 % Neut % (Auto) 76.4 % Lymph % (Auto) 12.5 % [place] % (Auto) 8.2 % Eos % (Auto) 1.9 % Baso % (Auto) 0.4 % Neut # (Auto) 9.16 H (1.40-6.50) K/uL Lymph # (Auto) 1.50 (1.2-3.4) K/uL [place] # (Auto) 0.98 H (0.11-0.59) K/uL Eos # (Auto) 0.23 (0-0.50) K/uL Baso # (Auto) 0.05 (0-0.2) K/uL Immature Gran # (Auto) 0.07 (0.01-0.20) K/uL Sodium 134 L (136-145) mmol/L Potassium 4.3 (3.5-5.1) mmol/L Chloride 104 (98-107) mmol/L Carbon Dioxide 22 (21-32) mmol/L Anion Gap 8 (3-11) BUN 20 (6-23) mg/dl Creatinine 1.13 (0.6-1.4) mg/dl Est Cr Clr Drug Dosing 83.6 ml/min Est GFR ( Amer) 77.0 ml/min Est GFR (Non-Af Amer) 66.4 ml/min BUN/Creatinine Ratio 17.7 (10-20) Glucose 104 H (70-99(Fasting)) mg/dl Lactate 1.7 (0.4-2.0) mmol/L Calcium 8.7 (8.6-10.3) mg/dl Total Bilirubin 0.4 (0.2-1.0) mg/dl AST 13 (13-39) U/L ALT 14 (7-52) U/L Alkaline Phosphatase 65 (34-104) U/L Total Protein 7.5 (6.0-8.3) gm/dl Albumin 3.8 (3.4-5.0) gm/dl Globulin 3.7 (2.5-4.0) gm/dl Albumin/Globulin Ratio 1.0 (0.9-2) MDM Narrative Physical exam and history were performed. Nursing notes, EMR, and Medication List were personally reviewed. No social concerns were identified as barriers to patients care. Patient appears to have bite to the left calf. He has been on antibiotics, but has clear cellulitis despite this. He is diabetic. IV access was established and labs were obtained. Patient's blood work is as above and was reviewed. He does have a slightly elevated white count of just under 12,000. He is mildly anemic at 10.7. He coronado s have a large amount of neutrophils. Glucose is 104. Transaminases are not diagnostic. Blood cultures are pending and lactic is negative. Overall I have concerns about the patient's status. He has been on antibiotics for the last 4 to 5 days and symptoms seem to be worsening. Additionally he is diabetic and has had previous surgery to this left leg. I started him on vancomycin and Flagyl after discussion with pharmacy. Case was discussed with hospitalist team, who agreed to evaluate the patient here in the ER. Please see their dictation for further patient course, plan, and disposition. The chart was completed utilizing [employer] Voice Recognition Software. Grammatical errors, random word insertions, pronoun errors, and incomplete sentences are an occasional consequence of this system due to software limitations, ambient noise, and hardware issues. Any formal questions or concerns about the content, text, or information contained within the body of this dictation should be directly addressed to the provider for clarification. . Impression & Plan Cellulitis of left leg, Animal bite of calf Discharge Plan Visit Data Chief Complaint: Calf Pain Stated Complaint: INFECTION LEFT CALF ED Provider: [place],Ministerio D ED Midlevel Provider: Florentino Umaña Discharge Problem: Cellulitis of left leg, Animal bite of calf Patient Disposition: Admitted As Inpatient Discharge Instructions Interventions: ED Discharge Assessment Last Done: 02/23/23 02:30
--- NOTE | 2023-02-23 01:01 | History & Physical Report ---
Date of Service February 23, 2023 Assessment & Plan (1) Cellulitis and abscess of left leg: (2) Bitten by horse: (3) BPH w urinary obs/LUTS: (4) COPD (chronic obstructive pulmonary disease): (5) Hypertension: (6) Diabetes: Plan Cellulitis and abscess of left leg/bitten by miniature horse- Placed on vancomycin IV and cefepime IV Follow clinical examination closely Patient is status post tetanus booster in the ED Diabetes mellitus- Hold metformin Placed on Accu-Cheks with NovoLog sliding scale insulin Hypertension- Continue aspirin, carvedilol, irbesartan. Hold spironolactone and furosemide BPH- Continue tamsulosin History of Present Illness Chief Complaint: The patient presents to the emergency department with complaint of worsening left calf area redness, pain and swelling after being bit by a miniature horse 6 days ago, and despite being on Bactrim from his family doctor that was started 4 days ago Primary Care Provider: Jenna Tobias PA-C The patient is a 67-year-old male with a past medical history including BPH with LUTS, COPD, shingles, diabetes mellitus, hypertension, acute renal sufficiency, colitis and pneumonia. 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 He thinks he may have got shocked by the fence also, but did not have any repercussions from that. He did receive Bactrim by his family doctor 4 days ago, however, his swelling and pain and redness have continued to worsen, and he presents to the ED for assessment. In the ED patient received a tetanus booster, and dosages of vancomycin and Flagyl. Allergies Allergy/AdvReac Type Severity Reaction Status Date / Time Penicillins Allergy Mild RASH Verified 02/23/23 00:48 fluticasone [From Flonase] Allergy Unknown Verified 02/23/23 01:55 amoxicillin AdvReac Intermediate rash Verified 02/23/23 00:48 morphine AdvReac Intermediate Rowdy, Verified 02/23/23 01:25 fired up clindamycin AdvReac Unknown ? nicol's Verified 04/29/22 08:48 syndrome Home Medications Medication Instructions Recorded Confirmed Type metformin 1,000 mg tablet 1,000 mg PO BID 06/07/18 02/23/23 History carvedilol 12.5 mg tablet 12.5 mg PO BID 04/22/22 02/23/23 History furosemide 40 mg tablet 40 mg PO QAM PRN .swelling, weight 04/22/22 02/23/23 History gain irbesartan 300 mg tablet 300 mg PO QAM 04/22/22 02/23/23 History spironolactone 25 mg tablet 25 mg PO BID 04/22/22 02/23/23 History tamsulosin 0.4 mg capsule 0.4 mg PO HS 04/22/22 02/23/23 History aspirin 81 mg tablet,delayed 81 mg PO DAILY 02/23/23 02/23/23 History release sulfamethoxazole 800 1 tab PO BID 02/23/23 02/23/23 History mg-trimethoprim 160 mg tablet Past Med/Surg History Medical History BPH w urinary obs/LUTS COPD (chronic obstructive pulmonary disease) Diabetes Hx of pancreatitis Hyperlipidemia Hypertension Poor historian Surgical History History of surgery on lower extremity reconstruction- left Hx of colonoscopy S/P cholecystectomy Family History Unknown Diabetes Other No family history of adverse response to anesthesia Social History Smoking Status: Former smoker Cigarettes Per Day: Unknown.; Second Hand Exposure: No; Do You Dip or Chew Tobacco: No; Tobacco Cessation Education Requested by Patient: No Hx Alcohol Use: Yes Alcohol type: beer Hx Substance Use: No Preferred Language: Swedish Communication Ability: Effective Crate Repairer Required: No Beliefs That Will Affect Care: None marital status: Current Living Situation: Spouse Other Information That Helps Us Care for You: No Feels Safe at Home: Yes Safety Concerns: Feels Safe At This Time Assistive Devices: Cane Assistive Devices Comment: Only using cane now due to leg injury. Review of Systems Review of Systems: The patient denies chest pain, palpitations, shortness of breath, dyspnea on exertion, cough, sore throat, fevers, chills, sweats, weight change, fatigue, nausea, vomiting, diarrhea , constipation, abdominal pain, pelvic pain, blood in urine or stool, dysuria, urinary frequency or urgency, lightheadedness, dizziness, headache, memory loss, loss of consciousness, abnormal bruising or bleeding, imbalance, focal or generalized weakness, numbness or tingling in arms or legs, generalized arthralgias or myalgias, back or neck pain, or night sweats. The review of systems is otherwise negative other than for that already noted above, and at least 10 systems have been reviewed. Physical Exam Physical Exam: The patient is awake, alert and oriented 3, well developed and well nourished, normocephalic and atraumatic, lying in bed and in no acute distress. HEENT--PERRL, EOMI, mucous membranes and oropharynx normal. Neck--supple. No JVD. No bruits. Thyroid normal, trachea midline, no adenopathy. Heart--normal S1 and S2. No murmurs, rubs or gallops. Lungs--clear bilaterally, no respiratory distress, no accessory muscle use. Abdomen--normal bowel sounds and soft. Nontender. Nondistended. Morbidly obese Extremities--left calf with central abraded area, surrounding erythema and warmth and swelling Dermatologic--normal except for left calf as described above Neurologic--cranial nerves II through XII grossly intact. Rheumatologic--normal range of motion. Psychiatric--normal affect. Results & Data Results & Data Vital Signs (Past 12 Hours) Vital Signs Temp Pulse Pulse Resp BP BP Pulse Ox 02/22/23 23:14 59 L 18 135/71 98 02/22/23 21:21 36.8 C 76 18 152/74 H 97 O2 Del Method 02/22/23 23:14 02/22/23 21:21 Room Air Laboratory Results Laboratory Results WBC 11.99 K/ul (4.8-10.8) H 02/22/23 22:10 RBC 3.70 M/uL (4.70-6.10) L 02/22/23 22:10 Hgb 10.7 g/dl (14.0-18.0) L 02/22/23 22:10 Hct 32.1 % (42.0-52.0) L 02/22/23 22:10 MCV 86.8 fL (80.0-100.0) 02/22/23 22:10 MCH 28.9 pg (25.0-34.0) 02/22/23 22:10 MCHC 33.3 g/dL (32.0-36.0) 02/22/23 22:10 RDW Std Deviation 44.0 fL (36.4-46.3) 02/22/23 22:10 RDW Coeff of Oc 14.0 % (11.5-14.5) 02/22/23 22:10 Plt Count 249 K/uL (130-400) 02/22/23 22:10 MPV 10.5 fL (9.4-12.4) 02/22/23 22:10 Immature Gran % (Auto) 0.6 % 02/22/23 22:10 Neut % (Auto) 76.4 % 02/22/23 22:10 Lymph % (Auto) 12.5 % 02/22/23 22:10 Gentry % (Auto) 8.2 % 02/22/23 22:10 Eos % (Auto) 1.9 % 02/22/23 22:10 Baso % (Auto) 0.4 % 02/22/23 22:10 Neut # (Auto) 9.16 K/uL (1.40-6.50) H 02/22/23 22:10 Lymph # (Auto) 1.50 K/uL (1.2-3.4) 02/22/23 22:10 Gentry # (Auto) 0.98 K/uL (0.11-0.59) H 02/22/23 22:10 Eos # (Auto) 0.23 K/uL (0-0.50) 02/22/23 22:10 Baso # (Auto) 0.05 K/uL (0-0.2) 02/22/23 22:10 Immature Gran # (Auto) 0.07 K/uL (0.01-0.20) 02/22/23 22:10 Sodium 134 mmol/L (136-145) L 02/22/23 22:10 Potassium 4.3 mmol/L (3.5-5.1) 02/22/23 22:10 Chloride 104 mmol/L (98-107) 02/22/23 22:10 Carbon Dioxide 22 mmol/L (21-32) 02/22/23 22:10 Anion Gap 8 (3-11) 02/22/23 22:10 BUN 20 mg/dl (6-23) 02/22/23 22:10 Creatinine 1.13 mg/dl (0.6-1.4) 02/22/23 22:10 Est Cr Clr Drug Dosing 83.6 ml/min 02/22/23 22:10 Est GFR ( Amer) 77.0 ml/min 02/22/23 22:10 Est GFR (Non-Af Amer) 66.4 ml/min 02/22/23 22:10 BUN/Creatinine Ratio 17.7 (10-20) 02/22/23 22:10 Glucose 104 mg/dl (70-99(Fasting)) H 02/22/23 22:10 Lactate 1.7 mmol/L (0.4-2.0) 02/22/23 22:10 Calcium 8.7 mg/dl (8.6-10.3) 02/22/23 22:10 Total Bilirubin 0.4 mg/dl (0.2-1.0) 02/22/23 22:10 AST 13 U/L (13-39) 02/22/23 22:10 ALT 14 U/L (7-52) 02/22/23 22:10 Alkaline Phosphatase 65 U/L (34-104) 02/22/23 22:10 Total Protein 7.5 gm/dl (6.0-8.3) 02/22/23 22:10 Albumin 3.8 gm/dl (3.4-5.0) 02/22/23 22:10 Globulin 3.7 gm/dl (2.5-4.0) 02/22/23 22:10 Albumin/Globulin Ratio 1.0 (0.9-2) 02/22/23 22:10 Code Status & VTE Plan Code Status Full code VTE Prophylaxis Plan VTE Prophylaxis will be ordered: Yes PG Care Time/CCT Total # of Minutes Spent Total Time Spent with Patient: Total time spent is greater than 50% in coordination of care (as documented) at patient's floor/unit and/or counseling patient: Coding Level of Care Code 72460 INT INP/OBS CARE 3/75MIN Diagnoses Cellulitis and abscess of left leg L03.116; L02.416 Bitten by horse W55.11XA BPH w urinary obs/LUTS N40.1; N13.8 COPD (chronic obstructive pulmonary disease) J44.9 Hypertension I10 Diabetes E11.9
[2023-02-23] MEDS ORDERED: GLUCAGON FOR INJ 1 MG VIAL SQ PRN (02:32)
[2023-02-23] MEDS ORDERED: DEXTROSE 50% 50 ML SYRINGE IV PRN (02:32)
[2023-02-23] MEDS ORDERED: GLUCOSE 40% GEL 15 GM TUBE PO PRN (02:32)
[2023-02-23] MEDS ORDERED: CARBOHYDRATES FOR HYPOGLYCEMIA PO PRN (02:32)
[2023-02-23] MEDS ORDERED: GLUCOSE 10 TAB/TUBE PO PRN (02:32)
[2023-02-23] MEDS ORDERED: ONDANSETRON INJ 2 MG/ML 2 ML VIAL IV PRN (02:32)
[2023-02-23] MEDS ORDERED: VANCOMYCIN CONSULT ACTIVE PRN (02:32)
[2023-02-23] MEDS: ACETAMINOPHEN 325 MG TAB PO PRN ×3 (03:11→17:15)
[2023-02-23] MEDS: CEFEPIME 2,000 MG in SYRINGE 0 ML IV SCH ×3 (05:48→21:22)
[2023-02-23] MEDS ORDERED: VANCOMYCIN HCL 1,250 MG in SODIUM CHLORIDE 0.9% 250 ML IV SCH (06:00)
--- NOTE | 2023-02-23 08:11 | Hospitalist Progress Note ---
Date of Service February 23, 2023 Assessment & Plan (1) Cellulitis and abscess of left leg: Plan: Cellulitis and abscess of left leg/bitten by miniature horse- Placed on vancomycin IV and cefepime IV Follow clinical examination closely Patient is status post tetanus booster in the ED soft tissue doppler to eval for fluid collection (2) Diabetes: Plan: Diabetes mellitus- Hold metformin Placed on Accu-Cheks with NovoLog sliding scale insulin (3) Hypertension: Plan: Hypertension-chronic and stable Continue aspirin, carvedilol, irbesartan. Hold spironolactone and furosemide (4) BPH w urinary obs/LUTS: Plan: BPH-chronic and stable Continue tamsulosin Admission and Anticipated Discharge Date Admission Date: February 23, 2023 Subjective Patient was seen in the company of his . Patient has significant discomfort when his leg is dependent. 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 He has no systemic symptoms fevers chills etc. Physical Exam Physical Exam: Patient cardiovascularly stable heart regular lungs are clear his legs have 1+ edema left slightly greater than right his left leg otherwise previously had multiple orthopedic surgeries. The area that was in question with the bite shows a ecchymotic indurated area with some sloughing of skin skin approximately the size of an orange to his posterior calf Results & Data Results & Data Vital Signs (Past 12 Hours) Vital Signs Temp Pulse Pulse Resp BP BP Pulse Ox 02/23/23 07:42 97.7 F 59 L 16 179/68 H 95 02/23/23 02:20 02/23/23 02:20 02/23/23 02:20 97.3 F L 62 14 141/76 H 94 02/23/23 01:30 63 16 117/63 97 02/23/23 01:00 84 16 128/60 99 02/22/23 23:14 59 L 18 135/71 98 02/22/23 21:21 98.2 F 76 18 152/74 H 97 O2 Del Method 02/23/23 07:42 Room Air 02/23/23 02:20 Room Air 02/23/23 02:20 Room Air 02/23/23 02:20 Room Air 02/23/23 01:30 Room Air 02/23/23 01:00 02/22/23 23:14 02/22/23 21:21 Room Air PG Care Time/CCT Total # of Minutes Spent Total Time Spent with Patient: Total time spent is greater than 50% in coordination of care (as documented) at patient's floor/unit and/or counseling patient: Coding Level of Care Code 52411 SUB INP/OBS CARE 2/35MIN Diagnoses Cellulitis and abscess of left leg L03.116; L02.416 Diabetes E11.9 Hypertension I10 BPH w urinary obs/LUTS N40.1; N13.8
[2023-02-23] MEDS: LOSARTAN POTASSIUM 50 MG TAB PO SCH (08:15)
[2023-02-23] MEDS: carvediloL 12.5 MG TAB PO SCH ×2 (08:15→17:26)
[2023-02-23] MEDS: ASPIRIN 81 MG ECTAB PO SCH (08:15)
[2023-02-23] MEDS: INSULIN ASPART PER UNIT CHARGE SC SCH ×4 (08:17→20:40)
[2023-02-23] MEDS ORDERED: IRBESARTAN 150 MG TAB PO SCH (09:00)
[2023-02-23] MEDS ORDERED: LANTUS PER UNIT CHARGE SQ SCH (09:00)
--- NOTE | 2023-02-23 14:14 | Pharmacy Report ---
Pharmacy PK ABX Note - Date of Service February 23, 2023 - Assessment and Plan Assessment 67 year old M receiving vancomcyin/cefepime/flagyl for treatment of left calf infection following an animal bite. Pertinent microbiologic data includes: Blood cultures pending. Plan Vancomycin * Loading dose: 2500 mg IV x 1 * Maintenance dose: 1000 mg IV every 12 hours * Regimen is predicted to achieve target AUC/PRINCESS of 400-600 mg/L.h * Random ordered for 02/24@ 1200 Pharmacy will continue to follow and will adjust dose/frequency as necessary. Thank you. Pharmacy has transitioned to AUC monitoring for vancomycin. AUC/RPINCESS is the preferred PK/PD target and is associated with decreased risk of nephrotoxicity compared to traditional trough targets.
[2023-02-23] MEDS ORDERED: FUROSEMIDE INJ 20 MG/2 ML VIAL IV ONE (16:49)
[2023-02-23] MEDS: VANCOMYCIN HCL 1,000 MG in SODIUM CHLORIDE 0.9% 250 ML IV SCH (17:16)
[2023-02-23] MEDS ORDERED: MoRPHine SULFATE 2 MG/ML CARP IV PRN (17:59)
[2023-02-23] MEDS: traMADol HCL 50 MG TABLET PO PRN (18:24)
--- NOTE | 2023-02-23 20:00 | Ultrasound Report ---
US extremity non-vascular ltd CLINICAL HISTORY: eval post calf for fluid collection. Recent horse bite. COMPARISON STUDY: None. FINDINGS: Real-time sonographic imaging of the left calf was performed with sales representative womens health images sub mitted. Multiloculated ill-defined subcutaneous fluid collection measuring up to 6 cm with internal e choes. This is concerning for an abscess. A subcutaneous hematoma could also have a similar appearanc e. This ill-defined fluid collection contains multiple septations and therefore would be difficult fo r percutaneous drainage. IMPRESSION: Multiloculated ill-defined subcutaneous fluid collection within the left calf containing internal echoes. This may represent an abscess. A subcutaneous hematoma could also have a similar gallito earance ACT 112: Negative or not required by law. Electronically signed by: Richard Ovalles M.D. 02/23/2023 7:58 PM
[2023-02-23] MEDS: TAMSULOSIN HCL 0.4 MG CAP PO SCH (21:22)
[2023-02-24] MEDS: traMADol HCL 50 MG TABLET PO PRN ×3 (04:34→16:06)
[2023-02-24] MEDS: VANCOMYCIN HCL 1,000 MG in SODIUM CHLORIDE 0.9% 250 ML IV SCH (05:54)
[2023-02-24] MEDS: CEFEPIME 2,000 MG in SYRINGE 0 ML IV SCH ×3 (05:55→21:02)
[2023-02-24 06:24] LABS: Basophils # (auto) 0.05 K/uL (0-0.2); Basophils % (auto) 0.5 %; Eosinophils # (auto) 0.32 K/uL (0-0.50); Eosinophils % (auto) 3.5 %; Hematocrit (blood only) 31.2 % (42.0-52.0); Hemoglobin 10.2 g/dl (14.0-18.0); Immature Granulocytes # (auto) 0.05 K/uL (0.01-0.20); Immature Granulocytes % (auto) 0.5 %; Lymphocytes # (auto) 1.71 K/uL (1.2-3.4); Lymphocytes % (auto) 18.7 %; Mean Corpuscular Hemoglobin 28.4 pg (25.0-34.0); Mean Corpuscular Hgb Conc 32.7 g/dL (32.0-36.0); Mean Corpuscular Volume 86.9 fL (80.0-100.0); Mean Platelet Volume 10.7 fL (9.4-12.4); Monocytes # (auto) 0.85 K/uL (0.11-0.59); Monocytes % (auto) 9.3 %; Neutrophils # (auto) 6.18 K/uL (1.40-6.50); Neutrophils % (auto) 67.5 %; Platelet Count 235 K/uL (130-400); RDW Coefficient of Variation 14.2 % (11.5-14.5); RDW Standard Deviation 44.6 fL (36.4-46.3); Red Blood Count 3.59 M/uL (4.70-6.10); White Blood Count 9.16 K/ul (4.8-10.8)
[2023-02-24 06:45] LABS: Albumin Level 3.4 gm/dl (3.4-5.0); BUN Creatinine Ratio 17.3 (10-20); Calcium 8.5 mg/dl (8.6-10.3); Creatinine Clr Calc Pharmacy 97.9 ml/min; Est GFR (African American) 85.1 ml/min; Est GFR (Non-African American) 73.4 ml/min; Magnesium 1.8 mg/dl (1.7-2.4); Phosphorus 2.9 mg/dl (2.5-4.9); Potassium 4.1 mmol/L (3.5-5.1)
[2023-02-24] MEDS: ACETAMINOPHEN 325 MG TAB PO PRN ×2 (07:31→17:28)
[2023-02-24] MEDS: ASPIRIN 81 MG ECTAB PO SCH (07:32)
[2023-02-24] MEDS: LOSARTAN POTASSIUM 50 MG TAB PO SCH (07:32)
[2023-02-24] MEDS: carvediloL 12.5 MG TAB PO SCH ×2 (07:32→16:04)
[2023-02-24] MEDS: INSULIN ASPART PER UNIT CHARGE SC SCH ×4 (08:18→22:20)
[2023-02-24 08:40] LABS: Estimated Average Glucose 186 mg/dl; Hemoglobin A1C 8.1 % (4.5-5.6)
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
--- NOTE | 2023-02-24 13:19 | Pharmacy Report ---
Pharmacy PK ABX Note - Date of Service February 24, 2023 - Assessment and Plan Assessment 67 year old M receiving Vancomycin and Cefepime for treatment of left calf infection following an animal bite. * Day #3 of antimicrobial therapy. * Blood cultures with no growth to date. Surgery consulted and have no plans on intervention for now, just continue abx. * Vancomycin dose will need increased today given random level results. See plan below. Plan Vancomycin * Current regimen: 1000 mg IV every 12 hours * Random level obtained 02/24/23 resulted as 13.6 mcg/mL. This is subtherapeutic with a predicted AUC at steady state of 342 mg/L.hr * Change to 1500 mg IV every 12 hours. Predicted AUC at steady state: 513 mg/L.hr * Repeat trough level ordered for: 02/26/23 Pharmacy will continue to follow and will adjust dose/frequency as necessary. Thank you. Pharmacy has transitioned to AUC monitoring for vancomycin. AUC/PRINCESS is the preferred PK/PD target and is associated with decreased risk of nephrotoxicity compared to traditional trough targets.
--- NOTE | 2023-02-24 15:47 | Hospitalist Progress Note ---
Date of Service February 24, 2023 Assessment & Plan (1) Cellulitis and abscess of left leg: Plan: Cellulitis and abscess of left leg/bitten by miniature horse- Placed on vancomycin IV and cefepime IV Patient is status post tetanus booster in the ED soft tissue doppler shows complex fluid collection, evaluated by general surgery who felt this may be hematoma as he is clinically improving on antibiotics. (2) Diabetes: Plan: Diabetes mellitus-typically on metformin and Lantus hemoglobin A1c 8.1 Hold metformin Placed on Accu-Cheks with NovoLog sliding scale insulin (3) Hypertension: Plan: Hypertension-chronic and stable Continue aspirin, carvedilol, irbesartan. Hold spironolactone given 1 dose of furosemide on 02/23/2023 (4) BPH w urinary obs/LUTS: Plan: BPH-chronic and stable Continue tamsulosin Admission and Anticipated Discharge Date Admission Date: February 23, 2023 Subjective Patient is an improvement since her intravenous diuretics and elevation of his leg. Ultrasound revealed complex fluid collection surgery evaluate the patient and feels this is improving clinically and will not proceed with I&D. Continue antibiotics at this time Additional information regarding his diabetic care includes the fact that he was on Lantus 40 units subcu daily in addition to his metformin Physical Exam Physical Exam: Patient cardiovascularly stable heart regular lungs are clear Lower extremity edema is improved dramatically with Lasix there is actually some wrinkling of his skin on his left leg the area that was in question with the bite shows a ecchymotic indurated area with some sloughing of skin skin approximately the size of an orange to his posterior calf Results & Data Results & Data Vital Signs (Past 12 Hours) Vital Signs Temp Pulse Resp BP Pulse Ox O2 Del Method 02/24/23 08:01 97.7 F 64 16 194/63 H 97 Room Air Laboratory Results Reviewed CBC Reviewed chemistry PG Care Time/CCT Total # of Minutes Spent Total Time Spent with Patient: Total time spent is greater than 50% in coordination of care (as documented) at patient's floor/unit and/or counseling patient: Coding Level of Care Code 00362 SUB INP/OBS CARE 2/35MIN Diagnoses Cellulitis and abscess of left leg L03.116; L02.416 Diabetes E11.9 Hypertension I10 BPH w urinary obs/LUTS N40.1; N13.8
[2023-02-24] MEDS: VANCOMYCIN HCL 1,500 MG in SODIUM CHLORIDE 0.9% 500 ML IV SCH (17:57)
[2023-02-24] MEDS: TAMSULOSIN HCL 0.4 MG CAP PO SCH (21:02)
[2023-02-25] MEDS: VANCOMYCIN HCL 1,500 MG in SODIUM CHLORIDE 0.9% 500 ML IV SCH ×3 (06:20→17:33)
[2023-02-25] MEDS: traMADol HCL 50 MG TABLET PO PRN ×2 (06:20→20:24)
[2023-02-25] MEDS: CEFEPIME 2,000 MG in SYRINGE 0 ML IV SCH ×4 (06:21→21:46)
[2023-02-25] MEDS: LOSARTAN POTASSIUM 50 MG TAB PO SCH (08:22)
[2023-02-25] MEDS: ASPIRIN 81 MG ECTAB PO SCH (08:23)
[2023-02-25] MEDS: carvediloL 12.5 MG TAB PO SCH ×2 (08:23→17:11)
[2023-02-25] MEDS: INSULIN ASPART PER UNIT CHARGE SC SCH ×4 (08:24→21:38)
[2023-02-25] MEDS: ACETAMINOPHEN 325 MG TAB PO PRN (08:25)
[2023-02-25 08:45] LABS: Basophils # (auto) 0.05 K/uL (0-0.2); Basophils % (auto) 0.5 %; Eosinophils # (auto) 0.31 K/uL (0-0.50); Eosinophils % (auto) 3.3 %; Hematocrit (blood only) 31.8 % (42.0-52.0); Hemoglobin 10.5 g/dl (14.0-18.0); Immature Granulocytes # (auto) 0.04 K/uL (0.01-0.20); Immature Granulocytes % (auto) 0.4 %; Lymphocytes # (auto) 1.45 K/uL (1.2-3.4); Lymphocytes % (auto) 15.3 %; Mean Corpuscular Hemoglobin 28.5 pg (25.0-34.0); Mean Corpuscular Volume 86.4 fL (80.0-100.0); Mean Platelet Volume 10.6 fL (9.4-12.4); Monocytes # (auto) 0.83 K/uL (0.11-0.59); Monocytes % (auto) 8.8 %; Neutrophils # (auto) 6.79 K/uL (1.40-6.50); Neutrophils % (auto) 71.7 %; Platelet Count 236 K/uL (130-400); RDW Coefficient of Variation 13.9 % (11.5-14.5); RDW Standard Deviation 43.9 fL (36.4-46.3); Red Blood Count 3.68 M/uL (4.70-6.10); White Blood Count 9.47 K/ul (4.8-10.8)
[2023-02-25 09:08] LABS: Albumin Level 3.5 gm/dl (3.4-5.0); BUN Creatinine Ratio 17.8 (10-20); Calcium 8.6 mg/dl (8.6-10.3); Creatinine Clr Calc Pharmacy 113.2 ml/min; Est GFR (African American) 101.4 ml/min; Est GFR (Non-African American) 87.5 ml/min; Magnesium 1.8 mg/dl (1.7-2.4); Phosphorus 2.6 mg/dl (2.5-4.9); Potassium 4.5 mmol/L (3.5-5.1)
--- NOTE | 2023-02-25 12:18 | Surgery Progress Note ---
Date of Service February 25, 2023 Assessment & Plan (1) Cellulitis of left leg: (2) Animal bite of calf: Plan 67 year-old male who had a horse bite of the left calf over 1 week ago presented with increasing swelling and redness of left lower extremity. US showing loculated fluid collection which could represent hematoma vs abscess. no leukocytosis, afebrile. Plan: Given the complexity fo the fluid collection on ultrasound and that it is clinically improving (Getting smaller) would recommend conservative management at this time with IV antibiotics. If wbc increases, starts to having increasing pain or redness may need to consider open drainage however given the improvemen t, patients diabetes, and possibility of a loculated hematoma would advise against I&D at this time. Continue IV antibiotics Continue current medical management consider Optifoam dressing over wound. Discussed with Dr. Bear who agrees with above. Admission and Anticipated Discharge Date Admission Date: February 23, 2023 Subjective feels about the same as yesterday, no increase in pain in the left calf still having a lot of pain with movement and walking no fevers or chills no increase in redness of the wound Physical Exam Constitutional: WD/WN, vitals as above + morbidly obese, cooperative and comfortable; no acute distress and not ill appearing Musculoskeletal: Left posterior calf: there is erythema at wound edges and some skin breakdown with purulent/serous drainage on padding under the leg. There is fluctuance, about same as yesterday. No streaking erythema. Tender to palpation. Psychiatric: Orientation: alert and oriented x 3 Results & Data Vital Signs (Past 12 Hours) Vital Signs Temp Pulse Resp BP Pulse Ox O2 Del Method 02/25/23 07:49 Room Air 02/25/23 07:15 36.7 C 72 18 172/77 H 97 Room Air Laboratory Results 02/25/23 02/25/23 02/25/23 Range/Units 11:36 08:20 08:20 WBC 9.47 (4.8-10.8) K/ul RBC 3.68 L (4.70-6.10) M/uL Hgb 10.5 L (14.0-18.0) g/dl Hct 31.8 L (42.0-52.0) % MCV 86.4 (80.0-100.0) fL MCH 28.5 (25.0-34.0) pg MCHC 33.0 (32.0-36.0) g/dL RDW Std Deviation 43.9 (36.4-46.3) fL RDW Coeff of Oc 13.9 (11.5-14.5) % Plt Count 236 (130-400) K/uL MPV 10.6 (9.4-12.4) fL Immature Gran % (Auto) 0.4 % Neut % (Auto) 71.7 % Lymph % (Auto) 15.3 % [place] % (Auto) 8.8 % Eos % (Auto) 3.3 % Baso % (Auto) 0.5 % Neut # (Auto) 6.79 H (1.40-6.50) K/uL Lymph # (Auto) 1.45 (1.2-3.4) K/uL [place] # (Auto) 0.83 H (0.11-0.59) K/uL Eos # (Auto) 0.31 (0-0.50) K/uL Baso # (Auto) 0.05 (0-0.2) K/uL Immature Gran # (Auto) 0.04 (0.01-0.20) K/uL Sodium 134 L (136-145) mmol/L Potassium 4.5 (3.5-5.1) mmol/L Chloride 103 (98-107) mmol/L Carbon Dioxide 27 (21-32) mmol/L Anion Gap 4 (3-11) BUN 16 (6-23) mg/dl Creatinine 0.90 (0.6-1.4) mg/dl Est Cr Clr Drug Dosing 113.2 ml/min Est GFR ( Amer) 101.4 ml/min Est GFR (Non-Af Amer) 87.5 ml/min BUN/Creatinine Ratio 17.8 (10-20) Glucose 175 H (70-99(Fasting)) mg/dl POC Glucose 155 H (70-99) mg/dl Calcium 8.6 (8.6-10.3) mg/dl Phosphorus 2.6 (2.5-4.9) mg/dl Magnesium 1.8 (1.7-2.4) mg/dl Albumin 3.5 (3.4-5.0) gm/dl Random Vancomycin (10-20) mcg/ml 02/25/23 02/24/23 02/24/23 Range/Units 07:32 20:36 16:27 WBC (4.8-10.8) K/ul RBC (4.70-6.10) M/uL Hgb (14.0-18.0) g/dl Hct (42.0-52.0) % MCV (80.0-100.0) fL MCH (25.0-34.0) pg MCHC (32.0-36.0) g/dL RDW Std Deviation (36.4-46.3) fL RDW Coeff of Oc (11.5-14.5) % Plt Count (130-400) K/uL MPV (9.4-12.4) fL Immature Gran % (Auto) % Neut % (Auto) % Lymph % (Auto) % [place] % (Auto) % Eos % (Auto) % Baso % (Auto) % Neut # (Auto) (1.40-6.50) K/uL Lymph # (Auto) (1.2-3.4) K/uL [place] # (Auto) (0.11-0.59) K/uL Eos # (Auto) (0-0.50) K/uL Baso # (Auto) (0-0.2) K/uL Immature Gran # (Auto) (0.01-0.20) K/uL Sodium (136-145) mmol/L Potassium (3.5-5.1) mmol/L Chloride (98-107) mmol/L Carbon Dioxide (21-32) mmol/L Anion Gap (3-11) BUN (6-23) mg/dl Creatinine (0.6-1.4) mg/dl Est Cr Clr Drug Dosing ml/min Est GFR ( Amer) ml/min Est GFR (Non-Af Amer) ml/min BUN/Creatinine Ratio (10-20) Glucose (70-99(Fasting)) mg/dl POC Glucose 132 H 129 H 119 H (70-99) mg/dl Calcium (8.6-10.3) mg/dl Phosphorus (2.5-4.9) mg/dl Magnesium (1.7-2.4) mg/dl Albumin (3.4-5.0) gm/dl Random Vancomycin (10-20) mcg/ml 08/07/23 Range/Units 12:23 WBC (4.8-10.8) K/ul RBC (4.70-6.10) M/uL Hgb (14.0-18.0) g/dl Hct (42.0-52.0) % MCV (80.0-100.0) fL MCH (25.0-34.0) pg MCHC (32.0-36.0) g/dL RDW Std Deviation (36.4-46.3) fL RDW Coeff of Oc (11.5-14.5) % Plt Count (130-400) K/uL MPV (9.4-12.4) fL Immature Gran % (Auto) % Neut % (Auto) % Lymph % (Auto) % [place] % (Auto) % Eos % (Auto) % Baso % (Auto) % Neut # (Auto) (1.40-6.50) K/uL Lymph # (Auto) (1.2-3.4) K/uL [place] # (Auto) (0.11-0.59) K/uL Eos # (Auto) (0-0.50) K/uL Baso # (Auto) (0-0.2) K/uL Immature Gran # (Auto) (0.01-0.20) K/uL Sodium (136-145) mmol/L Potassium (3.5-5.1) mmol/L Chloride (98-107) mmol/L Carbon Dioxide (21-32) mmol/L Anion Gap (3-11) BUN (6-23) mg/dl Creatinine (0.6-1.4) mg/dl Est Cr Clr Drug Dosing ml/min Est GFR ( Amer) ml/min Est GFR (Non-Af Amer) ml/min BUN/Creatinine Ratio (10-20) Glucose (70-99(Fasting)) mg/dl POC Glucose (70-99) mg/dl Calcium (8.6-10.3) mg/dl Phosphorus (2.5-4.9) mg/dl Magnesium (1.7-2.4) mg/dl Albumin (3.4-5.0) gm/dl Random Vancomycin 13.6 (10-20) mcg/ml Microbiology 02/22/23 23:01 Aerobic Blood Culture - Preliminary Blood No growth in Aerobic bottle after 48 hours. Anaerobic Blood Culture - Preliminary No growth in Anaerobic bottle after 48 hours. 02/22/23 22:10 Aerobic Blood Culture - Preliminary Blood No growth in Aerobic bottle after 48 hours. Anaerobic Blood Culture - Preliminary No growth in Anaerobic bottle after 48 hours.
--- NOTE | 2023-02-25 17:06 | Hospitalist Progress Note ---
Date of Service February 25, 2023 Assessment & Plan (1) Cellulitis and abscess of left leg: Plan: Cellulitis and abscess of left leg/bitten by miniature horse- Placed on vancomycin IV and cefepime IV Patient is status post tetanus booster in the ED soft tissue doppler shows complex fluid collection, evaluated by general surgery who felt this may be hematoma as he is clinically improving on antibiotics. Choice will be difficult to transition oral antibiotics at home to cover broad range may consider doxycycline given his allergies to penicillin clindamycin also could consider Bactrim (2) Diabetes: Plan: Diabetes mellitus-typically on metformin and Lantus hemoglobin A1c 8.1, [id number] glucoses are acceptable Hold metformin also typically on Lantus dosing at home Placed on Accu-Cheks with NovoLog sliding scale insulin (3) Hypertension: Plan: Hypertension-chronic and stable Continue aspirin, carvedilol, irbesartan. Resume spironolactone given 1 dose of furosemide on 02/23/2023 (4) BPH w urinary obs/LUTS: Plan: BPH-chronic and stable Continue tamsulosin Plan Due to pain and inability to bear weight continue to treat for additional day and reassess Admission and Anticipated Discharge Date Admission Date: February 23, 2023 Subjective Patient still with significant discomfort in his calf difficulty bearing weight is superficial wound is still draining somewhat. His lower extremity edema has improved Physical Exam Physical Exam: Patient cardiovascularly stable heart regular lungs are clear Lower extremity edema is improved the area that was in question with the bite shows a ecchymotic indurated area with some sloughing of skin skin approximately the size of an orange to his posterior calf There is some surrounding erythema very tender to touch no pointing or expressible fluid Results & Data Results & Data Vital Signs (Past 12 Hours) Vital Signs Temp Pulse Resp BP Pulse Ox O2 Del Method 02/25/23 15:15 98.2 F 65 18 181/69 H 99 Room Air 02/25/23 07:49 Room Air 02/25/23 07:15 98.1 F 72 18 172/77 H 97 Room Air Laboratory Results Reviewed CBC reviewed chemistry Reviewed [id number] glucose PG Care Time/CCT Total # of Minutes Spent Total Time Spent with Patient: Total time spent is greater than 50% in coordination of care (as documented) at patient's floor/unit and/or counseling patient: Coding Level of Care Code 28720 SUB INP/OBS CARE MIN Diagnoses Cellulitis and abscess of left leg L03.116; L02.416 Diabetes E11.9 Hypertension I10 BPH w urinary obs/LUTS N40.1; N13.8
[2023-02-25] MEDS: SPIRONOLACTONE 25 MG TAB PO SCH (20:22)
[2023-02-25] MEDS: TAMSULOSIN HCL 0.4 MG CAP PO SCH (20:22)
[2023-02-26] MEDS ORDERED: VANCOMYCIN LEVEL ONE (05:30)
[2023-02-26] MEDS: CEFEPIME 2,000 MG in SYRINGE 0 ML IV SCH ×2 (06:00→13:07)
[2023-02-26] MEDS: VANCOMYCIN HCL 1,500 MG in SODIUM CHLORIDE 0.9% 500 ML IV SCH (06:00)
[2023-02-26 06:37] LABS: Creatinine Clr Calc Pharmacy 108.4 ml/min; Est GFR (African American) 96.2 ml/min
[2023-02-26] MEDS: LOSARTAN POTASSIUM 50 MG TAB PO SCH (07:35)
[2023-02-26] MEDS: ASPIRIN 81 MG ECTAB PO SCH (07:35)
[2023-02-26] MEDS: carvediloL 12.5 MG TAB PO SCH (07:35)
[2023-02-26] MEDS: SPIRONOLACTONE 25 MG TAB PO SCH (07:35)
[2023-02-26] MEDS: INSULIN ASPART PER UNIT CHARGE SC SCH ×2 (07:57→12:08)
--- NOTE | 2023-02-26 08:19 | Pharmacy Report ---
Pharmacy PK ABX Note - Date of Service February 26, 2023 - Assessment and Plan Assessment 67 year old M receiving Vancomycin and Cefepime for treatment of left calf infection following an animal bite. * Day #5 of antimicrobial therapy. * Blood cultures with no growth to date. Patient remains afebrile. * Renal function remains stable. * Anticipating transition to oral antibiotics in coming days. Plan Vancomycin * Current regimen: 1500 mg IV every 12 hours * Trough level obtained 02/26/23 resulted as 11.7 mcg/mL. This is predicted to achieve target AUC/PRINCESS of 400-600 mg/L.hr * Predicted AUC at steady state: 437 mg/L.hr * Continue 1500 mg IV every 12 hours * Will repeat level in the next 48-72 hours if therapy is continued and/or change in patient clinical status Cefepime * 2 g IV q8h Pharmacy will continue to follow and will adjust dose/frequency as necessary. Thank you. Pharmacy has transitioned to AUC monitoring for vancomycin. AUC/PRINCESS is the preferred PK/PD target and is associated with decreased risk of nephrotoxicity compared to traditional trough targets.
--- NOTE | 2023-02-26 15:45 | Discharge Summary ---
Date of Service February 26, 2023 Admission HPI Per Admitting Provider The patient is a 67-year-old male with a past medical history including BPH with LUTS, COPD, shingles, diabetes mellitus, hypertension, acute renal sufficiency, colitis and pneumonia. 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 He thinks he may have got shocked by the fence also, but did not have any repercussions from that. He did receive Bactrim by his family doctor 4 days ago, however, his swelling and pain and redness have continued to worsen, and he presents to the ED for assessment. In the ED patient received a tetanus booster, and dosages of vancomycin and Flagyl. Principal Diagnosis animal bite cellulitis, possible abscess Discharge Exam pt has open areas some healing occurring, mild LE edema, tender and receding redness Discharge Data Allergies Allergy/AdvReac Type Severity Reaction Status Date / Time Penicillins Allergy Mild RASH Verified 02/23/23 00:48 fluticasone [From Flonase] Allergy Unknown Verified 02/23/23 01:55 amoxicillin AdvReac Intermediate rash Verified 02/23/23 00:48 morphine AdvReac Intermediate Rowdy, Verified 02/23/23 01:25 fired up clindamycin AdvReac Unknown ? nicol's Verified 04/29/22 08:48 syndrome Consultations 02/23/23 00:29 ED Decision to Admit Stat 02/24/23 07:34 Consult General Surgery Routine Ordered Studies 02/23/23 14:20 US leg [US extremity non-vascular ltd] Routine Hospital Course (1) Cellulitis and abscess of left leg: Cellulitis and abscess of left leg/bitten by miniature horse- Placed on vancomycin IV and cefepime IV Patient is status post tetanus booster in the ED soft tissue doppler shows complex fluid collection, evaluated by general surgery who felt this may be hematoma as he is clinically improving on antibiotics. Choice will be difficult to transition oral antibiotics at home to cover broad range will use doxycycline given his allergies to penicillin clindamycin pre hospital was on Bactrim (2) Diabetes: Diabetes mellitus-typically on metformin and Lantus hemoglobin A1c 8.1, [id number] glucoses are acceptable (3) Hypertension: Hypertension-chronic and stable Continue aspirin, carvedilol, irbesartan. Resume spironolactone given 1 dose of furosemide on 02/23/2023 (4) BPH w urinary obs/LUTS: BPH-chronic and stable Continue tamsulosin Plan was given wound care instructions, to wash daily with soap and water, cover open area with xeroform and wrap , edwin have short term follow up Total Time Total Time Spent Total Time Spent (In Minutes): it required greater than 30 minutes to prepare this patient for discharge Discharge Plan Discharge Items Patient Disposition: Home - Self-Care Reason For Visit: CELLULITIS / ABSCESS OF LLE, ANIMAL BITE Discharge Diagnosis: cellulitis possible abscess secondary to animal bite Activity: Per Instructions section Activity Comment: keep wound covered if in dirty conditions, elevate leg as much as possible Non-emergency contact: Primary Care Provider Call non-emergency contact if: your symptoms worsen Follow-up/Referrals: Jenna Tobias PA-C [Primary Care Provider] - Amada Topete DO [Surgeon] - 03/06/23 1:30 pm (Appointment will be at the [facility] office. Please arrive for appointment at 1:05pm ) Benedict Ordaz DO [Resident] - 03/03/23 9:45 am Diet: Carb Consistent or DM2 Addtl Attending Provider Instructions: Wash wound daily and when ever soiled or wet dry completely use Xeroform double layer to cover wound, then one layer of clean 4x4 and wrap with a thin layer of suzette or kerlex secure in place with tape or stocking continue to do this until outpt provider changes or wound completely heals Addtl Funeral Assistant Provider Instructions: Although your insulin is not listed in your discharge please continue your home insulin dose we were unsure of the exact amount did not want to place an erroneous recommendation so return to your home insulin dosing please Pending Studies at Discharge: No Stand-Alone Forms: [employer], Smoking Cessation Medications and DC Order Prescriptions: New tramadol 50 mg Tablet 50 mg PO Q4H PRN (Reason: pain) Qty: 20 0RF doxycycline hyclate 100 mg capsule 100 mg PO BID 10 Days Qty: 20 0RF (DME) Xeroform Non-Occlusive 4 X 3 "-yard bandage See Rx Instructions .Route Qty: 36 0RF Rx Instructions: As directed (DME) gauze bandage 3 X 5 "-yard bandage See Rx Instructions .Route Qty: 96 0RF Rx Instructions: As directed (DME) gauze bandage 4 X 4 " bandage See Rx Instructions .Route Qty: 25 2RF Rx Instructions: As directed Continued metformin 1,000 mg Tablet 1,000 mg PO BID carvedilol 12.5 mg Tablet 12.5 mg PO BID Rx Instructions: must administer with a meal/food spironolactone 25 mg Tablet 25 mg PO BID tamsulosin 0.4 mg Capsule 0.4 mg PO HS irbesartan 300 mg Tablet 300 mg PO QAM furosemide 40 mg Tablet 40 mg PO QAM PRN (Reason: .swelling, weight gain) Rx Instructions: take this med daily, as needed, for weight gain of two pounds or more in 24 hour period, or, five pounds in one week. aspirin 81 mg Tablet,Delayed Release (Dr/Ec) 81 mg PO DAILY Discontinued sulfamethoxazole-trimethoprim 800-160 mg tablet 1 tab PO BID Rx Instructions: BEGIN 02/23/23, FINISH IN 10 DAYS. Discharge Orders: Discharge Order (Routine); Ordered 02/26/23 Ordered By: Dez Fagan Admission Data Admit Date/Time: 02/23/23 01:01 Attending Provider: Dez Fagan Admit Provider: Darwin Wan Primary Care Provider: Jenna Tobias Other Providers: Ronny Bear ; Darwin Wan Other Interventions: Discharge Summary Assessment (RN) Last Done: 02/26/23 13:32 Coding Level of Care Code 49953 INP/OBS DISCH >30 MIN Diagnoses Cellulitis and abscess of left leg L03.116; L02.416 Diabetes E11.9 Hypertension I10 BPH w urinary obs/LUTS N40.1; N13.8
== END 2023-02-26 14:15 | disposition home or self-care (01) | DRG 603 ==
LOC: ED 21:13 → 3E 02-23 01:01 → SUATTDRO 02-23 01:01 → 3E 02-23 02:30

== ENCOUNTER 2023-03-10 10:47 | Inpatient (IN) ==
[2023-03-10 12:36] LABS: Basophils # (auto) 0.06 K/uL (0-0.2); Basophils % (auto) 0.6 %; Eosinophils # (auto) 0.28 K/uL (0-0.50); Eosinophils % (auto) 2.8 %; Hematocrit (blood only) 34.5 % (42.0-52.0); Hemoglobin 11.3 g/dl (14.0-18.0); Immature Granulocytes # (auto) 0.05 K/uL (0.01-0.20); Immature Granulocytes % (auto) 0.5 %; Lymphocytes % (auto) 18.3 %; Mean Corpuscular Hemoglobin 28.6 pg (25.0-34.0); Mean Corpuscular Hgb Conc 32.8 g/dL (32.0-36.0); Mean Corpuscular Volume 87.3 fL (80.0-100.0); Mean Platelet Volume 10.6 fL (9.4-12.4); Monocytes # (auto) 0.64 K/uL (0.11-0.59); Monocytes % (auto) 6.5 %; Neutrophils % (auto) 71.3 %; Platelet Count 305 K/uL (130-400); RDW Standard Deviation 44.9 fL (36.4-46.3); Red Blood Count 3.95 M/uL (4.70-6.10); White Blood Count 9.83 K/ul (4.8-10.8)
[2023-03-10 13:04] LABS: BUN Creatinine Ratio 30.9 (10-20); Bilirubin,Total 0.6 mg/dl (0.2-1.0); Calcium 9.7 mg/dl (8.6-10.3); Creatinine Clr Calc Pharmacy 104.8 ml/min; Est GFR (African American) 92.6 ml/min; Est GFR (Non-African American) 79.9 ml/min; Potassium 4.9 mmol/L (3.5-5.1)
--- NOTE | 2023-03-10 13:04 | XRay Report ---
SINGLE VIEW CHEST CLINICAL HISTORY: Sepsis. FINDINGS: 2 AP, portable, upright chest radiographs are compared to chest x-ray and chest CT dated . The heart is top normal for projection. No airspace consolidation or large pleural effusion is identified. No pneumothorax is seen. The bony thorax is grossly intact. IMPRESSION: No acute cardiopulmonary abnormality. ACT 112: Negative or not required by law. Electronically signed by: Thiago Suresh M.D. 03/10/2023 1:03 PM
[2023-03-10 13:06] LABS: Partial Thromboplastin Time 27.5 Seconds (21.0-31.0)
--- NOTE | 2023-03-10 14:44 | Ultrasound Report ---
US extremity non-vascular ltd HISTORY: 67 years-old Male horse bite f/u us worsened draiing follow-up study in a patient with a fl uid collection in the left calf COMPARISON: 02/23/2023 TECHNIQUE: Multiple real-time sonographic images of the left calf soft tissues were obtained anuradha waldrop grayscale appearance and color flow FINDINGS: Complex mixed echogenicity collection within the subcutaneous tissues of the left calf redemonstrated which demonstrates more apparent fluid components and is more discrete compared to the prior study o verall measuring 10.8 x 3.9 x 7.6 cm, which was not measured in its entirety by the stock house worker on prior study. IMPRESSION: Persistent complex collection of the left calf suggestive of an abscess versus hematoma m easuring 10.8 cm. ACT 112: Negative or not required by law. The above report was generated using voice recognition software. It may contain grammatical, syntax o r spelling errors. Electronically signed by: Zane Lock M.D. 03/10/2023 2:42 PM
[2023-03-10] MEDS ORDERED: PIPERACILLIN/TAZOBACTAM 4.5 GM/120 ML BAG IV ONE (14:47)
--- NOTE | 2023-03-10 15:03 | Emergency Department Note ---
History of Present Illness General Chief complaint: Animal Bite Stated complaint: HORSE BITE, REF BY DOC Time Seen by Provider: 03/10/23 12:59 History of Present Illness Provider complaint: Hoarse bite Onset (ago): week(s) 2 Location: lower extremity and right Maximum Pain Intensity: 6 67-year-old male presents emergency department for horse bite. Patient reports that he was bitten in his left calf 2 weeks ago by a horse and states that he was on IV antibiotics when he was admitted to the hospital and was discharged with oral antibiotics. He states he took all of his antibiotics however there has been increasing swelling and drainage from his wound. He states he went to go see his PCP at [facility] and was referred to the emergency department. Patient states he saw Dr. Bates while inpatient as well as Dr. Bear surgical team while inpatient. No fevers. Home Medications Medication Instructions Recorded Confirmed Type metformin 1,000 mg tablet 1,000 mg PO BID 06/07/18 03/10/23 History carvedilol 12.5 mg tablet 12.5 mg PO BID 04/22/22 03/10/23 History furosemide 40 mg tablet 40 mg PO QAM PRN .swelling, weight 04/22/22 03/10/23 History gain irbesartan 300 mg tablet 300 mg PO QAM 04/22/22 03/10/23 History spironolactone 25 mg tablet 25 mg PO BID 04/22/22 03/10/23 History tamsulosin 0.4 mg capsule 0.4 mg PO HS 04/22/22 03/10/23 History aspirin 81 mg tablet,delayed 81 mg PO DAILY 02/23/23 03/10/23 History release bismuth tribrom-petrolatum,wh 4" X #36 ea 02/26/23 03/10/23 Rx 3 yard bandage (Xeroform Non-Occlusive) gauze bandage 3" X 5 yard #96 ea 02/26/23 03/10/23 Rx gauze bandage 4" X 4" #25 ea 02/26/23 03/10/23 Rx acetaminophen 325 mg tablet 650 mg PO QID PRN Pain 03/10/23 03/10/23 History (Tylenol) insulin glargine 100 unit/mL (3 40 unit subcut BID 03/10/23 03/10/23 History mL) subcutaneous pen (Lantus Solostar U-100 Insulin) Allergies Allergy/AdvReac Type Severity Reaction Status Date / Time Penicillins Allergy Mild RASH Verified 03/10/23 15:26 fluticasone [From Flonase] Allergy Unknown Verified 03/10/23 15:26 amoxicillin AdvReac Intermediate rash Verified 03/10/23 15:26 morphine AdvReac Intermediate Rowdy, Verified 03/10/23 15:26 fired up clindamycin AdvReac Unknown ? nicol's Verified 03/10/23 15:26 syndrome Past Med/Surg History Medical History BPH w urinary obs/LUTS COPD (chronic obstructive pulmonary disease) Diabetes Hx of pancreatitis Hyperlipidemia Hypertension Poor historian Surgical History History of surgery on lower extremity reconstruction- left Hx of colonoscopy S/P cholecystectomy Family History Unknown Diabetes Other No family history of adverse response to anesthesia Social History Smoking Status: Never smoker Cigarettes Per Day: Unknown.; Second Hand Exposure: No; Do You Dip or Chew Tobacco: No; Hx Alcohol Use: No Hx Substance Use: No Preferred Language: Macanese Communication Ability: Effective 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: No Beliefs That Will Affect Care: None marital status: Current Living Situation: Spouse Other Information That Helps Us Care for You: No Feels Safe at Home: Yes Safety Concerns: Feels Safe At This Time Assistive Devices: None Physical Exam Vital Signs Vital Signs - 24 hr 03/10/23 10:55 03/10/23 14:35 Temperature 36.8 C Temperature Source Oral Pulse Rate 57 L Pulse Rate [Right Finger] 54 L Respiratory Rate 18 18 Blood Pressure 170/82 H Blood Pressure [Right Arm] 164/81 H Blood Pressure Mean 111 Blood Pressure Mean [Right Arm] 108 Blood Pressure Position Sitting Pulse Oximetry 96 96 Oxygen Delivery Method Room Air Sepsis Recent Fever Within 48 Hours No Sepsis New/Unexplained Change in Mental Status No Sepsis Action Taken by Nursing No Action Required Left lower extremity: Compartments soft. Wound of the left posterior calf with drainage. Palpable DP and PT pulse. Course Course 1259: The patient was evaluated in room B8. A complete history and physical exam was performed Cardiac monitoring: An order was placed for continuous cardiac monitoring. The monitor shows a rate of 50 with sinus rhythm interpreted by wa 1447: Vital signs stable. Labs within normal limits. Ultrasound shows a complex collection of the left calf measuring 10.8 cm hematoma versus abscess. This is increased in size from 6 cm from the ultrasound done on February 23, 2 weeks ago. Spoke with Jessica Matamoros on-call general surgery PA for Dr. Arlyn moore. She states she will be down to evaluate the patient and recommends that the patient be admitted to the medicine team. Zosyn ordered for the patient. Patient will be admitted to the [facility] Hospitalist team Dr. Sharp. Administered Medications Insulin Aspart (Insulin Aspart Per Unit Charge) 0 units SC Q6 [place]RA[place] Stop: 04/09/23 17:59 Last Admin: 03/10/23 19:15 Dose: Not Given Documented By: ANALI Co-signed By: DAVID Discontinued Medications Cefepime HCl (Cefepime 2,000 Mg/20 Ml Vial) Confirm Administered Dose 2,000 mg .ROUTE .STK-MED ONE Stop: 03/10/23 19:10 Last Admin: 03/10/23 19:16 Dose: Not Given Documented By: ANALI Piperacillin Sod/Tazobactam Sod (Zosyn) 4.5 gm in 120 mls @ 240 mls/hr IV NOW ONE Stop: 03/10/23 15:16 Last Infusion: 03/10/23 16:44 Dose: 0 mls/hr Documented By: Admin: 03/10/23 15:35 Dose: 240 mls/hr Documented By: SHAKIRA Lactated Ringer's (Lr) 1,000 mls @ 999 mls/hr IV .Q1H1M ONE Stop: 03/10/23 16:13 Last Infusion: 03/10/23 19:00 Dose: 0 mls/hr Documented By: Admin: 03/10/23 16:14 Dose: 999 mls/hr Documented By: SHAKIRA Cefepime HCl 2,000 mg/ Syringe 20 mls @ 5 mls/min IV NOW ONE; Protocol Stop: 03/10/23 18:03 Last Admin: 03/10/23 19:24 Dose: 5 mls/min Documented By: ANALI Daptomycin 400 mg/ Syringe 8 mls @ 4 mls/min IV NOW ONE; Protocol Stop: 03/10/23 18:01 Last Admin: 03/10/23 19:17 Dose: 4 mls/min Documented By: ANALI Ioversol (Ioversol 350 Mg 125ml Prefilled Syringe) 117 ml IV ONCE ONE Stop: 03/10/23 17:27 Last Admin: 03/10/23 17:26 Dose: 117 ml Documented By: RENU Lorazepam (Lorazepam 2 Mg/1 Ml Vial) 1 mg IV NOW STA Stop: 03/10/23 17:06 Last Admin: 03/10/23 17:21 Dose: 1 mg Documented By: SHAKIRA Medical Decision Making Medical Records Attestation: I reviewed the patient's medical records. External medical records were reviewed. The patient was admitted from February 22 to February 26, 2023. He was admitted for horse bite to the right calf. Patient was seen by general surgery Dr. Bear's team. Patient had an ultrasound on February 22 which showed a 6 cm abscess versus hematoma. The patient was treated with IV vancomycin and cefepime and admitted to the hospitalist service. The patient was discharged with oral doxycycline. Laboratory Data Attestation: I reviewed the patient's lab results. 03/10/23 12:00 03/10/23 12:00 Lab Results 03/10/23 03/10/23 03/10/23 Range/Units 12:00 12:00 12:00 WBC 9.83 (4.8-10.8) K/ul RBC 3.95 L (4.70-6.10) M/uL Hgb 11.3 L (14.0-18.0) g/dl Hct 34.5 L (42.0-52.0) % MCV 87.3 (80.0-100.0) fL MCH 28.6 (25.0-34.0) pg MCHC 32.8 (32.0-36.0) g/dL RDW Std Deviation 44.9 (36.4-46.3) fL RDW Coeff of Oc 14.0 (11.5-14.5) % Plt Count 305 (130-400) K/uL MPV 10.6 (9.4-12.4) fL Immature Gran % (Auto) 0.5 % Neut % (Auto) 71.3 % Lymph % (Auto) 18.3 % [place] % (Auto) 6.5 % Eos % (Auto) 2.8 % Baso % (Auto) 0.6 % Neut # (Auto) 7.00 H (1.40-6.50) K/uL Lymph # (Auto) 1.80 (1.2-3.4) K/uL [place] # (Auto) 0.64 H (0.11-0.59) K/uL Eos # (Auto) 0.28 (0-0.50) K/uL Baso # (Auto) 0.06 (0-0.2) K/uL Immature Gran # (Auto) 0.05 (0.01-0.20) K/uL ESR (0-20) mm/hr APTT 27.5 (21.0-31.0) Seconds PTT Ratio 1.0 Sodium 136 (136-145) mmol/L Potassium 4.9 (3.5-5.1) mmol/L Chloride 103 (98-107) mmol/L Carbon Dioxide 26 (21-32) mmol/L Anion Gap 7 (3-11) BUN 30 H (6-23) mg/dl Creatinine 0.97 (0.6-1.4) mg/dl Est Cr Clr Drug Dosing 104.8 ml/min Est GFR ( Amer) 92.6 ml/min Est GFR (Non-Af Amer) 79.9 ml/min BUN/Creatinine Ratio 30.9 H (10-20) Glucose 120 H (70-99(Fasting)) mg/dl Calcium 9.7 (8.6-10.3) mg/dl Total Bilirubin 0.6 (0.2-1.0) mg/dl AST 14 (13-39) U/L ALT 13 (7-52) U/L Alkaline Phosphatase 61 (34-104) U/L C-Reactive Protein 2.91 H (0-0.5) mg/dl Total Protein 8.0 (6.0-8.3) gm/dl Albumin 4.0 (3.4-5.0) gm/dl Globulin 4.0 (2.5-4.0) gm/dl Albumin/Globulin Ratio 1.0 (0.9-2) 08/21/23 Range/Units 12:00 WBC (4.8-10.8) K/ul RBC (4.70-6.10) M/uL Hgb (14.0-18.0) g/dl Hct (42.0-52.0) % MCV (80.0-100.0) fL MCH (25.0-34.0) pg MCHC (32.0-36.0) g/dL RDW Std Deviation (36.4-46.3) fL RDW Coeff of Oc (11.5-14.5) % Plt Count (130-400) K/uL MPV (9.4-12.4) fL Immature Gran % (Auto) % Neut % (Auto) % Lymph % (Auto) % [place] % (Auto) % Eos % (Auto) % Baso % (Auto) % Neut # (Auto) (1.40-6.50) K/uL Lymph # (Auto) (1.2-3.4) K/uL [place] # (Auto) (0.11-0.59) K/uL Eos # (Auto) (0-0.50) K/uL Baso # (Auto) (0-0.2) K/uL Immature Gran # (Auto) (0.01-0.20) K/uL ESR 79 H (0-20) mm/hr APTT (21.0-31.0) Seconds PTT Ratio Sodium (136-145) mmol/L Potassium (3.5-5.1) mmol/L Chloride (98-107) mmol/L Carbon Dioxide (21-32) mmol/L Anion Gap (3-11) BUN (6-23) mg/dl Creatinine (0.6-1.4) mg/dl Est Cr Clr Drug Dosing ml/min Est GFR ( Amer) ml/min Est GFR (Non-Af Amer) ml/min BUN/Creatinine Ratio (10-20) Glucose (70-99(Fasting)) mg/dl Calcium (8.6-10.3) mg/dl Total Bilirubin (0.2-1.0) mg/dl AST (13-39) U/L ALT (7-52) U/L Alkaline Phosphatase (34-104) U/L C-Reactive Protein (0-0.5) mg/dl Total Protein (6.0-8.3) gm/dl Albumin (3.4-5.0) gm/dl Globulin (2.5-4.0) gm/dl Albumin/Globulin Ratio (0.9-2) Imaging Data Attestation: I personally reviewed and interpreted this imaging study as follows: My Impression: Chest x-ray: No significant change from the chest x-ray done in May 2018 Radiologist's Impression: Chest X-Ray 03/10/23 10:58 SINGLE VIEW CHEST CLINICAL HISTORY: Sepsis. FINDINGS: 2 AP, portable, upright chest radiographs are compared to chest x-ray and chest CT dated 06/07/2018. The heart is top normal for projection. No airspace consolidation or large pleural effusion is identified. No pneumothorax is seen. The bony thorax is grossly intact. IMPRESSION: No acute cardiopulmonary abnormality. ACT 112: Negative or not required by law. Electronically signed by: Thiago Suresh M.D. 03/10/2023 1:03 PM Vascular Ultrasound 03/10/23 13:22 US extremity non-vascular ltd HISTORY: 67 years-old Male horse bite f/u us worsened draiing follow-up study in a patient with a fluid collection in the left calf COMPARISON: 02/23/2023 TECHNIQUE: Multiple real-time sonographic images of the left calf soft tissues were obtained assessing grayscale appearance and color flow FINDINGS: Complex mixed echogenicity collection within the subcutaneous tissues of the left calf redemonstrated which demonstrates more apparent fluid components and is more discrete compared to the prior study overall measuring 10.8 x 3.9 x 7.6 cm, which was not measured in its entirety by the fruit sorter on the prior study. IMPRESSION: Persistent complex collection of the left calf suggestive of an abscess versus hematoma measuring 10.8 cm. ACT 112: Negative or not required by law. The above report was generated using voice recognition software. It may contain grammatical, syntax or spelling errors. Electronically signed by: Zane Lock M.D. 03/10/2023 2:42 PM [facility] Narrative 1259: The patient was evaluated in room B8. A complete history and physical exam was performed Cardiac monitoring: An order was placed for continuous cardiac monitoring. The monitor shows a rate of 50 with sinus rhythm interpreted by wa 1447: Vital signs stable. Labs within normal limits. Ultrasound shows a complex collection of the left calf measuring 10.8 cm hematoma versus abscess. This is increased in size from 6 cm from the ultrasound done on February 23, 2 weeks ago. Spoke with Jessica Matamoros on-call general surgery PA for Dr. Arlyn Gill. She states she will be down to evaluate the patient and recommends that the patient be admitted to the medicine team. Zosyn ordered for the patient. Patient will be admitted to the [facility] hospitalist team Dr. Sharp. Impression & Plan Bitten by horse, Cellulitis of left leg Discharge Plan Visit Data Chief Complaint: Animal Bite Stated Complaint: HORSE BITE, REF BY DOC ED Provider: Didier Vanegas Discharge Problem: Bitten by horse, Cellulitis of left leg Patient Disposition: Being Evaluated by Hospitalist Discharge Instructions Interventions: ED Discharge Assessment Last Done: 03/10/23 18:36
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
[2023-03-10] MEDS ORDERED: GLUCOSE 10 TAB/TUBE PO PRN (15:11)
[2023-03-10] MEDS ORDERED: DEXTROSE 50% 50 ML SYRINGE IV PRN (15:11)
[2023-03-10] MEDS ORDERED: GLUCAGON FOR INJ 1 MG VIAL SQ PRN (15:11)
[2023-03-10] MEDS ORDERED: GLUCOSE 40% GEL 15 GM TUBE PO PRN (15:11)
[2023-03-10] MEDS ORDERED: CARBOHYDRATES FOR HYPOGLYCEMIA PO PRN (15:11)
[2023-03-10] MEDS ORDERED: LACTATED RINGER'S 1,000 ML IV ONE (15:13)
[2023-03-10 15:42] LABS: C Reactive Protein 2.91 mg/dl (0-0.5)
[2023-03-10] MEDS ORDERED: diphenhydrAMINE 50 MG/ML VIAL IV PRN (15:49)
[2023-03-10] MEDS ORDERED: ACETAMINOPHEN 1,000 MG/100 ML VIAL IV PRN (15:56)
--- NOTE | 2023-03-10 15:57 | Surgery Consultation ---
This case was discussed with the surgical PA. I agree with the plan. Date of Consultation March 10, 2023 Assessment & Plan (1) Animal bite of calf: This is a 67yM with a PMH of DM, HTN, COPD who presents to the [facility] ED on 03/10/23 with complaints of LLE pain. Of significance the patient was bitten by a mini horse about 3 weeks ago. He was subsequently admitted from 02/23-02/26 for concern of abscess vs hematoma found on US, managed conservatively and with IV abx. he was discharged to home on doxycycline which completed this past Friday. Unfortunately despite the course of orals the pain in his leg has gotten worse and the area of concern in his calf seems to be enlarging. There has been no significant drainage. Today he presented to the ER he underwent an US that revealed persistent complex collection of the left calf suggestive of an abscess versus hematoma measuring 10.8 cm. WBC 9.8, Hbg 11.3, Cr 0.9. Vital signs are stable outside of some HTN and patient is afebrile. On examination there is a large area of erythema and induration to the back of the LLE in the region of the calf which is tender to palpation. There is no significant drainage. There is some overlying skin breakdown. The patient does have ROM of ankle/knee. Would recommend obtaining a CT scan of the lower extremity to evaluate the fluid collection further and if there is any involvement of his orthopedic hardware and we will make recommendations following imaging results. If the wound does start to drain more can send off for cultures. Start patient on IV abx in the interim. No plans for any surgical intervention this evening, may eat from our standpoint but keep NPO at midnight in the event any procedures to be performed the following day. We will follow along. (2) Cellulitis of left leg: History of Present Illness History of Present Illness This is a 67yM with a PMH of DM, HTN, COPD who presents to the [facility] ED on 03/10/23 with complaints of LLE pain. Of significance the patient was bitten by a mini horse about 3 weeks ago. He was admitted around that time and managed for a leg wound with IV abx and discharged on orals. [facility] surgery was following him around that time and no surgical intervention warranted. He completed the course of po abx(doxycycline) this last Friday. He states that unfortunately despite the course of orals the pain in his leg has gotten worse and the area of concern in his calf seems to be enlarging. There has been no significant drainage. It has been dressed daily with what sounds like an iodoform and non occlusive bandage. In the ER he underwent an US that revealed persistent complex collection of the left calf suggestive of an abscess versus hematoma measuring 10.8 cm. He denies any fevers/chills, nausea/vomiting, CP/SOB. He reports he has been using a cane of home since this started, but ambulation has become more painful for him. Pain is mostly localized to the back side of the LLE in the region of his calf. Otherwise he has full range of motion/sensation of the lower extremity. Patient does report a history of a knee replacement with a blaire in the LLE. Allergies Allergy/AdvReac Type Severity Reaction Status Date / Time Penicillins Allergy Mild RASH Verified 03/10/23 15:26 fluticasone [From Flonase] Allergy Unknown Verified 03/10/23 15:26 amoxicillin AdvReac Intermediate rash Verified 03/10/23 15:26 morphine AdvReac Intermediate Rowdy, Verified 03/10/23 15:26 fired up clindamycin AdvReac Unknown ? nicol's Verified 03/10/23 15:26 syndrome Home Medications Medication Instructions Recorded Confirmed Type metformin 1,000 mg tablet 1,000 mg PO BID 06/07/18 03/10/23 History carvedilol 12.5 mg tablet 12.5 mg PO BID 04/22/22 03/10/23 History furosemide 40 mg tablet 40 mg PO QAM PRN .swelling, weight 04/22/22 03/10/23 History gain irbesartan 300 mg tablet 300 mg PO QAM 04/22/22 03/10/23 History spironolactone 25 mg tablet 25 mg PO BID 04/22/22 03/10/23 History tamsulosin 0.4 mg capsule 0.4 mg PO HS 04/22/22 03/10/23 History aspirin 81 mg tablet,delayed 81 mg PO DAILY 02/23/23 03/10/23 History release bismuth tribrom-petrolatum,wh 4" X #36 ea 02/26/23 03/10/23 Rx 3 yard bandage (Xeroform Non-Occlusive) gauze bandage 3" X 5 yard #96 ea 02/26/23 03/10/23 Rx gauze bandage 4" X 4" #25 ea 02/26/23 03/10/23 Rx acetaminophen 325 mg tablet 650 mg PO QID PRN Pain 03/10/23 03/10/23 History (Tylenol) insulin glargine 100 unit/mL (3 40 unit subcut BID 03/10/23 03/10/23 History mL) subcutaneous pen (Lantus Solostar U-100 Insulin) Patient History Medical History BPH w urinary obs/LUTS COPD (chronic obstructive pulmonary disease) Diabetes Hx of pancreatitis Hyperlipidemia Hypertension Poor historian Surgical History History of surgery on lower extremity reconstruction- left Hx of colonoscopy S/P cholecystectomy Family History Unknown Diabetes Other No family history of adverse response to anesthesia Social History Smoking Status: Never smoker Cigarettes Per Day: Unknown.; Second Hand Exposure: No; Do You Dip or Chew Tobacco: No; Hx Alcohol Use: Yes Alcohol type: beer Hx Substance Use: No Preferred Language: Romanian Communication Ability: Effective 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 Pool Installer Required: No Beliefs That Will Affect Care: None marital status: Current Living Situation: Spouse Feels Safe at Home: Yes Assistive Devices: None Review of Systems Constitutional: no fever and no chills Respiratory: no dyspnea Cardiovascular: no chest pain Neurologic: pain, swelling, and redness of the R calf Physical Exam Physical Exam: awake/alert Constitutional: well developed, well nourished and + obese; no acute distress Respiratory: normal respiratory effort Cardiovascular: Rate/Rhythm: regular rate Musculoskeletal: There is a large area of erythema and induration to the back of the LLE in the region of the calf. this is associated with tenderness to palpation. There is no significant drainage. there is some overlying skin breakdown. the patient does have ROM of ankle/knee Results & Data Vital Signs (Past 12 Hours) Vital Signs Temp Pulse Pulse Resp BP BP Pulse Ox 03/10/23 14:35 54 L 18 164/81 H 96 03/10/23 10:55 36.8 C 57 L 18 170/82 H 96 O2 Del Method 03/10/23 14:35 03/10/23 10:55 Room Air Diagnostic Findings US extremity non-vascular ltd HISTORY: 67 years-old Male horse bite f/u us worsened draiing follow-up study in a patient with a fluid collection in the left calf COMPARISON: 02/23/2023 TECHNIQUE: Multiple real-time sonographic images of the left calf soft tissues were obtained assessing grayscale appearance and color flow FINDINGS: Complex mixed echogenicity collection within the subcutaneous tissues of the left calf redemonstrated which demonstrates more apparent fluid components and is more discrete compared to the prior study overall measuring 10.8 x 3.9 x 7.6 cm, which was not measured in its entirety by the brass molder on the prior study. IMPRESSION: Persistent complex collection of the left calf suggestive of an abscess versus hematoma measuring 10.8 cm. ACT 112: Negative or not required by law. The above report was generated using voice recognition software. It may contain grammatical, syntax or spelling errors. Electronically signed by: Zane Lock M.D. 03/10/2023 2:42 PM PG Care Time/CCT Total # of Minutes Spent Total Time Spent with Patient: Total time spent is greater than 50% in coordination of care (as documented) at patient's floor/unit and/or counseling patient: Coding Level of Care Code 42288 INT INP/OBS CARE 1/40MIN Diagnoses Animal bite of calf S81.859A Cellulitis of left leg L03.116
[2023-03-10] MEDS ORDERED: LORazepam 2 MG/1 ML VIAL IV STA (17:05)
[2023-03-10] MEDS ORDERED: IOVERSOL 350 MG 125mL Prefilled Syringe IV ONE (17:26)
[2023-03-10] MEDS ORDERED: CEFEPIME 2,000 MG in SYRINGE 0 ML IV ONE (18:00)
[2023-03-10] MEDS ORDERED: DAPTOmycin 400 MG in SYRINGE 0 ML IV ONE (18:00)
[2023-03-10] MEDS ORDERED: ALBUTEROL 0.5% NEB SOLN 2.5 MG/0.5 ML VIAL NEB PRN (18:36)
--- NOTE | 2023-03-10 18:53 | CT Scan Report ---
CT SCAN OF THE LEFT TIBIA AND FIBULA WITHOUT IV CONTRAST CLINICAL HISTORY: Left leg fluid collection. COMPARISON STUDY: Ultrasound of the left lower extremity dated 03/10/2023. TECHNIQUE: Following the IV administration of 117 mL of Optiray 350, CT scan of the left tibia and fi bula is performed from the knee to the ankle. Images are reviewed in the axial, sagittal, and coronal planes. IV contrast was administered without complication. A dose lowering technique was utilized ad sonia to the principles of ALARA. The examination is degraded by streak artifact from a left knee ar throplasty. Note that interpretation is suboptimal without radiographic correlate. CT DOSE: 619.94 mGy.cm FINDINGS: The skeletal structures are osteopenic. There is no evidence of left tibial or fibular frac ture. A left knee arthroplasty is in near anatomic alignment. There has been undersurface remodeling of the patella. There is chronic deformity of the distal femur. No bony erosion or periostitis is sharonda ntified. The ankle joint is grossly maintained. The Achilles tendon is intact as visualized. Diffuse subcutaneous soft tissue edema and trace fluid is seen throughout the left lower extremity. There is asymmetric atrophy within the lateral gastrocnemius muscle and the soleus. Advanced atherosclerotic c alcification is noted in the regional arteries. The regional vessels are patent as imaged. There is a complex fluid collection within the subcutaneous soft tissues of the posterior calf. This measures a pproximately 14 x 4 x 9.5 cm. This contains internal hyperdensity and favors hematoma. No soft tissue gas is seen throughout the left lower extremity. IMPRESSION: 1. No acute bony abnormality is seen involving the left tibia or fibula. 2. Diffuse subcutaneous soft tissue edema and fluid is seen throughout the left lower extremity. Colton elate clinically. 3. There is an approximately 14 cm complex fluid collection within the subcutaneous soft tissues in t he posterior aspect of the calf. This is somewhat hyperdense, and the appearance favors hematoma. The sterility of this fluid cannot be assessed by imaging and clinical correlation will be essential. Cl inical follow-up to resolution is recommended. ACT 112: Negative or not required by law. Dictated: 03/10/2023 5:43 PM Transcribed: 03/10/2023 5:53 PM Mikael [id number] [email or web address] Electronically signed by: Thiago Suresh M.D. 03/10/2023 6:51 PM
[2023-03-10] MEDS ORDERED: CEFEPIME 2,000 MG/20 ML VIAL ONE (19:09)
[2023-03-10] MEDS: INSULIN ASPART PER UNIT CHARGE SC SCH (19:15)
[2023-03-10] MEDS ORDERED: LANTUS PER UNIT CHARGE SQ SCH (21:00)
[2023-03-10] MEDS ORDERED: SPIRONOLACTONE 25 MG TAB PO SCH (21:00)
[2023-03-10] MEDS ORDERED: ENOXAPARIN INJ 40 MG/0.4 ML SYR SQ ONE (21:00)
[2023-03-10] MEDS: PIPERACILLIN/TAZOBACTAM 4.5 GM in DEXTROSE 5% 100 ML IV SCH (21:28)
[2023-03-10] MEDS: LANTUS PER UNIT CHARGE SQ SCH (21:38)
[2023-03-10] MEDS: SPIRONOLACTONE 25 MG TAB PO SCH (22:19)
[2023-03-10] MEDS: carvediloL 12.5 MG TAB PO SCH (22:20)
[2023-03-10] MEDS: TAMSULOSIN HCL 0.4 MG CAP PO SCH (22:20)
[2023-03-11] MEDS: INSULIN ASPART PER UNIT CHARGE SC SCH ×6 (00:08→21:26)
[2023-03-11] MEDS ORDERED: CEFEPIME 2,000 MG in SYRINGE 0 ML IV SCH (02:00)
[2023-03-11] MEDS: PIPERACILLIN/TAZOBACTAM 4.5 GM in DEXTROSE 5% 100 ML IV SCH ×3 (04:40→19:43)
--- NOTE | 2023-03-11 06:03 | Electrocardiogram Report ---
Test Reason : Blood Pressure : / mmHG Vent. Rate : 055 BPM Atrial Rate : 055 BPM P-R Int : 182 ms QRS Dur : 082 ms QT Int : 446 ms P-R-T Axes : 015 -07 046 degrees QTc Int : 426 ms Sinus bradycardia Otherwise normal ECG When compared with ECG of 07-JUN-2018 10:05, Vent. rate has decreased BY 56 BPM Prior tracing appears to have lead reversal HR has decreased Confirmed by Iraj Torre ([id number]) on 03/11/2023 6:03:28 AM Referred By: Confirmed By:Iraj Torre
[2023-03-11 07:17] LABS: Albumin Level 3.7 gm/dl (3.4-5.0); Bilirubin,Total 0.6 mg/dl (0.2-1.0); Calcium 9.1 mg/dl (8.6-10.3); Potassium 4.1 mmol/L (3.5-5.1)
[2023-03-11 07:23] LABS: BUN Creatinine Ratio 22.3 (10-20); Creatinine Clr Calc Pharmacy 108.2 ml/min; Est GFR (African American) 96.2 ml/min; Globulin 3.7 gm/dl (2.5-4.0); Total Protein 7.4 gm/dl (6.0-8.3)
[2023-03-11] MEDS: carvediloL 12.5 MG TAB PO SCH ×2 (08:47→21:24)
[2023-03-11] MEDS: SPIRONOLACTONE 25 MG TAB PO SCH ×2 (08:47→21:24)
[2023-03-11] MEDS: SODIUM CHLORIDE 0.9% 1000ML 1,000 ML IV SCH ×2 (08:49→18:40)
[2023-03-11 08:53] LABS: Basophils # (auto) 0.06 K/uL (0-0.2); Basophils % (auto) 0.7 %; Eosinophils # (auto) 0.22 K/uL (0-0.50); Eosinophils % (auto) 2.4 %; Hematocrit (blood only) 33.5 % (42.0-52.0); Immature Granulocytes # (auto) 0.02 K/uL (0.01-0.20); Immature Granulocytes % (auto) 0.2 %; Lymphocytes # (auto) 1.46 K/uL (1.2-3.4); Mean Corpuscular Hemoglobin 28.2 pg (25.0-34.0); Mean Corpuscular Hgb Conc 32.8 g/dL (32.0-36.0); Mean Corpuscular Volume 85.9 fL (80.0-100.0); Mean Platelet Volume 10.6 fL (9.4-12.4); Monocytes # (auto) 0.73 K/uL (0.11-0.59); Neutrophils # (auto) 6.64 K/uL (1.40-6.50); Neutrophils % (auto) 72.7 %; Platelet Count 282 K/uL (130-400); RDW Coefficient of Variation 13.9 % (11.5-14.5); RDW Standard Deviation 42.8 fL (36.4-46.3); White Blood Count 9.13 K/ul (4.8-10.8)
[2023-03-11] MEDS: LANTUS PER UNIT CHARGE SQ SCH ×2 (08:58→21:27)
[2023-03-11] MEDS ORDERED: traMADol HCL 50 MG TABLET PO PRN (11:54)
--- NOTE | 2023-03-11 12:41 | Surgery Progress Note ---
Date of Service March 11, 2023 Assessment & Plan (1) Hematoma: Plan: Likely hematoma and vomiting the left lower extremity secondary to a traumatic course bite. The patient remains afebrile, hemodynamically stable without leukocytosis. Patient's pain is increasing. This could be due to expansion of hematoma from the liquefying process. Nonetheless the patient says he is unable to continue to tolerate this pain and pain medicine is not helping. The patient will be taken to the operating room for exploration of area, relief of this fluid collection and cultures will be taken. The details of this procedure been explained to the patient including the risks and benefits. Consent was obtained. Admission and Anticipated Discharge Date Admission Date: March 10, 2023 Subjective Patient seen and examined this AM. He complains of increased pain at the left lower calf. Patient says his pain is intolerable and there are no relieving factors. Physical Exam Constitutional: healthy appearing; no acute distress, not ill appearing and + uncomfortable Respiratory: normal respiratory effort; no respiratory distress, no labored breathing and does not use accessory muscles Cardiovascular: Rate/Rhythm: regular rate Skin: Excoriations and the tense part of the left lower calf. There is no drainage from this area. There is slight pink discoloration to the skin over this area. This area is tender to touch. There is no circumferential edema or swelling involving the left lower extremity. Results & Data Vital Signs (Past 12 Hours) Vital Signs Temp Pulse Resp BP Pulse Ox O2 Del Method 03/11/23 07:02 36.7 C 53 L 18 113/62 96 Room Air Diagnostic Findings CT to the lower extremity obtained reveals a 14cm complex fluid collection. Likely hematoma. PG Care Time/CCT Total # of Minutes Spent Total Time Spent with Patient: Total time spent is greater than 50% in coordination of care (as documented) at patient's floor/unit and/or counseling patient: Coding Level of Care Code 09488 SUB INP/OBS CARE 08/14MIN Diagnoses Hematoma T14.8XXA
[2023-03-11] MEDS ORDERED: ATROPINE SULFATE 0.1 MG/ML 10ML SYR IV PRN (15:53)
[2023-03-11] MEDS ORDERED: fentaNYL citrate PF 100 MCG/2 ML VIAL IV PRN (15:53)
[2023-03-11] MEDS ORDERED: ONDANSETRON INJ 2 MG/ML 2 ML VIAL IV PRN (15:53)
[2023-03-11] MEDS ORDERED: ePHEDrine sulfate 50 MG/ML AMP IV PRN (15:53)
--- NOTE | 2023-03-11 15:53 | Anesthesiology Consultation ---
Date of Service March 11, 2023 Assessment & Plan (1) Encounter for pre-operative examination: Chart Review Chart Review: Acceptable Risk for Surgery and Patient NOT seen in Pre Admission Testing Consults Requested none History Surgery Operation Date: 03/11/23 12:30 Proposed Procedures p Left Lower Leg Wound Exploration and Drainage of Hematoma - Edi Gill DO Height/Weight Height: 6 ft Weight: 137.8 kg Allergies Allergy/AdvReac Type Severity Reaction Status Date / Time Penicillins Allergy Mild RASH Verified 03/10/23 15:26 fluticasone [From Flonase] Allergy Unknown Verified 03/10/23 15:26 amoxicillin AdvReac Intermediate rash Verified 03/10/23 15:26 morphine AdvReac Intermediate Rowdy, Verified 03/10/23 15:26 fired up clindamycin AdvReac Unknown ? nicol's Verified 03/10/23 15:26 syndrome Medications Home Medications Medication Instructions Recorded Confirmed Last Taken metformin 1,000 mg tablet 1,000 mg PO BID 06/07/18 03/10/23 03/10/23 07:00 carvedilol 12.5 mg tablet 12.5 mg PO BID 04/22/22 03/10/23 03/10/23 07:00 furosemide 40 mg tablet 40 mg PO QAM PRN .swelling, weight 04/22/22 03/10/23 03/09/23 gain irbesartan 300 mg tablet 300 mg PO QAM 04/22/22 03/10/23 03/10/23 07:00 spironolactone 25 mg tablet 25 mg PO BID 04/22/22 03/10/23 03/10/23 07:00 tamsulosin 0.4 mg capsule 0.4 mg PO HS 04/22/22 03/10/23 04/28/22 aspirin 81 mg tablet,delayed 81 mg PO DAILY 02/23/23 03/10/23 03/10/23 07:00 release bismuth tribrom-petrolatum,wh 4" X #36 ea 02/26/23 03/10/23 Unknown 3 yard bandage (Xeroform Non-Occlusive) gauze bandage 3" X 5 yard #96 ea 02/26/23 03/10/23 Unknown gauze bandage 4" X 4" #25 ea 02/26/23 03/10/23 Unknown acetaminophen 325 mg tablet 650 mg PO QID PRN Pain 03/10/23 03/10/23 Unknown (Tylenol) insulin glargine 100 unit/mL (3 40 unit subcut BID 03/10/23 03/10/23 03/09/23 mL) subcutaneous pen (Lantus Solostar U-100 Insulin) Active Medications Generic Name Dose Route Start Last Admin Trade Name Freq PRN Reason Stop Dose Admin Carvedilol 12.5 mg 03/10/23 21:00 03/11/23 08:47 Carvedilol 12.5 Mg Tab PO 04/09/23 20:59 12.5 mg BID [place] Administration Piperacillin Sod/Tazobactam 120 mls @ 30 mls/hr 03/10/23 20:00 03/11/23 13:39 Sod 4.5 gm/ Dextrose IV 03/17/23 19:59 30 mls/hr Q8H [place] Infusion Protocol Sodium Chloride 1,000 mls @ 80 mls/hr 03/11/23 08:15 03/11/23 13:39 Nss 1000ml IV 04/10/23 08:14 80 mls/hr .[id number] [place] Infusion Insulin Aspart 0 units 03/10/23 18:00 03/11/23 12:10 Insulin Aspart Per Unit Charge SC 04/09/23 17:59 Not Given Q6 [place] Insulin Glargine 20 units 03/10/23 21:00 03/11/23 08:58 Lantus Per Unit Charge SQ 04/09/23 20:59 20 units BID [place] Administration Spironolactone 25 mg 03/10/23 21:00 03/11/23 08:47 Spironolactone 25 Mg Tab PO 04/09/23 20:59 25 mg BID [place] Administration Tamsulosin HCl 0.4 mg 03/10/23 21:00 03/10/23 22:20 Tamsulosin Hcl 0.4 Mg Cap PO 04/09/23 20:59 0.4 mg HS [place] Administration NPO Date Last Intake of Fluids: 03/10/23 Time Last Intake of Fluids: 22:30 Last Intake of Fluids Comment: sip of h20 with 2 meds this am Date Last Intake of Solids: 03/10/23 Time Last Intake of Solids: 22:30 Past Medical History Medical History BPH w urinary obs/LUTS COPD (chronic obstructive pulmonary disease) Diabetes Hx of pancreatitis Hyperlipidemia Hypertension Poor historian Past Family History Family History Unknown Diabetes Other No family history of adverse response to anesthesia Past Surgical History Surgical History History of surgery on lower extremity reconstruction- left Hx of colonoscopy S/P cholecystectomy Social History Smoking Status: Never smoker tobacco type: cigarettes Smoking cigarettes per day: Unknown. Do You Dip or Chew Tobacco: No Hx Alcohol Use: No Alcohol type: beer alcohol intake frequency: holidays/special occasions only Hx Substance Use: No substance use type: does not use Physical Exam Vital Signs Last Vital Signs Temp 98.1 F 03/11/23 07:02 Pulse 53 L 03/11/23 07:02 Resp 18 03/11/23 07:02 BP 113/62 03/11/23 07:02 Pulse Ox 96 03/11/23 07:02 O2 Del Method Room Air 03/11/23 07:02 Testing Laboratory Results 03/11/23 08:24 03/11/23 06:10 APTT 27.5 Seconds (21.0-31.0) 03/10/23 12:00 03/11/23 03/11/23 03/11/23 11:57 08:54 06:30 POC Glucose 136 H 151 H 143 H Electrocardiogram Date: 03/10/23 Findings: + NSR @
[2023-03-11] MEDS ORDERED: BUPIVACAINE/EPINEPHRINE 0.5% MPF 1:200,000 30 ML VIAL ONE (16:06)
[2023-03-11] MEDS ORDERED: LIDOCAINE 2% 2 ML VIAL/AMP(20MG/ML) INFIL ONE (16:09)
[2023-03-11] MEDS ORDERED: PROPOFOL IV EMULSION 10 MG/ML 20 ML VIAL IV ONE (16:09)
[2023-03-11] MEDS ORDERED: ROCURONIUM BROMIDE 10 MG/ML 5 ML VIAL IV ONE (16:09)
[2023-03-11] MEDS ORDERED: fentaNYL citrate PF 100 MCG/2 ML VIAL ONE (16:10)
[2023-03-11] MEDS ORDERED: ONDANSETRON INJ 2 MG/ML 2 ML VIAL ONE (16:10)
[2023-03-11] MEDS ORDERED: MIDAZOLAM HCL 1 MG/ML 2ML VIAL ONE (16:10)
[2023-03-11] MEDS ORDERED: DEXAMETHASONE SOD INJ 4 MG/ML VIAL ONE (16:10)
--- NOTE | 2023-03-11 16:31 | Hospitalist Progress Note ---
Date of Service March 11, 2023 Assessment & Plan (1) Abscess of left lower extremity: Plan: This could simply be an expanding hematoma with localized irritation. Surgery consultation appreciated. I&D procedure will be performed today. He remains on intravenous Zosyn and daptomycin until culture results are available. (2) BPH w urinary obs/LUTS: Plan: Stable. Continue flomax (3) COPD (chronic obstructive pulmonary disease): Plan: Stable. Incentive spirometry and prn albuterol nebs (4) Diabetes: Plan: ADA diet. Sliding scale coverage as needed. Metformin is on hold. Basal insulin therapy with Lantus (5) Hypertension: Plan: Stable. Continue carvedilol . Hold spironolactone, furosemide, and irbesartan temporarily Plan Anticipate eventual discharge back to home Admission and Anticipated Discharge Date Admission Date: March 10, 2023 Subjective Alert and oriented. He is requiring parenteral narcotics for pain control of the left calf hematoma. There could be an infectious process also. Appreciate general surgery consultation and recommendations. Incision and drainage will be performed later today he was taking doxycycline at home. He is now on vancomycin and cefepime. CT scan reveals a complex 10 cm fluid collection in the left calf area where the horse bit him Review of Systems Review of Systems: Constitutional-no fever or chills ENT-no blurred vision, no double vision, no epistaxis, no sore throat Respiratory-no cough, no wheezing, no shortness of breath Cardiac-no palpitations, no chest pain, no syncope GI-no nausea, vomiting, diarrhea, melena, hematochezia -no urinary retention, no urinary incontinence, no dysuria, no hematuria Musculoskeletal-healing animal bite left calf with swelling and marked tenderness Skin-healing horse bite left calf Neuro-no isolated weakness, no paresthesia Psych-no depression, no anxiety Physical Exam Physical Exam: General-alert and oriented x3, no fevers, no chills HEENT-head atraumatic and normocephalic, pupils equal and reactive to light, extraocular muscles intact Neck-no lymphadenopathy or thyromegaly, trachea midline Chest-clear to auscultation percussion. No rales wheezing or rhonchi Cardiac-regular rate and rhythm, normal S1 and S2 Abdomen-normal bowel sounds, nontender, no hepatosplenomegaly Extremities-left calf horse bite area is healing but there is underlying swelling and marked tenderness of the left mid calf Neuro-cranial nerves II through XII intact, motor and sensory function within normal limits, strength symmetrical , no focal deficits Psych-normal affect, normal mood Results & Data Results & Data Vital Signs (Past 12 Hours) Vital Signs Temp Pulse Resp BP Pulse Ox O2 Del Method 03/11/23 07:02 36.7 C 53 L 18 113/62 96 Room Air Laboratory Results 03/11/23 08:24 03/11/23 06:10 PG Care Time/CCT Total # of Minutes Spent Total Time Spent with Patient: Total time spent is greater than 50% in coordination of care (as documented) at patient's floor/unit and/or counseling patient: Coding Level of Care Code 74963 SUB INP/OBS CARE 3/50MIN Diagnoses Abscess of left lower extremity L02.416 BPH w urinary obs/LUTS N40.1; N13.8 COPD (chronic obstructive pulmonary disease) J44.9 Diabetes E11.9 Hypertension I10
[2023-03-11] MEDS ORDERED: KETAMINE 50 MG/5 ML SYRINGE ONE (16:48)
[2023-03-11] MEDS ORDERED: BACITRACIN OINT 14 GM TUBE ONE (16:57)
[2023-03-11] MEDS ORDERED: SUGAMMADEX SODIUM 200 MG/2 ML VIAL IV ONE (17:08)
--- NOTE | 2023-03-11 17:40 | Operative Report ---
PG Post Operative Report Pre & Post Diagnosis Operation Date: 03/11/23 12:30 Pre-Op Diagnosis: Left lower extremity abscess Post-Op Diagnosis: Left lower extremity abscess I identified the patient and participated in the time-out.: Yes Procedure Operation Date: 03/11/23 12:30 Actual Procedures p Left Lower Leg Wound Exploration and Drainage of Hematoma(Left) - Edi Nance DO Surgeon Edi Nance DO Parole Director Nic RUIZ Estimated Blood Loss 3 Findings Consistent with Post-Op Diagnosis Specimens None Drains None Anesthesia Type General Complications None Indications Worsening hematoma Description of Procedure The patient was brought back to the operating room placed on the operating room table in prone position. He was connected to cardiac and oxygen monitoring, administered general anesthesia and the airway was secured. The left lower extremity was prepped and draped in typical sterile fashion. The area was cleaned of lipodermatosclerosis exudate and an area of excoriation was cleared of exudative debris using a saline soaked lap pad. A 3.5 cm incision was made at the most tense portion of the posterior leg hematoma and hematoma was evacuated. A culture swab was taken. Hematoma was evacuated, the wound was copiously irrigated and suction. Bleeding was noted and was controlled with cautery. Once hemostasis was achieved a nylon suture was placed at the center of the wound to approximate the skin using a 4-0 nylon suture. Local anesthetic was injected into the skin and subcutaneous tissue. The superior and inferior aspects of the wound were packed with half-inch iodoform packing. The areas of excoriated skin were dressed with bacitracin. A gauze pressure dressing was applied over the wound and covered with an ABD. The left lower extremity was wrapped from the foot to the lower knee with Kerlix and an Reggie wrap. The patient tolerated the procedure well, he was awakened from anesthesia and transferred to recovery in stable condition. I attest to the content of the Intraoperative Record and any orders documented therein. Any exceptions are noted below.
--- NOTE | 2023-03-11 17:59 | Anesthesiology Progress Note ---
Date of Service March 11, 2023 Anesthesia Post Procedure Vital Signs Vital Signs: Temp Pulse Pulse Pulse Resp BP BP 03/11/23 17:50 75 10 L 147/70 H 03/11/23 17:40 98.1 F 77 18 149/77 H 03/11/23 17:33 98.1 F 73 12 151/76 H 03/11/23 07:02 98.1 F 53 L 18 113/62 03/10/23 21:25 98.8 F 65 17 143/69 H 03/10/23 21:03 84 18 159/83 H Pulse Ox O2 Del Method O2 Flow Rate 03/11/23 17:50 97 Oxymask 0 03/11/23 17:40 97 Oxymask 0 03/11/23 17:33 99 Oxymask 3 03/11/23 07:02 96 Room Air 03/10/23 21:25 97 Room Air 03/10/23 21:03 96 Room Air Pain Intensity Left Calf: Pain Intensity: 0 Transfer of Care Handoff Completed per policy Notes Mental Status: alert / awake / arousable and participated in evaluation Patient Amnestic to Procedure: Yes Nausea / Vomiting: adequately controlled Pain: adequately controlled Airway Patency, RR, SpO2: stable & adequate BP & HR: stable & adequate Hydration State: stable & adequate Anesthetic Complications: no major complications apparent and Pt Satisfied with anesthetic care
[2023-03-11] MEDS ORDERED: DAPTOmycin 400 MG in SYRINGE 0 ML IV SCH (18:00)
[2023-03-11] MEDS: ASPIRIN 81 MG ECTAB PO SCH (18:42)
[2023-03-11] MEDS ORDERED: Nursing to Pharmacy Communication SCH (18:45)
[2023-03-11] MEDS: TAMSULOSIN HCL 0.4 MG CAP PO SCH (21:24)
[2023-03-11] MEDS: traMADol HCL 50 MG TABLET PO PRN (21:26)
[2023-03-12] MEDS: PIPERACILLIN/TAZOBACTAM 4.5 GM in DEXTROSE 5% 100 ML IV SCH (04:04)
[2023-03-12] MEDS: SODIUM CHLORIDE 0.9% 1000ML 1,000 ML IV SCH (06:01)
[2023-03-12] MEDS: traMADol HCL 50 MG TABLET PO PRN (06:01)
[2023-03-12 06:53] LABS: Basophils # (auto) 0.02 K/uL (0-0.2); Basophils % (auto) 0.2 %; Hematocrit (blood only) 31.5 % (42.0-52.0); Hemoglobin 10.6 g/dl (14.0-18.0); Immature Granulocytes # (auto) 0.07 K/uL (0.01-0.20); Immature Granulocytes % (auto) 0.7 %; Lymphocytes # (auto) 0.91 K/uL (1.2-3.4); Lymphocytes % (auto) 8.6 %; Mean Corpuscular Hemoglobin 28.3 pg (25.0-34.0); Mean Corpuscular Hgb Conc 33.7 g/dL (32.0-36.0); Mean Corpuscular Volume 84.2 fL (80.0-100.0); Mean Platelet Volume 10.6 fL (9.4-12.4); Monocytes # (auto) 0.33 K/uL (0.11-0.59); Monocytes % (auto) 3.1 %; Neutrophils # (auto) 9.29 K/uL (1.40-6.50); Neutrophils % (auto) 87.4 %; Platelet Count 291 K/uL (130-400); RDW Standard Deviation 42.5 fL (36.4-46.3); Red Blood Count 3.74 M/uL (4.70-6.10); White Blood Count 10.62 K/ul (4.8-10.8)
--- NOTE | 2023-03-12 07:12 | Surgery Progress Note ---
Date of Service March 12, 2023 Assessment & Plan (1) Hematoma: Plan: Patient feels much improved POD 1 s/p evacuation. F/U cultures taken intraop although this did not appear infected. Hold Lovenox this am. May resume tomorrow. Will take down dressings tomorrow to assess wound. Encourage ambulation, high elevation of the LLE while in bed, elevate when in the chair. Admission and Anticipated Discharge Date Admission Date: March 10, 2023 Subjective Patient seen this am. Feels much improved, is now able to move his leg around more. No pain. Has been icing the area. No complaints. Physical Exam Constitutional: healthy appearing and comfortable; no acute distress and not ill appearing Respiratory: normal respiratory effort; no respiratory distress, no labored breathing and does not use accessory muscles Musculoskeletal: Surgical dressings remain intact with no evidence for bleeding on the dressings. Neurologic: moves all extremities and awake; no focal motor deficits and not confused Results & Data Vital Signs (Past 12 Hours) Vital Signs Temp Pulse Resp BP Pulse Ox O2 Del Method 03/12/23 02:40 36.9 C 79 18 132/74 94 Room Air 03/11/23 23:18 36.9 C 90 18 134/78 94 Room Air 03/11/23 21:04 37 C 81 18 138/74 92 Room Air 03/11/23 20:15 37 C 84 18 151/85 H 94 Room Air 03/11/23 19:12 70 18 155/84 H 97 Room Air PG Care Time/CCT Total # of Minutes Spent Total Time Spent with Patient: Total time spent is greater than 50% in coordination of care (as documented) at patient's floor/unit and/or counseling patient: [place] [address] SUB INP/OBS CARE 25MIN Patient Type Established History Problem Focused Exam Problem Focused Medical Decision Making Straight Forward Diagnoses Hematoma T14.8XXA
[2023-03-12 07:21] LABS: BUN Creatinine Ratio 17.3 (10-20); Calcium 8.4 mg/dl (8.6-10.3); Creatinine Clr Calc Pharmacy 103.8 ml/min; Est GFR (African American) 91.4 ml/min; Est GFR (Non-African American) 78.9 ml/min; Potassium 4.2 mmol/L (3.5-5.1)
[2023-03-12] MEDS: SPIRONOLACTONE 25 MG TAB PO SCH ×2 (08:05→20:21)
[2023-03-12] MEDS: carvediloL 12.5 MG TAB PO SCH ×2 (08:06→20:21)
[2023-03-12] MEDS: ASPIRIN 81 MG ECTAB PO SCH (08:06)
[2023-03-12] MEDS: INSULIN ASPART PER UNIT CHARGE SC SCH ×4 (08:13→21:39)
[2023-03-12] MEDS: LANTUS PER UNIT CHARGE SQ SCH ×2 (08:13→21:39)
--- NOTE | 2023-03-12 12:48 | Hospitalist Progress Note ---
Date of Service March 12, 2023 Assessment & Plan (1) Abscess of left lower extremity: Plan: This appears to be hematoma with localized irritation. Surgery consultation appreciated. I&D procedure was performed March 11, postoperative day #1. Gram stain is negative. No evidence of abscess. Antibiotics discontinued. Continue pain control measures. (2) BPH w urinary obs/LUTS: Plan: Stable. Continue flomax (3) COPD (chronic obstructive pulmonary disease): Plan: Stable. Incentive spirometry and prn albuterol nebs (4) Diabetes: Plan: ADA diet. Sliding scale coverage as needed. Metformin has been restarted. Basal insulin therapy with Lantus (5) Hypertension: Plan: Stable. Continue carvedilol . Holding spironolactone, furosemide, and irbesartan temporarily Plan Hopeful discharge to home tomorrow, March 13 Admission and Anticipated Discharge Date Admission Date: March 12, 2023 Subjective Alert and oriented. He feels much better after incision and drainage of left calf hematoma. Postoperative day #1. Gram stain negative for any bacteria. This does not appear to be an abscess. IV antibiotics discontinued. Surgery entry noted. Hopefully home tomorrow, March 13 Review of Systems Review of Systems: Constitutional-no fever or chills ENT-no blurred vision, no double vision, no epistaxis, no sore throat Respiratory-no cough, no wheezing, no shortness of breath Cardiac-no palpitations, no chest pain, no syncope GI-no nausea, vomiting, diarrhea, melena, hematochezia -no urinary retention, no urinary incontinence, no dysuria, no hematuria Musculoskeletal-left calf surgical site unremarkable. Less swelling and less tenderness Skin-healing horse bite left calf Neuro-no isolated weakness, no paresthesia Psych-no depression, no anxiety Physical Exam Physical Exam: General-alert and oriented x3, no fevers, no chills HEENT-head atraumatic and normocephalic, pupils equal and reactive to light, extraocular muscles intact Neck-no lymphadenopathy or thyromegaly, trachea midline Chest-clear to auscultation percussion. No rales wheezing or rhonchi Cardiac-regular rate and rhythm, normal S1 and S2 Abdomen-normal bowel sounds, nontender, no hepatosplenomegaly Extremities-left calf incision and drainage site is unremarkable. Left calf swelling and tenderness markedly diminished. Neuro-cranial nerves II through XII intact, motor and sensory function within normal limits, strength symmetrical , no focal deficits Psych-normal affect, normal mood Results & Data Results & Data Vital Signs (Past 12 Hours) Vital Signs Temp Pulse Resp BP BP Pulse Ox O2 Del Method 03/12/23 12:27 36.9 C 66 18 149/69 H 96 Room Air 03/12/23 07:22 36.7 C 60 18 145/67 H 95 Room Air 03/12/23 02:40 36.9 C 79 18 132/74 94 Room Air Laboratory Results 03/12/23 06:24 03/12/23 06:24 PG Care Time/CCT Total # of Minutes Spent Total Time Spent with Patient: Total time spent is greater than 50% in coordination of care (as documented) at patient's floor/unit and/or counseling patient: Coding Level of Care Code 61081 SUB INP/OBS CARE 3/50MIN Diagnoses Abscess of left lower extremity L02.416 BPH w urinary obs/LUTS N40.1; N13.8 COPD (chronic obstructive pulmonary disease) J44.9 Diabetes E11.9 Hypertension I10
[2023-03-12] MEDS ORDERED: metFORMIN HCL 500 MG TAB PO ONE (13:30)
[2023-03-12] MEDS ORDERED: Nursing to Pharmacy Communication SCH (13:30)
[2023-03-12] MEDS: metFORMIN HCL 500 MG TAB PO SCH (17:08)
[2023-03-12] MEDS: TAMSULOSIN HCL 0.4 MG CAP PO SCH (20:21)
[2023-03-13 06:28] LABS: Basophils # (auto) 0.07 K/uL (0.00-0.20); Basophils % (auto) 0.7 %; Eosinophils # (auto) 0.19 K/uL (0.00-0.50); Eosinophils % (auto) 1.9 %; Hematocrit (blood only) 31.9 % (42.0-52.0); Hemoglobin 10.1 g/dl (14.0-18.0); Immature Granulocytes # (auto) 0.06 K/uL (0.01-0.20); Immature Granulocytes % (auto) 0.6 %; Lymphocytes # (auto) 2.72 K/uL (1.20-3.40); Lymphocytes % (auto) 26.7 %; Mean Corpuscular Hemoglobin 27.8 pg (25.0-34.0); Mean Corpuscular Hgb Conc 31.7 g/dL (32.0-36.0); Mean Corpuscular Volume 87.9 fL (80.0-100.0); Mean Platelet Volume 10.9 fL (9.4-12.4); Monocytes # (auto) 0.83 K/uL (0.11-0.59); Monocytes % (auto) 8.2 %; Neutrophils % (auto) 61.9 %; Platelet Count 263 K/uL (130-400); RDW Coefficient of Variation 14.3 % (11.5-14.5); RDW Standard Deviation 45.7 fL (36.4-46.3); Red Blood Count 3.63 M/uL (4.70-6.10); White Blood Count 10.17 K/ul (4.8-10.8)
[2023-03-13 06:41] LABS: BUN Creatinine Ratio 24.7 (10-20); Calcium 8.5 mg/dl (8.6-10.3); Creatinine Clr Calc Pharmacy 109.3 ml/min; Est GFR (African American) 97.4 ml/min; Est GFR (Non-African American) 84.1 ml/min; Potassium 3.8 mmol/L (3.5-5.1)
[2023-03-13] MEDS: INSULIN ASPART PER UNIT CHARGE SC SCH ×4 (08:16→20:43)
[2023-03-13] MEDS: metFORMIN HCL 500 MG TAB PO SCH ×2 (08:19→17:33)
[2023-03-13] MEDS: carvediloL 12.5 MG TAB PO SCH ×2 (08:19→20:49)
[2023-03-13] MEDS: ASPIRIN 81 MG ECTAB PO SCH (08:20)
[2023-03-13] MEDS: SPIRONOLACTONE 25 MG TAB PO SCH ×2 (08:20→20:48)
[2023-03-13] MEDS: LANTUS PER UNIT CHARGE SQ SCH ×2 (08:25→20:49)
--- NOTE | 2023-03-13 11:40 | Surgery Progress Note ---
Date of Service March 13, 2023 Assessment & Plan (1) Hematoma: Plan: POD 2 s/p evacuation of hematoma left lower extremity. Patient feels improved and is doing well. Has remained without leukocytosis and surgical cultures prove negativity. He remains afebrile and HD stable throughout his stay. Patient continues to tolerated a heart healthy and carb controlled diet may continue. No further surgical intervention at this time. Wound care management at this time. Recommend daily dressing change with light and gentle irrigation with saline while in the hospital, light packing with plain packing, cover with a pressure gauze dressing folded in small square l lopez followed by ABD. Wrap the left lower leg from the base of the toes to just below the knee with Kerlix and Reggie wrap. Home nursing for aid with dressing changes. Home instruction to change dress ings daily, lightly pack, cover with dry sterile gauze pressure dressing folded in small square layers and cover with an ABD, wrapped with Kerlix and Reggie wrap from the base of the toes to just below the knee. Follow-up with me in the office in 1 to 2 weeks. The patient may be discharged per medicine's recommendation. Admission and Anticipated Discharge Date Admission Date: March 12, 2023 Subjective Patient seen and examined today. Continues to feel well and improved. He has been able to ambulate without pain in his leg. Complains of no pain. Physical Exam Constitutional: healthy appearing; not ill appearing, not in distress and not diaphoretic Respiratory: normal respiratory effort; no respiratory distress, no labored breathing and does not use accessory muscles Musculoskeletal: Dressings were intact and dry the outer dressings. Dressings were taken down for wound evaluation today. There was old appearing dark blood tinged fluid from the wound when the packing was removed. There is no considerable swelling of the left lower extremity. The wound was copiously irrigated with saline and cleared of excess fluid. Once the excess fluid was cleared, the wound was lightly packed with plain packing at the inferior and superior aspects. The area was then redressed with a pressure gauze dressing covered with an ABD and the left lower leg from the foot to just below the knee was wrapped with a Kerlix wrap followed by an reggie wrap. The patient tolerated this dressing change with no problem. Neurologic: moves all extremities and awake; no focal motor deficits, not confused and not obtunded Results & Data Vital Signs (Past 12 Hours) Vital Signs Temp Pulse Resp BP Pulse Ox O2 Del Method 03/13/23 07:00 36.4 C L 58 L 20 138/73 95 Room Air Laboratory Results Hgb 10.1 today from 10.6 yesterday PG Care Time/CCT Total # of Minutes Spent Total Time Spent with Patient: Total time spent is greater than 50% in coordination of care (as documented) at patient's floor/unit and/or counseling patient: Coding Level of Care Code 88293 SUB INP/OBS CARE 2/35MIN Diagnoses Hematoma T14.8XXA
--- NOTE | 2023-03-13 15:06 | Hospitalist Progress Note ---
Date of Service March 13, 2023 Assessment & Plan (1) Abscess of left lower extremity: Plan: This appears to be hematoma with localized irritation. Surgery consultation appreciated. I&D procedure was performed March 11, postoperative day #2. Gram stain is negative. No evidence of abscess. Antibiotics have been discontinued. Continue pain control measures. (2) BPH w urinary obs/LUTS: Plan: Stable. Continue flomax (3) COPD (chronic obstructive pulmonary disease): Plan: Stable. Incentive spirometry and prn albuterol nebs (4) Diabetes: Plan: ADA diet. Sliding scale coverage as needed. Metformin has been restarted. Basal insulin therapy with Lantus (5) Hypertension: Plan: Stable. Continue carvedilol . All medications have been restarted Plan Anticipate discharge to home tomorrow, March 14 Admission and Anticipated Discharge Date Admission Date: March 12, 2023 Subjective Alert and oriented. Postoperative day #2 after incision and drainage of the left calf hematoma. Surgery entry noted. Gram stain negative. Cultures remain negative. Glucose controlled at 140. Anticipate discharge to home tomorrowMarch 14 Review of Systems Review of Systems: Constitutional-no fever or chills ENT-no blurred vision, no double vision, no epistaxis, no sore throat Respiratory-no cough, no wheezing, no shortness of breath Cardiac-no palpitations, no chest pain, no syncope GI-no nausea, vomiting, diarrhea, melena, hematochezia -no urinary retention, no urinary incontinence, no dysuria, no hematuria Musculoskeletal-left calf surgical site unremarkable. Less swelling and less tenderness Skin-healing horse bite left calf Neuro-no isolated weakness, no paresthesia Psych-no depression, no anxiety Physical Exam Physical Exam: General-alert and oriented x3, no fevers, no chills HEENT-head atraumatic and normocephalic, pupils equal and reactive to light, extraocular muscles intact Neck-no lymphadenopathy or thyromegaly, trachea midline Chest-clear to auscultation percussion. No rales wheezing or rhonchi Cardiac-regular rate and rhythm, normal S1 and S2 Abdomen-normal bowel sounds, nontender, no hepatosplenomegaly Extremities-left calf incision and drainage site is unremarkable. Left calf swelling and tenderness markedly diminished. Neuro-cranial nerves II through XII intact, motor and sensory function within normal limits, strength symmetrical , no focal deficits Psych-normal affect, normal mood Results & Data Results & Data Vital Signs (Past 12 Hours) Vital Signs Temp Pulse Resp BP Pulse Ox O2 Del Method 03/13/23 07:00 36.4 C L 58 L 20 138/73 95 Room Air Laboratory Results 03/13/23 05:40 03/13/23 05:40 PG Care Time/CCT Total # of Minutes Spent Total Time Spent with Patient: Total time spent is greater than 50% in coordination of care (as documented) at patient's floor/unit and/or counseling patient: Coding Level of Care Code 43254 SUB INP/OBS CARE 2/35MIN Diagnoses Abscess of left lower extremity L02.416 BPH w urinary obs/LUTS N40.1; N13.8 COPD (chronic obstructive pulmonary disease) J44.9 Diabetes E11.9 Hypertension I10
[2023-03-13] MEDS: LOSARTAN POTASSIUM 50 MG TAB PO SCH (16:27)
[2023-03-13] MEDS: TAMSULOSIN HCL 0.4 MG CAP PO SCH (20:49)
--- NOTE | 2023-03-14 07:32 | Surgery Progress Note ---
Date of Service March 14, 2023 Assessment & Plan (1) Hematoma: Plan: POD 3 s/p evacuation of left lower extremity hematoma. Patient has been afebrile and is doing well. Wound cultures obtained in the operating room were negative. Patient is being prepared for discharge. Case management on board to arrange home nursing. Update to home dressing orders: Remove packing and change daily with 1 piece of packing at the superior aspect of the wound extending superiorly and slightly inferior. Cover with a pressure gauze dressing, ABD and wrapped with Kerlix and Reggie wrap. The patient is on DVT prophylaxis. He is also ambulating. 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 See me in the office next week or the following week. Please call sooner if there are issues or concerns. Admission and Anticipated Discharge Date Admission Date: March 12, 2023 Subjective Patient was seen and examined this AM. Has no complaints. Says he did require 1 dose of pain medication after dressing change yesterday. Also states he was told to home nursing is being arranged. Physical Exam Constitutional: comfortable; no acute distress, not ill appearing and not diaphoretic Respiratory: normal respiratory effort; no respiratory distress, no labored breathing and does not use accessory muscles Musculoskeletal: Left lower extremity dressings were changed today. The second piece of packing that was placed yesterday was not identified the wound was examined and this was not present 1 strip of packing was removed. Excess old blood-tinged fluid was expressed from the wounds. The wound seems to be starting to heal down and closing underneath the skin. A strip of plain packing was inserted above the suture extending into the superior aspect of the wound and slightly inferiorly. The wound was redressed with dry sterile pressure gauze, covered with an ABD. The lower leg was then wrapped from the base of the toes to just below the knee with Kerlix followed by an Reggie wrap. There are no signs of infection. The skin surrounding the wounds where the hem atoma have been located is hyperemic. The leg is not edematous. Neurologic: awake; no focal motor deficits, not confused and not obtunded Results & Data Vital Signs (Past 12 Hours) Vital Signs Temp Pulse Resp BP Pulse Ox O2 Del Method 03/14/23 07:26 36.9 C 70 19 177/82 H 94 Room Air 03/13/23 20:40 36.7 C 64 18 142/77 H 98 Room Air PG Care Time/CCT Total # of Minutes Spent Total Time Spent with Patient: Total time spent is greater than 50% in coordination of care (as documented) at patient's floor/unit and/or counseling patient: Coding Level of Care Code 85049 SUB INP/OBS CARE 08/14MIN Diagnoses Hematoma T14.8XXA
[2023-03-14] MEDS: INSULIN ASPART PER UNIT CHARGE SC SCH ×2 (07:53→12:01)
[2023-03-14] MEDS: LANTUS PER UNIT CHARGE SQ SCH (07:56)
[2023-03-14] MEDS: metFORMIN HCL 500 MG TAB PO SCH (07:58)
[2023-03-14] MEDS: ASPIRIN 81 MG ECTAB PO SCH (07:58)
[2023-03-14] MEDS: LOSARTAN POTASSIUM 50 MG TAB PO SCH (07:59)
[2023-03-14] MEDS: carvediloL 12.5 MG TAB PO SCH (07:59)
[2023-03-14] MEDS: SPIRONOLACTONE 25 MG TAB PO SCH (07:59)
[2023-03-14 08:27] LABS: BUN Creatinine Ratio 22.2 (10-20); Calcium 8.7 mg/dl (8.6-10.3); Est GFR (African American) 101.4 ml/min; Est GFR (Non-African American) 87.5 ml/min; Potassium 4.2 mmol/L (3.5-5.1)
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
== END 2023-03-14 13:46 | disposition home health service (06) | DRG 603 ==
LOC: ED 10:47 → EDINP 10:47 → SUATTDRO 15:10 → 3E 21:03